=== PATIENT | female | born 1965 | race Caucasian/White ===

== ENCOUNTER 2016-12-17 16:06 | Emergency (ER) | payer MEDICARE, MEDICAID ==
[2016-12-17 16:40] LABS: BILIRUBIN,URINE NEGATIVE (NEG); GLUCOSE,URINE 250 mg/dL (NEG); NITRITE,URINE NEGATIVE (NEG); PROTEIN,URINE >=300 mg/dL (NEG-TRACE); UROBILINOGEN,URINE 0.2 mg/dL (0.2 mg/dL)
[2016-12-17 16:50] LABS: BACTERIA,URINE MODERATE /HPF (0-FEW); SQUAMOUS EPITHELIAL CELL,UR FEW /LPF
[2016-12-17 16:51] LABS: BASO % 1 % (0-3); EOS % 1 % (0-3); HEMATOCRIT 27.8 % (36.0-47.0); HEMOGLOBIN 9.5 g/dL (12.0-15.5); LYMPH # 0.9 x10^3/uL (1.0-4.8); LYMPH % 22 % (24-48); MEAN CORPUSCULAR HEMOGLOBIN 31 pg (25-35); MEAN CORPUSCULAR HGB CONC 34 g/dL (31-37); MEAN CORPUSCULAR VOLUME 92 fL (79-100); MONO % 8 % (0-9); NEUT % 67 % (31-73); PLATELET COUNT 121 x10^3/uL (140-400); RED BLOOD COUNT 3.01 x10^6/uL (3.50-5.40); RED CELL DISTRIBUTION WIDTH 15.8 % (11.5-14.5); WHITE BLOOD COUNT 3.9 x10^3/uL (4.0-11.0)
[2016-12-17] MEDS ORDERED: cloNIDine HCL 0.1 MG TABLET PO ONE (17:00)
[2016-12-17] MEDS ORDERED: amLODIPine BESYLATE 5 MG TABLET PO ONE (17:00)
--- NOTE | 2016-12-17 17:01 | RAD ---
AP portable chest radiograph 12/17/2016 Clinical History: Shortness of breath since earlier today. An AP portable erect digital radiograph of the chest was obtained. No previous studies are available for comparison. The cardiac silhouette is mildly enlarged. The thoracic aorta is mildly tortuous. No acute pulmonary infiltrate is seen. No pleural effusion or pneumothorax is noted. Degenerative changes are seen involving the thoracic spine and both shoulders. Impression: No acute pulmonary infiltrate is seen.
[2016-12-17 17:04] LABS: CALCIUM 8.9 mg/dL (8.5-10.1); CREATININE 2.8 mg/dL (0.6-1.0); GFR 17.8; POTASSIUM 3.7 mmol/L (3.5-5.1)
--- NOTE | 2016-12-17 17:08 | ED.ADGEN ---
H Past Medical History: Hypertension, Renal Disease CHIEF COMPLAINT Chief Complaint: multiple medical complaints Problems: HPI HPI Patient is a 51-year-old female with history of hypertension and end-stage renal disease requiring dialysis who presents from dialysis clinic with complaints of shortness of breath, elevated blood pressure, urinary frequency and dysuria. Patient states she was hypertensive and short of breath prior to dialysis. She was able to complete the dialysis session continued to have shortness of breath. Patient reports feeling clammy, she denies chest pain, chest pain, tightness. Denies increased leg pain or swelling. No fever chills or sweats. No other acute symptoms or complaints. ROS Review of Systems Review symptoms as per history of present illness. All other review symptoms are negative. ALLERGIES Allergies Allergies Coded Allergies Type Severity Reaction Last Updated Verified No Known Drug Allergies 12/17/16 No MEDICATIONS Home Meds Current Medications Medications (Trade) Dose Ordered Sig/Shakila Start Time Stop Time Status Last Admin Dose Admin Amlodipine Besylate (Norvasc) 10 mg 1X ONCE 12/17/16 17:00 12/17/16 17:01 Clonidine HCl (Catapres) 0.2 mg 1X ONCE 12/17/16 17:00 12/17/16 17:01 PHYSICAL EXAM General General: Well developed, well nourished, no acute distress, well appearing HEENT: Pupils equally round and reactive to light, EOMI, no discharge, normal conjunctiva Neck: Supple, no nuchal rigidity, no JVD, trachea midline, no tenderness Cardiac: RRR, no murmurs, no gallops, no rubs Chest/Lungs: Respirations nonlabored, mildly diminished bilaterally, no wheeze, no rhonchi, no crackles Abdomen: soft, non-distended, no guarding, no peritoneal signs, non-tender Back: No tenderness Extremities: no edema, pulses intact, non-tender,capillary refill <3 sec bilateral upper and lower extremities, Neuro: Alert and oriented x 4, no focal deficits, normal speech EKG EKG [81] beats per minute, normal axis, normal intervals, no ST elevation or depression, normal appearing T waves, interpreted by me. RADIOLOGY Radiology Chest XR: No acute cardiopulmonary disease per radiology report. ED COURSE ED Course Initial blood pressure 237/100 on ED arrival. Breath sounds mildly diminished, breathing treatment given. Lab work, EKG and imaging studies obtained Patient given home blood pressure medications which she normally takes postdialysis. UA positive. First dose of antibiotics given. Patient instructed to follow-up with PCP and dialysis as scheduled. Return precautions reviewed. ROSALVA BROOKS DO Dec 17, 2016 17:08
[2016-12-17 17:10] LABS: ALBUMIN 3.8 g/dL (3.4-5.0); ALBUMIN/GLOBULIN RATIO 0.8 (1.0-1.7); TOTAL BILIRUBIN 0.6 mg/dL (0.2-1.0); TOTAL PROTEIN 8.5 g/dL (6.4-8.2)
[2016-12-17 18:19] VITALS: BP 186/73
--- NOTE | 2016-12-17 23:46 | EKG ---
[facility] [address] [place] [address] Test Date: 2016-12-17 Test Time: 16:21:00 Pat Name: THANH VASQUEZ Department: Room: Gender: F Investigator Cash Shortage: : 1965 Requested By: ROSALVA BROOKS Order Number: [id number] Reading MD: Measurements Intervals [place] Rate: 81 P: 36 DE: 190 QRS: 5 QRSD: 86 T: 27 QT: 394 QTc: 464 Interpretive Statements SINUS RHYTHM LEFT ATRIAL ABNORMALITY RI6.01 Unconfirmed report No previous ECG available for comparison
== END 2016-12-17 18:31 | disposition home or self-care (01) ==
LOC: ER 16:06
DX: R06.02 Shortness of breath (principal); R30.0 Dysuria; R35.0 Frequency of micturition; I12.0 Hypertensive chronic kidney disease with stage 5 chronic kidney disease or end stage renal disease; N18.6 End stage renal disease; Z99.2 Dependence on renal dialysis
CPT/HCPCS: 36415; 71010; 80053; 81001; 85027; 87086; 93005; 99285-25

== ENCOUNTER 2017-01-07 10:13 | Inpatient (IN) | payer MEDICARE, OTHER, MEDICAID ==
[~2017-01-07] VITALS: Ht 165.1 cm; Wt 56.2 kg
[2017-01-07 10:59] LABS: BASO % 1 % (0-3); EOS % 2 % (0-3); HEMATOCRIT 25.9 % (36.0-47.0); HEMOGLOBIN 8.7 g/dL (12.0-15.5); LYMPH # 1.1 x10^3/uL (1.0-4.8); LYMPH % 29 % (24-48); MEAN CORPUSCULAR HEMOGLOBIN 32 pg (25-35); MEAN CORPUSCULAR HGB CONC 34 g/dL (31-37); MEAN CORPUSCULAR VOLUME 95 fL (79-100); MONO % 8 % (0-9); NEUT % 60 % (31-73); PLATELET COUNT 100 x10^3/uL (140-400); RED BLOOD COUNT 2.74 x10^6/uL (3.50-5.40); RED CELL DISTRIBUTION WIDTH 14.5 % (11.5-14.5); WHITE BLOOD COUNT 3.8 x10^3/uL (4.0-11.0)
[2017-01-07 11:14] LABS: CALCIUM 8.9 mg/dL (8.5-10.1); CREATININE 7.1 mg/dL (0.6-1.0); GFR 6.1; POTASSIUM 3.9 mmol/L (3.5-5.1)
[2017-01-07 11:17] LABS: PROTHROMBIN TIME PATIENT 12.7 SEC (11.7-14.0)
[2017-01-07 11:28] LABS: ALBUMIN 3.4 g/dL (3.4-5.0); ALBUMIN/GLOBULIN RATIO 0.9 (1.0-1.7); TOTAL BILIRUBIN 0.4 mg/dL (0.2-1.0); TOTAL PROTEIN 7.1 g/dL (6.4-8.2)
--- NOTE | 2017-01-07 12:07 | RAD ---
CT scan of the head without contrast 01/07/2017 Clinical History: Dizziness.. Technique: Unenhanced, contiguous, 5 mm axial sections were obtained through the head. One or more of the following individualized dose reduction techniques were utilized for this study: 1. Automated exposure control. 2. Adjustment of the mA and/or kV according to patient size. 3. Use of iterative reconstruction technique. Findings: Comparison study is dated 08/15/2012. There is generalized parenchymal atrophy. Small scattered areas of decreased attenuation are seen within the periventricular and subcortical white matter of both cerebral hemispheres consistent with areas of small vessel ischemic disease. No acute parenchymal abnormality is seen. No extra-axial fluid collection is noted. No skull fracture is seen. Impression: . No acute intracranial abnormality is seen.
--- NOTE | 2017-01-07 12:31 | PHYS DOC ---
Past Medical History Past Medical History: Hypertension, Renal Disease, Renal Failure Additional Past Medical Histor: CKD, Hep C Past Surgical History: , Tonsillectomy, Other Additional Past Surgical Histo: right arm dialysis fistula Alcohol Use: None Drug Use: None Adult General Chief Complaint Chief Complaint: WEAKNESS/GENERALIZED HPI HPI Patient is a 51 year old female who presents with dizziness. Patient states prior to arrival when she stood up she got extremely dizzy with the room spinning and difficulty walking. Patient states this is positional and when she sits down symptoms get better. While laying in the emergency room she is having no symptoms. Patient denies any chest pain or short of breath associated with this. Patient was nauseous but had no vomiting. Patient denies any fevers. Patient had no other symptoms. Review of Systems Review of Systems GEN: Denies fevers, chills, sweats HEENT: Denies blurred vision, sore throat CV: Denies chest pain RESP: Denies shortness of air, cough GI: Denies n/v/d NEURO: dizziness MSK: Denies weakness, joint pain/swelling Allergies Allergies Allergies Coded Allergies Type Severity Reaction Last Updated Verified No Known Drug Allergies 12/17/16 No Physical Exam Physical Exam GEN.: No apparent distress. Alert and oriented. HEENT: Head is normocephalic, atraumatic NECK: Supple. LUNGS: CTAB. HEART: RRR, S1, S2 present. Peripheral pulses intact ABDOMEN: Soft, nontender. Positive bowel sounds. EXTREMITIES: Without any cyanosis. NEUROLOGIC: Normal speech, normal tone, cranial nerves II through XII are grossly intact without any focal neurological deficits PSYCHIATRIC: Normal affect, normal mood. SKIN: No ulcerations Current Patient Data Vital Signs Vital Signs Date Time Temp Pulse Resp B/P (MAP) Pulse Ox O2 Delivery O2 Flow Rate FiO2 01/07/17 11:15 70 20 140/64 (89) 97 Nasal Cannula 2.0 01/07/17 10:22 98.2 98.2 Lab Values Laboratory Tests Test 01/07/17 10:25 White Blood Count 3.8 x10^3/uL (4.0-11.0) L Red Blood Count 2.74 x10^6/uL (3.50-5.40) L Hemoglobin 8.7 g/dL (12.0-15.5) L Hematocrit 25.9 % (36.0-47.0) L Mean Corpuscular Volume 95 fL (79-100) Mean Corpuscular Hemoglobin 32 pg (25-35) Mean Corpuscular Hemoglobin Concent 34 g/dL (31-37) Red Cell Distribution Width 14.5 % (11.5-14.5) Platelet Count 100 x10^3/uL (140-400) L Neutrophils (%) (Auto) 60 % (31-73) Lymphocytes (%) (Auto) 29 % (24-48) Monocytes (%) (Auto) 8 % (0-9) Eosinophils (%) (Auto) 2 % (0-3) Basophils (%) (Auto) 1 % (0-3) Neutrophils # (Auto) 2.3 x10^3uL (1.8-7.7) Lymphocytes # (Auto) 1.1 x10^3/uL (1.0-4.8) Monocytes # (Auto) 0.3 x10^3/uL (0.0-1.1) Eosinophils # (Auto) 0.1 x10^3/uL (0.0-0.7) Basophils # (Auto) 0.0 x10^3/uL (0.0-0.2) Prothrombin Time 12.7 SEC (11.7-14.0) Prothrombin Time INR 1.0 (0.8-1.1) PTT 31 SEC (24-38) Sodium Level 133 mmol/L (136-145) L Potassium Level 3.9 mmol/L (3.5-5.1) Chloride Level 95 mmol/L (98-107) L Carbon Dioxide Level 23 mmol/L (21-32) Anion Gap 15 (6-14) H Blood Urea Nitrogen 44 mg/dL (7-20) H Creatinine 7.1 mg/dL (0.6-1.0) H Estimated GFR (Cockcroft-Gault) 6.1 BUN/Creatinine Ratio 6 (6-20) Glucose Level 213 mg/dL (70-99) H Calcium Level 8.9 mg/dL (8.5-10.1) Total Bilirubin 0.4 mg/dL (0.2-1.0) Aspartate Amino Transferase (AST) 28 U/L (15-37) Alanine Aminotransferase (ALT) 36 U/L (14-59) Alkaline Phosphatase 118 U/L (46-116) H Troponin I Quantitative < 0.017 ng/mL (0.000-0.055) MP-Bnm-O-Type Natriuretic Peptide 10472 pg/mL (0-124) H Total Protein 7.1 g/dL (6.4-8.2) Albumin 3.4 g/dL (3.4-5.0) Albumin/Globulin Ratio 0.9 (1.0-1.7) L Ethyl Alcohol Level < 10 mg/dL (0-10) Laboratory Tests 01/07/17 10:25 Laboratory Tests 01/07/17 10:25 EKG EKG 1033: EKG shows normal sinus rhythm rate of 72 no STEMI [] Radiology/Procedures Radiology/Procedures CT the head negative Chest x-ray shows CHF [] Course & Med Decision Making Course & Med Decision Making Pertinent Labs and Imaging studies reviewed. (See chart for details) ED course: Patient was seen and examined emergency room CBC, CMP, chest x-ray, BNP, troponin, CT scan of the head, EtOH level, urine drug screen were ordered 1515: Updated patient on lab results and reevaluated in which she still feels extremely short of breath will admit for dialysis 1520: Discussed CC/HP/PMH with Dr. Charles and recommends admit and call nephrology for dialysis 1535: Discussed CC/HP/PMH with Dr. Alex and recommends dialysis [] Dragon Disclaimer Dragon Disclaimer This electronic medical record was generated, in whole or in part, using a voice recognition dictation system. Departure Departure Impression: Primary Impression: Congestive heart failure Additional Impression: End stage renal disease on dialysis Disposition: 09 ADMITTED INPATIENT Admitting Physician: Other (Dr. Charles) Condition: STABLE Referrals: NO PCP (PCP) Problem Qualifiers ARASELI COELHO DO Jan 07, 2017 12:31
--- NOTE | 2017-01-07 12:41 | RAD ---
AP portable chest radiograph 01/07/2017 Clinical History: Weakness. An AP portable erect digital radiograph of the chest was obtained. Comparison study is dated 12/17/2016. The cardiac silhouette is mildly enlarged. The thoracic aorta is mildly tortuous. Increasing congestive changes are seen involving both lungs. No pneumothorax or significant pleural effusion is seen. The osseous structures are unchanged. Impression: Increasing CHF.
--- NOTE | 2017-01-07 12:51 | EKG ---
[facility] [address] [place] [address] Test Date: 2017-01-07 Test Time: 10:27:49 Pat Name: THANH VASQUEZ Department: Room: Gender: F Certified Hyperbaric Technician: : 1965 Requested By: ARASELI COELHO Order Number: [id number] Reading MD: Ru Blakely Measurements Intervals [place] Rate: 72 P: 35 SD: 198 QRS: 14 QRSD: 92 T: 31 QT: 428 QTc: 470 Interpretive Statements SINUS RHYTHM Electronically Signed On 01-09-2017 11:12:16 CDT by Ru Blakely
[2017-01-07] MEDS ORDERED: MORPHINE SULFATE 2 MG/ML DISP.SYRIN. IV PRN (15:45)
[2017-01-07] MEDS ORDERED: ONDANSETRON PF 4 MG/2 ML VIAL. IV PRN (15:45)
[2017-01-07 17:48] LABS: BILIRUBIN,URINE NEGATIVE (NEG); GLUCOSE,URINE 250 mg/dL (NEG); NITRITE,URINE NEGATIVE (NEG); PROTEIN,URINE 100 mg/dL (NEG-TRACE); UROBILINOGEN,URINE 0.2 mg/dL (0.2 mg/dL)
[2017-01-07 17:50] VITALS: BP 146/75
[2017-01-07 17:52] LABS: BARBITURATES NEG (NEG); BENZODIAZEPINES NEG (NEG); CANNABINOIDS NEG (NEG); COCAINE NEG (NEG); METHADONE NEG (NEG); OPIATES NEG (NEG); PHENCYCLIDINE NEG (NEG)
[2017-01-07 17:56] LABS: BACTERIA,URINE MODERATE /HPF (0-FEW); RBC,URINE 0 /HPF (0-2); SQUAMOUS EPITHELIAL CELL,UR MOD /LPF; WBC,URINE OCC /HPF (0-4)
[2017-01-07 19:00] VITALS: BP 171/83
[2017-01-07 23:00] VITALS: BP 167/83
[2017-01-07] MEDS ORDERED: MECLIZINE HCL 12.5 MG TABLET. PO PRN (23:00)
[2017-01-07] MEDS ORDERED: ACETAMINOPHEN 650 MG/20.3 ML SOLUTION. PEG PRN (23:00)
[2017-01-08] VITALS (7 sets, daily range): BP systolic 163–202; BP diastolic 76–95
--- NOTE | 2017-01-08 00:55 | HP ---
ADMIT DATE: 01/07/2017 CHIEF COMPLAINT: Confusion, end-stage renal disease. HISTORY OF PRESENT ILLNESS: The patient is a 51-year-old woman with end-stage renal disease who presented to the Emergency Room via EMS after family called because of increased confusion. The patient relates that she was feeling poorly even yesterday. Describes it as a general malaise without any focal symptoms. Denied any fevers, chills, nausea or vomiting. Just felt out of sorts. Very lethargic. She does not remember if she ate last night, but states she must have as she was living with her family. This morning, however, she felt completely confused, did not know where she was. Her [id number] spoke with her and actually notified the dialysis center that the patient was confused and took the advice to call EMS. The patient states that she has been compliant with her dialysis, on a Friday, , Friday schedule. She also endorses significant dizziness, especially when walking. Relates the room is spinning around her and she gets nauseous. Per Emergency Room physician, she appeared volume overloaded and in CHF. The patient herself relates that she never had this diagnosis in the past, but endorses hypertension and end-stage renal failure, on dialysis regularly. PAST MEDICAL HISTORY: End-stage renal disease, fistula in right arm, hypertension, hepatitis C. FAMILY HISTORY: No other family members with end-stage renal disease. Positive for hypertension. SOCIAL HISTORY: Lives with her children. No toxic habits. ALLERGIES: No known drug allergies. MEDICATIONS: MAR reconciled with home medications. REVIEW OF SYSTEMS: The patient complains of dizziness, confusion. Generalized malaise and headaches, no other focal problems. Rest of organ system review is negative. PHYSICAL EXAMINATION: VITAL SIGNS: From today show a blood pressure of 146/75, heart rate of 70, respiratory rate at 18, she is afebrile. GENERAL: This is a 51-year-old confused woman, lethargic, but responds appropriately, although not oriented to time and place. HEENT: Shows no scleral icterus. NECK: Supple. LUNGS: Clear to auscultation bilaterally. HEART: Regular rate and rhythm. ABDOMEN: Has positive bowel sounds, soft, nontender. EXTREMITIES: Show no edema. SKIN: Warm, soft and dry without any rash. LABORATORY DATA: CBC with a WBC of 3.9, hemoglobin 8.7, platelets of 100. Of note, all numbers are essentially her baseline. Chemistries with a BUN and creatinine of 44 and 7.1, of note previously 13 and 2.8 three weeks ago. Electrolytes with a sodium of 133, potassium 3.9. LFTs normal except for minimally elevated alkaline phosphatase at 118, also her baseline proBNP at 10,776. Troponin negative. Glucose at 213. Tox screen was completely negative. UA negative for infectious symptoms. IMAGING: CT of the head was without acute findings. Chest x-ray shows increasing vascular congestion compared to radiograph from 12/17. ASSESSMENT AND PLAN: The patient is a 51-year-old woman with known end-stage renal disease, on dialysis. She now presents with generalized malaise, not feeling well and dizziness/vertigo. Findings by lab and x-ray as she appears to be in congestive heart failure, which is new for her. We will admit for emergent dialysis as she is completely anuric. We will obtain echocardiogram as well to evaluate and get Cardiology consult. Renal has been consulted already. For her headaches, symptoms sound very much like vertigo, potentially benign positional. However, other etiologies cannot be excluded. We will obtain a Neurology consult as well. For now, we will prescribe Tylenol as well as meclizine for dizziness. MRI will have to be without contrast given her renal disease, but has been ordered as well. HARISH MCKEON MD DR: TARA/nts JOB#: [id number] / [id number] LONNY
--- NOTE | 2017-01-08 01:03 | ACF ---
Admission Forms Criteria HEART FAILURE (Place 'X' for any and all applicable criteria): Admission to inpatient status for two midnights or more is indicated by ANY ONE of the following(1)(2)(3)(4) [ ]I. Hemodynamic instability [ ]II. Severe electrolyte abnormalities requiring inpatient care(9) [ ]III. Cardiac arrhythmias of immediate concern Anasarca [ ]IV. Precipitating cause for acute decompensation (eg, pneumonia, pulmonary embolism)[ ]V. [ ]V. Acute cardiac ischemia causing or associated with failure (Also use Angina or Myocardial Infarction as appropriate) [ ]. Pulmonary edema that is very severe (eg, mechanical ventilation needed, imminent or likely, need for 100% oxygen to keep oxygen saturation above 90%) [ ]VII. Massive skin edema (anasarca) with complications (eg tissue breakdown with infection, inability to void due to edema) [A] [X]VIII. Inpatient admission required rather than observation care (See Heart Failure: Observation Care as appropriate) because of 1 or more of the following: [ ]a) Pulmonary edema that is severe or worsening as indicated by ALL of the following : [ ]1) New need for oxygen therapy to keep oxygen saturation above 90% (or increased FiO2 need from baseline) [ ]2) Has not improved sufficiently with emergency department or observation care IV diuretics or other heart failure treatments[C] [ ]b) Altered mental status that is severe or persistent [ ]c) Increased creatinine (new on laboratory test) with reduction of more than 50% in estimated glomerular filtration rate from baseline. [ ]d) Progressively (ongoing) rising creatinine (known from past laboratory test) with reduction of more than 25% in estimated glomerular filtration rate from baseline [ ]e) Acute renal insufficiency (progressively (ongoing) rising creatinine (known from past laboratory test) with reduction of more than 25% in estimated glomerular filtration rate from baseline [ ]f) Acute renal failure [ ]g) Acute peripheral ischemia (e.g., examination shows pulseless, cool, mottled, or cyanotic extremity) [X]h) Oyxgen administration or respiratory treatments have been needed for over 24 hours that are performable only in acute inpatient setting [ ]i) Pulmonary artery catheter monitoring [ ]j) Other condition, treatment or monitoring requiring inpatient admission Extended stay beyond goal length of stay may be needed for(1)(3)(21)(25): [ ]a) Cardiac ischemia, confirmed or suspected as precipitant [ ]b) Cardiogenic shock [ ]c) Acute renal failure [ ]d) Stage IV chronic kidney disease (estimated glomerular filteration rate of less than 30 ML/min/1.73m2 (0.50 mL/sec/1.73m2), and not previously on chronic dialysis [ ]e) Respiratory failure (eg, need for noninvasive or invasive mechanical ventilation) (23) [ ]f) Concomitant pneumonia or significant electrolyte abnormality (eg, severe hyponatremia) [ ]g) Newly diagnosed (new onset) atrial fibrillation The original [employer] content created by [employer] has been revised. The portions of the content which have been revised are identified through the use of italic text, and [facility] has neither reviewed nor approved the modified material. All other unmodified content is copyright [facility]. Please see references footnoted in the original [facility] [employer] edition 2014 Admission Criteria Met?: Yes QI GRECO Jan 08, 2017 01:03
[2017-01-08 07:30] LABS: BASO % 1 % (0-3); EOS % 2 % (0-3); HEMATOCRIT 27.8 % (36.0-47.0); HEMOGLOBIN 9.4 g/dL (12.0-15.5); LYMPH % 24 % (24-48); MEAN CORPUSCULAR HEMOGLOBIN 32 pg (25-35); MEAN CORPUSCULAR HGB CONC 34 g/dL (31-37); MEAN CORPUSCULAR VOLUME 94 fL (79-100); MONO % 7 % (0-9); NEUT % 67 % (31-73); PLATELET COUNT 115 x10^3/uL (140-400); RED BLOOD COUNT 2.96 x10^6/uL (3.50-5.40); RED CELL DISTRIBUTION WIDTH 14.8 % (11.5-14.5); WHITE BLOOD COUNT 3.9 x10^3/uL (4.0-11.0)
[2017-01-08 07:47] LABS: CALCIUM 8.7 mg/dL (8.5-10.1); CREATININE 4.8 mg/dL (0.6-1.0); GFR 9.6; POTASSIUM 3.9 mmol/L (3.5-5.1)
[2017-01-08] MEDS ORDERED: IV NORMAL SALINE 1000ML BAG 1,000 ML IV PRN (08:20)
[2017-01-08] MEDS ORDERED: ALBUMIN HUMAN 25% 200 ML IV PRN (08:30)
[2017-01-08] MEDS ORDERED: ACETAMINOPHEN 500 MG TABLET PO PRN (08:30)
[2017-01-08] MEDS ORDERED: diphenhydrAMINE 50 MG/ML VIAL IV PRN (08:30)
[2017-01-08] MEDS ORDERED: DIALYSIS PATIENT. MC PRN (08:30)
--- NOTE | 2017-01-08 09:22 | PDOC2 ---
DEVAN MÉNDEZ EXTRACTIONS TECHNICIAN 01/08/17 0922: CARDIAC CONSULT DATE OF CONSULT Date of Consult DATE: 01/08/17 TIME: 09:16 REASON FOR CONSULT Reason for Consult: new CHF REFERRING PHYSICIAN Referring Physician: Araceli SOURCE Source: Chart review, Patient HISTORY OF PRESENT ILLNESS HISTORY OF PRESENT ILLNESS This is a pleasant 51 yo female admitted for complains of confusion. Reports that she was unsteady yesterday and she was upright and she almost fell and was able to catch herself on to the wall. She could not tell me if she was dizzy or having vertigo as she was getting confused as she was told. Per ED she mentioned of vertigo and nausea but denies for me. Her BG was checked at that time and it was at 120s and typically she runs in the 160-200. She going to be brought to her HD yesterday but she was getting confused and telling maybe she was delusional and was told that she was saying incomprehensible phrases. No notation of visual or auditory disturbances and no mention of unilateral weakness but she has had CVA x2 in the past and the residual for this is just she could not think right sometimes. Verbalized that she has had multiple falls in the last yr counting about 12. Also has been having some SOA prior to coming to ED but denies any palpitations, CP. Upon admission she has been noted with uncontrolled HTN but verbalized compliance with her meds. Upon admission yesterday she had HD and presently having another one currently. She does not take any ASA at home. She was hospitalized las yr around 10/2015 and was told of something in her head and infection in her blood. Denies any past CAD, VTE, nor CHF. PAST MEDICAL HISTORY Cardiovascular: HTN, Hyperlipidemia Pulmonary: No pertinent hx CENTRAL NERVOUS SYSTEM: CVA (x2), Periperal neuropathy GI: Peptic Ulcer disease Heme/Onc: Anemia NOS Hepatobiliary: Hep A/B/C (C) Psych: Anxiety Musculoskeletal: Osteoarthritis Rheumatologic: No pertinent hx Infectious disease: No pertinent hx ENT: No pertinent hx Renal/: Chronic renal failure Endocrine: Diabetes (2) PAST SURGICAL HISTORY Past Surgical History: (x2), Tonsillectomy, Other (right arm AV fistula) FAMILY HISTORY Family History: Diabetes (aunt), Other (grew up in a foster home) SOCIAL HISTORY Smoke: No ALCOHOL: none Drugs: None Lives: with Family CURRENT MEDICATIONS CURRENT MEDICATIONS Current Medications Medications (Trade) Dose Ordered Sig/Shakila Route PRN Reason Start Time Stop Time Status Last Admin Dose Admin Morphine Sulfate 2 mg PRN Q2HR PRN IV PAIN 01/07/17 15:45 01/07/17 22:53 DC 01/07/17 21:32 Acetaminophen (Tylenol) 650 mg PRN Q6HRS PRN PEG RHOADES, pain, fever>100.4 01/07/17 23:00 01/08/17 05:21 ALLERGIES ALLERGIES: Coded Allergies: No Known Drug Allergies (Unverified , 12/17/16) ROS Review of System 14 point ROS evaluated with pertinent positives noted per HPI PHYSICAL EXAM General: Alert, Oriented X3, Cooperative, No acute distress HEENT: Atraumatic, Mucous membr. moist/pink Lungs: Other (diminished bases) Heart: Regular rate (SR), Normal S1, Normal S2, No murmurs Abdomen: Soft, No tenderness Extremities: No cyanosis, No edema Skin: No breakdown, No significant lesion Neuro: Normal speech, Sensation intact Psych/Mental Status: Mental status NL, Mood NL MUSCULOSKELETAL: Osteoarthritic changes both hands VITALS VITALS Vital Signs Date Time Temp Pulse Resp B/P (MAP) Pulse Ox O2 Delivery O2 Flow Rate FiO2 01/08/17 07:00 98.2 77 18 184/76 (112) 91 Room Air 98.2 01/07/17 21:32 2.0 LABS Lab: Laboratory Tests Test 01/07/17 10:25 01/07/17 17:30 01/07/17 18:03 01/08/17 07:05 White Blood Count 3.8 x10^3/uL (4.0-11.0) 3.9 x10^3/uL (4.0-11.0) Red Blood Count 2.74 x10^6/uL (3.50-5.40) 2.96 x10^6/uL (3.50-5.40) Hemoglobin 8.7 g/dL (12.0-15.5) 9.4 g/dL (12.0-15.5) Hematocrit 25.9 % (36.0-47.0) 27.8 % (36.0-47.0) Mean Corpuscular Volume 95 fL (79-100) 94 fL (79-100) Mean Corpuscular Hemoglobin 32 pg (25-35) 32 pg (25-35) Mean Corpuscular Hemoglobin Concent 34 g/dL (31-37) 34 g/dL (31-37) Red Cell Distribution Width 14.5 % (11.5-14.5) 14.8 % (11.5-14.5) Platelet Count 100 x10^3/uL (140-400) 115 x10^3/uL (140-400) Neutrophils (%) (Auto) 60 % (31-73) 67 % (31-73) Lymphocytes (%) (Auto) 29 % (24-48) 24 % (24-48) Monocytes (%) (Auto) 8 % (0-9) 7 % (0-9) Eosinophils (%) (Auto) 2 % (0-3) 2 % (0-3) Basophils (%) (Auto) 1 % (0-3) 1 % (0-3) Neutrophils # (Auto) 2.3 x10^3uL (1.8-7.7) 2.6 x10^3uL (1.8-7.7) Lymphocytes # (Auto) 1.1 x10^3/uL (1.0-4.8) 1.0 x10^3/uL (1.0-4.8) Monocytes # (Auto) 0.3 x10^3/uL (0.0-1.1) 0.3 x10^3/uL (0.0-1.1) Eosinophils # (Auto) 0.1 x10^3/uL (0.0-0.7) 0.1 x10^3/uL (0.0-0.7) Basophils # (Auto) 0.0 x10^3/uL (0.0-0.2) 0.0 x10^3/uL (0.0-0.2) Prothrombin Time 12.7 SEC (11.7-14.0) Prothromb Time International Ratio 1.0 (0.8-1.1) Activated Partial Thromboplast Time 31 SEC (24-38) Sodium Level 133 mmol/L (136-145) 138 mmol/L (136-145) Potassium Level 3.9 mmol/L (3.5-5.1) 3.9 mmol/L (3.5-5.1) Chloride Level 95 mmol/L (98-107) 101 mmol/L (98-107) Carbon Dioxide Level 23 mmol/L (21-32) 25 mmol/L (21-32) Anion Gap 15 (6-14) 12 (6-14) Blood Urea Nitrogen 44 mg/dL (7-20) 25 mg/dL (7-20) Creatinine 7.1 mg/dL (0.6-1.0) 4.8 mg/dL (0.6-1.0) Estimated GFR (Cockcroft-Gault) 6.1 9.6 BUN/Creatinine Ratio 6 (6-20) Glucose Level 213 mg/dL (70-99) 128 mg/dL (70-99) Calcium Level 8.9 mg/dL (8.5-10.1) 8.7 mg/dL (8.5-10.1) Total Bilirubin 0.4 mg/dL (0.2-1.0) Aspartate Amino Transf (AST/SGOT) 28 U/L (15-37) Alanine Aminotransferase (ALT/SGPT) 36 U/L (14-59) Alkaline Phosphatase 118 U/L (46-116) Troponin I Quantitative < 0.017 ng/mL (0.000-0.055) [id number]-Type Natriuretic Peptide 18492 pg/mL (0-124) Total Protein 7.1 g/dL (6.4-8.2) Albumin 3.4 g/dL (3.4-5.0) Albumin/Globulin Ratio 0.9 (1.0-1.7) Ethyl Alcohol Level < 10 mg/dL (0-10) Urine Collection Type Unknown Urine Color Yellow Urine Clarity Cloudy Urine pH 7.0 Urine Specific [place] 1.010 Urine Protein 100 mg/dL (NEG-TRACE) Urine Glucose (UA) 250 mg/dL (NEG) Urine Ketones (Stick) Negative mg/dL (NEG) Urine Blood Negative (NEG) Urine Nitrite Negative (NEG) Urine Bilirubin Negative (NEG) Urine Urobilinogen Dipstick 0.2 mg/dL (0.2 mg/dL) Urine Leukocyte Esterase Negative (NEG) Urine RBC 0 /HPF (0-2) Urine WBC Occ /HPF (0-4) Urine Squamous Epithelial Cells Mod /LPF Urine Bacteria Moderate /HPF (0-FEW) Urine Opiates Screen Neg (NEG) Urine Methadone Screen Neg (NEG) Urine Barbiturates Neg (NEG) Urine Phencyclidine Screen Neg (NEG) Urine Amphetamine/Methamphetamine Neg (NEG) Urine Benzodiazepines Screen Neg (NEG) Urine Cocaine Screen Neg (NEG) Urine Cannabinoids Screen Neg (NEG) Urine Ethyl Alcohol Neg (NEG) Glucose (Fingerstick) 199 mg/dL (70-99) Test 01/08/17 07:14 Glucose (Fingerstick) 117 mg/dL (70-99) ASSESSMENT/PLAN ASSESSMENT/PLAN 1. Encephalopathy/Gait disturbance/ataxia: vertigo? x2 CVA in the past. 12 falls in the last yr. 2. Acute CHF likely on chronic possible diastolic dysfunction: improved. Could not rule out hypoglycemic reactions. 3. ESRD: currently having HD 4. HTN: labile 5. Anemia of chronic disease 6. DM2 Recommendations 1. Fluid off loading per HD 2. TTE 3. Neurology consult pending. Brain MRI pending 4. Not on home ASA, will start ASA. 5. lipids, TSH, A1C. 6. Norvasc and labetalol IV PRN, will obtain home med list. Problems: AMY BENJAMIN MD 01/08/17 1559: CARDIAC CONSULT ALLERGIES ALLERGIES: Coded Allergies: No Known Drug Allergies (Unverified , 12/17/16) ASSESSMENT/PLAN ASSESSMENT/PLAN Patient seen and examined. Agree with MANAGER SUPPLY's assessment and plan. Continue fluid removal with HD for acute on chronic diastolic HF 2D echo showed willie LV systolic function with evidence of diastolic dysfunction Continue workup for ataxia/gait disturbance per neurology team Thank you for your consultation Problems: DEVAN MÉNDEZ APRN Jan 08, 2017 09:22 AMY BENJAMIN MD Jan 08, 2017 15:59
[2017-01-08] MEDS ORDERED: LABETALOL 20 MG/4 ML DISP.SYRIN. IVP ONE (10:15)
[2017-01-08] MEDS ORDERED: amLODIPine BESYLATE 10 MG TABLET PO SCH (12:00)
[2017-01-08 12:01] LABS: CHOLESTEROL/HDL RATIO 3.2
--- NOTE | 2017-01-08 13:15 | RAD ---
Exam performed: One view chest. Indication: chf Date of Service: 01/08/2017 12:55 PM Comparison:01/07/17. Single AP upright portable view chest findings: Cardiomediastinal silhouette is within upper limits of normal. No acute infiltrates, effusion or pneumothorax is detected. The bony structures are normal. Impression: No acute cardiopulmonary process is detected.
[2017-01-08 13:22] LABS: HEP B SURFACE ABDY Reactive (.)
[2017-01-08] MEDS ORDERED: MAGNESIUM SULFATE 2GM 50 ML IV PRN (13:45)
--- NOTE | 2017-01-08 13:53 | PDOC ---
PROGRESS NOTES Chief Complaint Chief Complaint 1. confusion, 2/2 metabolic Encephalopathy?/Gait disturbance/ataxia 2. Acute CHF likely on chronic possible diastolic dysfunction 3. ESRD:HD TTSAT 4. HTN uncontrolled 5. Anemia of chronic disease 6. DM2 h/o CVA pancytopenia, with h/o HEP C plan: fu with renal, card, neuro brain MRI pending as per neuro check orthostatic BP need home meds SSI History of Present Illness History of Present Illness no fever, chills, sob or chest pain feels better today after HD yesterday, today extra HD still feels some lightheaded when moving head around, denies vertigo tho Vitals Vitals Vital Signs Date Time Temp Pulse Resp B/P (MAP) Pulse Ox O2 Delivery O2 Flow Rate FiO2 01/08/17 12:41 79 184/90 01/08/17 11:00 97.8 18 92 Room Air 97.8 01/07/17 21:32 2.0 Physical Exam General: Alert, Oriented X3, Cooperative, No acute distress Heart: Regular rate (SR), Normal S1, Normal S2, No murmurs Lungs: Clear Abdomen: Soft, No tenderness Extremities: No cyanosis, No edema Skin: No breakdown, No significant lesion Labs LABS Laboratory Tests Test 01/07/17 17:30 01/07/17 18:03 01/08/17 04:35 01/08/17 07:05 Urine Collection Type Unknown Urine Color Yellow Urine Clarity Cloudy Urine pH 7.0 Urine Specific [place] 1.010 Urine Protein 100 mg/dL (NEG-TRACE) Urine Glucose (UA) 250 mg/dL (NEG) Urine Ketones (Stick) Negative mg/dL (NEG) Urine Blood Negative (NEG) Urine Nitrite Negative (NEG) Urine Bilirubin Negative (NEG) Urine Urobilinogen Dipstick 0.2 mg/dL (0.2 mg/dL) Urine Leukocyte Esterase Negative (NEG) Urine RBC 0 /HPF (0-2) Urine WBC Occ /HPF (0-4) Urine Squamous Epithelial Cells Mod /LPF Urine Bacteria Moderate /HPF (0-FEW) Urine Opiates Screen Neg (NEG) Urine Methadone Screen Neg (NEG) Urine Barbiturates Neg (NEG) Urine Phencyclidine Screen Neg (NEG) Urine Amphetamine/Methamphetamine Neg (NEG) Urine Benzodiazepines Screen Neg (NEG) Urine Cocaine Screen Neg (NEG) Urine Cannabinoids Screen Neg (NEG) Urine Ethyl Alcohol Neg (NEG) Glucose (Fingerstick) 199 mg/dL (70-99) Erythrocyte Sedimentation Rate 30 (0-25) White Blood Count 3.9 x10^3/uL (4.0-11.0) Red Blood Count 2.96 x10^6/uL (3.50-5.40) Hemoglobin 9.4 g/dL (12.0-15.5) Hematocrit 27.8 % (36.0-47.0) Mean Corpuscular Volume 94 fL (79-100) Mean Corpuscular Hemoglobin 32 pg (25-35) Mean Corpuscular Hemoglobin Concent 34 g/dL (31-37) Red Cell Distribution Width 14.8 % (11.5-14.5) Platelet Count 115 x10^3/uL (140-400) Neutrophils (%) (Auto) 67 % (31-73) Lymphocytes (%) (Auto) 24 % (24-48) Monocytes (%) (Auto) 7 % (0-9) Eosinophils (%) (Auto) 2 % (0-3) Basophils (%) (Auto) 1 % (0-3) Neutrophils # (Auto) 2.6 x10^3uL (1.8-7.7) Lymphocytes # (Auto) 1.0 x10^3/uL (1.0-4.8) Monocytes # (Auto) 0.3 x10^3/uL (0.0-1.1) Eosinophils # (Auto) 0.1 x10^3/uL (0.0-0.7) Basophils # (Auto) 0.0 x10^3/uL (0.0-0.2) Sodium Level 138 mmol/L (136-145) Potassium Level 3.9 mmol/L (3.5-5.1) Chloride Level 101 mmol/L (98-107) Carbon Dioxide Level 25 mmol/L (21-32) Anion Gap 12 (6-14) Blood Urea Nitrogen 25 mg/dL (7-20) Creatinine 4.8 mg/dL (0.6-1.0) Estimated GFR (Cockcroft-Gault) 9.6 Glucose Level 128 mg/dL (70-99) Calcium Level 8.7 mg/dL (8.5-10.1) Triglycerides Level 109 mg/dL (0-150) Cholesterol Level 146 mg/dL (0-200) LDL Cholesterol, Calculated 79 mg/dL (0-100) VLDL Cholesterol, Calculated 22 mg/dL (0-40) Non-HDL Cholesterol Calculated 101 mg/dL (0-129) HDL Cholesterol 45 mg/dL (40-60) Cholesterol/HDL Ratio 3.2 Thyroid Stimulating Hormone (TSH) 0.806 uIU/mL (0.358-3.74) Test 01/08/17 07:14 01/08/17 11:40 Glucose (Fingerstick) 117 mg/dL (70-99) 129 mg/dL (70-99) Assessment and Plan Assessmemt and Plan Problems Medical Problems: (1) Congestive heart failure Status: Acute (2) End stage renal disease on dialysis Status: Acute Problems: Comment Review of Relevant I have reviewed the following items hsi (where applicable) has been applied. Labs Laboratory Tests Test 01/07/17 10:25 01/07/17 17:30 01/07/17 18:03 01/08/17 04:35 White Blood Count 3.8 x10^3/uL (4.0-11.0) Red Blood Count 2.74 x10^6/uL (3.50-5.40) Hemoglobin 8.7 g/dL (12.0-15.5) Hematocrit 25.9 % (36.0-47.0) Mean Corpuscular Volume 95 fL (79-100) Mean Corpuscular Hemoglobin 32 pg (25-35) Mean Corpuscular Hemoglobin Concent 34 g/dL (31-37) Red Cell Distribution Width 14.5 % (11.5-14.5) Platelet Count 100 x10^3/uL (140-400) Neutrophils (%) (Auto) 60 % (31-73) Lymphocytes (%) (Auto) 29 % (24-48) Monocytes (%) (Auto) 8 % (0-9) Eosinophils (%) (Auto) 2 % (0-3) Basophils (%) (Auto) 1 % (0-3) Neutrophils # (Auto) 2.3 x10^3uL (1.8-7.7) Lymphocytes # (Auto) 1.1 x10^3/uL (1.0-4.8) Monocytes # (Auto) 0.3 x10^3/uL (0.0-1.1) Eosinophils # (Auto) 0.1 x10^3/uL (0.0-0.7) Basophils # (Auto) 0.0 x10^3/uL (0.0-0.2) Prothrombin Time 12.7 SEC (11.7-14.0) Prothromb Time International Ratio 1.0 (0.8-1.1) Activated Partial Thromboplast Time 31 SEC (24-38) Sodium Level 133 mmol/L (136-145) Potassium Level 3.9 mmol/L (3.5-5.1) Chloride Level 95 mmol/L (98-107) Carbon Dioxide Level 23 mmol/L (21-32) Anion Gap 15 (6-14) Blood Urea Nitrogen 44 mg/dL (7-20) Creatinine 7.1 mg/dL (0.6-1.0) Estimated GFR (Cockcroft-Gault) 6.1 BUN/Creatinine Ratio 6 (6-20) Glucose Level 213 mg/dL (70-99) Calcium Level 8.9 mg/dL (8.5-10.1) Total Bilirubin 0.4 mg/dL (0.2-1.0) Aspartate Amino Transf (AST/SGOT) 28 U/L (15-37) Alanine Aminotransferase (ALT/SGPT) 36 U/L (14-59) Alkaline Phosphatase 118 U/L (46-116) Troponin I Quantitative < 0.017 ng/mL (0.000-0.055) BS-Shh-O-Type Natriuretic Peptide 80536 pg/mL (0-124) Total Protein 7.1 g/dL (6.4-8.2) Albumin 3.4 g/dL (3.4-5.0) Albumin/Globulin Ratio 0.9 (1.0-1.7) Ethyl Alcohol Level < 10 mg/dL (0-10) Hepatitis B Surface Antigen Negative (Negative) Hepatitis B Surface Antibody Reactive (.) Urine Collection Type Unknown Urine Color Yellow Urine Clarity Cloudy Urine pH 7.0 Urine Specific [place] 1.010 Urine Protein 100 mg/dL (NEG-TRACE) Urine Glucose (UA) 250 mg/dL (NEG) Urine Ketones (Stick) Negative mg/dL (NEG) Urine Blood Negative (NEG) Urine Nitrite Negative (NEG) Urine Bilirubin Negative (NEG) Urine Urobilinogen Dipstick 0.2 mg/dL (0.2 mg/dL) Urine Leukocyte Esterase Negative (NEG) Urine RBC 0 /HPF (0-2) Urine WBC Occ /HPF (0-4) Urine Squamous Epithelial Cells Mod /LPF Urine Bacteria Moderate /HPF (0-FEW) Urine Opiates Screen Neg (NEG) Urine Methadone Screen Neg (NEG) Urine Barbiturates Neg (NEG) Urine Phencyclidine Screen Neg (NEG) Urine Amphetamine/Methamphetamine Neg (NEG) Urine Benzodiazepines Screen Neg (NEG) Urine Cocaine Screen Neg (NEG) Urine Cannabinoids Screen Neg (NEG) Urine Ethyl Alcohol Neg (NEG) Glucose (Fingerstick) 199 mg/dL (70-99) Erythrocyte Sedimentation Rate 30 (0-25) Test 01/08/17 07:05 01/08/17 07:14 01/08/17 11:40 White Blood Count 3.9 x10^3/uL (4.0-11.0) Red Blood Count 2.96 x10^6/uL (3.50-5.40) Hemoglobin 9.4 g/dL (12.0-15.5) Hematocrit 27.8 % (36.0-47.0) Mean Corpuscular Volume 94 fL (79-100) Mean Corpuscular Hemoglobin 32 pg (25-35) Mean Corpuscular Hemoglobin Concent 34 g/dL (31-37) Red Cell Distribution Width 14.8 % (11.5-14.5) Platelet Count 115 x10^3/uL (140-400) Neutrophils (%) (Auto) 67 % (31-73) Lymphocytes (%) (Auto) 24 % (24-48) Monocytes (%) (Auto) 7 % (0-9) Eosinophils (%) (Auto) 2 % (0-3) Basophils (%) (Auto) 1 % (0-3) Neutrophils # (Auto) 2.6 x10^3uL (1.8-7.7) Lymphocytes # (Auto) 1.0 x10^3/uL (1.0-4.8) Monocytes # (Auto) 0.3 x10^3/uL (0.0-1.1) Eosinophils # (Auto) 0.1 x10^3/uL (0.0-0.7) Basophils # (Auto) 0.0 x10^3/uL (0.0-0.2) Sodium Level 138 mmol/L (136-145) Potassium Level 3.9 mmol/L (3.5-5.1) Chloride Level 101 mmol/L (98-107) Carbon Dioxide Level 25 mmol/L (21-32) Anion Gap 12 (6-14) Blood Urea Nitrogen 25 mg/dL (7-20) Creatinine 4.8 mg/dL (0.6-1.0) Estimated GFR (Cockcroft-Gault) 9.6 Glucose Level 128 mg/dL (70-99) Calcium Level 8.7 mg/dL (8.5-10.1) Triglycerides Level 109 mg/dL (0-150) Cholesterol Level 146 mg/dL (0-200) LDL Cholesterol, Calculated 79 mg/dL (0-100) VLDL Cholesterol, Calculated 22 mg/dL (0-40) Non-HDL Cholesterol Calculated 101 mg/dL (0-129) HDL Cholesterol 45 mg/dL (40-60) Cholesterol/HDL Ratio 3.2 Thyroid Stimulating Hormone (TSH) 0.806 uIU/mL (0.358-3.74) Glucose (Fingerstick) 117 mg/dL (70-99) 129 mg/dL (70-99) Laboratory Tests Test 01/07/17 17:30 01/07/17 18:03 01/08/17 04:35 01/08/17 07:05 Urine Collection Type Unknown Urine Color Yellow Urine Clarity Cloudy Urine pH 7.0 Urine Specific [place] 1.010 Urine Protein 100 mg/dL (NEG-TRACE) Urine Glucose (UA) 250 mg/dL (NEG) Urine Ketones (Stick) Negative mg/dL (NEG) Urine Blood Negative (NEG) Urine Nitrite Negative (NEG) Urine Bilirubin Negative (NEG) Urine Urobilinogen Dipstick 0.2 mg/dL (0.2 mg/dL) Urine Leukocyte Esterase Negative (NEG) Urine RBC 0 /HPF (0-2) Urine WBC Occ /HPF (0-4) Urine Squamous Epithelial Cells Mod /LPF Urine Bacteria Moderate /HPF (0-FEW) Urine Opiates Screen Neg (NEG) Urine Methadone Screen Neg (NEG) Urine Barbiturates Neg (NEG) Urine Phencyclidine Screen Neg (NEG) Urine Amphetamine/Methamphetamine Neg (NEG) Urine Benzodiazepines Screen Neg (NEG) Urine Cocaine Screen Neg (NEG) Urine Cannabinoids Screen Neg (NEG) Urine Ethyl Alcohol Neg (NEG) Glucose (Fingerstick) 199 mg/dL (70-99) Erythrocyte Sedimentation Rate 30 (0-25) White Blood Count 3.9 x10^3/uL (4.0-11.0) Red Blood Count 2.96 x10^6/uL (3.50-5.40) Hemoglobin 9.4 g/dL (12.0-15.5) Hematocrit 27.8 % (36.0-47.0) Mean Corpuscular Volume 94 fL (79-100) Mean Corpuscular Hemoglobin 32 pg (25-35) Mean Corpuscular Hemoglobin Concent 34 g/dL (31-37) Red Cell Distribution Width 14.8 % (11.5-14.5) Platelet Count 115 x10^3/uL (140-400) Neutrophils (%) (Auto) 67 % (31-73) Lymphocytes (%) (Auto) 24 % (24-48) Monocytes (%) (Auto) 7 % (0-9) Eosinophils (%) (Auto) 2 % (0-3) Basophils (%) (Auto) 1 % (0-3) Neutrophils # (Auto) 2.6 x10^3uL (1.8-7.7) Lymphocytes # (Auto) 1.0 x10^3/uL (1.0-4.8) Monocytes # (Auto) 0.3 x10^3/uL (0.0-1.1) Eosinophils # (Auto) 0.1 x10^3/uL (0.0-0.7) Basophils # (Auto) 0.0 x10^3/uL (0.0-0.2) Sodium Level 138 mmol/L (136-145) Potassium Level 3.9 mmol/L (3.5-5.1) Chloride Level 101 mmol/L (98-107) Carbon Dioxide Level 25 mmol/L (21-32) Anion Gap 12 (6-14) Blood Urea Nitrogen 25 mg/dL (7-20) Creatinine 4.8 mg/dL (0.6-1.0) Estimated GFR (Cockcroft-Gault) 9.6 Glucose Level 128 mg/dL (70-99) Calcium Level 8.7 mg/dL (8.5-10.1) Triglycerides Level 109 mg/dL (0-150) Cholesterol Level 146 mg/dL (0-200) LDL Cholesterol, Calculated 79 mg/dL (0-100) VLDL Cholesterol, Calculated 22 mg/dL (0-40) Non-HDL Cholesterol Calculated 101 mg/dL (0-129) HDL Cholesterol 45 mg/dL (40-60) Cholesterol/HDL Ratio 3.2 Thyroid Stimulating Hormone (TSH) 0.806 uIU/mL (0.358-3.74) Test 01/08/17 07:14 01/08/17 11:40 Glucose (Fingerstick) 117 mg/dL (70-99) 129 mg/dL (70-99) Medications Current Medications Ondansetron HCl (Zofran) 4 mg PRN Q8HRS PRN IV NAUSEA/VOMITING; Start 01/07/17 at 15:45; Stop 01/08/17 at 15:44 Morphine Sulfate 2 mg PRN Q2HR PRN IV PAIN Last administered on 01/07/17 21:32 ; Start 01/07/17 at 15:45; Stop 01/07/17 at 22:53; Status DC Acetaminophen (Tylenol) 650 mg PRN Q6HRS PRN PEG RHOADES, pain, fever>100.4 Last administered on 01/08/17 05:21; Start 01/07/17 at 23:00 Meclizine HCl (Antivert) 25 mg PRN TID PRN PO dizziness; Start 01/07/17 at 23: 00 Sodium Chloride 1,000 ml @ 1,000 mls/hr Q1H PRN IV hypotension; Start 01/08/17 at 08:20; Stop 01/08/17 at 14:19 Albumin Human 200 ml @ 200 mls/hr 1X PRN PRN IV Hypotension; Start 01/08/17 at 08:30; Stop 01/08/17 at 14:29 Acetaminophen (Tylenol) 500 mg 1X PRN PRN PO MILD PAIN / TEMP; Start 01/08/17 at 08:30; Stop 01/09/17 at 08:29 Diphenhydramine HCl (Benadryl) 25 mg 1X PRN PRN IV ITCHING; Start 01/08/17 at 08:30; Stop 01/09/17 at 08:29 Info (PHARMACY MONITORING -- do not chart) 1 each PRN DAILY PRN MC SEE COMMENTS ; Start 01/08/17 at 08:30 Labetalol HCl (Normodyne) 20 mg 1X ONCE IVP Last administered on 01/08/17 10: 40; Start 01/08/17 at 10:15; Stop 01/08/17 at 10:16; Status DC Amlodipine Besylate (Norvasc) 10 mg DAILY PO Last administered on 01/08/17 12: 41; Start 01/08/17 at 12:00 Labetalol HCl (Normodyne) 20 mg PRN Q2HR PRN IVP HYPERTENSION, SEE COMMENTS; Start 01/08/17 at 11:30 Magnesium Sulfate/ Dextrose 50 ml @ 25 mls/hr PRN DAILY PRN IV for Mag < 1.7 on am labs; Start 01/08/17 at 13:45; Status UNV Vitals/I & O Vital Sign - Last 24 Hours 01/07/17 01/07/17 01/07/17 01/07/17 14:00 14:30 15:00 15:30 Pulse 70 68 70 70 Resp 18 16 16 16 B/P (MAP) 148/69 (95) 159/75 (103) 153/74 (100) 151/69 (96) Pulse Ox 100 99 99 98 O2 Delivery Nasal Cannula Room Air O2 Flow Rate 2.0 01/07/17 01/07/17 01/07/17 01/07/17 16:00 16:30 17:00 17:50 Temp 98.1 98.1 Pulse 70 72 72 70 Resp 20 18 18 18 B/P (MAP) 150/67 (94) 161/76 (104) 158/71 (100) 146/75 (98) Pulse Ox 99 98 98 91 O2 Delivery Room Air Room Air Nasal Cannula O2 Flow Rate 2.0 01/07/17 01/07/17 01/07/17 01/07/17 19:00 19:30 20:00 21:32 Temp 97.8 97.8 Pulse 66 Resp 18 18 B/P (MAP) 171/83 (112) Pulse Ox 97 97 O2 Delivery Room Air Room Air Room Air Room Air O2 Flow Rate 2.0 2.0 2.0 01/07/17 01/08/17 01/08/17 01/08/17 23:00 03:00 07:00 10:40 Temp 98.3 97.5 98.2 98.3 97.5 98.2 Pulse 75 70 77 75 Resp 20 18 18 B/P (MAP) 167/83 (111) 163/80 (107) 184/76 (112) 180/78 Pulse Ox 95 95 91 O2 Delivery Room Air Room Air Room Air 01/08/17 01/08/17 11:00 12:41 Temp 97.8 97.8 Pulse 79 79 Resp 18 B/P (MAP) 184/90 (121) 184/90 Pulse Ox 92 O2 Delivery Room Air DINAH YOUNG MD Jan 08, 2017 13:53
--- NOTE | 2017-01-08 13:57 | PDOC2 ---
CONSULT Date of Consult Date of Consult DATE: 01/08/17 TIME: 13:43 Reason for Consult Reason for Consult: ESRD, Fl Overload and Hypoxemia Referring Physician Referring Physician: Dr Singh Identification/Chief Complaint Chief Complaint SOB, confusion Problems: Source Source: Chart review, Patient History of Present Illness Reason for Visit: as dictated Past Medical History Cardiovascular: HTN, Hyperlipidemia Pulmonary: No pertinent hx CENTRAL NERVOUS SYSTEM: CVA (x2), Periperal neuropathy GI: Peptic Ulcer disease Heme/Onc: Anemia NOS Hepatobiliary: Hep A/B/C (C) Psych: Anxiety Musculoskeletal: Osteoarthritis Rheumatologic: No pertinent hx Infectious disease: No pertinent hx ENT: No pertinent hx Renal/: Chronic renal failure Endocrine: Diabetes (2) Past Surgical History Past Surgical History: (x2), Tonsillectomy, Other (right arm AV fistula) Family History Family History: Diabetes (aunt), Other (grew up in a foster home) Social History No ALCOHOL: none Drugs: None Lives: with Family Current Problem List Problem List Problems Medical Problems: (1) Congestive heart failure Status: Acute (2) End stage renal disease on dialysis Status: Acute Current Medications Current Medications Current Medications Ondansetron HCl (Zofran) 4 mg PRN Q8HRS PRN IV NAUSEA/VOMITING; Start 01/07/17 at 15:45; Stop 01/08/17 at 15:44 Morphine Sulfate 2 mg PRN Q2HR PRN IV PAIN Last administered on 01/07/17 21:32 ; Start 01/07/17 at 15:45; Stop 01/07/17 at 22:53; Status DC Acetaminophen (Tylenol) 650 mg PRN Q6HRS PRN PEG RHOADES, pain, fever>100.4 Last administered on 01/08/17 05:21; Start 01/07/17 at 23:00 Meclizine HCl (Antivert) 25 mg PRN TID PRN PO dizziness; Start 01/07/17 at 23: 00 Sodium Chloride 1,000 ml @ 1,000 mls/hr Q1H PRN IV hypotension; Start 01/08/17 at 08:20; Stop 01/08/17 at 14:19 Albumin Human 200 ml @ 200 mls/hr 1X PRN PRN IV Hypotension; Start 01/08/17 at 08:30; Stop 01/08/17 at 14:29 Acetaminophen (Tylenol) 500 mg 1X PRN PRN PO MILD PAIN / TEMP; Start 01/08/17 at 08:30; Stop 01/09/17 at 08:29 Diphenhydramine HCl (Benadryl) 25 mg 1X PRN PRN IV ITCHING; Start 01/08/17 at 08:30; Stop 01/09/17 at 08:29 Info (PHARMACY MONITORING -- do not chart) 1 each PRN DAILY PRN MC SEE COMMENTS ; Start 01/08/17 at 08:30 Labetalol HCl (Normodyne) 20 mg 1X ONCE IVP Last administered on 01/08/17t 10: 40; Start 01/08/17 at 10:15; Stop 01/08/17 at 10:16; Status DC Amlodipine Besylate (Norvasc) 10 mg DAILY PO Last administered on 01/08/17t 12: 41; Start 01/08/17 at 12:00 Labetalol HCl (Normodyne) 20 mg PRN Q2HR PRN IVP HYPERTENSION, SEE COMMENTS; Start 01/08/17 at 11:30 Allergies Allergies: Coded Allergies: No Known Drug Allergies (Unverified , 12/17/16) ROS Review of System GEN: no Fevers no Chills EYES: no new Visual Complaints ENT: no EN Drainage no Hearing deficiets CVS: no Orthopnea no CP RESP: + SOB + MTZ (POA - now resolved) GI: min Nausea no Vomiting : no Dysuria no Urgency HEME: no easy bruising no Palp Ly Nodes NEURO no Focal Weakness no Sz PSYCH: no Suicidal Ideation + Depression SKIN: no visible Rashes ENDO: no Polyuria or Polydipsia no Hot/Cold Intolerance MU SK: no new Arthralgia no Myalgia Physical Exam Physical Exam General Appearance: Awake Alert Oriented x 3 In no Distress Eyes: VIsion Unchanged Conjunctiva Normal EN: No EN Drainage Mucous Memb. oist Neck: no JVD min JVP Supple no Thyromegaly CVS: S1 S2 + Murmur No Gallop No Rub no Edema Resp: no Rales no Rhonchi no Acc. Muscle use GI: BAS +ve NO Bruit Non Tender Non Distended : no CVA tenderness; no Suprapubic Tenderness SKIN: no Rashes Breast Exam deferred Mu.Sk: Adequate ROM no Muscle Atrophy Heme: Unable to palpate Obvious LAD no Splenomegaly NEURO: Good Strength and Tone Cranial Nerves II - XII grossly intact Psych: somewhat Depressed no Active hallucination Vital Signs Vital Signs Date Time Temp Pulse Resp B/P (MAP) Pulse Ox O2 Delivery O2 Flow Rate FiO2 01/08/17 12:41 79 184/90 01/08/17 11:00 97.8 18 92 Room Air 97.8 01/07/17 21:32 2.0 Assessment & Plan ESRD: HD done yest (emergently for hypoxia, fl Overload) and again today. Will re-evaluate for Dialysis in am and continue on TTSat schedule. Hypoxia - due to Pulm edema - NOw much better/ resolved pulm edema - appears to have resolved - defer to cardiology Anemia: Epogen as ordered; Transfuse with next HD as needed. HTN: Current BP meds reviewed. See orders for changes. Reval after starting HOme BP meds (no list avail currently) - defer to Cardiology to optimize. FLuid status appears to be optimized Pancytopenia - ? Heme eval Bone & Mineral: follow phos and alter binders as needed Discussed Plan of Care and prognosis etc. at length with family. Labs Labs Laboratory Tests Test 01/07/17 10:25 01/07/17 17:30 01/07/17 18:03 01/08/17 04:35 White Blood Count 3.8 x10^3/uL (4.0-11.0) Red Blood Count 2.74 x10^6/uL (3.50-5.40) Hemoglobin 8.7 g/dL (12.0-15.5) Hematocrit 25.9 % (36.0-47.0) Mean Corpuscular Volume 95 fL (79-100) Mean Corpuscular Hemoglobin 32 pg (25-35) Mean Corpuscular Hemoglobin Concent 34 g/dL (31-37) Red Cell Distribution Width 14.5 % (11.5-14.5) Platelet Count 100 x10^3/uL (140-400) Neutrophils (%) (Auto) 60 % (31-73) Lymphocytes (%) (Auto) 29 % (24-48) Monocytes (%) (Auto) 8 % (0-9) Eosinophils (%) (Auto) 2 % (0-3) Basophils (%) (Auto) 1 % (0-3) Neutrophils # (Auto) 2.3 x10^3uL (1.8-7.7) Lymphocytes # (Auto) 1.1 x10^3/uL (1.0-4.8) Monocytes # (Auto) 0.3 x10^3/uL (0.0-1.1) Eosinophils # (Auto) 0.1 x10^3/uL (0.0-0.7) Basophils # (Auto) 0.0 x10^3/uL (0.0-0.2) Prothrombin Time 12.7 SEC (11.7-14.0) Prothromb Time International Ratio 1.0 (0.8-1.1) Activated Partial Thromboplast Time 31 SEC (24-38) Sodium Level 133 mmol/L (136-145) Potassium Level 3.9 mmol/L (3.5-5.1) Chloride Level 95 mmol/L (98-107) Carbon Dioxide Level 23 mmol/L (21-32) Anion Gap 15 (6-14) Blood Urea Nitrogen 44 mg/dL (7-20) Creatinine 7.1 mg/dL (0.6-1.0) Estimated GFR (Cockcroft-Gault) 6.1 BUN/Creatinine Ratio 6 (6-20) Glucose Level 213 mg/dL (70-99) Calcium Level 8.9 mg/dL (8.5-10.1) Total Bilirubin 0.4 mg/dL (0.2-1.0) Aspartate Amino Transf (AST/SGOT) 28 U/L (15-37) Alanine Aminotransferase (ALT/SGPT) 36 U/L (14-59) Alkaline Phosphatase 118 U/L (46-116) Troponin I Quantitative < 0.017 ng/mL (0.000-0.055) EY-Dlb-Y-Type Natriuretic Peptide 01712 pg/mL (0-124) Total Protein 7.1 g/dL (6.4-8.2) Albumin 3.4 g/dL (3.4-5.0) Albumin/Globulin Ratio 0.9 (1.0-1.7) Ethyl Alcohol Level < 10 mg/dL (0-10) Hepatitis B Surface Antigen Negative (Negative) Hepatitis B Surface Antibody Reactive (.) Urine Collection Type Unknown Urine Color Yellow Urine Clarity Cloudy Urine pH 7.0 Urine Specific Eldred 1.010 Urine Protein 100 mg/dL (NEG-TRACE) Urine Glucose (UA) 250 mg/dL (NEG) Urine Ketones (Stick) Negative mg/dL (NEG) Urine Blood Negative (NEG) Urine Nitrite Negative (NEG) Urine Bilirubin Negative (NEG) Urine Urobilinogen Dipstick 0.2 mg/dL (0.2 mg/dL) Urine Leukocyte Esterase Negative (NEG) Urine RBC 0 /HPF (0-2) Urine WBC Occ /HPF (0-4) Urine Squamous Epithelial Cells Mod /LPF Urine Bacteria Moderate /HPF (0-FEW) Urine Opiates Screen Neg (NEG) Urine Methadone Screen Neg (NEG) Urine Barbiturates Neg (NEG) Urine Phencyclidine Screen Neg (NEG) Urine Amphetamine/Methamphetamine Neg (NEG) Urine Benzodiazepines Screen Neg (NEG) Urine Cocaine Screen Neg (NEG) Urine Cannabinoids Screen Neg (NEG) Urine Ethyl Alcohol Neg (NEG) Glucose (Fingerstick) 199 mg/dL (70-99) Erythrocyte Sedimentation Rate 30 (0-25) Test 01/08/17 07:05 01/08/17 07:14 01/08/17 11:40 White Blood Count 3.9 x10^3/uL (4.0-11.0) Red Blood Count 2.96 x10^6/uL (3.50-5.40) Hemoglobin 9.4 g/dL (12.0-15.5) Hematocrit 27.8 % (36.0-47.0) Mean Corpuscular Volume 94 fL (79-100) Mean Corpuscular Hemoglobin 32 pg (25-35) Mean Corpuscular Hemoglobin Concent 34 g/dL (31-37) Red Cell Distribution Width 14.8 % (11.5-14.5) Platelet Count 115 x10^3/uL (140-400) Neutrophils (%) (Auto) 67 % (31-73) Lymphocytes (%) (Auto) 24 % (24-48) Monocytes (%) (Auto) 7 % (0-9) Eosinophils (%) (Auto) 2 % (0-3) Basophils (%) (Auto) 1 % (0-3) Neutrophils # (Auto) 2.6 x10^3uL (1.8-7.7) Lymphocytes # (Auto) 1.0 x10^3/uL (1.0-4.8) Monocytes # (Auto) 0.3 x10^3/uL (0.0-1.1) Eosinophils # (Auto) 0.1 x10^3/uL (0.0-0.7) Basophils # (Auto) 0.0 x10^3/uL (0.0-0.2) Sodium Level 138 mmol/L (136-145) Potassium Level 3.9 mmol/L (3.5-5.1) Chloride Level 101 mmol/L (98-107) Carbon Dioxide Level 25 mmol/L (21-32) Anion Gap 12 (6-14) Blood Urea Nitrogen 25 mg/dL (7-20) Creatinine 4.8 mg/dL (0.6-1.0) Estimated GFR (Cockcroft-Gault) 9.6 Glucose Level 128 mg/dL (70-99) Calcium Level 8.7 mg/dL (8.5-10.1) Triglycerides Level 109 mg/dL (0-150) Cholesterol Level 146 mg/dL (0-200) LDL Cholesterol, Calculated 79 mg/dL (0-100) VLDL Cholesterol, Calculated 22 mg/dL (0-40) Non-HDL Cholesterol Calculated 101 mg/dL (0-129) HDL Cholesterol 45 mg/dL (40-60) Cholesterol/HDL Ratio 3.2 Thyroid Stimulating Hormone (TSH) 0.806 uIU/mL (0.358-3.74) Glucose (Fingerstick) 117 mg/dL (70-99) 129 mg/dL (70-99) Laboratory Tests Test 01/07/17 17:30 01/07/17 18:03 01/08/17 04:35 01/08/17 07:05 Urine Collection Type Unknown Urine Color Yellow Urine Clarity Cloudy Urine pH 7.0 Urine Specific Eldred 1.010 Urine Protein 100 mg/dL (NEG-TRACE) Urine Glucose (UA) 250 mg/dL (NEG) Urine Ketones (Stick) Negative mg/dL (NEG) Urine Blood Negative (NEG) Urine Nitrite Negative (NEG) Urine Bilirubin Negative (NEG) Urine Urobilinogen Dipstick 0.2 mg/dL (0.2 mg/dL) Urine Leukocyte Esterase Negative (NEG) Urine RBC 0 /HPF (0-2) Urine WBC Occ /HPF (0-4) Urine Squamous Epithelial Cells Mod /LPF Urine Bacteria Moderate /HPF (0-FEW) Urine Opiates Screen Neg (NEG) Urine Methadone Screen Neg (NEG) Urine Barbiturates Neg (NEG) Urine Phencyclidine Screen Neg (NEG) Urine Amphetamine/Methamphetamine Neg (NEG) Urine Benzodiazepines Screen Neg (NEG) Urine Cocaine Screen Neg (NEG) Urine Cannabinoids Screen Neg (NEG) Urine Ethyl Alcohol Neg (NEG) Glucose (Fingerstick) 199 mg/dL (70-99) Erythrocyte Sedimentation Rate 30 (0-25) White Blood Count 3.9 x10^3/uL (4.0-11.0) Red Blood Count 2.96 x10^6/uL (3.50-5.40) Hemoglobin 9.4 g/dL (12.0-15.5) Hematocrit 27.8 % (36.0-47.0) Mean Corpuscular Volume 94 fL (79-100) Mean Corpuscular Hemoglobin 32 pg (25-35) Mean Corpuscular Hemoglobin Concent 34 g/dL (31-37) Red Cell Distribution Width 14.8 % (11.5-14.5) Platelet Count 115 x10^3/uL (140-400) Neutrophils (%) (Auto) 67 % (31-73) Lymphocytes (%) (Auto) 24 % (24-48) Monocytes (%) (Auto) 7 % (0-9) Eosinophils (%) (Auto) 2 % (0-3) Basophils (%) (Auto) 1 % (0-3) Neutrophils # (Auto) 2.6 x10^3uL (1.8-7.7) Lymphocytes # (Auto) 1.0 x10^3/uL (1.0-4.8) Monocytes # (Auto) 0.3 x10^3/uL (0.0-1.1) Eosinophils # (Auto) 0.1 x10^3/uL (0.0-0.7) Basophils # (Auto) 0.0 x10^3/uL (0.0-0.2) Sodium Level 138 mmol/L (136-145) Potassium Level 3.9 mmol/L (3.5-5.1) Chloride Level 101 mmol/L (98-107) Carbon Dioxide Level 25 mmol/L (21-32) Anion Gap 12 (6-14) Blood Urea Nitrogen 25 mg/dL (7-20) Creatinine 4.8 mg/dL (0.6-1.0) Estimated GFR (Cockcroft-Gault) 9.6 Glucose Level 128 mg/dL (70-99) Calcium Level 8.7 mg/dL (8.5-10.1) Triglycerides Level 109 mg/dL (0-150) Cholesterol Level 146 mg/dL (0-200) LDL Cholesterol, Calculated 79 mg/dL (0-100) VLDL Cholesterol, Calculated 22 mg/dL (0-40) Non-HDL Cholesterol Calculated 101 mg/dL (0-129) HDL Cholesterol 45 mg/dL (40-60) Cholesterol/HDL Ratio 3.2 Thyroid Stimulating Hormone (TSH) 0.806 uIU/mL (0.358-3.74) Test 01/08/17 07:14 01/08/17 11:40 Glucose (Fingerstick) 117 mg/dL (70-99) 129 mg/dL (70-99) REECE BAEZ MD Jan 08, 2017 13:57
--- NOTE | 2017-01-08 13:58 | CARD ---
APPROVED REPORT EXAM: Two-dimensional and M-mode echocardiogram with Doppler and color Doppler. Other Information Quality : Average Rhythm : NSR INDICATION Congestive Heart Failure 2D DIMENSIONS RVDd2.9 (2.9-3.5cm)Left Atrium(2D)4.6 (1.6-4.0cm) IVSd1.1 (0.7-1.1cm)Aortic Root(2D)3.0 (2.0-3.7cm) LVDd4.8 (3.9-5.9cm)LVOT Diameter2.1 (1.8-2.4cm) PWd1.1 (0.7-1.1cm)LVDs3.5 (2.5-4.0cm) FS (%) 26.7 %SV55.5 ml LVEF(%)52.1 (>50%) Aortic Valve AoV Peak Dudley.131.6cm/sAoV VTI27.3cm AO Peak GR.6.9mmHgLVOT VTI 21.72cm AO Mean GR.4mmHg Mitral Valve MV E Kjtskksk77.9cm/sMV E Peak Gr.3mmHg MV DECEL [id number] A Rvodwzka460.2cm/s MV XWS49usP/A Ratio0.7 MV A [id number] (PHT)3.33cm2 TDI Lateral E' P. V7.02cm/sMedial E' P. V6.05cm/s E/Lateral E'12.1E/Medial E'14.0 Tricuspid Valve TR P. Ftodchlb310sf/sRAP [id number] TR Peak Gr.02hjAeTSIE57plBz LEFT VENTRICLE The left ventricle is normal size. There is normal left ventricular wall thickness. Left ventricle sy stolic function is normal. The Ejection Fraction is 50-55%. There is normal LV segmental wall motion. Tissue Doppler imaging reveals mild left ventricular diastolic dysfunction. Transmitral Doppler flow pattern is Grade I-abnormal relaxation pattern. RIGHT VENTRICLE The right ventricle is normal size. The right ventricular systolic function is normal. ATRIA The left atrium is borderline dilated. The right atrium size is normal. The interatrial septum is int act with no evidence for an atrial septal defect or patent foramen ovale as noted on 2-D or Doppler i maging. AORTIC VALVE The aortic valve is mildly calcified. The aortic valve is trileaflet. Doppler and Color Flow revealed no significant aortic regurgitation. There is no significant aortic valvular stenosis. MITRAL VALVE The mitral valve leaflets are calcified. There is no mitral valve stenosis. Doppler and Color Flow re vealed mild mitral regurgitation. TRICUSPID VALVE The tricuspid valve is normal in structure and function. Doppler and Color Flow revealed trace tricus pid regurgitation. The PA pressure was estimated at 32 mmHg. There is no tricuspid valve stenosis. PULMONIC VALVE The pulmonic valve is not well visualized. Doppler and Color Flow revealed no pulmonic valvular regur gitation. There is no pulmonic valvular stenosis. GREAT VESSELS The aortic root is normal in size. The ascending aorta is normal in size. Pulmonary veins not recorde d. The IVC is normal in size and collapses >50% with inspiration. PERICARDIAL EFFUSION There is no evidence of significant pericardial effusion. Critical Notification Critical Value: No <Conclusion> The left ventricle is normal size. Left ventricle systolic function is normal. The Ejection Fraction is 50-55%. Tissue Doppler imaging reveals mild left ventricular diastolic dysfunction. Transmitral Doppler flow pattern is Grade I-abnormal relaxation pattern. There is no significant aortic valvular stenosis. Doppler and Color Flow revealed no significant aortic regurgitation. Doppler and Color Flow revealed mild mitral regurgitation. Doppler and Color Flow revealed trace tricuspid regurgitation. The PA pressure was estimated at 32 mmHg.
[2017-01-08] MEDS ORDERED: ONDANSETRON PF 4 MG/2 ML VIAL. IV PRN (14:00)
--- NOTE | 2017-01-08 15:11 | RAD ---
MRI Brain without contrast History: Confusion, headaches, history of stroke Technique: Multiplanar, multisequential noncontrast MR imaging was performed of the brain. Contrast: None Comparison: None Findings: There is motion degradation for all image sequences.There is no evidence of an acute infarct or cytotoxic edema. There is mild to moderate lateral ventriculomegaly and minimal third ventriculomegaly, fourth ventricle not dilated. There is mild T2 and FLAIR hyperintense signal abnormality of the supratentorial periventricular white matter bilaterally greatest near the occipital and frontal horns. There is no significant midline shift, intra-axial mass effect, or focal abnormal extra-axial fluid collection. There is no significant hemosiderin deposition of the brain parenchyma. There is preservation of the major intracranial flow-voids at the skull base. There is moderate fluid of the mastoid air cells bilaterally.The cerebellar tonsils are normal in location. There is no significant abnormality of the pineal gland or pituitary gland. Paranasal sinuses are overall aerated. There is preserved marrow signal of the clivus. Impression: 1. Exam is degraded by motion. There is no evidence of recent infarct or intracranial mass effect. There is lateral and to lesser degree third ventriculomegaly, no older exams to evaluate for change in size of ventricles. The findings could be due to more central atrophy although component of hydrocephalus difficult to entirely exclude. Mild T2 and FLAIR hyperintense abnormality of the supratentorial white matter bilaterally is nonspecific, may be due to chronic microvascular ischemic disease, transependymal CSF flow not excluded. 2. There is fluid in mastoid air cells bilaterally, uncertain sterility. Electronically signed by: Hayden Castaneda MD (01/08/2017 3:08 PM) [id number]
--- NOTE | 2017-01-08 15:37 | PDOC2 ---
NEUROLOGY CONSULT Date of Admission Date of Admission DATE: 01/08/17 TIME: 15:25 Reason for Consult Reason for Consult: IMPRESSION: Chronic headaches. Confusional episodes. Generalized weakness. Dizziness. Vertigo. Renal failure on dialysis. CHF Anemia. HTN HCV No evidence of acute CVA this time. RECOMMENDATIONS/PLAN: MRI performed w/o acute findings. Topamax 25 mg bid. Treat medical diseases. Lab: see orders. OT/PT. ESR: 30 HISTORY OF THE PRESENT ILLNESS: 51-y-old female patient with above medical diseases complained headaches. She stated she has been having chronic headaches for many years than she can remember. She usually has headaches in more than 15 days a months. Her headaches are in temporal head but spreading to entire head. No other neurological deficits associated with her headaches. PAST MEDICAL HISTORY Cardiovascular: HTN, Hyperlipidemia Pulmonary: No pertinent hx CENTRAL NERVOUS SYSTEM: CVA (x2), Periperal neuropathy GI: Peptic Ulcer disease Heme/Onc: Anemia NOS Hepatobiliary: Hep A/B/C (C) Psych: Anxiety Musculoskeletal: Osteoarthritis Rheumatologic: No pertinent hx Infectious disease: No pertinent hx ENT: No pertinent hx Renal/: Chronic renal failure Endocrine: Diabetes (2) PAST SURGICAL HISTORY (x2), Tonsillectomy, Other (right arm AV fistula) FAMILY HISTORY Diabetes (aunt), Other (grew up in a foster home) SOCIAL HISTORY Smoke: No ALCOHOL: none Drugs: None Lives: with Family ALLERGY: Reviewed. MEDICATIONS: Refer to MAR REVIEW OF SYSTEMS: Constitutional: No cachexia. Head: No traumatic brain or head injury. Skin: No edema, or rash. Ear: No infection. Eyes: No vision loss or color blindness. Nose: No bleeding or purulent discharges. Hearing: No hearing decrease. Neck: No injury. Breast: No history of cancer, masses,or discharges. Cardiac: HTN. Pulmonary: No COPD. GI: No GI ulcer, GI bleeding. Urinary/genital: ESRD on dialysis. Endocrinologic: No cousin face, craniofacial dysmorphism, polydactyly Skeletomuscular: Generalized weakness. Neurological: see HP. Psychiatric: Denies drug use/abuse. Otherwise, not [id number] review of systems. PHYSICAL EXAMINATION: General appearance is in subacute distress. HEENT: Normocephalic and nontraumatic. Eyes, nose, ears, and throat are unremarkable. Neck is supple. No lymphadenopathy. No bruits are heard over the carotid artery. No crepitus. Cardiovascular: S1, S2, regular rate and rhythm. Pulmonary: Clear to auscultation bilaterally. Abdomen: Bowel sounds are positive. Abdomen is soft, nontender, and nondistended. Extremities: No rash, lesions, or edema. No restriction of range of motion NEUROLOGICAL EXAMINATION: Awake. Oriented to time, place and person. PERRL. EOMI. CN: no focal findings. Muscle tone: within normal. Muscle strength: 4 DTR: 2 Plantar reflex: Flexor response bilaterally Gait: not examined in bed. Sensory exam: no abnormal findings. No acute cerebellar signs elicited. F-T-N test not performed due to not cooperative. Current Medications Current Medications Current Medications Ondansetron HCl (Zofran) 4 mg PRN Q8HRS PRN IV NAUSEA/VOMITING; Start 01/07/17 at 15:45; Stop 01/08/17 at 15:44 Morphine Sulfate 2 mg PRN Q2HR PRN IV PAIN Last administered on 01/07/17 21:32 ; Start 01/07/17 at 15:45; Stop 01/07/17 at 22:53; Status DC Acetaminophen (Tylenol) 650 mg PRN Q6HRS PRN PEG RHOADES, pain, fever>100.4 Last administered on 01/08/17 05:21; Start 01/07/17 at 23:00 Meclizine HCl (Antivert) 25 mg PRN TID PRN PO dizziness; Start 01/07/17 at 23: 00 Sodium Chloride 1,000 ml @ 1,000 mls/hr Q1H PRN IV hypotension; Start 01/08/17 at 08:20; Stop 01/08/17 at 14:19; Status DC Albumin Human 200 ml @ 200 mls/hr 1X PRN PRN IV Hypotension; Start 01/08/17 at 08:30; Stop 01/08/17 at 14:29; Status DC Acetaminophen (Tylenol) 500 mg 1X PRN PRN PO MILD PAIN / TEMP; Start 01/08/17 at 08:30; Stop 01/09/17 at 08:29 Diphenhydramine HCl (Benadryl) 25 mg 1X PRN PRN IV ITCHING; Start 01/08/17 at 08:30; Stop 01/09/17 at 08:29 Info (PHARMACY MONITORING -- do not chart) 1 each PRN DAILY PRN MC SEE COMMENTS ; Start 01/08/17 at 08:30 Labetalol HCl (Normodyne) 20 mg 1X ONCE IVP Last administered on 01/08/17 10: 40; Start 01/08/17 at 10:15; Stop 01/08/17 at 10:16; Status DC Amlodipine Besylate (Norvasc) 10 mg DAILY PO Last administered on 01/08/17 12: 41; Start 01/08/17 at 12:00 Labetalol HCl (Normodyne) 20 mg PRN Q2HR PRN IVP HYPERTENSION, SEE COMMENTS; Start 01/08/17 at 11:30 Magnesium Sulfate/ Dextrose 50 ml @ 25 mls/hr PRN DAILY PRN IV for Mag < 1.7 on am labs; Start 01/08/17 at 13:45 Ondansetron HCl (Zofran) 4 mg PRN Q6HRS PRN IV NAUSEA/VOMITING; Start 01/08/17 at 14:00 Aspirin (Ecotrin) 81 mg DAILYWBKFT PO ; Start 01/09/17 at 08:00 Allergies Allergies: Coded Allergies: No Known Drug Allergies (Unverified , 12/17/16) Vitals VITALS Vital Signs Date Time Temp Pulse Resp B/P (MAP) Pulse Ox O2 Delivery O2 Flow Rate FiO2 01/08/17 12:41 79 184/90 01/08/17 11:00 97.8 18 92 Room Air 97.8 01/07/17 21:32 2.0 Labs Labs Laboratory Tests Test 01/07/17 10:25 01/07/17 17:30 01/07/17 18:03 01/08/17 07:05 White Blood Count 3.8 x10^3/uL (4.0-11.0) 3.9 x10^3/uL (4.0-11.0) Red Blood Count 2.74 x10^6/uL (3.50-5.40) 2.96 x10^6/uL (3.50-5.40) Hemoglobin 8.7 g/dL (12.0-15.5) 9.4 g/dL (12.0-15.5) Hematocrit 25.9 % (36.0-47.0) 27.8 % (36.0-47.0) Mean Corpuscular Volume 95 fL (79-100) 94 fL (79-100) Mean Corpuscular Hemoglobin 32 pg (25-35) 32 pg (25-35) Mean Corpuscular Hemoglobin Concent 34 g/dL (31-37) 34 g/dL (31-37) Red Cell Distribution Width 14.5 % (11.5-14.5) 14.8 % (11.5-14.5) Platelet Count 100 x10^3/uL (140-400) 115 x10^3/uL (140-400) Neutrophils (%) (Auto) 60 % (31-73) 67 % (31-73) Lymphocytes (%) (Auto) 29 % (24-48) 24 % (24-48) Monocytes (%) (Auto) 8 % (0-9) 7 % (0-9) Eosinophils (%) (Auto) 2 % (0-3) 2 % (0-3) Basophils (%) (Auto) 1 % (0-3) 1 % (0-3) Neutrophils # (Auto) 2.3 x10^3uL (1.8-7.7) 2.6 x10^3uL (1.8-7.7) Lymphocytes # (Auto) 1.1 x10^3/uL (1.0-4.8) 1.0 x10^3/uL (1.0-4.8) Monocytes # (Auto) 0.3 x10^3/uL (0.0-1.1) 0.3 x10^3/uL (0.0-1.1) Eosinophils # (Auto) 0.1 x10^3/uL (0.0-0.7) 0.1 x10^3/uL (0.0-0.7) Basophils # (Auto) 0.0 x10^3/uL (0.0-0.2) 0.0 x10^3/uL (0.0-0.2) Prothrombin Time 12.7 SEC (11.7-14.0) Prothromb Time International Ratio 1.0 (0.8-1.1) Activated Partial Thromboplast Time 31 SEC (24-38) Sodium Level 133 mmol/L (136-145) 138 mmol/L (136-145) Potassium Level 3.9 mmol/L (3.5-5.1) 3.9 mmol/L (3.5-5.1) Chloride Level 95 mmol/L (98-107) 101 mmol/L (98-107) Carbon Dioxide Level 23 mmol/L (21-32) 25 mmol/L (21-32) Anion Gap 15 (6-14) 12 (6-14) Blood Urea Nitrogen 44 mg/dL (7-20) 25 mg/dL (7-20) Creatinine 7.1 mg/dL (0.6-1.0) 4.8 mg/dL (0.6-1.0) Estimated GFR (Cockcroft-Gault) 6.1 9.6 BUN/Creatinine Ratio 6 (6-20) Glucose Level 213 mg/dL (70-99) 128 mg/dL (70-99) Calcium Level 8.9 mg/dL (8.5-10.1) 8.7 mg/dL (8.5-10.1) Total Bilirubin 0.4 mg/dL (0.2-1.0) Aspartate Amino Transf (AST/SGOT) 28 U/L (15-37) Alanine Aminotransferase (ALT/SGPT) 36 U/L (14-59) Alkaline Phosphatase 118 U/L (46-116) Troponin I Quantitative < 0.017 ng/mL (0.000-0.055) BV-Jvl-U-Type Natriuretic Peptide 35564 pg/mL (0-124) Total Protein 7.1 g/dL (6.4-8.2) Albumin 3.4 g/dL (3.4-5.0) Albumin/Globulin Ratio 0.9 (1.0-1.7) Ethyl Alcohol Level < 10 mg/dL (0-10) Hepatitis B Surface Antigen Negative (Negative) Hepatitis B Surface Antibody Reactive (.) Urine Collection Type Unknown Urine Color Yellow Urine Clarity Cloudy Urine pH 7.0 Urine Specific [place] 1.010 Urine Protein 100 mg/dL (NEG-TRACE) Urine Glucose (UA) 250 mg/dL (NEG) Urine Ketones (Stick) Negative mg/dL (NEG) Urine Blood Negative (NEG) Urine Nitrite Negative (NEG) Urine Bilirubin Negative (NEG) Urine Urobilinogen Dipstick 0.2 mg/dL (0.2 mg/dL) Urine Leukocyte Esterase Negative (NEG) Urine RBC 0 /HPF (0-2) Urine WBC Occ /HPF (0-4) Urine Squamous Epithelial Cells Mod /LPF Urine Bacteria Moderate /HPF (0-FEW) Urine Opiates Screen Neg (NEG) Urine Methadone Screen Neg (NEG) Urine Barbiturates Neg (NEG) Urine Phencyclidine Screen Neg (NEG) Urine Amphetamine/Methamphetamine Neg (NEG) Urine Benzodiazepines Screen Neg (NEG) Urine Cocaine Screen Neg (NEG) Urine Cannabinoids Screen Neg (NEG) Urine Ethyl Alcohol Neg (NEG) Glucose (Fingerstick) 199 mg/dL (70-99) Erythrocyte Sedimentation Rate 30 (0-25) Triglycerides Level 109 mg/dL (0-150) Cholesterol Level 146 mg/dL (0-200) LDL Cholesterol, Calculated 79 mg/dL (0-100) VLDL Cholesterol, Calculated 22 mg/dL (0-40) Non-HDL Cholesterol Calculated 101 mg/dL (0-129) HDL Cholesterol 45 mg/dL (40-60) Cholesterol/HDL Ratio 3.2 Thyroid Stimulating Hormone (TSH) 0.806 uIU/mL (0.358-3.74) Test 01/08/17 07:14 01/08/17 11:40 Glucose (Fingerstick) 117 mg/dL (70-99) 129 mg/dL (70-99) Laboratory Tests Test 01/07/17 17:30 01/07/17 18:03 01/08/17 07:05 01/08/17 07:14 Urine Collection Type Unknown Urine Color Yellow Urine Clarity Cloudy Urine pH 7.0 Urine Specific [place] 1.010 Urine Protein 100 mg/dL (NEG-TRACE) Urine Glucose (UA) 250 mg/dL (NEG) Urine Ketones (Stick) Negative mg/dL (NEG) Urine Blood Negative (NEG) Urine Nitrite Negative (NEG) Urine Bilirubin Negative (NEG) Urine Urobilinogen Dipstick 0.2 mg/dL (0.2 mg/dL) Urine Leukocyte Esterase Negative (NEG) Urine RBC 0 /HPF (0-2) Urine WBC Occ /HPF (0-4) Urine Squamous Epithelial Cells Mod /LPF Urine Bacteria Moderate /HPF (0-FEW) Urine Opiates Screen Neg (NEG) Urine Methadone Screen Neg (NEG) Urine Barbiturates Neg (NEG) Urine Phencyclidine Screen Neg (NEG) Urine Amphetamine/Methamphetamine Neg (NEG) Urine Benzodiazepines Screen Neg (NEG) Urine Cocaine Screen Neg (NEG) Urine Cannabinoids Screen Neg (NEG) Urine Ethyl Alcohol Neg (NEG) Glucose (Fingerstick) 199 mg/dL (70-99) 117 mg/dL (70-99) White Blood Count 3.9 x10^3/uL (4.0-11.0) Red Blood Count 2.96 x10^6/uL (3.50-5.40) Hemoglobin 9.4 g/dL (12.0-15.5) Hematocrit 27.8 % (36.0-47.0) Mean Corpuscular Volume 94 fL (79-100) Mean Corpuscular Hemoglobin 32 pg (25-35) Mean Corpuscular Hemoglobin Concent 34 g/dL (31-37) Red Cell Distribution Width 14.8 % (11.5-14.5) Platelet Count 115 x10^3/uL (140-400) Neutrophils (%) (Auto) 67 % (31-73) Lymphocytes (%) (Auto) 24 % (24-48) Monocytes (%) (Auto) 7 % (0-9) Eosinophils (%) (Auto) 2 % (0-3) Basophils (%) (Auto) 1 % (0-3) Neutrophils # (Auto) 2.6 x10^3uL (1.8-7.7) Lymphocytes # (Auto) 1.0 x10^3/uL (1.0-4.8) Monocytes # (Auto) 0.3 x10^3/uL (0.0-1.1) Eosinophils # (Auto) 0.1 x10^3/uL (0.0-0.7) Basophils # (Auto) 0.0 x10^3/uL (0.0-0.2) Erythrocyte Sedimentation Rate 30 (0-25) Sodium Level 138 mmol/L (136-145) Potassium Level 3.9 mmol/L (3.5-5.1) Chloride Level 101 mmol/L (98-107) Carbon Dioxide Level 25 mmol/L (21-32) Anion Gap 12 (6-14) Blood Urea Nitrogen 25 mg/dL (7-20) Creatinine 4.8 mg/dL (0.6-1.0) Estimated GFR (Cockcroft-Gault) 9.6 Glucose Level 128 mg/dL (70-99) Calcium Level 8.7 mg/dL (8.5-10.1) Triglycerides Level 109 mg/dL (0-150) Cholesterol Level 146 mg/dL (0-200) LDL Cholesterol, Calculated 79 mg/dL (0-100) VLDL Cholesterol, Calculated 22 mg/dL (0-40) Non-HDL Cholesterol Calculated 101 mg/dL (0-129) HDL Cholesterol 45 mg/dL (40-60) Cholesterol/HDL Ratio 3.2 Thyroid Stimulating Hormone (TSH) 0.806 uIU/mL (0.358-3.74) Test 01/08/17 11:40 Glucose (Fingerstick) 129 mg/dL (70-99) DEBORAH FRIAS MD Jan 08, 2017 15:36
[2017-01-08 16:03] LABS: % SAT IRON 14 % (15-34); IRON,SERUM 38 ug/dL (50-170)
[2017-01-08] MEDS ORDERED: ARIP5TAB13 PO (19:57)
[2017-01-08] MEDS ORDERED: TRAZ150T49 PO (19:58)
[2017-01-08] MEDS ORDERED: LAMO100T5 PO (19:58)
[2017-01-08] MEDS ORDERED: INSU100I13 SQ (19:58)
[2017-01-08] MEDS ORDERED: HYDR100T24 PO (19:58)
[2017-01-08] MEDS ORDERED: BUPR300T4 PO (19:58)
[2017-01-08] MEDS ORDERED: ONDA4TAB10 PO (19:58)
[2017-01-08] MEDS ORDERED: AMLO10TA2 PO (19:58)
[2017-01-08] MEDS ORDERED: CARV25TA PO (19:58)
[2017-01-08] MEDS ORDERED: GABA-586 PO (19:58)
[2017-01-08] MEDS ORDERED: SEVE800T9 PO (19:58)
[2017-01-08] MEDS ORDERED: CLON0.2T PO (19:58)
--- NOTE | 2017-01-08 21:29 | CONS ---
DATE OF CONSULTATION: HISTORY OF PRESENT ILLNESS: The patient is a 51-year-old female who has recently moved from the [facility] to the [facility]. She was feeling unsteady at home as well as had some dizziness/question vertigo like symptoms. She was supposed to go to dialysis yesterday, but instead ended up coming to the ER. In the ER, she was noted to be severely hypoxemic as well as was noted to have pulmonary edema on her chest x-ray. I was called by Dr. Waldrop for further evaluation of this lady. She required nasal cannula oxygen to maintain her saturations and she was emergently dialyzed yesterday. She claims she has no primary care doctor and does not know her cyber forensics analyst yet, since she just moved to this area. She dialyzes at [facility] on a Friday, , Friday schedule. She did have an extra treatment today to help with her shortness of breath and reevaluate her fluid status. She denies any other symptoms. She is a poor historian. Echocardiogram revealed EF of 50-55%. For rest of the details, please see electronic renal consult note. REECE BAEZ MD DR: VERONA/jannette JOB#: [id number] / [id number]
[2017-01-08] MEDS: TOPIRAMATE 25 MG TABLET. PO SCH (22:14)
[2017-01-08] MEDS: LABETALOL 20 MG/4 ML DISP.SYRIN. IVP PRN (22:16)
[2017-01-09 03:03] VITALS: BP 196/101
[2017-01-09] MEDS ORDERED: hydrALAZINE 20 MG/ML VIAL. IVP PRN (03:30)
[2017-01-09] MEDS ORDERED: ONDANSETRON ODT 4 MG TAB.RAPDIS. PO PRN (03:30)
[2017-01-09] MEDS: cloNIDine HCL 0.2 MG TABLET PO SCH ×4 (03:45→14:07)
[2017-01-09] MEDS: LABETALOL 20 MG/4 ML DISP.SYRIN. IVP PRN (03:46)
[2017-01-09] MEDS ORDERED: traZODone 50 MG TABLET. PO SCH (04:00)
[2017-01-09 05:48] LABS: BASO % 1 % (0-3); EOS % 0 % (0-3); HEMOGLOBIN 11.3 g/dL (12.0-15.5); LYMPH # 1.7 x10^3/uL (1.0-4.8); LYMPH % 32 % (24-48); MEAN CORPUSCULAR HEMOGLOBIN 32 pg (25-35); MEAN CORPUSCULAR HGB CONC 35 g/dL (31-37); MEAN CORPUSCULAR VOLUME 92 fL (79-100); MONO % 10 % (0-9); NEUT % 57 % (31-73); PLATELET COUNT 133 x10^3/uL (140-400); RED CELL DISTRIBUTION WIDTH 14.4 % (11.5-14.5); WHITE BLOOD COUNT 5.3 x10^3/uL (4.0-11.0)
[2017-01-09 05:58] VITALS: BP 142/69
[2017-01-09 06:10] LABS: ALBUMIN 3.7 g/dL (3.4-5.0); CALCIUM 9.5 mg/dL (8.5-10.1); CREATININE 4.2 mg/dL (0.6-1.0); GFR 11.2; PHOSPHORUS 2.7 mg/dL (2.6-4.7); POTASSIUM 3.6 mmol/L (3.5-5.1)
[2017-01-09 07:30] VITALS: BP_SYST 123; BP_SYST 130; BP_SYST 137; BP_DIAS 68; BP_DIAS 77; BP_DIAS 78
[2017-01-09] MEDS ORDERED: ASPIRIN ENTERIC COATED 81 MG TABLET.DR. PO SCH (08:00)
[2017-01-09] MEDS: SEVELAMER CARBONATE 800 MG TABLET. PO SCH ×3 (08:00→14:06)
[2017-01-09] MEDS ORDERED: CARVEDILOL 12.5 MG TABLET. PO SCH (08:00)
[2017-01-09] MEDS ORDERED: buPROPion XL 150 MG TAB.ER.24H. PO SCH (09:00)
[2017-01-09] MEDS ORDERED: amLODIPine BESYLATE 10 MG TABLET PO SCH (09:00)
[2017-01-09] MEDS ORDERED: lamoTRIgine 100 MG TABLET. PO SCH (09:00)
[2017-01-09] MEDS ORDERED: FERROUS SULFATE 325 MG TABLET. PO SCH (09:00)
[2017-01-09] MEDS ORDERED: ARIPiprazole 5 MG TABLET PO SCH (09:00)
[2017-01-09] MEDS ORDERED: IV NORMAL SALINE 1000ML BAG 1,000 ML IV PRN ×2 (09:10)
[2017-01-09] MEDS ORDERED: DIALYSIS PATIENT. MC PRN ×2 (09:15)
--- NOTE | 2017-01-09 10:31 | PDOC ---
Dialysis Progress Note Dialysis Note Dialysis Note Seen on Hemodialysis, tolerating treatment Well Vitals on Hemodialysis: 153/78 77 afeb General Appearance: Awake: Alert Oriented x 1-2 Neck: No JVD or JVP Chest: CTA Anshul Heart: S1 S2 Abdomen - Soft NTND Extremities - No Edema ESRD: Dialysis as below F 180 NR 3.0 Hrs 4 K 2.5 Ca 140 Na 35 HC03 Qb 350 + Qd 500+ Heparin 0 Units Uf 2-3 Kgs or to dry weight as tolerated May give 25-50 gms of 25% Albumin if needed to maintain Hemodynamic stability Treatment plan reviewed and discussed with mellowing machine operator Vitals Vital Signs Vital Signs Date Time Temp Pulse Resp B/P (MAP) Pulse Ox O2 Delivery O2 Flow Rate FiO2 01/09/17 07:30 87 123/77 (92) 01/09/17 07:30 98.1 18 96 Room Air 98.1 01/08/17 20:00 2.0 Labs Last Labs Laboratory Tests Test 01/07/17 17:30 01/07/17 18:03 01/08/17 07:05 01/08/17 07:14 Urine Collection Type Unknown Urine Color Yellow Urine Clarity Cloudy Urine pH 7.0 Urine Specific Issue 1.010 Urine Protein 100 mg/dL (NEG-TRACE) Urine Glucose (UA) 250 mg/dL (NEG) Urine Ketones (Stick) Negative mg/dL (NEG) Urine Blood Negative (NEG) Urine Nitrite Negative (NEG) Urine Bilirubin Negative (NEG) Urine Urobilinogen Dipstick 0.2 mg/dL (0.2 mg/dL) Urine Leukocyte Esterase Negative (NEG) Urine RBC 0 /HPF (0-2) Urine WBC Occ /HPF (0-4) Urine Squamous Epithelial Cells Mod /LPF Urine Bacteria Moderate /HPF (0-FEW) Urine Opiates Screen Neg (NEG) Urine Methadone Screen Neg (NEG) Urine Barbiturates Neg (NEG) Urine Phencyclidine Screen Neg (NEG) Urine Amphetamine/Methamphetamine Neg (NEG) Urine Benzodiazepines Screen Neg (NEG) Urine Cocaine Screen Neg (NEG) Urine Cannabinoids Screen Neg (NEG) Urine Ethyl Alcohol Neg (NEG) Glucose (Fingerstick) 199 mg/dL (70-99) 117 mg/dL (70-99) White Blood Count 3.9 x10^3/uL (4.0-11.0) Red Blood Count 2.96 x10^6/uL (3.50-5.40) Hemoglobin 9.4 g/dL (12.0-15.5) Hematocrit 27.8 % (36.0-47.0) Mean Corpuscular Volume 94 fL (79-100) Mean Corpuscular Hemoglobin 32 pg (25-35) Mean Corpuscular Hemoglobin Concent 34 g/dL (31-37) Red Cell Distribution Width 14.8 % (11.5-14.5) Platelet Count 115 x10^3/uL (140-400) Neutrophils (%) (Auto) 67 % (31-73) Lymphocytes (%) (Auto) 24 % (24-48) Monocytes (%) (Auto) 7 % (0-9) Eosinophils (%) (Auto) 2 % (0-3) Basophils (%) (Auto) 1 % (0-3) Neutrophils # (Auto) 2.6 x10^3uL (1.8-7.7) Lymphocytes # (Auto) 1.0 x10^3/uL (1.0-4.8) Monocytes # (Auto) 0.3 x10^3/uL (0.0-1.1) Eosinophils # (Auto) 0.1 x10^3/uL (0.0-0.7) Basophils # (Auto) 0.0 x10^3/uL (0.0-0.2) Erythrocyte Sedimentation Rate 30 (0-25) Sodium Level 138 mmol/L (136-145) Potassium Level 3.9 mmol/L (3.5-5.1) Chloride Level 101 mmol/L (98-107) Carbon Dioxide Level 25 mmol/L (21-32) Anion Gap 12 (6-14) Blood Urea Nitrogen 25 mg/dL (7-20) Creatinine 4.8 mg/dL (0.6-1.0) Estimated GFR (Cockcroft-Gault) 9.6 Glucose Level 128 mg/dL (70-99) Hemoglobin A1c 5.5 % (4.8-5.6) Calcium Level 8.7 mg/dL (8.5-10.1) Triglycerides Level 109 mg/dL (0-150) Cholesterol Level 146 mg/dL (0-200) LDL Cholesterol, Calculated 79 mg/dL (0-100) VLDL Cholesterol, Calculated 22 mg/dL (0-40) Non-HDL Cholesterol Calculated 101 mg/dL (0-129) HDL Cholesterol 45 mg/dL (40-60) Cholesterol/HDL Ratio 3.2 Thyroid Stimulating Hormone (TSH) 0.806 uIU/mL (0.358-3.74) Test 01/08/17 11:40 01/08/17 15:29 01/08/17 16:18 01/08/17 20:36 Glucose (Fingerstick) 129 mg/dL (70-99) 198 mg/dL (70-99) 159 mg/dL (70-99) Reticulocyte Count (auto) 2.0 % (0.5-2.5) Iron Level 38 ug/dL (50-170) Total Iron Binding Capacity 264 ug/dL (250-450) Iron Saturation 14 % (15-34) Ferritin 1309 ng/mL (8-252) Test 01/09/17 05:20 01/09/17 07:49 White Blood Count 5.3 x10^3/uL (4.0-11.0) Red Blood Count 3.50 x10^6/uL (3.50-5.40) Hemoglobin 11.3 g/dL (12.0-15.5) Hematocrit 32.0 % (36.0-47.0) Mean Corpuscular Volume 92 fL (79-100) Mean Corpuscular Hemoglobin 32 pg (25-35) Mean Corpuscular Hemoglobin Concent 35 g/dL (31-37) Red Cell Distribution Width 14.4 % (11.5-14.5) Platelet Count 133 x10^3/uL (140-400) Neutrophils (%) (Auto) 57 % (31-73) Lymphocytes (%) (Auto) 32 % (24-48) Monocytes (%) (Auto) 10 % (0-9) Eosinophils (%) (Auto) 0 % (0-3) Basophils (%) (Auto) 1 % (0-3) Neutrophils # (Auto) 3.0 x10^3uL (1.8-7.7) Lymphocytes # (Auto) 1.7 x10^3/uL (1.0-4.8) Monocytes # (Auto) 0.5 x10^3/uL (0.0-1.1) Eosinophils # (Auto) 0.0 x10^3/uL (0.0-0.7) Basophils # (Auto) 0.0 x10^3/uL (0.0-0.2) Sodium Level 135 mmol/L (136-145) Potassium Level 3.6 mmol/L (3.5-5.1) Chloride Level 97 mmol/L (98-107) Carbon Dioxide Level 26 mmol/L (21-32) Anion Gap 12 (6-14) Blood Urea Nitrogen 31 mg/dL (7-20) Creatinine 4.2 mg/dL (0.6-1.0) Estimated GFR (Cockcroft-Gault) 11.2 Glucose Level 170 mg/dL (70-99) Calcium Level 9.5 mg/dL (8.5-10.1) Phosphorus Level 2.7 mg/dL (2.6-4.7) Magnesium Level 2.0 mg/dL (1.8-2.4) Albumin 3.7 g/dL (3.4-5.0) Glucose (Fingerstick) 178 mg/dL (70-99) Laboratory Tests Test 01/08/17 11:40 01/08/17 15:29 01/08/17 16:18 01/08/17 20:36 Glucose (Fingerstick) 129 mg/dL (70-99) 198 mg/dL (70-99) 159 mg/dL (70-99) Reticulocyte Count (auto) 2.0 % (0.5-2.5) Iron Level 38 ug/dL (50-170) Total Iron Binding Capacity 264 ug/dL (250-450) Iron Saturation 14 % (15-34) Ferritin 1309 ng/mL (8-252) Test 01/09/17 05:20 01/09/17 07:49 White Blood Count 5.3 x10^3/uL (4.0-11.0) Red Blood Count 3.50 x10^6/uL (3.50-5.40) Hemoglobin 11.3 g/dL (12.0-15.5) Hematocrit 32.0 % (36.0-47.0) Mean Corpuscular Volume 92 fL (79-100) Mean Corpuscular Hemoglobin 32 pg (25-35) Mean Corpuscular Hemoglobin Concent 35 g/dL (31-37) Red Cell Distribution Width 14.4 % (11.5-14.5) Platelet Count 133 x10^3/uL (140-400) Neutrophils (%) (Auto) 57 % (31-73) Lymphocytes (%) (Auto) 32 % (24-48) Monocytes (%) (Auto) 10 % (0-9) Eosinophils (%) (Auto) 0 % (0-3) Basophils (%) (Auto) 1 % (0-3) Neutrophils # (Auto) 3.0 x10^3uL (1.8-7.7) Lymphocytes # (Auto) 1.7 x10^3/uL (1.0-4.8) Monocytes # (Auto) 0.5 x10^3/uL (0.0-1.1) Eosinophils # (Auto) 0.0 x10^3/uL (0.0-0.7) Basophils # (Auto) 0.0 x10^3/uL (0.0-0.2) Sodium Level 135 mmol/L (136-145) Potassium Level 3.6 mmol/L (3.5-5.1) Chloride Level 97 mmol/L (98-107) Carbon Dioxide Level 26 mmol/L (21-32) Anion Gap 12 (6-14) Blood Urea Nitrogen 31 mg/dL (7-20) Creatinine 4.2 mg/dL (0.6-1.0) Estimated GFR (Cockcroft-Gault) 11.2 Glucose Level 170 mg/dL (70-99) Calcium Level 9.5 mg/dL (8.5-10.1) Phosphorus Level 2.7 mg/dL (2.6-4.7) Magnesium Level 2.0 mg/dL (1.8-2.4) Albumin 3.7 g/dL (3.4-5.0) Glucose (Fingerstick) 178 mg/dL (70-99) Assessment Assessment Problems Medical Problems: (1) Congestive heart failure Status: Acute (2) End stage renal disease on dialysis Status: Acute Problems: Plan Plan of Care Problems Medical Problems: (1) Congestive heart failure Status: Acute (2) End stage renal disease on dialysis Status: Acute REECE BAEZ MD Jan 09, 2017 10:31
[2017-01-09] MEDS ORDERED: TOPI25TA52 PO (12:53)
[2017-01-09] MEDS ORDERED: FERR325T72 PO (12:53)
[2017-01-09] MEDS ORDERED: ASPI-612 PO (12:53)
--- NOTE | 2017-01-09 12:57 | PDOC3 ---
Discharge Summary [facility] Date of Admission: Jan 07, 2017 Discharge Date: Jan 09, 2017 Admitting Diagnosis 1. confusion, 2/2 metabolic Encephalopathy?/Gait disturbance/ataxia 2. Acute CHF with mild chronic diastolic dysfunction 3. ESRD:HD TTSAT 4. HTN uncontrolled 5. Anemia of chronic disease 6. DM2 h/o CVA pancytopenia, with h/o HEP C chronic headache Problems: Final Diagnosis CONSULTS card renal neuro Brief Hospital Course Ms. Hickman is a 51 old F, ESRD on HD, was sent for some confusion, dizzyness. Pt feels better on day, no confusion, got extra HD on . MRI brain neg. Echo showed EF 50%, grade 1 diastolic dysfunction. pt is stable to dc home, topomax bid as per neuro. dc time 35min . General: Alert, Oriented X3, Cooperative, No acute distress Heart: Regular rate (SR), Normal S1, Normal S2, No murmurs Lungs: Clear Abdomen: Soft, No tenderness Extremities: No cyanosis, No edema Skin: No breakdown, No significant lesion Patient History: Patient reports no known family medical history. Problems: Disposition home CONDITION AT DISCHARGE: Improved Diet renal Scheduled Amlodipine Besylate (Amlodipine Besylate), 10 MG PO DAILY, (Reported) Aripiprazole (Abilify), 5 MG PO DAILY, (Reported) Aspirin (Aspirin Ec), 81 MG PO DAILYWBKFT Bupropion Hcl (Bupropion Xl), 300 MG PO DAILY, (Reported) Carvedilol (Coreg), 25 MG PO BIDWMEALS, (Reported) Clonidine Hcl (Clonidine Hcl), 0.2 MG PO TID, (Reported) Ferrous Sulfate (Feosol), 325 MG PO DAILYWBKFT Gabapentin (Gabapentin), 300 MG PO QHS, (Reported) Hydralazine Hcl (Hydralazine Hcl), 1 TAB PO TID, (Reported) Insulin Glargine,Hum.rec.anlog (Lantus Solostar), 12 UNIT SQ QHS, (Reported) Lamotrigine (Lamictal), 100 MG PO BID, (Reported) Sevelamer Carbonate (Renvela), 2 TAB PO TID, (Reported) Topiramate (Topamax), 25 MG PO BID Trazodone Hcl (Trazodone Hcl), 150 MG PO HS, (Reported) Scheduled PRN Ondansetron (Zofran Odt), 4 MG PO PRN Q4HRS PRN for NAUSEA/VOMITING, (Reported) Follow Up pcp in 2 weeks DINAH YOUNG MD Jan 09, 2017 12:57
--- NOTE | 2017-01-09 13:38 | PDOC ---
CARDIO Progress Notes Date and Time Date of Service 01/09/2017 Time of Evaluation 1330 Subjective Subjective: No Chest Pain, No shortness of breath, Other (could not tell if it is daytime or nighttime, saying she ate lunch but her tray has not been touch, could not tell me where she is at. ) Vitals Vitals Vital Signs Date Time Temp Pulse Resp B/P (MAP) Pulse Ox O2 Delivery O2 Flow Rate FiO2 01/09/17 08:00 Room Air 2.0 01/09/17 07:30 87 123/77 (92) 01/09/17 07:30 98.1 18 96 98.1 Weight Weight [ ] Input and Output Intake and Output Intake and Output 01/10/17 07:00 Intake Total 120 ml Balance 120 ml Intake Oral 120 ml Laboratory Labs Laboratory Tests Test 01/08/17 15:29 01/08/17 16:18 01/08/17 20:36 01/09/17 05:20 Reticulocyte Count (auto) 2.0 % (0.5-2.5) Iron Level 38 ug/dL (50-170) Total Iron Binding Capacity 264 ug/dL (250-450) Iron Saturation 14 % (15-34) Ferritin 1309 ng/mL (8-252) Glucose (Fingerstick) 198 mg/dL (70-99) 159 mg/dL (70-99) White Blood Count 5.3 x10^3/uL (4.0-11.0) Red Blood Count 3.50 x10^6/uL (3.50-5.40) Hemoglobin 11.3 g/dL (12.0-15.5) Hematocrit 32.0 % (36.0-47.0) Mean Corpuscular Volume 92 fL (79-100) Mean Corpuscular Hemoglobin 32 pg (25-35) Mean Corpuscular Hemoglobin Concent 35 g/dL (31-37) Red Cell Distribution Width 14.4 % (11.5-14.5) Platelet Count 133 x10^3/uL (140-400) Neutrophils (%) (Auto) 57 % (31-73) Lymphocytes (%) (Auto) 32 % (24-48) Monocytes (%) (Auto) 10 % (0-9) Eosinophils (%) (Auto) 0 % (0-3) Basophils (%) (Auto) 1 % (0-3) Neutrophils # (Auto) 3.0 x10^3uL (1.8-7.7) Lymphocytes # (Auto) 1.7 x10^3/uL (1.0-4.8) Monocytes # (Auto) 0.5 x10^3/uL (0.0-1.1) Eosinophils # (Auto) 0.0 x10^3/uL (0.0-0.7) Basophils # (Auto) 0.0 x10^3/uL (0.0-0.2) Sodium Level 135 mmol/L (136-145) Potassium Level 3.6 mmol/L (3.5-5.1) Chloride Level 97 mmol/L (98-107) Carbon Dioxide Level 26 mmol/L (21-32) Anion Gap 12 (6-14) Blood Urea Nitrogen 31 mg/dL (7-20) Creatinine 4.2 mg/dL (0.6-1.0) Estimated GFR (Cockcroft-Gault) 11.2 Glucose Level 170 mg/dL (70-99) Calcium Level 9.5 mg/dL (8.5-10.1) Phosphorus Level 2.7 mg/dL (2.6-4.7) Magnesium Level 2.0 mg/dL (1.8-2.4) Albumin 3.7 g/dL (3.4-5.0) Test 01/09/17 07:49 Glucose (Fingerstick) 178 mg/dL (70-99) Microbiology Micro Microbiology 01/07/17 Urine Culture - Preliminary, Resulted 01/07/17 Urine Culture Result 1 (MOE) - Preliminary, Resulted Physical Exam HEENT: Neck Supple W Full Motion Chest: Symmetric LUNGS: Clear to Auscultation Heart: S1S2, RRR (SR) Abdomen: Soft N/T Extremities: No Calf Tenderness Neurology: alert, follow commands, confused Assessment Assessment 1. Encephalopathy/Gait disturbance/ataxia: Still having intermittent confusion as I witnessed. Neurology followin 2. Acute CHF likely on chronic possible diastolic dysfunction: compensated. EF preserved with normal wall motion 3. ESRD: currently having HD 4. HTN: labile at noc otherwise controlled. 5. Anemia of chronic disease 6. DM2: could not rule out hypoglycemic reaction. No statin currently but lipids are very well controlled Recommendations 1. Fluid off loading per HD 2. Continue with secondary prevention 3. Switch norvasc at bedtime for better control, continue with current BP meds. 4. Follow neurology recommendations 5. Will follow peripherally DEVAN MÉNDEZ APRN Jan 09, 2017 13:38
[2017-01-09] MEDS: TOPIRAMATE 25 MG TABLET. PO SCH (13:59)
[2017-01-09 15:00] VITALS: BP 185/97
[2017-01-09 15:30] LABS: HEP A IGM ABDY Negative (Negative)
--- NOTE | 2017-01-09 16:03 | PDOC ---
PROGRESS NOTES Assessment Assessment Chronic headaches. Confusional episodes. Generalized weakness. Dizziness. Vertigo. Renal failure on dialysis. CHF Anemia. HTN HCV No evidence of acute CVA this time. RECOMMENDATIONS/PLAN: Continue Topamax 25 mg bid. Treat medical diseases. OT/PT. FU with PCP. FU with Neurology as needed. ESR: 30 Brain MRI: No acute findings. HISTORY OF THE PRESENT ILLNESS: 51-y-old female patient with above medical diseases complained headaches. She stated she has been having chronic headaches for many years than she can remember. She usually has headaches in more than 15 days a months. Her headaches are in temporal head but spreading to entire head. No other neurological deficits associated with her headaches. She stated she was doing fine on 01/09/17. PAST MEDICAL HISTORY Cardiovascular: HTN, Hyperlipidemia Pulmonary: No pertinent hx CENTRAL NERVOUS SYSTEM: CVA (x2), Peripheral neuropathy GI: Peptic Ulcer disease Heme/Onc: Anemia NOS Hepatobiliary: Hep A/B/C (C) Psych: Anxiety Musculoskeletal: Osteoarthritis Rheumatologic: No pertinent hx Infectious disease: No pertinent hx ENT: No pertinent hx Renal/: Chronic renal failure Endocrine: Diabetes (2) PAST SURGICAL HISTORY (x2), Tonsillectomy, Other (right arm AV fistula) FAMILY HISTORY Diabetes (aunt), Other (grew up in a foster home) SOCIAL HISTORY Smoke: No ALCOHOL: none Drugs: None Lives: with Family ALLERGY: Reviewed. MEDICATIONS: Refer to MAR REVIEW OF SYSTEMS: Constitutional: No cachexia. Head: No traumatic brain or head injury. Skin: No edema, or rash. Ear: No infection. Eyes: No vision loss or color blindness. Nose: No bleeding or purulent discharges. Hearing: No hearing decrease. Neck: No injury. Breast: No history of cancer, masses,or discharges. Cardiac: HTN. Pulmonary: No COPD. GI: No GI ulcer, GI bleeding. Urinary/genital: ESRD on dialysis. Endocrinologic: No cousin face, craniofacial dysmorphism, polydactyly Skeletomuscular: Generalized weakness. Neurological: see HP. Psychiatric: Denies drug use/abuse. Otherwise, not [id number] review of systems. PHYSICAL EXAMINATION: General appearance is in subacute distress. HEENT: Normocephalic and nontraumatic. Eyes, nose, ears, and throat are unremarkable. Neck is supple. No lymphadenopathy. No bruits are heard over the carotid artery. No crepitus. Cardiovascular: S1, S2, regular rate and rhythm. Pulmonary: Clear to auscultation bilaterally. Abdomen: Bowel sounds are positive. Abdomen is soft, nontender, and nondistended. Extremities: No rash, lesions, or edema. No restriction of range of motion NEUROLOGICAL EXAMINATION: Awake. Oriented to time, place and person. PERRL. EOMI. CN: no focal findings. Muscle tone: within normal. Muscle strength: 4+ DTR: 2 Plantar reflex: Flexor response bilaterally Gait: not examined in bed. Sensory exam: no abnormal findings. No acute cerebellar signs elicited. F-T-N test fine. Objective Objective Vital Signs Date Time Temp Pulse Resp B/P (MAP) Pulse Ox O2 Delivery O2 Flow Rate FiO2 01/09/17 15:00 98.4 83 16 185/97 (126) 100 98.4 01/09/17 08:00 Room Air 2.0 Intake and Output 01/10/17 07:00 Intake Total 120 ml Balance 120 ml Intake Oral 120 ml Vitals Signs Vitals VS - Last 72 Hours, by Label Date Time Temp Pulse Resp B/P (MAP) Pulse Ox O2 Delivery O2 Flow Rate FiO2 01/09/17 15:00 98.4 83 16 185/97 (126) 100 98.4 01/09/17 14:07 83 185/97 01/09/17 14:06 83 185/97 01/09/17 14:04 83 185/97 01/09/17 08:00 Room Air 2.0 01/09/17 07:30 87 123/77 (92) 01/09/17 07:30 98.1 79 18 137/68 (91) 96 Room Air 98.1 01/09/17 07:30 87 130/78 (95) 01/09/17 05:58 142/69 (93) 01/09/17 03:46 86 196/101 01/09/17 03:45 86 196/101 01/09/17 03:45 86 196/101 01/09/17 03:03 98.9 86 20 196/101 (132) 98 Room Air 98.9 01/08/17 23:00 99.0 84 20 202/92 (128) 97 Room Air 99.0 01/08/17 22:16 98 180/93 01/08/17 20:00 Room Air 2.0 01/08/17 19:00 98 180/93 (122) 01/08/17 19:00 91 175/84 (114) 01/08/17 19:00 100.2 83 20 192/87 (122) 97 Room Air 100.2 01/08/17 17:46 87 169/87 (114) 01/08/17 17:46 82 182/88 (119) 01/08/17 17:46 93 178/95 (122) 01/08/17 16:21 178/89 (118) 01/08/17 12:41 79 184/90 01/08/17 11:00 97.8 79 18 184/90 (121) 92 Room Air 97.8 01/08/17 10:40 75 180/78 01/08/17 08:00 Room Air 01/08/17 07:00 98.2 77 18 184/76 (112) 91 Room Air 98.2 Laboratory Laboratory Laboratory Tests Test 01/08/17 16:18 01/08/17 20:36 01/09/17 05:20 01/09/17 07:49 Glucose (Fingerstick) 198 mg/dL (70-99) 159 mg/dL (70-99) 178 mg/dL (70-99) White Blood Count 5.3 x10^3/uL (4.0-11.0) Red Blood Count 3.50 x10^6/uL (3.50-5.40) Hemoglobin 11.3 g/dL (12.0-15.5) Hematocrit 32.0 % (36.0-47.0) Mean Corpuscular Volume 92 fL (79-100) Mean Corpuscular Hemoglobin 32 pg (25-35) Mean Corpuscular Hemoglobin Concent 35 g/dL (31-37) Red Cell Distribution Width 14.4 % (11.5-14.5) Platelet Count 133 x10^3/uL (140-400) Neutrophils (%) (Auto) 57 % (31-73) Lymphocytes (%) (Auto) 32 % (24-48) Monocytes (%) (Auto) 10 % (0-9) Eosinophils (%) (Auto) 0 % (0-3) Basophils (%) (Auto) 1 % (0-3) Neutrophils # (Auto) 3.0 x10^3uL (1.8-7.7) Lymphocytes # (Auto) 1.7 x10^3/uL (1.0-4.8) Monocytes # (Auto) 0.5 x10^3/uL (0.0-1.1) Eosinophils # (Auto) 0.0 x10^3/uL (0.0-0.7) Basophils # (Auto) 0.0 x10^3/uL (0.0-0.2) Sodium Level 135 mmol/L (136-145) Potassium Level 3.6 mmol/L (3.5-5.1) Chloride Level 97 mmol/L (98-107) Carbon Dioxide Level 26 mmol/L (21-32) Anion Gap 12 (6-14) Blood Urea Nitrogen 31 mg/dL (7-20) Creatinine 4.2 mg/dL (0.6-1.0) Estimated GFR (Cockcroft-Gault) 11.2 Glucose Level 170 mg/dL (70-99) Calcium Level 9.5 mg/dL (8.5-10.1) Phosphorus Level 2.7 mg/dL (2.6-4.7) Magnesium Level 2.0 mg/dL (1.8-2.4) Albumin 3.7 g/dL (3.4-5.0) Microbiology 01/07/17 Urine Culture - Final, Complete 01/07/17 Urine Culture Result 1 (MOE) - Final, Complete Medication Medications Current Medications Amlodipine Besylate (Norvasc) 10 mg DAILY PO ; Start 01/09/17 at 09:00; Status Cancel Amlodipine Besylate (Norvasc) 10 mg DAILY PO ; Start 01/10/17 at 21:00 Aripiprazole (Abilify) 5 mg DAILY PO Last administered on 01/09/17 13:59; Start 01/09/17 at 09:00 Aspirin (Ecotrin) 81 mg DAILYWBKFT PO Last administered on 01/09/17 13:59; Start 01/09/17 at 08:00 Bupropion HCl (Wellbutrin Xl) 300 mg DAILY PO Last administered on 01/09/17 14 :00; Start 01/09/17 at 09:00 Carvedilol (Coreg) 25 mg BIDWMEALS PO Last administered on 01/09/17 14:04; Start 01/09/17 at 08:00 Clonidine HCl (Catapres) 0.2 mg TID PO Last administered on 01/09/17 14:07; Start 01/09/17 at 04:00 Ferrous Sulfate (Feosol) 325 mg DAILYWBKFT PO Last administered on 01/09/17 14 :02; Start 01/09/17 at 09:00 Gabapentin (Neurontin) 300 mg QHS PO ; Start 01/09/17 at 21:00 Hydralazine HCl (Apresoline) 10 mg PRN Q4HRS PRN IVP ELEVATED BP, SEE COMMENTS ; Start 01/09/17 at 03:30 Hydralazine HCl (Apresoline) 100 mg TID PO Last administered on 01/09/17 14:06 ; Start 01/09/17 at 04:00 Info (PHARMACY MONITORING -- do not chart) 1 each PRN DAILY PRN MC SEE COMMENTS ; Start 01/09/17 at 09:15 Info (PHARMACY MONITORING -- do not chart) 1 each PRN DAILY PRN MC SEE COMMENTS ; Start 01/09/17 at 09:15; Status UNV Insulin Detemir (Levemir) 12 units QHS SQ ; Start 01/09/17 at 21:00 Lamotrigine (LaMICtal) 100 mg BID PO Last administered on 01/09/17 13:59; Start 01/09/17 at 09:00 Ondansetron HCl (Zofran Odt) 4 mg PRN Q4HRS PRN PO NAUSEA/VOMITING; Start 01/09 at 03:30 Sevelamer Carbonate (Renvela) 1,600 mg TIDWMEALS PO Last administered on 14:06; Start 01/09/17 at 08:00 Sodium Chloride 1,000 ml @ 400 mls/hr Q2H30M PRN IV PATENCY; Start 01/09/17 at 09:10; Stop 01/09/17 at 21:09 Sodium Chloride 1,000 ml @ 1,000 mls/hr Q1H PRN IV hypotension; Start 01/09/17 at 09:10; Stop 01/09/17 at 15:09; Status DC Topiramate (Topamax) 25 mg BID PO Last administered on 01/09/17 13:59; Start 01/08/17 at 21:00 Trazodone HCl (Desyrel) 150 mg QHS PO Last administered on 01/09/17 03:44; Start 01/09/17 at 04:00 Comment Review of Relevant I have reviewed the following items shi (where applicable) has been applied. DEBORAH FRIAS MD Jan 09, 2017 16:03
[2017-01-09] MEDS ORDERED: GABAPENTIN 300 MG CAPSULE. PO SCH (21:00)
[2017-01-09] MEDS ORDERED: INSULIN DETEMIR 300 UNITS/3 ML INSULN.PEN. SQ SCH (21:00)
[2017-01-10] MEDS ORDERED: amLODIPine BESYLATE 10 MG TABLET PO SCH (21:00)
== END 2017-01-09 17:30 | disposition home or self-care (01) | DRG 291 ==
LOC: ER 10:13 → 5 SOUTH 15:36
PROVIDERS: ADMIT Internal Medicine Hematology & Oncology; ATTEND Internal Medicine Hematology & Oncology
PROC: 5A1D00Z (ICD-10-PCS; principal; 2017-01-09)
DX: I13.2 Hypertensive heart and chronic kidney disease with heart failure and with stage 5 chronic kidney disease, or end stage renal disease (principal); I50.33 Acute on chronic diastolic (congestive) heart failure; G93.41 Metabolic encephalopathy; D61.818 Other pancytopenia; N18.6 End stage renal disease; E11.22 Type 2 diabetes mellitus with diabetic chronic kidney disease; E11.42 Type 2 diabetes mellitus with diabetic polyneuropathy; R27.0 Ataxia, unspecified; R09.02 Hypoxemia; F41.9 Anxiety disorder, unspecified; M19.90 Unspecified osteoarthritis, unspecified site; D63.8 Anemia in other chronic diseases classified elsewhere; E78.5 Hyperlipidemia, unspecified; Z99.2 Dependence on renal dialysis; Z91.81 History of falling; Z90.89 Acquired absence of other organs; Z86.73 Personal history of transient ischemic attack (TIA), and cerebral infarction without residual deficits; Z87.11 Personal history of peptic ulcer disease; Z86.19 Personal history of other infectious and parasitic diseases; Z83.3 Family history of diabetes mellitus; Z82.49 Family history of ischemic heart disease and other diseases of the circulatory system
CPT/HCPCS: 36415; 70450; 70551; 71010; 80048; 80053; 80061; 80069; 80074; 80307; 81001; 82728; 82962; 83036; 83540; 83550; 83735; 83880; 84443; 84484; 85025; 85045; 85610; 85651; 85730; 86706; 87086; 87340; 87341; 93005; 93306; G0480; J1815; J2270; J3490; 99285-25; G0479

== ENCOUNTER 2017-03-20 13:01 | Inpatient (IN) | payer MEDICARE, OTHER ==
[2017-03-20] VITALS (14 sets, daily range): BP systolic 137–236; BP diastolic 67–97
[~2017-03-20] VITALS: Ht 165.1 cm; Wt 58.8 kg
[~2017-03-20 13:01] MED LIST: AMLO10TA2 PO; AMLO5TAB4 PO; ARIP5TAB13 PO; ASPI-612 PO; BUPR300T4 PO; CARV25TA PO; CARV6.25 PO; CLON0.2T PO; FERR325T72 PO; GABA-585 PO; GABA-586 PO; HYDR100T24 PO; INSU100I13 SQ; LAMO100T5 PO; LISI40TA PO; MIDO10TA PO; ONDA4TAB10 PO; OXYC5CAP PO; SEVE800T9 PO; TOPI25TA52 PO; TRAZ150T49 PO
[2017-03-20] MEDS ORDERED: hydrALAZINE 20 MG/ML VIAL. IVP ONE (13:15)
--- NOTE | 2017-03-20 13:16 | PHYS DOC ---
Past Medical History Past Medical History: Diabetes-Type II, Hypertension, Hepatitis, Renal Disease , Renal Failure Additional Past Medical Histor: CKD, Hep C Past Surgical History: , Tonsillectomy, Other Additional Past Surgical Histo: right arm dialysis fistula Alcohol Use: None Drug Use: None Adult General Chief Complaint Chief Complaint: HYPERTENSION HPI HPI Patient is a 52 year old female presents to the emergency department from dialysis. Patient reports that she was told her blood pressure was high at dialysis. She states she does have a headache with a buzzing sound in her left ear. She states that 3 days ago she fell in her house and has complaints of left foot pain and left lateral chest pain, but denies hitting her head, denies loss of consciousness, denies difficulty with ambulation, denies cough or shortness of breath.. She states that she noted that the foot was bruised. Review of Systems Review of Systems Constitutional: Denies fever or chills [] Eyes: Denies change in visual acuity, redness, or eye pain [] HENT: Denies nasal congestion or sore throat [] Respiratory: Denies cough or shortness of breath [] Cardiovascular: No additional information not addressed in HPI [] GI: Denies abdominal pain, nausea, vomiting, bloody stools or diarrhea [] : Denies dysuria or hematuria [] Musculoskeletal: Left foot pain[] Integument: Denies rash or skin lesions [] Neurologic: Headache with auditory changes Endocrine: Denies polyuria or polydipsia [] All other systems were reviewed and found to be within normal limits, except as documented in this note. Current Medications Current Medications Current Medications Medications (Trade) Dose Ordered Sig/Shakila Start Time Stop Time Status Last Admin Dose Admin Hydralazine HCl (Apresoline Inj) 10 mg 1X ONCE 03/20/17 13:15 03/20/17 13:16 DC 03/20/17 13:25 10 MG Ondansetron HCl (Zofran) 4 mg PRN Q8HRS PRN 03/20/17 15:45 03/21/17 15:44 Allergies Allergies Allergies Coded Allergies Type Severity Reaction Last Updated Verified No Known Drug Allergies 03/04/17 No Physical Exam Physical Exam Constitutional: Well developed, well nourished, no acute distress, non-toxic appearance. [] HENT: Normocephalic, atraumatic, bilateral external ears normal, oropharynx moist, no oral exudates, nose normal. [] Eyes: PERRLA, EOMI, conjunctiva normal, no discharge. [] Neck: Normal range of motion, no midline or paracervical tenderness, supple, no stridor. [] Cardiovascular:Heart rate regular rhythm, no murmur [] Lungs & Thorax: Atraumatic, Bilateral breath sounds diminished but clear to auscultation, mild tenderness to palpate on the left lateral chest wall without evidence of trauma. [] Abdomen: Bowel sounds normal, soft, no tenderness, no masses, no pulsatile masses. [] Back: No tenderness, no CVA tenderness. [] Extremities: Left foot, ecchymosis over the dorsal aspect distally, she has ecchymosis on the plantar aspect over the midfoot. No bony tenderness on exam. Neurovascular intact distally. Full range of motion all digits without difficulty. Neurologic: Alert and oriented X 3, normal motor function, normal sensory function, no focal deficits noted. [] Psychologic: Affect normal, judgement normal, mood normal. [] Current Patient Data Vital Signs Vital Signs Date Time Temp Pulse Resp B/P (MAP) Pulse Ox O2 Delivery O2 Flow Rate FiO2 03/20/17 14:48 74 20 99 03/20/17 13:25 236/115 03/20/17 13:03 97.9 Room Air 97.9 Lab Values Laboratory Tests Test 03/20/17 13:15 White Blood Count 5.0 x10^3/uL (4.0-11.0) Red Blood Count 3.70 x10^6/uL (3.50-5.40) Hemoglobin 11.6 g/dL (12.0-15.5) L Hematocrit 34.4 % (36.0-47.0) L Mean Corpuscular Volume 93 fL (79-100) Mean Corpuscular Hemoglobin 31 pg (25-35) Mean Corpuscular Hemoglobin Concent 34 g/dL (31-37) Red Cell Distribution Width 14.4 % (11.5-14.5) Platelet Count 125 x10^3/uL (140-400) L Neutrophils (%) (Auto) 70 % (31-73) Lymphocytes (%) (Auto) 19 % (24-48) L Monocytes (%) (Auto) 8 % (0-9) Eosinophils (%) (Auto) 2 % (0-3) Basophils (%) (Auto) 1 % (0-3) Neutrophils # (Auto) 3.5 x10^3uL (1.8-7.7) Lymphocytes # (Auto) 0.9 x10^3/uL (1.0-4.8) L Monocytes # (Auto) 0.4 x10^3/uL (0.0-1.1) Eosinophils # (Auto) 0.1 x10^3/uL (0.0-0.7) Basophils # (Auto) 0.0 x10^3/uL (0.0-0.2) Sodium Level 134 mmol/L (136-145) L Potassium Level 4.2 mmol/L (3.5-5.1) Chloride Level 98 mmol/L (98-107) Carbon Dioxide Level 28 mmol/L (21-32) Anion Gap 8 (6-14) Blood Urea Nitrogen 35 mg/dL (7-20) H Creatinine 4.8 mg/dL (0.6-1.0) H Estimated GFR (Cockcroft-Gault) 9.5 BUN/Creatinine Ratio 7 (6-20) Glucose Level 273 mg/dL (70-99) H Calcium Level 8.9 mg/dL (8.5-10.1) Total Bilirubin 0.4 mg/dL (0.2-1.0) Aspartate Amino Transferase (AST) 19 U/L (15-37) Alanine Aminotransferase (ALT) 28 U/L (14-59) Alkaline Phosphatase 208 U/L (46-116) H Total Protein 8.1 g/dL (6.4-8.2) Albumin 3.4 g/dL (3.4-5.0) Albumin/Globulin Ratio 0.7 (1.0-1.7) L Laboratory Tests 03/20/17 13:15 Laboratory Tests 03/20/17 13:15 EKG EKG []1427: EKG reviewed by Dr. Morales, emergency room physician, sinus rhythm nonSTEMI Radiology/Procedures Radiology/Procedures [] Course & Med Decision Making Course & Med Decision Making Pertinent Labs and Imaging studies reviewed. (See chart for details) []1410: Patient's CT reviewed by Dr. Falk radiologist. There is a new acute left parietal subdural hematoma without midline shift or ventricular effacement. Case discussed with Dr. Morales emergency room physician. Neurosurgery notified. 1451: Dr. Demarco's nurse practitoner returned call, agrees to admission hosiptalists, consult Dr. Demarco and Dr. Monterroso (fire captain) 1531: Dr. Vela accepted patient's care for admission. Dragon Disclaimer Dragon Disclaimer This electronic medical record was generated, in whole or in part, using a voice recognition dictation system. Departure Departure Impression: Primary Impression: Subdural hematoma Additional Impression: Hypertension Disposition: 09 ADMITTED INPATIENT Admitting Physician: Vinicius Vela Condition: STABLE Referrals: NO PCP (PCP) Problem Qualifiers Additional Impression: Hypertension Hypertension type: renovascular hypertension Qualified Codes: I15.0 - Renovascular hypertension ANABEL MARTÍNEZ PASTE WORKER Mar 20, 2017 13:16
[2017-03-20 13:31] LABS: BASO % 1 % (0-3); EOS % 2 % (0-3); HEMATOCRIT 34.4 % (36.0-47.0); HEMOGLOBIN 11.6 g/dL (12.0-15.5); LYMPH # 0.9 x10^3/uL (1.0-4.8); LYMPH % 19 % (24-48); MEAN CORPUSCULAR HEMOGLOBIN 31 pg (25-35); MEAN CORPUSCULAR HGB CONC 34 g/dL (31-37); MEAN CORPUSCULAR VOLUME 93 fL (79-100); MONO % 8 % (0-9); NEUT % 70 % (31-73); PLATELET COUNT 125 x10^3/uL (140-400); RED CELL DISTRIBUTION WIDTH 14.4 % (11.5-14.5)
[2017-03-20 13:33] LABS: CALCIUM 8.9 mg/dL (8.5-10.1); CREATININE 4.8 mg/dL (0.6-1.0); GFR 9.5; POTASSIUM 4.2 mmol/L (3.5-5.1)
[2017-03-20 13:39] LABS: ALBUMIN 3.4 g/dL (3.4-5.0); ALBUMIN/GLOBULIN RATIO 0.7 (1.0-1.7); TOTAL BILIRUBIN 0.4 mg/dL (0.2-1.0); TOTAL PROTEIN 8.1 g/dL (6.4-8.2)
--- NOTE | 2017-03-20 14:08 | RAD ---
Clinical indications: Headache. Recent fall. Hypertension. Comparison: March 04, 2017. Technique: Noncontrast axial cross sectional scanning of the head was performed. Findings: There is a new acute small left parietal subdural hematoma measuring 6 mm in thickness. The ventricles are chronically dilated and are unchanged. This could be due to normal pressure hydrocephalus since it is out of portion to moderate cerebral atrophy. Mild bilateral periventricular white matter hypodensity seen consistent with chronic small vessel ischemic disease in this age group and this is unchanged. No new midline shift is evident. No skull fracture or pneumocephalus is seen. No opacification of the mastoid sinuses or the paranasal sinuses is seen. The maxillary sinuses are not completely seen in this study. Impression: New acute left parietal subdural hematoma without midline shift or lateral ventricular effacement. Stable ventriculomegaly. Stable chronic small vessel ischemic disease of the periventricular white matter. PQRS Compliance Statement: One or more of the following individualized dose reduction techniques were utilized for this examination: 1. Automated exposure control 2. Adjustment of the mA and/or kV according to patient size 3. Use of iterative reconstruction technique
--- NOTE | 2017-03-20 14:54 | EKG ---
[facility] [address] [place] [id number] Test Date: 2017-03-20 Test Time: 14:27:13 Pat Name: THANH VASQUEZ Department: Room: Gender: F Cashier And Waiter/Waitress: : 1965 Requested By: ANABEL MARTÍNEZ Order Number: [id number] Reading MD: Ru Blakely MD Measurements Intervals [place] Rate: 73 P: 35 NM: 202 QRS: 16 QRSD: 86 T: 34 QT: 410 QTc: 456 Interpretive Statements SINUS RHYTHM Electronically Signed On 03-24-2017 10:43:32 TELEGRAPH LINEMAN by Ru Blakely MD
--- NOTE | 2017-03-20 14:55 | RAD ---
EXAM: Chest one view. HISTORY: Fall, hypertension. COMPARISON: 03/04/2017. FINDINGS: A frontal view of the chest is obtained. There are no confluent infiltrates. There is mild atelectasis in the costophrenic angles. There is no pneumothorax or pleural effusion. The heart is not enlarged. IMPRESSION: 1. No confluent infiltrates.
[2017-03-20] MEDS ORDERED: ONDANSETRON PF 4 MG/2 ML VIAL. IV PRN (15:45)
[2017-03-20] MEDS ORDERED: fentaNYL PF VIAL 100 MCG/2 ML VIAL IV ONE (16:30)
[2017-03-20] MEDS: hydrALAZINE 20 MG/ML VIAL. IVP PRN (18:07)
[2017-03-20] MEDS: fentaNYL PF VIAL 100 MCG/2 ML VIAL IV PRN (18:08)
--- NOTE | 2017-03-20 19:17 | HP ---
ADMIT DATE: 03/20/2017 CHIEF COMPLAINT: Falls, elevated blood pressure. HISTORY OF PRESENT ILLNESS: The patient is a pleasant 52-year-old female who is on dialysis. Apparently, she was at dialysis today. She was sent to the ER because her pressures were too high. She had a headache as well and a buzzing sound in her ears. She has been falling a couple times a week for the past couple of years. She did hit her head and has left foot contusion as well. Interestingly, we scanned her brain. She does have a subdural hematoma. I discussed the case with ER physician. He discussed the case with Dr. Johnson. They were going to watch her in the ICU and make sure she is not having any acute events. This bleed could be old, but we are just not sure. PAST MEDICAL HISTORY: Previous alcoholism, although she quit drinking 4 years ago, diabetes, hypertension, end-stage renal disease, hepatitis C, , tonsillectomy, right arm dialysis fistula. ALLERGIES: None. FAMILY HISTORY: Diabetes. SOCIAL HISTORY: She quit drinking, but used to drink heavily until 4 years ago. She lives with her daughter in the basement. Her daughters were making her some snacks, so she could not go up the stairs at night, but she still went upstairs anyway and then fell down some stairs and got the contusion to her foot and probably the subdural hematoma. MEDICATIONS: Reviewed. REVIEW OF SYSTEMS: Unreliable. The patient's memory is not the greatest, but she does complain of foot pain and a little headache and thirst. PHYSICAL EXAMINATION: VITAL SIGNS: Temperature 98.5, pulse 80, respirations 18, blood pressure 198/86. GENERAL: She is awake. Her daughter is present. She has good support from her. HEART: Normal S1, S2 with a soft systolic ejection murmur at the left sternal border. ABDOMEN: Soft. EXTREMITIES: Trace edema of the left foot, does have some bruising. Please see the pictures. ENDOCRINE: No thyromegaly. LYMPHATICS: No cervical nodes. HEMATOPOIETIC: No bruising other than the foot. LABORATORY DATA: White count 5, hemoglobin 11, platelets 125. Electrolytes: Sodium 134, potassium 4.2, chloride 98, bicarbonate 25, BUN 35, creatinine 4.8, glucose 273, alkaline phosphatase little high at 208, albumin 3.4. CT of the head, new acute left parietal subdural hematoma without midline shift, chronic small vessel disease. ASSESSMENT AND PLAN: Subdural hematoma after a fall and accelerated hypertension and hyponatremia, and acute on chronic renal failure with end-stage renal disease. The patient has been admitted. We will give her p.r.n. labetalol. Consult Nephrology, consult Neurosurgery. We will probably need to rescan her brain in a couple of days to make sure the subdural is not growing. I did okay some clear liquids as the patient is very thirsty and hungry. Physical therapy, occupational therapy. PROGNOSIS: Guarded. VIVIAN MORALES DO DR: JASON/jannette JOB#: [id number] / [id number]
[2017-03-20] MEDS: MORPHINE SULFATE 4 MG/ML DISP.SYRIN. IV PRN ×3 (19:30→22:22)
[2017-03-21] VITALS (28 sets, daily range): BP systolic 137–199; BP diastolic 64–97
[2017-03-21] MEDS: MORPHINE SULFATE 4 MG/ML DISP.SYRIN. IV PRN ×3 (06:14→13:01)
[2017-03-21] MEDS ORDERED: MAGNESIUM SULFATE 2GM 50 ML IV PRN (08:30)
--- NOTE | 2017-03-21 08:30 | PDOC2 ---
CONSULT Date of Consult Date of Consult DATE: 03/21/17 TIME: 08:10 Reason for Consult Reason for Consult: ESRD Referring Physician Referring Physician: Dr Vela Identification/Chief Complaint Chief Complaint RHOADES, HTN Problems: Source Source: Chart review, Patient History of Present Illness Reason for Visit: as dictated Past Medical History Cardiovascular: HTN, Hyperlipidemia Pulmonary: No pertinent hx CENTRAL NERVOUS SYSTEM: CVA, Periperal neuropathy GI: Peptic Ulcer disease Heme/Onc: Anemia NOS Hepatobiliary: Hep A/B/C Psych: Anxiety Musculoskeletal: Osteoarthritis Rheumatologic: No pertinent hx Infectious disease: No pertinent hx Renal/: Chronic renal failure Endocrine: Diabetes, Hyperparathyroidism Past Surgical History Past Surgical History: , Tonsillectomy, Other Family History Family History: Diabetes Social History ALCOHOL: none Drugs: None Lives: with Family Current Problem List Problem List Problems Medical Problems: (1) Hypertension Status: Acute (2) Subdural hematoma Status: Acute Current Medications Current Medications Current Medications Hydralazine HCl (Apresoline Inj) 10 mg 1X ONCE IVP Last administered on 13:25; Start 03/20/17 at 13:15; Stop 03/20/17 at 13:16; Status DC Ondansetron HCl (Zofran) 4 mg PRN Q8HRS PRN IV NAUSEA/VOMITING; Start 03/20/17 at 15:45; Stop 03/21/17 at 15:44 Fentanyl Citrate (Fentanyl 2ml Vial) 50 mcg 1X ONCE IV Last administered on 16:31; Start 03/20/17 at 16:30; Stop 03/20/17 at 16:31; Status DC Hydralazine HCl (Apresoline Inj) 10 mg PRN Q4HRS PRN IVP ELEVATED BP, SEE COMMENTS Last administered on 03/20/17 18:07; Start 03/20/17 at 18:00 Fentanyl Citrate (Fentanyl 2ml Vial) 50 mcg PRN Q4HRS PRN IV PAIN Last administered on 03/20/17 18:08; Start 03/20/17 at 18:00 Nicardipine HCl 50 mg/Sodium Chloride 270 ml @ 0 mls/hr CONT PRN IV SEE I/O RECORD Last administered on 03/20/17 20:10; Start 03/20/17 at 18:45 Morphine Sulfate 2 mg PRN Q2HR PRN IV PAIN Last administered on 03/20/17 19:30 ; Start 03/20/17 at 19:30 Morphine Sulfate 4 mg PRN Q2HR PRN IV PAIN Last administered on 03/21/17 06: 14; Start 03/20/17 at 19:30 Active Scripts Active Midodrine Hcl 10 Mg Tablet 10 Mg PO TID 30 Days Lisinopril 40 Mg Tablet 1 Tab PO DAILY Coreg (Carvedilol) 6.25 Mg Tablet 1 Tab PO BID Norvasc (Amlodipine Besylate) 5 Mg Tablet 1 Tab PO BID Topamax (Topiramate) 25 Mg Tablet 25 Mg PO BID 30 Days Aspirin Ec (Aspirin) 81 Mg Tablet.dr 81 Mg PO DAILYWBKFT 30 Days Reported Oxycodone Hcl 5 Mg Capsule 5 Mg PO Q6HRS PRN Gabapentin 100 Mg Capsule 200 Mg PO TID Zofran Odt (Ondansetron) 4 Mg Tab.rapdis 4 Mg PO PRN Q4HRS PRN Trazodone Hcl 150 Mg Tablet 150 Mg PO HS Renvela (Sevelamer Carbonate) 800 Mg Tablet 2 Tab PO TID Lantus Solostar (Insulin Glargine,Hum.rec.anlog) 100 Unit/1 Ml Insuln.pen 12 Unit SQ QHS Lamictal (Lamotrigine) 100 Mg Tablet 100 Mg PO BID Gabapentin 300 Mg Capsule 300 Mg PO QHS Clonidine Hcl 0.2 Mg Tablet 0.2 Mg PO TID Bupropion Xl (Bupropion Hcl) 300 Mg Tab.er.24h 300 Mg PO DAILY Abilify (Aripiprazole) 5 Mg Tablet 5 Mg PO DAILY Allergies Allergies: Coded Allergies: No Known Drug Allergies (Unverified , 03/04/17) ROS Review of System GEN: no Fevers no Chills EYES: ch Visual issues ENT: no EN Drainage no Hearing deficiets CVS: no Orthopnea no CP RESP: no SOB no MTZ GI: min Nausea no Vomiting : no Dysuria no Urgency HEME: no easy bruising no Palp Ly Nodes NEURO no Focal Weakness no Sz PSYCH: no Suicidal Ideation ? Depression SKIN: no Rashes ENDO: no Polyuria or Polydipsia no Hot/Cold Intolerance MU SK: occ Arthraigia min Myalgia - post falls Physical Exam Physical Exam General Appearance: Awake Alert Oriented x 3 In min Distress from pain (falls) Eyes: VIsion Unchanged Conjunctiva Normal EN: No EN Drainage Mucous Memb. moist Neck: no JVD no JVP Supple no Thyromegaly CVS: S1 S2 + Murmur No Gallop No Rub no Edema Resp: no Rales no Rhonchi no Acc. Muscle use GI: BAS +ve NO Bruit Non Tender Non Distended : no CVA tenderness; no Suprapubic Tenderness SKIN: no Rashes Breast Exam deferred Mu.Sk: Adequate ROM min Muscle Atrophy Heme: Unable to palpate Obvious LAD no Splenomegaly NEURO: Good Strength and Tone Cranial Nerves II - XII grossly intact Psych: + Depressed no Active hallucination Vital Signs Vital Signs Date Time Temp Pulse Resp B/P (MAP) Pulse Ox O2 Delivery O2 Flow Rate FiO2 03/21/17 07:00 20 175/79 (111) 95 Room Air 03/21/17 06:00 94 03/21/17 04:00 98.5 98.5 Assessment & Plan ESRD: Current FLuid and E-lyte status does not necessitate emergent need for Dialysis. Will re-evaluate for Dialysis in am and continue on TTSat schedule. Falls - Pt has been diagnosed with Orthostatic Hypotension by her Neurologist at [facility] – [place], [place]. ? non- compliance with Walker use. consider Neuro eval here for same Anemia: hold Epogen until hgb < 11; Transfuse with next HD as needed. HTNsive urgency: Cardene gtt. reval after home BP meds resumed. Rv HTN has been mentioned on ER note - will get CTA Abd to eval same. Bone & Mineral: Follow phos and reval binder regimen Discussed Plan of Care and prognosis etc. at length with pt and RN Labs Labs Laboratory Tests Test 03/20/17 13:15 White Blood Count 5.0 x10^3/uL (4.0-11.0) Red Blood Count 3.70 x10^6/uL (3.50-5.40) Hemoglobin 11.6 g/dL (12.0-15.5) Hematocrit 34.4 % (36.0-47.0) Mean Corpuscular Volume 93 fL (79-100) Mean Corpuscular Hemoglobin 31 pg (25-35) Mean Corpuscular Hemoglobin Concent 34 g/dL (31-37) Red Cell Distribution Width 14.4 % (11.5-14.5) Platelet Count 125 x10^3/uL (140-400) Neutrophils (%) (Auto) 70 % (31-73) Lymphocytes (%) (Auto) 19 % (24-48) Monocytes (%) (Auto) 8 % (0-9) Eosinophils (%) (Auto) 2 % (0-3) Basophils (%) (Auto) 1 % (0-3) Neutrophils # (Auto) 3.5 x10^3uL (1.8-7.7) Lymphocytes # (Auto) 0.9 x10^3/uL (1.0-4.8) Monocytes # (Auto) 0.4 x10^3/uL (0.0-1.1) Eosinophils # (Auto) 0.1 x10^3/uL (0.0-0.7) Basophils # (Auto) 0.0 x10^3/uL (0.0-0.2) Sodium Level 134 mmol/L (136-145) Potassium Level 4.2 mmol/L (3.5-5.1) Chloride Level 98 mmol/L (98-107) Carbon Dioxide Level 28 mmol/L (21-32) Anion Gap 8 (6-14) Blood Urea Nitrogen 35 mg/dL (7-20) Creatinine 4.8 mg/dL (0.6-1.0) Estimated GFR (Cockcroft-Gault) 9.5 BUN/Creatinine Ratio 7 (6-20) Glucose Level 273 mg/dL (70-99) Calcium Level 8.9 mg/dL (8.5-10.1) Total Bilirubin 0.4 mg/dL (0.2-1.0) Aspartate Amino Transf (AST/SGOT) 19 U/L (15-37) Alanine Aminotransferase (ALT/SGPT) 28 U/L (14-59) Alkaline Phosphatase 208 U/L (46-116) Total Protein 8.1 g/dL (6.4-8.2) Albumin 3.4 g/dL (3.4-5.0) Albumin/Globulin Ratio 0.7 (1.0-1.7) Laboratory Tests Test 03/20/17 13:15 White Blood Count 5.0 x10^3/uL (4.0-11.0) Red Blood Count 3.70 x10^6/uL (3.50-5.40) Hemoglobin 11.6 g/dL (12.0-15.5) Hematocrit 34.4 % (36.0-47.0) Mean Corpuscular Volume 93 fL (79-100) Mean Corpuscular Hemoglobin 31 pg (25-35) Mean Corpuscular Hemoglobin Concent 34 g/dL (31-37) Red Cell Distribution Width 14.4 % (11.5-14.5) Platelet Count 125 x10^3/uL (140-400) Neutrophils (%) (Auto) 70 % (31-73) Lymphocytes (%) (Auto) 19 % (24-48) Monocytes (%) (Auto) 8 % (0-9) Eosinophils (%) (Auto) 2 % (0-3) Basophils (%) (Auto) 1 % (0-3) Neutrophils # (Auto) 3.5 x10^3uL (1.8-7.7) Lymphocytes # (Auto) 0.9 x10^3/uL (1.0-4.8) Monocytes # (Auto) 0.4 x10^3/uL (0.0-1.1) Eosinophils # (Auto) 0.1 x10^3/uL (0.0-0.7) Basophils # (Auto) 0.0 x10^3/uL (0.0-0.2) Sodium Level 134 mmol/L (136-145) Potassium Level 4.2 mmol/L (3.5-5.1) Chloride Level 98 mmol/L (98-107) Carbon Dioxide Level 28 mmol/L (21-32) Anion Gap 8 (6-14) Blood Urea Nitrogen 35 mg/dL (7-20) Creatinine 4.8 mg/dL (0.6-1.0) Estimated GFR (Cockcroft-Gault) 9.5 BUN/Creatinine Ratio 7 (6-20) Glucose Level 273 mg/dL (70-99) Calcium Level 8.9 mg/dL (8.5-10.1) Total Bilirubin 0.4 mg/dL (0.2-1.0) Aspartate Amino Transf (AST/SGOT) 19 U/L (15-37) Alanine Aminotransferase (ALT/SGPT) 28 U/L (14-59) Alkaline Phosphatase 208 U/L (46-116) Total Protein 8.1 g/dL (6.4-8.2) Albumin 3.4 g/dL (3.4-5.0) Albumin/Globulin Ratio 0.7 (1.0-1.7) Images Images Impression: New acute left parietal subdural hematoma without midline shift or lateral ventricular effacement. Stable ventriculomegaly. Stable chronic small vessel ischemic disease of the periventricular white matter. REECE BAEZ MD Mar 21, 2017 08:30
[2017-03-21 08:34] LABS: ALBUMIN 3.3 g/dL (3.4-5.0); ALBUMIN/GLOBULIN RATIO 0.7 (1.0-1.7); CREATININE 6.8 mg/dL (0.6-1.0); GFR 6.4; MAGNESIUM 2.1 mg/dL (1.8-2.4); TOTAL BILIRUBIN 0.5 mg/dL (0.2-1.0); TOTAL PROTEIN 7.8 g/dL (6.4-8.2)
[2017-03-21 08:39] LABS: POTASSIUM 5.2 mmol/L (3.5-5.1)
[2017-03-21] MEDS: hydrALAZINE 20 MG/ML VIAL. IVP PRN ×3 (09:35→19:26)
[2017-03-21] MEDS ORDERED: IOHEXOL 300 MG/ML 100ML VIAL. IV ONE (10:30)
[2017-03-21] MEDS ORDERED: CONTRAST GIVEN MC PRN (10:45)
--- NOTE | 2017-03-21 11:23 | PDOC ---
Provider Note Provider Note patient seen and examined SDH left frontoparietal, no change of f/u CT no focal deficits except she is not oriented to time will need f/u Ct head in a week full consult to follow CHRISTOPHER HANLEY MD Mar 21, 2017 11:23
--- NOTE | 2017-03-21 12:16 | PDOC ---
PROGRESS NOTES Chief Complaint Chief Complaint Subdural hematoma Previous alcoholism- quit drinking 4 years ago Diabetes Hypertension End-stage renal disease Hepatitis C , Tonsillectomy Right arm dialysis fistula. History of Present Illness History of Present Illness This is a nice 53 year old lady who presented to the ER with increased BP. Today she was seen in ICU. Pt was resting in bed and was alert and oriented. Pt. is being followed by Neurosurg re: subdural hematoma and nephro re: CRF. Suspect that pt has ataxia that is possible due to her chronic alcoholism. Awaiting input from neurosurgery. Will continue to monitor. Vitals Vitals Vital Signs Date Time Temp Pulse Resp B/P (MAP) Pulse Ox O2 Delivery O2 Flow Rate FiO2 03/21/17 12:00 99.2 85 13 177/82 (113) 98 Room Air 99.2 Physical Exam General: Alert, Oriented X3, Cooperative Heart: Regular rate, Normal S1, Normal S2 Lungs: Clear Abdomen: No tenderness, No masses Extremities: No clubbing, No cyanosis Skin: No rashes Labs LABS Laboratory Tests Test 03/20/17 13:15 03/21/17 07:51 White Blood Count 5.0 x10^3/uL (4.0-11.0) Red Blood Count 3.70 x10^6/uL (3.50-5.40) Hemoglobin 11.6 g/dL (12.0-15.5) Hematocrit 34.4 % (36.0-47.0) Mean Corpuscular Volume 93 fL (79-100) Mean Corpuscular Hemoglobin 31 pg (25-35) Mean Corpuscular Hemoglobin Concent 34 g/dL (31-37) Red Cell Distribution Width 14.4 % (11.5-14.5) Platelet Count 125 x10^3/uL (140-400) Neutrophils (%) (Auto) 70 % (31-73) Lymphocytes (%) (Auto) 19 % (24-48) Monocytes (%) (Auto) 8 % (0-9) Eosinophils (%) (Auto) 2 % (0-3) Basophils (%) (Auto) 1 % (0-3) Neutrophils # (Auto) 3.5 x10^3uL (1.8-7.7) Lymphocytes # (Auto) 0.9 x10^3/uL (1.0-4.8) Monocytes # (Auto) 0.4 x10^3/uL (0.0-1.1) Eosinophils # (Auto) 0.1 x10^3/uL (0.0-0.7) Basophils # (Auto) 0.0 x10^3/uL (0.0-0.2) Sodium Level 134 mmol/L (136-145) 136 mmol/L (136-145) Potassium Level 4.2 mmol/L (3.5-5.1) 5.2 mmol/L (3.5-5.1) Chloride Level 98 mmol/L (98-107) 99 mmol/L (98-107) Carbon Dioxide Level 28 mmol/L (21-32) 27 mmol/L (21-32) Anion Gap 8 (6-14) 10 (6-14) Blood Urea Nitrogen 35 mg/dL (7-20) 45 mg/dL (7-20) Creatinine 4.8 mg/dL (0.6-1.0) 6.8 mg/dL (0.6-1.0) Estimated GFR (Cockcroft-Gault) 9.5 6.4 BUN/Creatinine Ratio 7 (6-20) 7 (6-20) Glucose Level 273 mg/dL (70-99) 182 mg/dL (70-99) Calcium Level 8.9 mg/dL (8.5-10.1) 9.0 mg/dL (8.5-10.1) Total Bilirubin 0.4 mg/dL (0.2-1.0) 0.5 mg/dL (0.2-1.0) Aspartate Amino Transf (AST/SGOT) 19 U/L (15-37) 15 U/L (15-37) Alanine Aminotransferase (ALT/SGPT) 28 U/L (14-59) 25 U/L (14-59) Alkaline Phosphatase 208 U/L (46-116) 142 U/L (46-116) Total Protein 8.1 g/dL (6.4-8.2) 7.8 g/dL (6.4-8.2) Albumin 3.4 g/dL (3.4-5.0) 3.3 g/dL (3.4-5.0) Albumin/Globulin Ratio 0.7 (1.0-1.7) 0.7 (1.0-1.7) Magnesium Level 2.1 mg/dL (1.8-2.4) Review of Systems Review of Systems fatigue and weakness Assessment and Plan Assessmemt and Plan Problems Medical Problems: (1) Hypertension Status: Acute (2) Subdural hematoma Status: Acute Assessment: Subdural hematoma HTN Previous alcoholism- quit drinking 4 years ago Diabetes Hypertension End-stage renal disease Hepatitis C , Tonsillectomy Right arm dialysis fistula Plan: Awaiting neurosurgery input Recheck labs PT/OT Continue current medication Continue cardiac monitoring Problems: Comment Review of Relevant I have reviewed the following items shi (where applicable) has been applied. Labs Laboratory Tests Test 03/20/17 13:15 03/21/17 07:51 White Blood Count 5.0 x10^3/uL (4.0-11.0) Red Blood Count 3.70 x10^6/uL (3.50-5.40) Hemoglobin 11.6 g/dL (12.0-15.5) Hematocrit 34.4 % (36.0-47.0) Mean Corpuscular Volume 93 fL (79-100) Mean Corpuscular Hemoglobin 31 pg (25-35) Mean Corpuscular Hemoglobin Concent 34 g/dL (31-37) Red Cell Distribution Width 14.4 % (11.5-14.5) Platelet Count 125 x10^3/uL (140-400) Neutrophils (%) (Auto) 70 % (31-73) Lymphocytes (%) (Auto) 19 % (24-48) Monocytes (%) (Auto) 8 % (0-9) Eosinophils (%) (Auto) 2 % (0-3) Basophils (%) (Auto) 1 % (0-3) Neutrophils # (Auto) 3.5 x10^3uL (1.8-7.7) Lymphocytes # (Auto) 0.9 x10^3/uL (1.0-4.8) Monocytes # (Auto) 0.4 x10^3/uL (0.0-1.1) Eosinophils # (Auto) 0.1 x10^3/uL (0.0-0.7) Basophils # (Auto) 0.0 x10^3/uL (0.0-0.2) Sodium Level 134 mmol/L (136-145) 136 mmol/L (136-145) Potassium Level 4.2 mmol/L (3.5-5.1) 5.2 mmol/L (3.5-5.1) Chloride Level 98 mmol/L (98-107) 99 mmol/L (98-107) Carbon Dioxide Level 28 mmol/L (21-32) 27 mmol/L (21-32) Anion Gap 8 (6-14) 10 (6-14) Blood Urea Nitrogen 35 mg/dL (7-20) 45 mg/dL (7-20) Creatinine 4.8 mg/dL (0.6-1.0) 6.8 mg/dL (0.6-1.0) Estimated GFR (Cockcroft-Gault) 9.5 6.4 BUN/Creatinine Ratio 7 (6-20) 7 (6-20) Glucose Level 273 mg/dL (70-99) 182 mg/dL (70-99) Calcium Level 8.9 mg/dL (8.5-10.1) 9.0 mg/dL (8.5-10.1) Total Bilirubin 0.4 mg/dL (0.2-1.0) 0.5 mg/dL (0.2-1.0) Aspartate Amino Transf (AST/SGOT) 19 U/L (15-37) 15 U/L (15-37) Alanine Aminotransferase (ALT/SGPT) 28 U/L (14-59) 25 U/L (14-59) Alkaline Phosphatase 208 U/L (46-116) 142 U/L (46-116) Total Protein 8.1 g/dL (6.4-8.2) 7.8 g/dL (6.4-8.2) Albumin 3.4 g/dL (3.4-5.0) 3.3 g/dL (3.4-5.0) Albumin/Globulin Ratio 0.7 (1.0-1.7) 0.7 (1.0-1.7) Magnesium Level 2.1 mg/dL (1.8-2.4) Laboratory Tests Test 03/20/17 13:15 03/21/17 07:51 White Blood Count 5.0 x10^3/uL (4.0-11.0) Red Blood Count 3.70 x10^6/uL (3.50-5.40) Hemoglobin 11.6 g/dL (12.0-15.5) Hematocrit 34.4 % (36.0-47.0) Mean Corpuscular Volume 93 fL (79-100) Mean Corpuscular Hemoglobin 31 pg (25-35) Mean Corpuscular Hemoglobin Concent 34 g/dL (31-37) Red Cell Distribution Width 14.4 % (11.5-14.5) Platelet Count 125 x10^3/uL (140-400) Neutrophils (%) (Auto) 70 % (31-73) Lymphocytes (%) (Auto) 19 % (24-48) Monocytes (%) (Auto) 8 % (0-9) Eosinophils (%) (Auto) 2 % (0-3) Basophils (%) (Auto) 1 % (0-3) Neutrophils # (Auto) 3.5 x10^3uL (1.8-7.7) Lymphocytes # (Auto) 0.9 x10^3/uL (1.0-4.8) Monocytes # (Auto) 0.4 x10^3/uL (0.0-1.1) Eosinophils # (Auto) 0.1 x10^3/uL (0.0-0.7) Basophils # (Auto) 0.0 x10^3/uL (0.0-0.2) Sodium Level 134 mmol/L (136-145) 136 mmol/L (136-145) Potassium Level 4.2 mmol/L (3.5-5.1) 5.2 mmol/L (3.5-5.1) Chloride Level 98 mmol/L (98-107) 99 mmol/L (98-107) Carbon Dioxide Level 28 mmol/L (21-32) 27 mmol/L (21-32) Anion Gap 8 (6-14) 10 (6-14) Blood Urea Nitrogen 35 mg/dL (7-20) 45 mg/dL (7-20) Creatinine 4.8 mg/dL (0.6-1.0) 6.8 mg/dL (0.6-1.0) Estimated GFR (Cockcroft-Gault) 9.5 6.4 BUN/Creatinine Ratio 7 (6-20) 7 (6-20) Glucose Level 273 mg/dL (70-99) 182 mg/dL (70-99) Calcium Level 8.9 mg/dL (8.5-10.1) 9.0 mg/dL (8.5-10.1) Total Bilirubin 0.4 mg/dL (0.2-1.0) 0.5 mg/dL (0.2-1.0) Aspartate Amino Transf (AST/SGOT) 19 U/L (15-37) 15 U/L (15-37) Alanine Aminotransferase (ALT/SGPT) 28 U/L (14-59) 25 U/L (14-59) Alkaline Phosphatase 208 U/L (46-116) 142 U/L (46-116) Total Protein 8.1 g/dL (6.4-8.2) 7.8 g/dL (6.4-8.2) Albumin 3.4 g/dL (3.4-5.0) 3.3 g/dL (3.4-5.0) Albumin/Globulin Ratio 0.7 (1.0-1.7) 0.7 (1.0-1.7) Magnesium Level 2.1 mg/dL (1.8-2.4) Medications Current Medications Hydralazine HCl (Apresoline Inj) 10 mg 1X ONCE IVP Last administered on 13:25; Start 03/20/17 at 13:15; Stop 03/20/17 at 13:16; Status DC Ondansetron HCl (Zofran) 4 mg PRN Q8HRS PRN IV NAUSEA/VOMITING; Start 03/20/17 at 15:45; Stop 03/21/17 at 15:44 Fentanyl Citrate (Fentanyl 2ml Vial) 50 mcg 1X ONCE IV Last administered on 16:31; Start 03/20/17 at 16:30; Stop 03/20/17 at 16:31; Status DC Hydralazine HCl (Apresoline Inj) 10 mg PRN Q4HRS PRN IVP ELEVATED BP, SEE COMMENTS Last administered on 03/21/17 11:58; Start 03/20/17 at 18:00 Fentanyl Citrate (Fentanyl 2ml Vial) 50 mcg PRN Q4HRS PRN IV PAIN Last administered on 03/20/17 18:08; Start 03/20/17 at 18:00 Nicardipine HCl 50 mg/Sodium Chloride 270 ml @ 0 mls/hr CONT PRN IV SEE I/O RECORD Last administered on 03/20/17 20:10; Start 03/20/17 at 18:45 Morphine Sulfate 2 mg PRN Q2HR PRN IV PAIN Last administered on 03/21/17 11: 59; Start 03/20/17 at 19:30 Morphine Sulfate 4 mg PRN Q2HR PRN IV PAIN Last administered on 03/21/17 06: 14; Start 03/20/17 at 19:30 Magnesium Sulfate/ Dextrose 50 ml @ 25 mls/hr PRN DAILY PRN IV for Mag < 1.7 on am labs; Start 03/21/17 at 08:30 Iohexol (Omnipaque 300 Mg/ml) 90 ml 1X ONCE IV Last administered on 10:47; Start 03/21/17 at 10:30; Stop 03/21/17 at 10:32; Status DC Info (Do NOT chart on this entry -- for MONITORING) 1 each PRN DAILY PRN MC SEE COMMENTS; Start 03/21/17 at 10:45; Stop 03/23/17 at 10:44 Active Scripts Active Midodrine Hcl 10 Mg Tablet 10 Mg PO TID 30 Days Lisinopril 40 Mg Tablet 1 Tab PO DAILY Coreg (Carvedilol) 6.25 Mg Tablet 1 Tab PO BID Norvasc (Amlodipine Besylate) 5 Mg Tablet 1 Tab PO BID Topamax (Topiramate) 25 Mg Tablet 25 Mg PO BID 30 Days Aspirin Ec (Aspirin) 81 Mg Tablet. 81 Mg PO DAILYWBKFT 30 Days Reported Oxycodone Hcl 5 Mg Capsule 5 Mg PO Q6HRS PRN Gabapentin 100 Mg Capsule 200 Mg PO TID Zofran Odt (Ondansetron) 4 Mg Tab.rapdis 4 Mg PO PRN Q4HRS PRN Trazodone Hcl 150 Mg Tablet 150 Mg PO HS Renvela (Sevelamer Carbonate) 800 Mg Tablet 2 Tab PO TID Lantus Solostar (Insulin Glargine,Hum.rec.anlog) 100 Unit/1 Ml Insuln.pen 12 Unit SQ QHS Lamictal (Lamotrigine) 100 Mg Tablet 100 Mg PO BID Gabapentin 300 Mg Capsule 300 Mg PO QHS Clonidine Hcl 0.2 Mg Tablet 0.2 Mg PO TID Bupropion Xl (Bupropion Hcl) 300 Mg Tab.er.24h 300 Mg PO DAILY Abilify (Aripiprazole) 5 Mg Tablet 5 Mg PO DAILY Vitals/I & O Vital Sign - Last 24 Hours 03/20/17 03/20/17 03/20/17 03/20/17 13:03 13:25 13:45 14:03 Temp 97.9 97.9 Pulse 73 71 71 73 Resp 16 20 20 B/P (MAP) 232/122 (158) 236/115 Pulse Ox 100 99 99 O2 Delivery Room Air 03/20/17 03/20/17 03/20/17 03/20/17 14:25 14:48 16:34 17:30 Pulse 74 74 80 Resp 20 20 20 Pulse Ox 99 99 99 O2 Delivery Room Air 03/20/17 03/20/17 03/20/17 03/20/17 17:41 17:46 18:00 18:07 Temp 98.5 98.5 Pulse 77 79 77 Resp 26 25 21 B/P (MAP) 236/97 (143) 198/86 (123) 236/97 Pulse Ox 99 99 96 O2 Delivery Room Air Room Air Room Air 03/20/17 03/20/17 03/20/17 03/20/17 18:08 18:42 19:00 19:30 Pulse 81 Resp 29 22 19 24 B/P (MAP) 175/79 (111) Pulse Ox 97 98 99 98 O2 Delivery Room Air Room Air Room Air Room Air 03/20/17 03/20/17 03/20/17 03/20/17 19:30 20:00 20:00 20:09 Pulse 80 Resp 17 B/P (MAP) 187/85 (119) 191/84 (119) Pulse Ox 98 98 O2 Delivery Room Air Room Air Room Air 03/20/17 03/20/17 03/20/17 03/20/17 20:30 20:45 20:45 21:00 Pulse 78 Resp 19 B/P (MAP) 139/67 (91) 137/67 (90) 152/75 (100) Pulse Ox 98 98 O2 Delivery Room Air Room Air 03/20/17 03/20/17 03/20/17 03/20/17 21:15 21:45 22:00 22:22 Pulse 80 Resp 21 B/P (MAP) 158/93 (114) 179/82 (114) 192/88 (122) Pulse Ox 99 98 O2 Delivery Room Air Room Air 03/20/17 03/20/17 03/20/17 03/21/17 22:45 23:00 23:30 00:00 Temp 98.7 98.7 Pulse 78 86 Resp 23 18 B/P (MAP) 166/79 (108) 164/76 (105) 155/77 (103) 159/74 (102) Pulse Ox 97 97 O2 Delivery Room Air Room Air 03/21/17 03/21/17 03/21/17 03/21/17 00:00 00:30 01:00 01:30 Pulse 92 Resp 15 B/P (MAP) 166/80 (108) 168/79 (108) 174/78 (110) Pulse Ox 96 O2 Delivery Room Air Room Air 03/21/17 03/21/17 03/21/17 03/21/17 02:00 02:30 03:00 03:30 Pulse 94 94 Resp 23 23 B/P (MAP) 167/77 (107) 168/80 (109) 154/76 (102) 146/75 (98) Pulse Ox 97 97 O2 Delivery Room Air Room Air 03/21/17 03/21/17 03/21/17 03/21/17 04:00 04:00 05:00 06:00 Temp 98.5 98.5 Pulse 94 100 94 Resp 23 21 18 B/P (MAP) 145/72 (96) 139/76 (97) 151/74 (99) Pulse Ox 97 94 98 O2 Delivery Room Air Room Air Room Air Room Air 03/21/17 03/21/17 03/21/17 03/21/17 06:14 06:45 07:00 08:00 Temp 99.0 99.0 Pulse 86 87 Resp 20 15 B/P (MAP) 175/79 (111) 165/76 (105) Pulse Ox 97 97 95 94 O2 Delivery Room Air Room Air Room Air Room Air 03/21/17 03/21/17 03/21/17 03/21/17 08:00 09:00 09:35 09:45 Pulse 87 87 88 Resp 12 15 B/P (MAP) 167/77 (107) 167/74 162/71 (101) Pulse Ox 95 95 O2 Delivery Room Air Room Air Room Air 03/21/17 03/21/17 03/21/17 03/21/17 09:55 10:00 11:00 11:58 Pulse 96 99 85 88 Resp 13 16 22 B/P (MAP) 145/70 (95) 137/72 (93) 173/64 (100) 190/80 Pulse Ox 95 94 99 O2 Delivery Room Air Room Air Room Air 03/21/17 03/21/17 11:59 12:00 Temp 99.2 99.2 Pulse 85 Resp 22 13 B/P (MAP) 177/82 (113) Pulse Ox 99 98 O2 Delivery Room Air Room Air Intake and Output 03/21/17 03/21/17 03/22/17 15:00 23:00 07:00 Intake Total 250 ml Output Total 0 ml Balance 250 ml VIVIAN MORALES III DO Mar 21, 2017 12:16
--- NOTE | 2017-03-21 13:20 | RAD ---
Clinical indications: Follow-up of subdural hematoma.. Comparison: March 20, 2017 Technique: Noncontrast axial cross sectional scanning of the head was performed. Findings: Again seen is the left parietal subdural hematoma which has not changed in size. No new hyperdense intracranial hemorrhage is seen. The ventricular system is dilated and unchanged. No new focal hypodense area is evident. IMPRESSION: Stable small left parietal subdural hematoma. PQRS Compliance Statement: One or more of the following individualized dose reduction techniques were utilized for this examination: 1. Automated exposure control 2. Adjustment of the mA and/or kV according to patient size 3. Use of iterative reconstruction technique
[2017-03-21] MEDS ORDERED: ONDANSETRON ODT 4 MG TAB.RAPDIS. PO PRN (13:30)
[2017-03-21] MEDS: GABAPENTIN 100 MG CAPSULE. PO SCH ×2 (14:07→20:46)
[2017-03-21] MEDS: lamoTRIgine 100 MG TABLET. PO SCH ×2 (14:07→20:46)
[2017-03-21] MEDS: LISINOPRIL 40 MG TABLET. PO SCH (14:07)
[2017-03-21] MEDS: ARIPiprazole 5 MG TABLET PO SCH (14:07)
[2017-03-21] MEDS: ACETAMINOPHEN 325 MG TABLET. PO PRN ×2 (14:07→20:46)
[2017-03-21] MEDS: TOPIRAMATE 25 MG TABLET. PO SCH ×2 (14:07→20:46)
[2017-03-21] MEDS: cloNIDine HCL 0.2 MG TABLET PO SCH ×2 (14:08→20:46)
[2017-03-21] MEDS: buPROPion XL 150 MG TAB.ER.24H. PO SCH (14:08)
--- NOTE | 2017-03-21 14:11 | RAD ---
CTA of the abdomen and pelvis 03/21/2017 Indication: Evaluate renal arteries for stenosis. Chronic hypertension. Patient is in end-stage renal disease, and is dialysis dependent. Patient planning for dialysis tomorrow. Patient is oliguric Technique: Multidetector CT imaging of the abdomen and pelvis was performed following the administration of IV contrast. Findings: Visualized lung bases demonstrate no acute abnormality. Visualized thoracic aorta is grossly unremarkable. Celiac axis is patent. Superior mesenteric arteries patent. The renal arteries are atrophic bilaterally secondary to it appears to be chronic bilateral renal atrophy cortical thinning and overall decreased renal mass. There is high-grade stenosis at the origin of the right renal artery. Notably this artery arises relatively anteriorly from the aorta and at an acute inferior angulation. The left renal artery appears to be severely diffusely hypoplastic. A definitive focal narrowing is not identified. There is circumferential atherosclerotic calcification of the infrarenal abdominal aorta. The inferior mesenteric artery is patent. No hemodynamically significant aortoiliac stenosis is identified. The spleen Liver is grossly unremarkable. The spleen is enlarged measuring 13 cm AP by approximately 6 cm transverse by approximately 12 cm longitudinal. The adrenal glands are unremarkable. Other than aforementioned atrophic changes the bilateral kidneys appear to be grossly unremarkable. Pancreas is grossly unremarkable. There is no evidence of bowel obstruction. No evidence of acute inflammatory change involving the visualized bowel is seen. Increased stool is present throughout the colon. Correlate with clinical evidence of constipation. The appendix is grossly unremarkable. The bladder appears grossly unremarkable. No acute osseous changes are seen. Impression: 1. Hypoplastic appearance of the bilateral renal arteries likely secondary to chronic renal disease. On the right there is appears to be superimposed high-grade renal artery stenosis involving the proximal right renal artery. 2. Mild splenomegaly 3. Increased stool throughout the colon. Correlate with evidence of constipation
[2017-03-21] MEDS: fentaNYL PF VIAL 100 MCG/2 ML VIAL IV PRN (14:16)
[2017-03-21] MEDS: LABETALOL 20 MG/4 ML DISP.SYRIN. IVP PRN ×2 (15:15→20:45)
[2017-03-21] MEDS: INSULIN ASPART 300 UNITS/3 ML INSULN.PEN SQ SCH (17:00)
[2017-03-21] MEDS: traZODone 50 MG TABLET. PO SCH (20:46)
[2017-03-21] MEDS: amLODIPine BESYLATE 5 MG TABLET PO SCH (20:47)
[2017-03-21] MEDS ORDERED: NON FORMULARY ITEM (Gabapentin 300 MG) PO SCH (21:00)
[2017-03-21] MEDS: INSULIN DETEMIR 300 UNITS/3 ML INSULN.PEN. SQ SCH (21:06)
--- NOTE | 2017-03-21 21:32 | CONS ---
DATE OF CONSULTATION: PRIMARY PHYSICIAN: Dr. Vela. REASON FOR CONSULTATION: ESRD dialysis. HISTORY OF PRESENT ILLNESS: The patient is a 52-year-old diabetic who has recently moved from the [facility] to live with her daughter on the [facility]. She has had a history of falls for at least about 2 years. She has been evaluated by [facility] and has been told that it is due to orthostatic hypotension. She; however, lives in her daughter's basement and claims that she has very little maneuvering space and when she has to go down to the basement she does not use her walker and most of the time she falls when she goes down into the basement. She has not followed up with her neurologist at [facility] after she moved to the [facility]. She dialyzes on Friday, and Friday and yesterday when she was at dialysis, her blood pressures were extremely elevated. On arrival to the ER, she had complained of a headache and a buzzing sound in her ears. She is noted to have a left foot contusion as well as left-sided chest contusion. She apparently had a CT of her head and was noted to have a possible bleed without left shift as noted in the electronic renal consult note. She was placed on a Cardene drip and is being observed in the ICU. SOCIAL HISTORY: Positive for previous alcoholism, but quit about 4 years ago. Does not currently smoke. For rest of details, see electronic records. REECE BAEZ MD DR: VERONA/jannette JOB#: [id number] / [id number]
--- NOTE | 2017-03-21 23:47 | RAD ---
CT scan of the head without contrast 03/21/2017 Clinical History: Fall with altered mental status. Technique: Unenhanced, contiguous, 5 mm axial sections were obtained through the head. One or more of the following individualized dose reduction techniques were utilized for this study: 1. Automated exposure control. 2. Adjustment of the mA and/or kV according to patient size. 3. Use of iterative reconstruction technique. Findings: Comparison study is dated earlier today at 1055 hours. The patient received intravenous contrast for a CT scan of the abdomen and pelvis earlier today. Residual contrast enhancement is seen within the dural venous sinuses and major arterial structures. There is generalized parenchymal atrophy with prominence of the ventricles, unchanged. An acute subdural hematoma is seen lateral to the left temporal lobe extending superiorly. This measures 5 mm transverse diameter. This has increased in size slightly since the previous examination where it measured 3 mm in thickness. There is mass effect upon the left cerebral hemisphere without evidence of midline shift which does not appear significantly changed. No skull fracture is seen. IMPRESSION: Acute subdural hematoma is seen surrounding the lateral aspect of the left temporal lobe extending superiorly. This measures 5 mm in thickness.. This appears to have increased in size slightly since the study from earlier today. The mass effect has not significantly changed. No midline shift is noted. The patient's nurse was notified of this finding. Electronically signed by: Dylon Aragon MD (03/21/2017 11:44 PM) [facility]
[2017-03-22] VITALS (35 sets, daily range): BP systolic 63–200; BP diastolic 62–90
[2017-03-22 04:10] LABS: BASO # 0.1 x10^3/uL (0.0-0.2); BASO % 1 % (0-3); EOS % 2 % (0-3); HEMATOCRIT 32.9 % (36.0-47.0); LYMPH # 1.7 x10^3/uL (1.0-4.8); LYMPH % 26 % (24-48); MEAN CORPUSCULAR HEMOGLOBIN 32 pg (25-35); MEAN CORPUSCULAR HGB CONC 34 g/dL (31-37); MEAN CORPUSCULAR VOLUME 94 fL (79-100); MONO % 10 % (0-9); NEUT % 62 % (31-73); PLATELET COUNT 123 x10^3/uL (140-400); RED CELL DISTRIBUTION WIDTH 15.2 % (11.5-14.5); WHITE BLOOD COUNT 6.5 x10^3/uL (4.0-11.0)
[2017-03-22 04:46] LABS: ALBUMIN 3.1 g/dL (3.4-5.0); CALCIUM 8.7 mg/dL (8.5-10.1); CALCIUM 9.1 mg/dL (8.5-10.1); CREATININE 8.1 mg/dL (0.6-1.0); CREATININE 8.2 mg/dL (0.6-1.0); GFR 5.1; GFR 5.2; PHOSPHORUS 4.1 mg/dL (2.6-4.7); POTASSIUM 5.7 mmol/L (3.5-5.1)
[2017-03-22] MEDS: INSULIN ASPART 300 UNITS/3 ML INSULN.PEN SQ SCH ×3 (08:00→17:00)
--- NOTE | 2017-03-22 08:35 | RAD ---
EXAM: Head CT without contrast. HISTORY: Subdural hematoma. TECHNIQUE: Computed tomographic images of the head were obtained without contrast. COMPARISON: 03/21/2017. FINDINGS: There has been no significant change in an acute subdural hematoma along the left cerebral convexity measuring approximately 5 mm in maximum thickness. There is stable slight increased attenuation compared to the most recent study. However, this is new compared to the study performed prior to a contrast-enhanced abdomen and pelvis CT on 03/21/2017. Therefore, this is likely due to residual contrast within the dural venous sinuses right greater than acute subdural hemorrhage along the tentorium and falx. There is also slight increased attenuation along the left cerebral sulci which may be due to relatively recent contrast administration. There is stable enlargement of the ventricles. The orbits and visualized paranasal sinuses are unremarkable. There is fluid within the mastoid air cells. No calvarial lesion is seen. IMPRESSION: 1. Stable small acute subdural hematoma along the left cerebral convexity, measuring approximately 5 mm. 2. Hyperdensity along the falx and tentorium as well as increased density along the left cerebral sulci, likely due to relatively recent interval intravenous contrast administration rather than subdural and subarachnoid hemorrhage. Continued short-term follow-up is recommended. 3. Stable moderate ventricular enlargement due to cerebral volume loss. This is greater than expected for patient age. PQRS Compliance Statement: One or more of the following individualized dose reduction techniques were utilized for this examination: 1. Automated exposure control 2. Adjustment of the mA and/or kV according to patient size 3. Use of iterative reconstruction technique
[2017-03-22] MEDS: hydrALAZINE 20 MG/ML VIAL. IVP PRN (09:40)
[2017-03-22 09:52] LABS: BARBITURATES NEG (NEG); BENZODIAZEPINES NEG (NEG); CANNABINOIDS NEG (NEG); COCAINE NEG (NEG); METHADONE NEG (NEG); OPIATES POS (NEG); PHENCYCLIDINE NEG (NEG)
[2017-03-22] MEDS: LABETALOL 20 MG/4 ML DISP.SYRIN. IVP PRN (10:40)
[2017-03-22] MEDS ORDERED: HALOPERIDOL LACTATE 5 MG/ML VIAL. IVP PRN (11:30)
[2017-03-22] MEDS ORDERED: diphenhydrAMINE 50 MG/ML VIAL IVP PRN (11:30)
[2017-03-22 11:31] LABS: BILIRUBIN,URINE NEGATIVE (NEG); GLUCOSE,URINE 100 mg/dL (NEG); NITRITE,URINE NEGATIVE (NEG); PH,URINE 7.5; PROTEIN,URINE >=300 mg/dL (NEG-TRACE); UROBILINOGEN,URINE 0.2 mg/dL (0.2 mg/dL)
--- NOTE | 2017-03-22 11:38 | PDOC ---
PROGRESS NOTES Subjective Subjective awake, not speaking opens eyes to voice follows commands Objective Objective Vital Signs Date Time Temp Pulse Resp B/P (MAP) Pulse Ox O2 Delivery O2 Flow Rate FiO2 03/22/17 10:45 90 30 148/64 (92) 94 Nasal Cannula 2.0 03/22/17 08:00 99.9 99.9 Intake and Output 03/23/17 07:00 Output Total 0 ml Balance 0 ml Output Urine Total 0 ml Physical Exam General: Cooperative, No acute distress Neuro: Other (DUR[place]AM, follows commands bilaterally) Assessment Assessment Problems Medical Problems: (1) Hypertension Status: Acute (2) Subdural hematoma Status: Acute Plan Plan of Care reviewed f/u CT head- scan done after contrast so SDH appears slightly thicker but I feel that this is artifactual, no shift stable keep in ICU agree with anticonvulsants Comment Review of Relevant I have reviewed the following items shi (where applicable) has been applied. Labs Laboratory Tests Test 03/20/17 13:15 03/20/17 17:45 03/21/17 07:51 03/21/17 18:16 White Blood Count 5.0 x10^3/uL (4.0-11.0) Red Blood Count 3.70 x10^6/uL (3.50-5.40) Hemoglobin 11.6 g/dL (12.0-15.5) Hematocrit 34.4 % (36.0-47.0) Mean Corpuscular Volume 93 fL (79-100) Mean Corpuscular Hemoglobin 31 pg (25-35) Mean Corpuscular Hemoglobin Concent 34 g/dL (31-37) Red Cell Distribution Width 14.4 % (11.5-14.5) Platelet Count 125 x10^3/uL (140-400) Neutrophils (%) (Auto) 70 % (31-73) Lymphocytes (%) (Auto) 19 % (24-48) Monocytes (%) (Auto) 8 % (0-9) Eosinophils (%) (Auto) 2 % (0-3) Basophils (%) (Auto) 1 % (0-3) Neutrophils # (Auto) 3.5 x10^3uL (1.8-7.7) Lymphocytes # (Auto) 0.9 x10^3/uL (1.0-4.8) Monocytes # (Auto) 0.4 x10^3/uL (0.0-1.1) Eosinophils # (Auto) 0.1 x10^3/uL (0.0-0.7) Basophils # (Auto) 0.0 x10^3/uL (0.0-0.2) Sodium Level 134 mmol/L (136-145) 136 mmol/L (136-145) Potassium Level 4.2 mmol/L (3.5-5.1) 5.2 mmol/L (3.5-5.1) Chloride Level 98 mmol/L (98-107) 99 mmol/L (98-107) Carbon Dioxide Level 28 mmol/L (21-32) 27 mmol/L (21-32) Anion Gap 8 (6-14) 10 (6-14) Blood Urea Nitrogen 35 mg/dL (7-20) 45 mg/dL (7-20) Creatinine 4.8 mg/dL (0.6-1.0) 6.8 mg/dL (0.6-1.0) Estimated GFR (Cockcroft-Gault) 9.5 6.4 BUN/Creatinine Ratio 7 (6-20) 7 (6-20) Glucose Level 273 mg/dL (70-99) 182 mg/dL (70-99) Calcium Level 8.9 mg/dL (8.5-10.1) 9.0 mg/dL (8.5-10.1) Total Bilirubin 0.4 mg/dL (0.2-1.0) 0.5 mg/dL (0.2-1.0) Aspartate Amino Transf (AST/SGOT) 19 U/L (15-37) 15 U/L (15-37) Alanine Aminotransferase (ALT/SGPT) 28 U/L (14-59) 25 U/L (14-59) Alkaline Phosphatase 208 U/L (46-116) 142 U/L (46-116) Total Protein 8.1 g/dL (6.4-8.2) 7.8 g/dL (6.4-8.2) Albumin 3.4 g/dL (3.4-5.0) 3.3 g/dL (3.4-5.0) Albumin/Globulin Ratio 0.7 (1.0-1.7) 0.7 (1.0-1.7) Nasal Screen MRSA (PCR) Negative (Negative) Magnesium Level 2.1 mg/dL (1.8-2.4) Glucose (Fingerstick) 155 mg/dL (70-99) Test 03/21/17 20:55 03/22/17 03:30 03/22/17 09:11 Glucose (Fingerstick) 136 mg/dL (70-99) White Blood Count 6.5 x10^3/uL (4.0-11.0) Red Blood Count 3.50 x10^6/uL (3.50-5.40) Hemoglobin 11.0 g/dL (12.0-15.5) Hematocrit 32.9 % (36.0-47.0) Mean Corpuscular Volume 94 fL (79-100) Mean Corpuscular Hemoglobin 32 pg (25-35) Mean Corpuscular Hemoglobin Concent 34 g/dL (31-37) Red Cell Distribution Width 15.2 % (11.5-14.5) Platelet Count 123 x10^3/uL (140-400) Neutrophils (%) (Auto) 62 % (31-73) Lymphocytes (%) (Auto) 26 % (24-48) Monocytes (%) (Auto) 10 % (0-9) Eosinophils (%) (Auto) 2 % (0-3) Basophils (%) (Auto) 1 % (0-3) Neutrophils # (Auto) 4.0 x10^3uL (1.8-7.7) Lymphocytes # (Auto) 1.7 x10^3/uL (1.0-4.8) Monocytes # (Auto) 0.7 x10^3/uL (0.0-1.1) Eosinophils # (Auto) 0.1 x10^3/uL (0.0-0.7) Basophils # (Auto) 0.1 x10^3/uL (0.0-0.2) Sodium Level 130 mmol/L (136-145) Potassium Level 5.7 mmol/L (3.5-5.1) Chloride Level 96 mmol/L (98-107) Carbon Dioxide Level 24 mmol/L (21-32) Anion Gap 10 (6-14) Blood Urea Nitrogen 55 mg/dL (7-20) Creatinine 8.2 mg/dL (0.6-1.0) Estimated GFR (Cockcroft-Gault) 5.1 Glucose Level 129 mg/dL (70-99) Calcium Level 8.7 mg/dL (8.5-10.1) Phosphorus Level 4.1 mg/dL (2.6-4.7) Magnesium Level 2.0 mg/dL (1.8-2.4) Albumin 3.1 g/dL (3.4-5.0) Urine Opiates Screen Pos (NEG) Urine Methadone Screen Neg (NEG) Urine Barbiturates Neg (NEG) Urine Phencyclidine Screen Neg (NEG) Urine Amphetamine/Methamphetamine Neg (NEG) Urine Benzodiazepines Screen Neg (NEG) Urine Cocaine Screen Neg (NEG) Urine Cannabinoids Screen Neg (NEG) Urine Ethyl Alcohol Neg (NEG) Laboratory Tests Test 03/21/17 18:16 03/21/17 20:55 03/22/17 03:30 03/22/17 09:11 Glucose (Fingerstick) 155 mg/dL (70-99) 136 mg/dL (70-99) White Blood Count 6.5 x10^3/uL (4.0-11.0) Red Blood Count 3.50 x10^6/uL (3.50-5.40) Hemoglobin 11.0 g/dL (12.0-15.5) Hematocrit 32.9 % (36.0-47.0) Mean Corpuscular Volume 94 fL (79-100) Mean Corpuscular Hemoglobin 32 pg (25-35) Mean Corpuscular Hemoglobin Concent 34 g/dL (31-37) Red Cell Distribution Width 15.2 % (11.5-14.5) Platelet Count 123 x10^3/uL (140-400) Neutrophils (%) (Auto) 62 % (31-73) Lymphocytes (%) (Auto) 26 % (24-48) Monocytes (%) (Auto) 10 % (0-9) Eosinophils (%) (Auto) 2 % (0-3) Basophils (%) (Auto) 1 % (0-3) Neutrophils # (Auto) 4.0 x10^3uL (1.8-7.7) Lymphocytes # (Auto) 1.7 x10^3/uL (1.0-4.8) Monocytes # (Auto) 0.7 x10^3/uL (0.0-1.1) Eosinophils # (Auto) 0.1 x10^3/uL (0.0-0.7) Basophils # (Auto) 0.1 x10^3/uL (0.0-0.2) Sodium Level 130 mmol/L (136-145) Potassium Level 5.7 mmol/L (3.5-5.1) Chloride Level 96 mmol/L (98-107) Carbon Dioxide Level 24 mmol/L (21-32) Anion Gap 10 (6-14) Blood Urea Nitrogen 55 mg/dL (7-20) Creatinine 8.2 mg/dL (0.6-1.0) Estimated GFR (Cockcroft-Gault) 5.1 Glucose Level 129 mg/dL (70-99) Calcium Level 8.7 mg/dL (8.5-10.1) Phosphorus Level 4.1 mg/dL (2.6-4.7) Magnesium Level 2.0 mg/dL (1.8-2.4) Albumin 3.1 g/dL (3.4-5.0) Urine Opiates Screen Pos (NEG) Urine Methadone Screen Neg (NEG) Urine Barbiturates Neg (NEG) Urine Phencyclidine Screen Neg (NEG) Urine Amphetamine/Methamphetamine Neg (NEG) Urine Benzodiazepines Screen Neg (NEG) Urine Cocaine Screen Neg (NEG) Urine Cannabinoids Screen Neg (NEG) Urine Ethyl Alcohol Neg (NEG) Medications Current Medications Hydralazine HCl (Apresoline Inj) 10 mg 1X ONCE IVP Last administered on 13:25; Start 03/20/17 at 13:15; Stop 03/20/17 at 13:16; Status DC Ondansetron HCl (Zofran) 4 mg PRN Q8HRS PRN IV NAUSEA/VOMITING; Start 03/20/17 at 15:45; Stop 03/21/17 at 15:44; Status DC Fentanyl Citrate (Fentanyl 2ml Vial) 50 mcg 1X ONCE IV Last administered on 16:31; Start 03/20/17 at 16:30; Stop 03/20/17 at 16:31; Status DC Hydralazine HCl (Apresoline Inj) 10 mg PRN Q4HRS PRN IVP ELEVATED BP, SEE COMMENTS Last administered on 03/22/17 09:40; Start 03/20/17 at 18:00 Fentanyl Citrate (Fentanyl 2ml Vial) 50 mcg PRN Q4HRS PRN IV PAIN Last administered on 03/21/17 14:16; Start 03/20/17 at 18:00 Nicardipine HCl 50 mg/Sodium Chloride 270 ml @ 0 mls/hr CONT PRN IV SEE I/O RECORD Last administered on 03/22/17 04:15; Start 03/20/17 at 18:45 Morphine Sulfate 2 mg PRN Q2HR PRN IV PAIN Last administered on 03/21/17 11: 59; Start 03/20/17 at 19:30 Morphine Sulfate 4 mg PRN Q2HR PRN IV PAIN Last administered on 03/21/17 13: 01; Start 03/20/17 at 19:30 Magnesium Sulfate/ Dextrose 50 ml @ 25 mls/hr PRN DAILY PRN IV for Mag < 1.7 on am labs; Start 03/21/17 at 08:30 Iohexol (Omnipaque 300 Mg/ml) 90 ml 1X ONCE IV Last administered on 10:47; Start 03/21/17 at 10:30; Stop 03/21/17 at 10:32; Status DC Info (Do NOT chart on this entry -- for MONITORING) 1 each PRN DAILY PRN MC SEE COMMENTS; Start 03/21/17 at 10:45; Stop 03/23/17 at 10:44 Amlodipine Besylate (Norvasc) 5 mg BID PO Last administered on 03/21/17 20:47 ; Start 03/21/17 at 21:00 Clonidine HCl (Catapres) 0.2 mg TID PO Last administered on 03/21/17 20:46; Start 03/21/17 at 14:00 Gabapentin (Neurontin) 200 mg TID PO Last administered on 03/21/17 20:46; Start 03/21/17 at 14:00; Stop 03/22/17 at 09:24; Status DC Lisinopril (Prinivil) 40 mg DAILY PO Last administered on 03/21/17 14:07; Start 03/21/17 at 14:00 Ondansetron HCl (Zofran Odt) 4 mg PRN Q4HRS PRN PO NAUSEA/VOMITING; Start 02/25 at 13:30 Non-Formulary Medication 300 mg QHS PO ; Start 03/21/17 at 21:00; Status UNV Trazodone HCl (Desyrel) 150 mg QHS PO Last administered on 03/21/17 20:46; Start 03/21/17 at 21:00 Labetalol HCl (Normodyne) 20 mg PRN Q2HR PRN IVP HYPERTENSION, SEE COMMENTS Last administered on 03/22/17 10:40; Start 03/21/17 at 13:45 Insulin Aspart (NovoLOG) 0-5 UNITS TIDWMEALS SQ ; Start 03/21/17 at 17:00 Dextrose (Dextrose 50%-Water Syringe) 12.5 gm PRN Q15MIN PRN IV SEE COMMENTS; Start 03/21/17 at 13:45 Insulin Detemir (Levemir) 21 units QHS SQ Last administered on 03/21/17 21:06 ; Start 03/21/17 at 21:00 Aripiprazole (Abilify) 5 mg DAILY PO Last administered on 03/21/17 14:07; Start 03/21/17 at 14:00 Lamotrigine (LaMICtal) 100 mg BID PO Last administered on 03/21/17 20:46; Start 03/21/17 at 14:00 Topiramate (Topamax) 25 mg BID PO Last administered on 03/21/17 20:46; Start 03/21/17 at 14:00 Bupropion HCl (Wellbutrin Xl) 300 mg DAILY PO Last administered on 03/21/17 14:08; Start 03/21/17 at 14:00 Acetaminophen (Tylenol) 650 mg PRN Q6HRS PRN PO headache Last administered on 03/21/17 20:46; Start 03/21/17 at 14:00 Gabapentin (Neurontin) 600 mg HS PO ; Start 03/22/17 at 21:00; Stop 03/22/17 at 21:00; Status DC Gabapentin (Neurontin) 300 mg HS PO ; Start 03/22/17 at 21:00 Multivitamins 10 ml/Thiamine HCl 100 mg/Sodium Chloride 1,011 ml @ 100 mls/hr 1X ONCE IV ; Start 03/22/17 at 12:00; Stop 03/22/17 at 22:06 Multivitamins (Thera M Plus) 1 tab DAILY PO ; Start 03/23/17 at 09:00 Folic Acid (Folic Acid) 1 mg DAILY PO ; Start 03/23/17 at 09:00 Lorazepam (Ativan) 2 mg PRN Q1HR PRN IV For CIWA 8-14; Start 03/22/17 at 11:30 Haloperidol Lactate (Haldol) 5 mg PRN Q4HRS PRN IVP Hallucinatns,Confusn, Delirium; Start 03/22/17 at 11:30 Diphenhydramine HCl (Benadryl) 25 mg PRN Q15MIN PRN IVP EPS symptoms 2'Haldol admin; Start 03/22/17 at 11:30 Thiamine Mononitrate (Vitamin B-1) 100 mg DAILY PO ; Start 03/23/17 at 09:00 Topiramate (Topamax) 50 mg 3X/WEEK PO ; Start 03/24/17 at 09:00; Status UNV Active Scripts Active Midodrine Hcl 10 Mg Tablet 10 Mg PO TID 30 Days Lisinopril 40 Mg Tablet 1 Tab PO DAILY Coreg (Carvedilol) 6.25 Mg Tablet 1 Tab PO BID Norvasc (Amlodipine Besylate) 5 Mg Tablet 1 Tab PO BID Topamax (Topiramate) 25 Mg Tablet 25 Mg PO BID 30 Days Aspirin Ec (Aspirin) 81 Mg Tablet.dr 81 Mg PO DAILYWBKFT 30 Days Reported Oxycodone Hcl 5 Mg Capsule 5 Mg PO Q6HRS PRN Gabapentin 100 Mg Capsule 200 Mg PO TID Zofran Odt (Ondansetron) 4 Mg Tab.rapdis 4 Mg PO PRN Q4HRS PRN Trazodone Hcl 150 Mg Tablet 150 Mg PO HS Renvela (Sevelamer Carbonate) 800 Mg Tablet 2 Tab PO TID Lantus Solostar (Insulin Glargine,Hum.rec.anlog) 100 Unit/1 Ml Insuln.pen 12 Unit SQ QHS Lamictal (Lamotrigine) 100 Mg Tablet 100 Mg PO BID Gabapentin 300 Mg Capsule 300 Mg PO QHS Clonidine Hcl 0.2 Mg Tablet 0.2 Mg PO TID Bupropion Xl (Bupropion Hcl) 300 Mg Tab.er.24h 300 Mg PO DAILY Abilify (Aripiprazole) 5 Mg Tablet 5 Mg PO DAILY Vitals/I & O Vital Sign - Last 24 Hours 03/21/17 03/21/17 03/21/17 03/21/17 11:58 11:59 12:00 12:00 Temp 99.2 99.2 Pulse 88 85 Resp 22 13 B/P (MAP) 190/80 177/82 (113) Pulse Ox 99 98 O2 Delivery Room Air Room Air Room Air 03/21/17 03/21/17 03/21/17 03/21/17 12:29 13:01 13:16 14:07 Pulse 100 Resp 16 18 16 B/P (MAP) 168/70 Pulse Ox 98 98 98 O2 Delivery Room Air Room Air Room Air 03/21/17 03/21/17 03/21/17 03/21/17 14:08 14:16 14:32 15:15 Pulse 100 94 Resp 20 22 B/P (MAP) 168/70 192/77 Pulse Ox 98 98 O2 Delivery Room Air Room Air 03/21/17 03/21/17 03/21/17 03/21/17 15:45 16:00 17:00 19:15 Temp 99.1 99.1 Pulse 82 78 78 Resp 18 21 20 B/P (MAP) 145/65 (91) 160/70 (100) 199/92 (127) Pulse Ox 95 97 96 O2 Delivery Room Air Room Air Room Air Room Air 03/21/17 03/21/17 03/21/17 03/21/17 19:26 20:12 20:18 20:45 Temp 98.8 98.8 Pulse 85 93 95 Resp 20 B/P (MAP) 199/92 184/97 (126) 205/98 Pulse Ox 97 O2 Delivery Room Air Room Air 03/21/17 03/21/17 03/21/17 03/21/17 20:46 20:47 21:00 22:00 Pulse 95 95 90 90 Resp 20 20 B/P (MAP) 197/85 (122) 198/88 (124) Pulse Ox 97 95 O2 Delivery Room Air Room Air 03/21/17 03/21/17 03/21/17 03/22/17 22:30 22:45 23:00 00:00 Temp 101.1 101.1 Pulse 90 92 94 96 Resp 20 20 20 18 B/P (MAP) 195/81 (119) 163/74 (103) 156/72 (100) 146/74 (98) Pulse Ox 94 93 93 92 O2 Delivery Room Air Room Air Room Air Room Air 03/22/17 03/22/17 03/22/17 03/22/17 00:00 01:00 02:00 03:00 Temp 100.1 99.8 100.1 99.8 Pulse 98 96 93 Resp 20 20 20 B/P (MAP) 147/70 (95) 147/73 (97) 144/65 (91) Pulse Ox 92 92 91 O2 Delivery Room Air Room Air Nasal Cannula Nasal Cannula O2 Flow Rate 2.0 2.0 03/22/17 03/22/17 03/22/17 03/22/17 04:00 04:17 04:30 04:45 Temp 99.2 99.2 Pulse 89 86 87 Resp 20 B/P (MAP) 132/66 (88) 118/63 (81) 63/ Pulse Ox 97 O2 Delivery Room Air Nasal Cannula O2 Flow Rate 2.0 03/22/17 03/22/17 03/22/17 03/22/17 05:30 07:00 08:00 09:00 Temp 99.6 99.9 99.6 99.9 Pulse 85 81 73 72 Resp 20 18 24 B/P (MAP) 134/66 (88) 161/74 (103) 163/79 (107) 191/90 (123) Pulse Ox 94 94 97 O2 Delivery Nasal Cannula Nasal Cannula Nasal Cannula O2 Flow Rate 2.0 2.0 2.0 03/22/17 03/22/17 03/22/17 03/22/17 09:15 09:30 09:40 09:45 Pulse 93 103 103 106 Resp 24 20 19 B/P (MAP) 200/90 (126) 183/78 (113) 191/80 172/78 (109) Pulse Ox 97 97 96 O2 Delivery Nasal Cannula Nasal Cannula Nasal Cannula O2 Flow Rate 2.0 2.0 2.0 03/22/17 03/22/17 03/22/17 03/22/17 10:00 10:15 10:30 10:40 Pulse 104 112 114 114 Resp 22 26 32 B/P (MAP) 153/70 (97) 177/80 (112) 180/74 (109) 180/74 Pulse Ox 96 96 95 O2 Delivery Nasal Cannula Nasal Cannula Nasal Cannula O2 Flow Rate 2.0 2.0 2.0 03/22/17 10:45 Pulse 90 Resp 30 B/P (MAP) 148/64 (92) Pulse Ox 94 O2 Delivery Nasal Cannula O2 Flow Rate 2.0 Intake and Output 03/22/17 03/22/17 03/23/17 15:00 23:00 07:00 Output Total 0 ml Balance 0 ml CHRISTOPHER HANLEY MD Mar 22, 2017 11:38
--- NOTE | 2017-03-22 11:52 | PDOC2 ---
NEUROLOGY CONSULT Date of Admission Date of Admission Full Report Dictated DATE: 03/22/17 TIME: 11:50 Current Medications Current Medications Current Medications Hydralazine HCl (Apresoline Inj) 10 mg 1X ONCE IVP Last administered on 13:25; Start 03/20/17 at 13:15; Stop 03/20/17 at 13:16; Status DC Ondansetron HCl (Zofran) 4 mg PRN Q8HRS PRN IV NAUSEA/VOMITING; Start 03/20/17 at 15:45; Stop 03/21/17 at 15:44; Status DC Fentanyl Citrate (Fentanyl 2ml Vial) 50 mcg 1X ONCE IV Last administered on 16:31; Start 03/20/17 at 16:30; Stop 03/20/17 at 16:31; Status DC Hydralazine HCl (Apresoline Inj) 10 mg PRN Q4HRS PRN IVP ELEVATED BP, SEE COMMENTS Last administered on 03/22/17 09:40; Start 03/20/17 at 18:00 Fentanyl Citrate (Fentanyl 2ml Vial) 50 mcg PRN Q4HRS PRN IV PAIN Last administered on 03/21/17 14:16; Start 03/20/17 at 18:00 Nicardipine HCl 50 mg/Sodium Chloride 270 ml @ 0 mls/hr CONT PRN IV SEE I/O RECORD Last administered on 03/22/17 04:15; Start 03/20/17 at 18:45 Morphine Sulfate 2 mg PRN Q2HR PRN IV PAIN Last administered on 03/21/17 11: 59; Start 03/20/17 at 19:30 Morphine Sulfate 4 mg PRN Q2HR PRN IV PAIN Last administered on 03/21/17 13: 01; Start 03/20/17 at 19:30 Magnesium Sulfate/ Dextrose 50 ml @ 25 mls/hr PRN DAILY PRN IV for Mag < 1.7 on am labs; Start 03/21/17 at 08:30 Iohexol (Omnipaque 300 Mg/ml) 90 ml 1X ONCE IV Last administered on 10:47; Start 03/21/17 at 10:30; Stop 03/21/17 at 10:32; Status DC Info (Do NOT chart on this entry -- for MONITORING) 1 each PRN DAILY PRN MC SEE COMMENTS; Start 03/21/17 at 10:45; Stop 03/23/17 at 10:44 Amlodipine Besylate (Norvasc) 5 mg BID PO Last administered on 03/21/17 20:47 ; Start 03/21/17 at 21:00 Clonidine HCl (Catapres) 0.2 mg TID PO Last administered on 03/21/17 20:46; Start 03/21/17 at 14:00 Gabapentin (Neurontin) 200 mg TID PO Last administered on 03/21/17 20:46; Start 03/21/17 at 14:00; Stop 03/22/17 at 09:24; Status DC Lisinopril (Prinivil) 40 mg DAILY PO Last administered on 03/21/17 14:07; Start 03/21/17 at 14:00 Ondansetron HCl (Zofran Odt) 4 mg PRN Q4HRS PRN PO NAUSEA/VOMITING; Start 02/25 at 13:30 Non-Formulary Medication 300 mg QHS PO ; Start 03/21/17 at 21:00; Status UNV Trazodone HCl (Desyrel) 150 mg QHS PO Last administered on 03/21/17 20:46; Start 03/21/17 at 21:00 Labetalol HCl (Normodyne) 20 mg PRN Q2HR PRN IVP HYPERTENSION, SEE COMMENTS Last administered on 03/22/17 10:40; Start 03/21/17 at 13:45 Insulin Aspart (NovoLOG) 0-5 UNITS TIDWMEALS SQ ; Start 03/21/17 at 17:00 Dextrose (Dextrose 50%-Water Syringe) 12.5 gm PRN Q15MIN PRN IV SEE COMMENTS; Start 03/21/17 at 13:45 Insulin Detemir (Levemir) 21 units QHS SQ Last administered on 03/21/17 21:06 ; Start 03/21/17 at 21:00 Aripiprazole (Abilify) 5 mg DAILY PO Last administered on 03/21/17 14:07; Start 03/21/17 at 14:00 Lamotrigine (LaMICtal) 100 mg BID PO Last administered on 03/21/17 20:46; Start 03/21/17 at 14:00 Topiramate (Topamax) 25 mg BID PO Last administered on 03/21/17 20:46; Start 03/21/17 at 14:00 Bupropion HCl (Wellbutrin Xl) 300 mg DAILY PO Last administered on 03/21/17 14:08; Start 03/21/17 at 14:00 Acetaminophen (Tylenol) 650 mg PRN Q6HRS PRN PO headache Last administered on 03/21/17 20:46; Start 03/21/17 at 14:00 Gabapentin (Neurontin) 600 mg HS PO ; Start 03/22/17 at 21:00; Stop 03/22/17 at 21:00; Status DC Gabapentin (Neurontin) 300 mg HS PO ; Start 03/22/17 at 21:00 Multivitamins 10 ml/Thiamine HCl 100 mg/Sodium Chloride 1,011 ml @ 100 mls/hr 1X ONCE IV ; Start 03/22/17 at 12:00; Stop 03/22/17 at 22:06 Multivitamins (Thera M Plus) 1 tab DAILY PO ; Start 03/23/17 at 09:00 Folic Acid (Folic Acid) 1 mg DAILY PO ; Start 03/23/17 at 09:00 Lorazepam (Ativan) 2 mg PRN Q1HR PRN IV For CIWA 8-14; Start 03/22/17 at 11:30 Haloperidol Lactate (Haldol) 5 mg PRN Q4HRS PRN IVP Hallucinatns,Confusn, Delirium; Start 03/22/17 at 11:30 Diphenhydramine HCl (Benadryl) 25 mg PRN Q15MIN PRN IVP EPS symptoms 2'Haldol admin; Start 03/22/17 at 11:30 Thiamine Mononitrate (Vitamin B-1) 100 mg DAILY PO ; Start 03/23/17 at 09:00 Active Scripts Active Midodrine Hcl 10 Mg Tablet 10 Mg PO TID 30 Days Lisinopril 40 Mg Tablet 1 Tab PO DAILY Coreg (Carvedilol) 6.25 Mg Tablet 1 Tab PO BID Norvasc (Amlodipine Besylate) 5 Mg Tablet 1 Tab PO BID Topamax (Topiramate) 25 Mg Tablet 25 Mg PO BID 30 Days Aspirin Ec (Aspirin) 81 Mg Tablet.dr 81 Mg PO DAILYWBKFT 30 Days Reported Oxycodone Hcl 5 Mg Capsule 5 Mg PO Q6HRS PRN Gabapentin 100 Mg Capsule 200 Mg PO TID Zofran Odt (Ondansetron) 4 Mg Tab.rapdis 4 Mg PO PRN Q4HRS PRN Trazodone Hcl 150 Mg Tablet 150 Mg PO HS Renvela (Sevelamer Carbonate) 800 Mg Tablet 2 Tab PO TID Lantus Solostar (Insulin Glargine,Hum.rec.anlog) 100 Unit/1 Ml Insuln.pen 12 Unit SQ QHS Lamictal (Lamotrigine) 100 Mg Tablet 100 Mg PO BID Gabapentin 300 Mg Capsule 300 Mg PO QHS Clonidine Hcl 0.2 Mg Tablet 0.2 Mg PO TID Bupropion Xl (Bupropion Hcl) 300 Mg Tab.er.24h 300 Mg PO DAILY Abilify (Aripiprazole) 5 Mg Tablet 5 Mg PO DAILY Allergies Allergies: Coded Allergies: No Known Drug Allergies (Unverified , 03/04/17) Vitals VITALS Vital Signs Date Time Temp Pulse Resp B/P (MAP) Pulse Ox O2 Delivery O2 Flow Rate FiO2 03/22/17 10:45 90 30 148/64 (92) 94 Nasal Cannula 2.0 03/22/17 08:00 99.9 99.9 Labs Labs Laboratory Tests Test 03/20/17 13:15 03/20/17 17:45 03/21/17 07:51 03/21/17 18:16 White Blood Count 5.0 x10^3/uL (4.0-11.0) Red Blood Count 3.70 x10^6/uL (3.50-5.40) Hemoglobin 11.6 g/dL (12.0-15.5) Hematocrit 34.4 % (36.0-47.0) Mean Corpuscular Volume 93 fL (79-100) Mean Corpuscular Hemoglobin 31 pg (25-35) Mean Corpuscular Hemoglobin Concent 34 g/dL (31-37) Red Cell Distribution Width 14.4 % (11.5-14.5) Platelet Count 125 x10^3/uL (140-400) Neutrophils (%) (Auto) 70 % (31-73) Lymphocytes (%) (Auto) 19 % (24-48) Monocytes (%) (Auto) 8 % (0-9) Eosinophils (%) (Auto) 2 % (0-3) Basophils (%) (Auto) 1 % (0-3) Neutrophils # (Auto) 3.5 x10^3uL (1.8-7.7) Lymphocytes # (Auto) 0.9 x10^3/uL (1.0-4.8) Monocytes # (Auto) 0.4 x10^3/uL (0.0-1.1) Eosinophils # (Auto) 0.1 x10^3/uL (0.0-0.7) Basophils # (Auto) 0.0 x10^3/uL (0.0-0.2) Sodium Level 134 mmol/L (136-145) 136 mmol/L (136-145) Potassium Level 4.2 mmol/L (3.5-5.1) 5.2 mmol/L (3.5-5.1) Chloride Level 98 mmol/L (98-107) 99 mmol/L (98-107) Carbon Dioxide Level 28 mmol/L (21-32) 27 mmol/L (21-32) Anion Gap 8 (6-14) 10 (6-14) Blood Urea Nitrogen 35 mg/dL (7-20) 45 mg/dL (7-20) Creatinine 4.8 mg/dL (0.6-1.0) 6.8 mg/dL (0.6-1.0) Estimated GFR (Cockcroft-Gault) 9.5 6.4 BUN/Creatinine Ratio 7 (6-20) 7 (6-20) Glucose Level 273 mg/dL (70-99) 182 mg/dL (70-99) Calcium Level 8.9 mg/dL (8.5-10.1) 9.0 mg/dL (8.5-10.1) Total Bilirubin 0.4 mg/dL (0.2-1.0) 0.5 mg/dL (0.2-1.0) Aspartate Amino Transf (AST/SGOT) 19 U/L (15-37) 15 U/L (15-37) Alanine Aminotransferase (ALT/SGPT) 28 U/L (14-59) 25 U/L (14-59) Alkaline Phosphatase 208 U/L (46-116) 142 U/L (46-116) Total Protein 8.1 g/dL (6.4-8.2) 7.8 g/dL (6.4-8.2) Albumin 3.4 g/dL (3.4-5.0) 3.3 g/dL (3.4-5.0) Albumin/Globulin Ratio 0.7 (1.0-1.7) 0.7 (1.0-1.7) Nasal Screen MRSA (PCR) Negative (Negative) Magnesium Level 2.1 mg/dL (1.8-2.4) Glucose (Fingerstick) 155 mg/dL (70-99) Test 03/21/17 20:55 03/22/17 03:30 03/22/17 09:11 Glucose (Fingerstick) 136 mg/dL (70-99) White Blood Count 6.5 x10^3/uL (4.0-11.0) Red Blood Count 3.50 x10^6/uL (3.50-5.40) Hemoglobin 11.0 g/dL (12.0-15.5) Hematocrit 32.9 % (36.0-47.0) Mean Corpuscular Volume 94 fL (79-100) Mean Corpuscular Hemoglobin 32 pg (25-35) Mean Corpuscular Hemoglobin Concent 34 g/dL (31-37) Red Cell Distribution Width 15.2 % (11.5-14.5) Platelet Count 123 x10^3/uL (140-400) Neutrophils (%) (Auto) 62 % (31-73) Lymphocytes (%) (Auto) 26 % (24-48) Monocytes (%) (Auto) 10 % (0-9) Eosinophils (%) (Auto) 2 % (0-3) Basophils (%) (Auto) 1 % (0-3) Neutrophils # (Auto) 4.0 x10^3uL (1.8-7.7) Lymphocytes # (Auto) 1.7 x10^3/uL (1.0-4.8) Monocytes # (Auto) 0.7 x10^3/uL (0.0-1.1) Eosinophils # (Auto) 0.1 x10^3/uL (0.0-0.7) Basophils # (Auto) 0.1 x10^3/uL (0.0-0.2) Sodium Level 130 mmol/L (136-145) Potassium Level 5.7 mmol/L (3.5-5.1) Chloride Level 96 mmol/L (98-107) Carbon Dioxide Level 24 mmol/L (21-32) Anion Gap 10 (6-14) Blood Urea Nitrogen 55 mg/dL (7-20) Creatinine 8.2 mg/dL (0.6-1.0) Estimated GFR (Cockcroft-Gault) 5.1 Glucose Level 129 mg/dL (70-99) Calcium Level 8.7 mg/dL (8.5-10.1) Phosphorus Level 4.1 mg/dL (2.6-4.7) Magnesium Level 2.0 mg/dL (1.8-2.4) Albumin 3.1 g/dL (3.4-5.0) Urine Opiates Screen Pos (NEG) Urine Methadone Screen Neg (NEG) Urine Barbiturates Neg (NEG) Urine Phencyclidine Screen Neg (NEG) Urine Amphetamine/Methamphetamine Neg (NEG) Urine Benzodiazepines Screen Neg (NEG) Urine Cocaine Screen Neg (NEG) Urine Cannabinoids Screen Neg (NEG) Urine Ethyl Alcohol Neg (NEG) Laboratory Tests Test 03/21/17 18:16 03/21/17 20:55 03/22/17 03:30 03/22/17 09:11 Glucose (Fingerstick) 155 mg/dL (70-99) 136 mg/dL (70-99) White Blood Count 6.5 x10^3/uL (4.0-11.0) Red Blood Count 3.50 x10^6/uL (3.50-5.40) Hemoglobin 11.0 g/dL (12.0-15.5) Hematocrit 32.9 % (36.0-47.0) Mean Corpuscular Volume 94 fL (79-100) Mean Corpuscular Hemoglobin 32 pg (25-35) Mean Corpuscular Hemoglobin Concent 34 g/dL (31-37) Red Cell Distribution Width 15.2 % (11.5-14.5) Platelet Count 123 x10^3/uL (140-400) Neutrophils (%) (Auto) 62 % (31-73) Lymphocytes (%) (Auto) 26 % (24-48) Monocytes (%) (Auto) 10 % (0-9) Eosinophils (%) (Auto) 2 % (0-3) Basophils (%) (Auto) 1 % (0-3) Neutrophils # (Auto) 4.0 x10^3uL (1.8-7.7) Lymphocytes # (Auto) 1.7 x10^3/uL (1.0-4.8) Monocytes # (Auto) 0.7 x10^3/uL (0.0-1.1) Eosinophils # (Auto) 0.1 x10^3/uL (0.0-0.7) Basophils # (Auto) 0.1 x10^3/uL (0.0-0.2) Sodium Level 130 mmol/L (136-145) Potassium Level 5.7 mmol/L (3.5-5.1) Chloride Level 96 mmol/L (98-107) Carbon Dioxide Level 24 mmol/L (21-32) Anion Gap 10 (6-14) Blood Urea Nitrogen 55 mg/dL (7-20) Creatinine 8.2 mg/dL (0.6-1.0) Estimated GFR (Cockcroft-Gault) 5.1 Glucose Level 129 mg/dL (70-99) Calcium Level 8.7 mg/dL (8.5-10.1) Phosphorus Level 4.1 mg/dL (2.6-4.7) Magnesium Level 2.0 mg/dL (1.8-2.4) Albumin 3.1 g/dL (3.4-5.0) Urine Opiates Screen Pos (NEG) Urine Methadone Screen Neg (NEG) Urine Barbiturates Neg (NEG) Urine Phencyclidine Screen Neg (NEG) Urine Amphetamine/Methamphetamine Neg (NEG) Urine Benzodiazepines Screen Neg (NEG) Urine Cocaine Screen Neg (NEG) Urine Cannabinoids Screen Neg (NEG) Urine Ethyl Alcohol Neg (NEG) Assessment/Plan Assessment/Plan Patient is a 52-year-old woman with complex medical history including alcoholism , schizophrenia, diabetes and end-stage renal disease who presented with a hypertensive crisis. She also has a history of orthostatic hypotension. She has become encephalopathic with fluctuation in her mental status over the last 1-2 days. Neurologic examination does not appear focal. She does have a 5 mm subdural hematoma which has appeared stable. She is on anticonvulsants likely for mood stabilization. I will add extra topiramate 50 mg as a supplement after hemodialysis. This should help cover seizure prevention. Her psychotropics have been initiated for schizophrenia. I will reevaluate. BRIGIDO SINGH MD Mar 22, 2017 11:52
[2017-03-22] MEDS ORDERED: [UNRECOGNIZED DRUG - OTHER] IV ONE (12:00)
[2017-03-22] MEDS ORDERED: MULTIVIT INFUSN ADULT K IV ONE (12:00)
[2017-03-22] MEDS ORDERED: THIAMINE IV ONE (12:00)
[2017-03-22] MEDS: ACETAMINOPHEN 325 MG TABLET. PO PRN (12:04)
[2017-03-22] MEDS: buPROPion XL 150 MG TAB.ER.24H. PO SCH (12:04)
[2017-03-22] MEDS: TOPIRAMATE 25 MG TABLET. PO SCH ×3 (12:05→22:11)
[2017-03-22] MEDS: lamoTRIgine 100 MG TABLET. PO SCH ×2 (12:05→22:10)
[2017-03-22] MEDS: cloNIDine HCL 0.2 MG TABLET PO SCH ×3 (12:05→22:11)
[2017-03-22] MEDS: amLODIPine BESYLATE 5 MG TABLET PO SCH ×2 (12:05→22:11)
[2017-03-22] MEDS: ARIPiprazole 5 MG TABLET PO SCH (12:05)
[2017-03-22] MEDS: LISINOPRIL 40 MG TABLET. PO SCH (12:06)
[2017-03-22 12:16] LABS: BACTERIA,URINE 0 /HPF (0-FEW); RBC,URINE RARE /HPF (0-2); SQUAMOUS EPITHELIAL CELL,UR MOD /LPF; WBC,URINE RARE /HPF (0-4)
--- NOTE | 2017-03-22 12:41 | PDOC ---
PROGRESS NOTES Chief Complaint Chief Complaint Subdural hematoma Previous alcoholism- quit drinking 4 years ago Diabetes Hypertension End-stage renal disease Hepatitis C , Tonsillectomy Right arm dialysis fistula. History of Present Illness History of Present Illness 53 y/o F seen at bedside in ICU. Pt was undergoing bedside dialysis, appears restless and in moderate distress. Per RN, she has been relatively restless over the past 24 hours, especially in the LE's. Pt's psych meds were restarted yesterday, along with Trazadone, and per RN, pt has seemed more tired today. Pt has a hx of alcoholism and claims she has not been drinking for several years, but is exhibiting signs of EtOH withdrawal today. Pt. is being followed by Neurology and Neurosurg re: subdural hematoma, and nephro re: CRF. Repeat head CT today did not indicate any acute changes re: SDH. Will start EtOH withdrawal protocol and continue to monitor in ICU. Vitals Vitals Vital Signs Date Time Temp Pulse Resp B/P (MAP) Pulse Ox O2 Delivery O2 Flow Rate FiO2 03/22/17 12:06 98 151/66 03/22/17 10:45 30 94 Nasal Cannula 2.0 03/22/17 08:00 99.9 99.9 Physical Exam General: Cooperative, mild distress Heart: Regular rate, Normal S1, Normal S2 Lungs: Clear Abdomen: No tenderness, No masses Extremities: No clubbing, No cyanosis Skin: No rashes Labs LABS Laboratory Tests Test 03/21/17 18:16 03/21/17 20:55 03/22/17 03:30 03/22/17 09:11 Glucose (Fingerstick) 155 mg/dL (70-99) 136 mg/dL (70-99) White Blood Count 6.5 x10^3/uL (4.0-11.0) Red Blood Count 3.50 x10^6/uL (3.50-5.40) Hemoglobin 11.0 g/dL (12.0-15.5) Hematocrit 32.9 % (36.0-47.0) Mean Corpuscular Volume 94 fL (79-100) Mean Corpuscular Hemoglobin 32 pg (25-35) Mean Corpuscular Hemoglobin Concent 34 g/dL (31-37) Red Cell Distribution Width 15.2 % (11.5-14.5) Platelet Count 123 x10^3/uL (140-400) Neutrophils (%) (Auto) 62 % (31-73) Lymphocytes (%) (Auto) 26 % (24-48) Monocytes (%) (Auto) 10 % (0-9) Eosinophils (%) (Auto) 2 % (0-3) Basophils (%) (Auto) 1 % (0-3) Neutrophils # (Auto) 4.0 x10^3uL (1.8-7.7) Lymphocytes # (Auto) 1.7 x10^3/uL (1.0-4.8) Monocytes # (Auto) 0.7 x10^3/uL (0.0-1.1) Eosinophils # (Auto) 0.1 x10^3/uL (0.0-0.7) Basophils # (Auto) 0.1 x10^3/uL (0.0-0.2) Sodium Level 130 mmol/L (136-145) Potassium Level 5.7 mmol/L (3.5-5.1) Chloride Level 96 mmol/L (98-107) Carbon Dioxide Level 24 mmol/L (21-32) Anion Gap 10 (6-14) Blood Urea Nitrogen 55 mg/dL (7-20) Creatinine 8.2 mg/dL (0.6-1.0) Estimated GFR (Cockcroft-Gault) 5.1 Glucose Level 129 mg/dL (70-99) Calcium Level 8.7 mg/dL (8.5-10.1) Phosphorus Level 4.1 mg/dL (2.6-4.7) Magnesium Level 2.0 mg/dL (1.8-2.4) Albumin 3.1 g/dL (3.4-5.0) Urine Collection Type Unknown Urine Color Yellow Urine Clarity Clear Urine pH 7.5 Urine Specific [place] 1.020 Urine Protein >=300 mg/dL (NEG-TRACE) Urine Glucose (UA) 100 mg/dL (NEG) Urine Ketones (Stick) Negative mg/dL (NEG) Urine Blood Trace (NEG) Urine Nitrite Negative (NEG) Urine Bilirubin Negative (NEG) Urine Urobilinogen Dipstick 0.2 mg/dL (0.2 mg/dL) Urine Leukocyte Esterase Trace (NEG) Urine RBC Rare /HPF (0-2) Urine WBC Rare /HPF (0-4) Urine Squamous Epithelial Cells Mod /LPF Urine Bacteria 0 /HPF (0-FEW) Urine Opiates Screen Pos (NEG) Urine Methadone Screen Neg (NEG) Urine Barbiturates Neg (NEG) Urine Phencyclidine Screen Neg (NEG) Urine Amphetamine/Methamphetamine Neg (NEG) Urine Benzodiazepines Screen Neg (NEG) Urine Cocaine Screen Neg (NEG) Urine Cannabinoids Screen Neg (NEG) Urine Ethyl Alcohol Neg (NEG) Test 03/22/17 12:04 Glucose (Fingerstick) 136 mg/dL (70-99) Review of Systems Review of Systems Pt in mild distress, generally restless. Occasionally cooperative to verbal commands. Lungs clear. Heart in regular rate and rhythm. EOMI b/l, no facial n. palsy. Responsive to painful stimuli. Assessment and Plan Assessmemt and Plan Problems Medical Problems: (1) Hypertension Status: Acute (2) Subdural hematoma Status: Acute Subdural hematoma Previous alcoholism- quit drinking 4 years ago Diabetes Hypertension End-stage renal disease Hepatitis C , Tonsillectomy Right arm dialysis fistula. PLAN: Banana bag daily EtOH withdrawal protocol Order coagulation panel Continue home meds Continue dialysis Continue ICU monitoring PT/OT Continue subspecialty consult(s) F/U headt CT per neuro/neurosurgery preference Problems: Comment Review of Relevant I have reviewed the following items shi (where applicable) has been applied. Labs Laboratory Tests Test 03/20/17 13:15 03/20/17 17:45 03/21/17 07:51 03/21/17 18:16 White Blood Count 5.0 x10^3/uL (4.0-11.0) Red Blood Count 3.70 x10^6/uL (3.50-5.40) Hemoglobin 11.6 g/dL (12.0-15.5) Hematocrit 34.4 % (36.0-47.0) Mean Corpuscular Volume 93 fL (79-100) Mean Corpuscular Hemoglobin 31 pg (25-35) Mean Corpuscular Hemoglobin Concent 34 g/dL (31-37) Red Cell Distribution Width 14.4 % (11.5-14.5) Platelet Count 125 x10^3/uL (140-400) Neutrophils (%) (Auto) 70 % (31-73) Lymphocytes (%) (Auto) 19 % (24-48) Monocytes (%) (Auto) 8 % (0-9) Eosinophils (%) (Auto) 2 % (0-3) Basophils (%) (Auto) 1 % (0-3) Neutrophils # (Auto) 3.5 x10^3uL (1.8-7.7) Lymphocytes # (Auto) 0.9 x10^3/uL (1.0-4.8) Monocytes # (Auto) 0.4 x10^3/uL (0.0-1.1) Eosinophils # (Auto) 0.1 x10^3/uL (0.0-0.7) Basophils # (Auto) 0.0 x10^3/uL (0.0-0.2) Sodium Level 134 mmol/L (136-145) 136 mmol/L (136-145) Potassium Level 4.2 mmol/L (3.5-5.1) 5.2 mmol/L (3.5-5.1) Chloride Level 98 mmol/L (98-107) 99 mmol/L (98-107) Carbon Dioxide Level 28 mmol/L (21-32) 27 mmol/L (21-32) Anion Gap 8 (6-14) 10 (6-14) Blood Urea Nitrogen 35 mg/dL (7-20) 45 mg/dL (7-20) Creatinine 4.8 mg/dL (0.6-1.0) 6.8 mg/dL (0.6-1.0) Estimated GFR (Cockcroft-Gault) 9.5 6.4 BUN/Creatinine Ratio 7 (6-20) 7 (6-20) Glucose Level 273 mg/dL (70-99) 182 mg/dL (70-99) Calcium Level 8.9 mg/dL (8.5-10.1) 9.0 mg/dL (8.5-10.1) Total Bilirubin 0.4 mg/dL (0.2-1.0) 0.5 mg/dL (0.2-1.0) Aspartate Amino Transf (AST/SGOT) 19 U/L (15-37) 15 U/L (15-37) Alanine Aminotransferase (ALT/SGPT) 28 U/L (14-59) 25 U/L (14-59) Alkaline Phosphatase 208 U/L (46-116) 142 U/L (46-116) Total Protein 8.1 g/dL (6.4-8.2) 7.8 g/dL (6.4-8.2) Albumin 3.4 g/dL (3.4-5.0) 3.3 g/dL (3.4-5.0) Albumin/Globulin Ratio 0.7 (1.0-1.7) 0.7 (1.0-1.7) Nasal Screen MRSA (PCR) Negative (Negative) Magnesium Level 2.1 mg/dL (1.8-2.4) Glucose (Fingerstick) 155 mg/dL (70-99) Test 03/21/17 20:55 03/22/17 03:30 03/22/17 09:11 03/22/17 12:04 Glucose (Fingerstick) 136 mg/dL (70-99) 136 mg/dL (70-99) White Blood Count 6.5 x10^3/uL (4.0-11.0) Red Blood Count 3.50 x10^6/uL (3.50-5.40) Hemoglobin 11.0 g/dL (12.0-15.5) Hematocrit 32.9 % (36.0-47.0) Mean Corpuscular Volume 94 fL (79-100) Mean Corpuscular Hemoglobin 32 pg (25-35) Mean Corpuscular Hemoglobin Concent 34 g/dL (31-37) Red Cell Distribution Width 15.2 % (11.5-14.5) Platelet Count 123 x10^3/uL (140-400) Neutrophils (%) (Auto) 62 % (31-73) Lymphocytes (%) (Auto) 26 % (24-48) Monocytes (%) (Auto) 10 % (0-9) Eosinophils (%) (Auto) 2 % (0-3) Basophils (%) (Auto) 1 % (0-3) Neutrophils # (Auto) 4.0 x10^3uL (1.8-7.7) Lymphocytes # (Auto) 1.7 x10^3/uL (1.0-4.8) Monocytes # (Auto) 0.7 x10^3/uL (0.0-1.1) Eosinophils # (Auto) 0.1 x10^3/uL (0.0-0.7) Basophils # (Auto) 0.1 x10^3/uL (0.0-0.2) Sodium Level 130 mmol/L (136-145) Potassium Level 5.7 mmol/L (3.5-5.1) Chloride Level 96 mmol/L (98-107) Carbon Dioxide Level 24 mmol/L (21-32) Anion Gap 10 (6-14) Blood Urea Nitrogen 55 mg/dL (7-20) Creatinine 8.2 mg/dL (0.6-1.0) Estimated GFR (Cockcroft-Gault) 5.1 Glucose Level 129 mg/dL (70-99) Calcium Level 8.7 mg/dL (8.5-10.1) Phosphorus Level 4.1 mg/dL (2.6-4.7) Magnesium Level 2.0 mg/dL (1.8-2.4) Albumin 3.1 g/dL (3.4-5.0) Urine Collection Type Unknown Urine Color Yellow Urine Clarity Clear Urine pH 7.5 Urine Specific [place] 1.020 Urine Protein >=300 mg/dL (NEG-TRACE) Urine Glucose (UA) 100 mg/dL (NEG) Urine Ketones (Stick) Negative mg/dL (NEG) Urine Blood Trace (NEG) Urine Nitrite Negative (NEG) Urine Bilirubin Negative (NEG) Urine Urobilinogen Dipstick 0.2 mg/dL (0.2 mg/dL) Urine Leukocyte Esterase Trace (NEG) Urine RBC Rare /HPF (0-2) Urine WBC Rare /HPF (0-4) Urine Squamous Epithelial Cells Mod /LPF Urine Bacteria 0 /HPF (0-FEW) Urine Opiates Screen Pos (NEG) Urine Methadone Screen Neg (NEG) Urine Barbiturates Neg (NEG) Urine Phencyclidine Screen Neg (NEG) Urine Amphetamine/Methamphetamine Neg (NEG) Urine Benzodiazepines Screen Neg (NEG) Urine Cocaine Screen Neg (NEG) Urine Cannabinoids Screen Neg (NEG) Urine Ethyl Alcohol Neg (NEG) Laboratory Tests Test 03/21/17 18:16 03/21/17 20:55 03/22/17 03:30 03/22/17 09:11 Glucose (Fingerstick) 155 mg/dL (70-99) 136 mg/dL (70-99) White Blood Count 6.5 x10^3/uL (4.0-11.0) Red Blood Count 3.50 x10^6/uL (3.50-5.40) Hemoglobin 11.0 g/dL (12.0-15.5) Hematocrit 32.9 % (36.0-47.0) Mean Corpuscular Volume 94 fL (79-100) Mean Corpuscular Hemoglobin 32 pg (25-35) Mean Corpuscular Hemoglobin Concent 34 g/dL (31-37) Red Cell Distribution Width 15.2 % (11.5-14.5) Platelet Count 123 x10^3/uL (140-400) Neutrophils (%) (Auto) 62 % (31-73) Lymphocytes (%) (Auto) 26 % (24-48) Monocytes (%) (Auto) 10 % (0-9) Eosinophils (%) (Auto) 2 % (0-3) Basophils (%) (Auto) 1 % (0-3) Neutrophils # (Auto) 4.0 x10^3uL (1.8-7.7) Lymphocytes # (Auto) 1.7 x10^3/uL (1.0-4.8) Monocytes # (Auto) 0.7 x10^3/uL (0.0-1.1) Eosinophils # (Auto) 0.1 x10^3/uL (0.0-0.7) Basophils # (Auto) 0.1 x10^3/uL (0.0-0.2) Sodium Level 130 mmol/L (136-145) Potassium Level 5.7 mmol/L (3.5-5.1) Chloride Level 96 mmol/L (98-107) Carbon Dioxide Level 24 mmol/L (21-32) Anion Gap 10 (6-14) Blood Urea Nitrogen 55 mg/dL (7-20) Creatinine 8.2 mg/dL (0.6-1.0) Estimated GFR (Cockcroft-Gault) 5.1 Glucose Level 129 mg/dL (70-99) Calcium Level 8.7 mg/dL (8.5-10.1) Phosphorus Level 4.1 mg/dL (2.6-4.7) Magnesium Level 2.0 mg/dL (1.8-2.4) Albumin 3.1 g/dL (3.4-5.0) Urine Collection Type Unknown Urine Color Yellow Urine Clarity Clear Urine pH 7.5 Urine Specific [place] 1.020 Urine Protein >=300 mg/dL (NEG-TRACE) Urine Glucose (UA) 100 mg/dL (NEG) Urine Ketones (Stick) Negative mg/dL (NEG) Urine Blood Trace (NEG) Urine Nitrite Negative (NEG) Urine Bilirubin Negative (NEG) Urine Urobilinogen Dipstick 0.2 mg/dL (0.2 mg/dL) Urine Leukocyte Esterase Trace (NEG) Urine RBC Rare /HPF (0-2) Urine WBC Rare /HPF (0-4) Urine Squamous Epithelial Cells Mod /LPF Urine Bacteria 0 /HPF (0-FEW) Urine Opiates Screen Pos (NEG) Urine Methadone Screen Neg (NEG) Urine Barbiturates Neg (NEG) Urine Phencyclidine Screen Neg (NEG) Urine Amphetamine/Methamphetamine Neg (NEG) Urine Benzodiazepines Screen Neg (NEG) Urine Cocaine Screen Neg (NEG) Urine Cannabinoids Screen Neg (NEG) Urine Ethyl Alcohol Neg (NEG) Test 03/22/17 12:04 Glucose (Fingerstick) 136 mg/dL (70-99) Medications Current Medications Hydralazine HCl (Apresoline Inj) 10 mg 1X ONCE IVP Last administered on 13:25; Start 03/20/17 at 13:15; Stop 03/20/17 at 13:16; Status DC Ondansetron HCl (Zofran) 4 mg PRN Q8HRS PRN IV NAUSEA/VOMITING; Start 03/20/17 at 15:45; Stop 03/21/17 at 15:44; Status DC Fentanyl Citrate (Fentanyl 2ml Vial) 50 mcg 1X ONCE IV Last administered on 16:31; Start 03/20/17 at 16:30; Stop 03/20/17 at 16:31; Status DC Hydralazine HCl (Apresoline Inj) 10 mg PRN Q4HRS PRN IVP ELEVATED BP, SEE COMMENTS Last administered on 03/22/17 09:40; Start 03/20/17 at 18:00 Fentanyl Citrate (Fentanyl 2ml Vial) 50 mcg PRN Q4HRS PRN IV PAIN Last administered on 03/21/17 14:16; Start 03/20/17 at 18:00 Nicardipine HCl 50 mg/Sodium Chloride 270 ml @ 0 mls/hr CONT PRN IV SEE I/O RECORD Last administered on 03/22/17 04:15; Start 03/20/17 at 18:45 Morphine Sulfate 2 mg PRN Q2HR PRN IV PAIN Last administered on 03/21/17 11: 59; Start 03/20/17 at 19:30 Morphine Sulfate 4 mg PRN Q2HR PRN IV PAIN Last administered on 03/21/17 13: 01; Start 03/20/17 at 19:30 Magnesium Sulfate/ Dextrose 50 ml @ 25 mls/hr PRN DAILY PRN IV for Mag < 1.7 on am labs; Start 03/21/17 at 08:30 Iohexol (Omnipaque 300 Mg/ml) 90 ml 1X ONCE IV Last administered on 10:47; Start 03/21/17 at 10:30; Stop 03/21/17 at 10:32; Status DC Info (Do NOT chart on this entry -- for MONITORING) 1 each PRN DAILY PRN MC SEE COMMENTS; Start 03/21/17 at 10:45; Stop 03/23/17 at 10:44 Amlodipine Besylate (Norvasc) 5 mg BID PO Last administered on 03/22/17 12:05 ; Start 03/21/17 at 21:00 Clonidine HCl (Catapres) 0.2 mg TID PO Last administered on 03/22/17 12:05; Start 03/21/17 at 14:00 Gabapentin (Neurontin) 200 mg TID PO Last administered on 03/21/17 20:46; Start 03/21/17 at 14:00; Stop 03/22/17 at 09:24; Status DC Lisinopril (Prinivil) 40 mg DAILY PO Last administered on 03/22/17 12:06; Start 03/21/17 at 14:00 Ondansetron HCl (Zofran Odt) 4 mg PRN Q4HRS PRN PO NAUSEA/VOMITING; Start 02/25 at 13:30 Non-Formulary Medication 300 mg QHS PO ; Start 03/21/17 at 21:00; Status UNV Trazodone HCl (Desyrel) 150 mg QHS PO Last administered on 03/21/17 20:46; Start 03/21/17 at 21:00 Labetalol HCl (Normodyne) 20 mg PRN Q2HR PRN IVP HYPERTENSION, SEE COMMENTS Last administered on 03/22/17 10:40; Start 03/21/17 at 13:45 Insulin Aspart (NovoLOG) 0-5 UNITS TIDWMEALS SQ ; Start 03/21/17 at 17:00 Dextrose (Dextrose 50%-Water Syringe) 12.5 gm PRN Q15MIN PRN IV SEE COMMENTS; Start 03/21/17 at 13:45 Insulin Detemir (Levemir) 21 units QHS SQ Last administered on 03/21/17 21:06 ; Start 03/21/17 at 21:00 Aripiprazole (Abilify) 5 mg DAILY PO Last administered on 03/22/17 12:05; Start 03/21/17 at 14:00 Lamotrigine (LaMICtal) 100 mg BID PO Last administered on 03/22/17 12:05; Start 03/21/17 at 14:00 Topiramate (Topamax) 25 mg BID PO Last administered on 03/22/17 12:05; Start 03/21/17 at 14:00 Bupropion HCl (Wellbutrin Xl) 300 mg DAILY PO Last administered on 03/22/17 12:04; Start 03/21/17 at 14:00 Acetaminophen (Tylenol) 650 mg PRN Q6HRS PRN PO headache Last administered on 03/22/17 12:04; Start 03/21/17 at 14:00 Gabapentin (Neurontin) 600 mg HS PO ; Start 03/22/17 at 21:00; Stop 03/22/17 at 21:00; Status DC Gabapentin (Neurontin) 300 mg HS PO ; Start 03/22/17 at 21:00 Multivitamins 10 ml/Thiamine HCl 100 mg/Sodium Chloride 1,011 ml @ 100 mls/hr 1X ONCE IV Last administered on 03/22/17 12:13; Start 03/22/17 at 12:00; Stop 03/22/17 at 22:06 Multivitamins (Thera M Plus) 1 tab DAILY PO ; Start 03/23/17 at 09:00 Folic Acid (Folic Acid) 1 mg DAILY PO ; Start 03/23/17 at 09:00 Lorazepam (Ativan) 2 mg PRN Q1HR PRN IV For CIWA 8-14 Last administered on 11/ 11/17at 11:46; Start 03/22/17 at 11:30 Haloperidol Lactate (Haldol) 5 mg PRN Q4HRS PRN IVP Hallucinatns,Confusn, Delirium; Start 03/22/17 at 11:30 Diphenhydramine HCl (Benadryl) 25 mg PRN Q15MIN PRN IVP EPS symptoms 2'Haldol admin; Start 03/22/17 at 11:30 Thiamine Mononitrate (Vitamin B-1) 100 mg DAILY PO ; Start 03/23/17 at 09:00 Topiramate (Topamax) 50 mg TuThSa PO ; Start 03/22/17 at 17:00 Active Scripts Active Midodrine Hcl 10 Mg Tablet 10 Mg PO TID 30 Days Lisinopril 40 Mg Tablet 1 Tab PO DAILY Coreg (Carvedilol) 6.25 Mg Tablet 1 Tab PO BID Norvasc (Amlodipine Besylate) 5 Mg Tablet 1 Tab PO BID Topamax (Topiramate) 25 Mg Tablet 25 Mg PO BID 30 Days Aspirin Ec (Aspirin) 81 Mg Tablet.dr 81 Mg PO DAILYWBKFT 30 Days Reported Oxycodone Hcl 5 Mg Capsule 5 Mg PO Q6HRS PRN Gabapentin 100 Mg Capsule 200 Mg PO TID Zofran Odt (Ondansetron) 4 Mg Tab.rapdis 4 Mg PO PRN Q4HRS PRN Trazodone Hcl 150 Mg Tablet 150 Mg PO HS Renvela (Sevelamer Carbonate) 800 Mg Tablet 2 Tab PO TID Lantus Solostar (Insulin Glargine,Hum.rec.anlog) 100 Unit/1 Ml Insuln.pen 12 Unit SQ QHS Lamictal (Lamotrigine) 100 Mg Tablet 100 Mg PO BID Gabapentin 300 Mg Capsule 300 Mg PO QHS Clonidine Hcl 0.2 Mg Tablet 0.2 Mg PO TID Bupropion Xl (Bupropion Hcl) 300 Mg Tab.er.24h 300 Mg PO DAILY Abilify (Aripiprazole) 5 Mg Tablet 5 Mg PO DAILY Vitals/I & O Vital Sign - Last 24 Hours 03/21/17 03/21/17 03/21/17 03/21/17 13:01 13:16 14:07 14:08 Pulse 100 100 Resp 18 16 B/P (MAP) 168/70 168/70 Pulse Ox 98 98 O2 Delivery Room Air Room Air 03/21/17 03/21/17 03/21/17 03/21/17 14:16 14:32 15:15 15:45 Pulse 94 82 Resp 20 22 18 B/P (MAP) 192/77 145/65 (91) Pulse Ox 98 98 95 O2 Delivery Room Air Room Air Room Air 03/21/17 03/21/17 03/21/17 03/21/17 16:00 17:00 19:15 19:26 Temp 99.1 99.1 Pulse 78 78 85 Resp 21 20 B/P (MAP) 160/70 (100) 199/92 (127) 199/92 Pulse Ox 97 96 O2 Delivery Room Air Room Air Room Air 03/21/17 03/21/17 03/21/17 03/21/17 20:12 20:18 20:45 20:46 Temp 98.8 98.8 Pulse 93 95 95 Resp 20 B/P (MAP) 184/97 (126) 205/98 Pulse Ox 97 O2 Delivery Room Air Room Air 03/21/17 03/21/17 03/21/17 03/21/17 20:47 21:00 22:00 22:30 Pulse 95 90 90 90 Resp 20 20 20 B/P (MAP) 197/85 (122) 198/88 (124) 195/81 (119) Pulse Ox 97 95 94 O2 Delivery Room Air Room Air Room Air 03/21/17 03/21/17 03/22/17 03/22/17 22:45 23:00 00:00 00:00 Temp 101.1 101.1 Pulse 92 94 96 Resp 20 20 18 B/P (MAP) 163/74 (103) 156/72 (100) 146/74 (98) Pulse Ox 93 93 92 O2 Delivery Room Air Room Air Room Air Room Air 03/22/17 03/22/17 03/22/17 03/22/17 01:00 02:00 03:00 04:00 Temp 100.1 99.8 100.1 99.8 Pulse 98 96 93 Resp 20 20 20 B/P (MAP) 147/70 (95) 147/73 (97) 144/65 (91) Pulse Ox 92 92 91 O2 Delivery Room Air Nasal Cannula Nasal Cannula Room Air O2 Flow Rate 2.0 2.0 11/03/2803/22/17 03/22/17 03/22/17 04:17 04:30 04:45 05:30 Temp 99.2 99.2 Pulse 89 86 87 85 Resp 20 B/P (MAP) 132/66 (88) 118/63 (81) 63/ 134/66 (88) Pulse Ox 97 O2 Delivery Nasal Cannula O2 Flow Rate 2.0 03/22/17 03/22/17 03/22/17 03/22/17 07:00 08:00 09:00 09:15 Temp 99.6 99.9 99.6 99.9 Pulse 81 73 72 93 Resp 20 18 24 24 B/P (MAP) 161/74 (103) 163/79 (107) 191/90 (123) 200/90 (126) Pulse Ox 94 94 97 97 O2 Delivery Nasal Cannula Nasal Cannula Nasal Cannula Nasal Cannula O2 Flow Rate 2.0 2.0 2.0 2.0 03/22/17 03/22/17 03/22/17 03/22/17 09:30 09:40 09:45 10:00 Pulse 103 103 106 104 Resp 20 19 22 B/P (MAP) 183/78 (113) 191/80 172/78 (109) 153/70 (97) Pulse Ox 97 96 96 O2 Delivery Nasal Cannula Nasal Cannula Nasal Cannula O2 Flow Rate 2.0 2.0 2.0 03/22/17 03/22/17 03/22/17 03/22/17 10:15 10:30 10:40 10:45 Pulse 112 114 114 90 Resp 26 32 30 B/P (MAP) 177/80 (112) 180/74 (109) 180/74 148/64 (92) Pulse Ox 96 95 94 O2 Delivery Nasal Cannula Nasal Cannula Nasal Cannula O2 Flow Rate 2.0 2.0 2.0 03/22/17 03/22/17 03/22/17 12:05 12:05 12:06 Pulse 98 98 98 B/P (MAP) 151/66 151/66 151/66 Intake and Output 03/22/17 03/22/17 03/23/17 15:00 23:00 07:00 Output Total 0 ml Balance 0 ml CASTLE,NIAL K III DO Mar 22, 2017 12:41
--- NOTE | 2017-03-22 14:10 | PDOC ---
PROGRESS NOTES Subjective Subjective SEEN IN FOLLOW UP OF ESRD Objective Objective Vital Signs Date Time Temp Pulse Resp B/P (MAP) Pulse Ox O2 Delivery O2 Flow Rate FiO2 03/22/17 13:00 100 20 157/68 (97) 96 Nasal Cannula 2.0 03/22/17 11:45 99.6 99.6 Intake and Output 03/23/17 07:00 Intake Total 150 ml Output Total 110 ml Balance 40 ml Intake Oral 150 ml Output Urine Total 110 ml Physical Exam Abdomen: Normal bowel sounds, Soft, No tenderness, No hepatosplenomegaly, No masses Heart: Regular rate, Normal S1, Normal S2, No murmurs, Gallops Extremities: No clubbing, No cyanosis, No edema, Normal pulses, No tenderness/ swelling General: Other (CONFUSED) Lungs: Clear to auscultation, Normal air movement Psych/Mental Status: Other (CONFUSED) Skin: Other (CONFUSED) Diagnosis RENAL FAILURE: ESRD Assessment Assessment Problems Medical Problems: (1) Hypertension Status: Acute (2) Subdural hematoma Status: Acute Plan Plan of Care DIALYSIS TODAY AND TOLERATED WELL Comment Review of Relevant I have reviewed the following items shi (where applicable) has been applied. Labs Laboratory Tests Test 03/20/17 17:45 03/21/17 07:51 03/21/17 18:16 03/21/17 20:55 Nasal Screen MRSA (PCR) Negative (Negative) Sodium Level 136 mmol/L (136-145) Potassium Level 5.2 mmol/L (3.5-5.1) Chloride Level 99 mmol/L (98-107) Carbon Dioxide Level 27 mmol/L (21-32) Anion Gap 10 (6-14) Blood Urea Nitrogen 45 mg/dL (7-20) Creatinine 6.8 mg/dL (0.6-1.0) Estimated GFR (Cockcroft-Gault) 6.4 BUN/Creatinine Ratio 7 (6-20) Glucose Level 182 mg/dL (70-99) Calcium Level 9.0 mg/dL (8.5-10.1) Magnesium Level 2.1 mg/dL (1.8-2.4) Total Bilirubin 0.5 mg/dL (0.2-1.0) Aspartate Amino Transf (AST/SGOT) 15 U/L (15-37) Alanine Aminotransferase (ALT/SGPT) 25 U/L (14-59) Alkaline Phosphatase 142 U/L (46-116) Total Protein 7.8 g/dL (6.4-8.2) Albumin 3.3 g/dL (3.4-5.0) Albumin/Globulin Ratio 0.7 (1.0-1.7) Glucose (Fingerstick) 155 mg/dL (70-99) 136 mg/dL (70-99) Test 03/22/17 03:30 03/22/17 09:11 03/22/17 12:04 White Blood Count 6.5 x10^3/uL (4.0-11.0) Red Blood Count 3.50 x10^6/uL (3.50-5.40) Hemoglobin 11.0 g/dL (12.0-15.5) Hematocrit 32.9 % (36.0-47.0) Mean Corpuscular Volume 94 fL (79-100) Mean Corpuscular Hemoglobin 32 pg (25-35) Mean Corpuscular Hemoglobin Concent 34 g/dL (31-37) Red Cell Distribution Width 15.2 % (11.5-14.5) Platelet Count 123 x10^3/uL (140-400) Neutrophils (%) (Auto) 62 % (31-73) Lymphocytes (%) (Auto) 26 % (24-48) Monocytes (%) (Auto) 10 % (0-9) Eosinophils (%) (Auto) 2 % (0-3) Basophils (%) (Auto) 1 % (0-3) Neutrophils # (Auto) 4.0 x10^3uL (1.8-7.7) Lymphocytes # (Auto) 1.7 x10^3/uL (1.0-4.8) Monocytes # (Auto) 0.7 x10^3/uL (0.0-1.1) Eosinophils # (Auto) 0.1 x10^3/uL (0.0-0.7) Basophils # (Auto) 0.1 x10^3/uL (0.0-0.2) Sodium Level 130 mmol/L (136-145) Potassium Level 5.7 mmol/L (3.5-5.1) Chloride Level 96 mmol/L (98-107) Carbon Dioxide Level 24 mmol/L (21-32) Anion Gap 10 (6-14) Blood Urea Nitrogen 55 mg/dL (7-20) Creatinine 8.2 mg/dL (0.6-1.0) Estimated GFR (Cockcroft-Gault) 5.1 Glucose Level 129 mg/dL (70-99) Calcium Level 8.7 mg/dL (8.5-10.1) Phosphorus Level 4.1 mg/dL (2.6-4.7) Magnesium Level 2.0 mg/dL (1.8-2.4) Albumin 3.1 g/dL (3.4-5.0) Urine Collection Type Unknown Urine Color Yellow Urine Clarity Clear Urine pH 7.5 Urine Specific [place] 1.020 Urine Protein >=300 mg/dL (NEG-TRACE) Urine Glucose (UA) 100 mg/dL (NEG) Urine Ketones (Stick) Negative mg/dL (NEG) Urine Blood Trace (NEG) Urine Nitrite Negative (NEG) Urine Bilirubin Negative (NEG) Urine Urobilinogen Dipstick 0.2 mg/dL (0.2 mg/dL) Urine Leukocyte Esterase Trace (NEG) Urine RBC Rare /HPF (0-2) Urine WBC Rare /HPF (0-4) Urine Squamous Epithelial Cells Mod /LPF Urine Bacteria 0 /HPF (0-FEW) Urine Opiates Screen Pos (NEG) Urine Methadone Screen Neg (NEG) Urine Barbiturates Neg (NEG) Urine Phencyclidine Screen Neg (NEG) Urine Amphetamine/Methamphetamine Neg (NEG) Urine Benzodiazepines Screen Neg (NEG) Urine Cocaine Screen Neg (NEG) Urine Cannabinoids Screen Neg (NEG) Urine Ethyl Alcohol Neg (NEG) Glucose (Fingerstick) 136 mg/dL (70-99) Laboratory Tests Test 03/21/17 18:16 03/21/17 20:55 03/22/17 03:30 03/22/17 09:11 Glucose (Fingerstick) 155 mg/dL (70-99) 136 mg/dL (70-99) White Blood Count 6.5 x10^3/uL (4.0-11.0) Red Blood Count 3.50 x10^6/uL (3.50-5.40) Hemoglobin 11.0 g/dL (12.0-15.5) Hematocrit 32.9 % (36.0-47.0) Mean Corpuscular Volume 94 fL (79-100) Mean Corpuscular Hemoglobin 32 pg (25-35) Mean Corpuscular Hemoglobin Concent 34 g/dL (31-37) Red Cell Distribution Width 15.2 % (11.5-14.5) Platelet Count 123 x10^3/uL (140-400) Neutrophils (%) (Auto) 62 % (31-73) Lymphocytes (%) (Auto) 26 % (24-48) Monocytes (%) (Auto) 10 % (0-9) Eosinophils (%) (Auto) 2 % (0-3) Basophils (%) (Auto) 1 % (0-3) Neutrophils # (Auto) 4.0 x10^3uL (1.8-7.7) Lymphocytes # (Auto) 1.7 x10^3/uL (1.0-4.8) Monocytes # (Auto) 0.7 x10^3/uL (0.0-1.1) Eosinophils # (Auto) 0.1 x10^3/uL (0.0-0.7) Basophils # (Auto) 0.1 x10^3/uL (0.0-0.2) Sodium Level 130 mmol/L (136-145) Potassium Level 5.7 mmol/L (3.5-5.1) Chloride Level 96 mmol/L (98-107) Carbon Dioxide Level 24 mmol/L (21-32) Anion Gap 10 (6-14) Blood Urea Nitrogen 55 mg/dL (7-20) Creatinine 8.2 mg/dL (0.6-1.0) Estimated GFR (Cockcroft-Gault) 5.1 Glucose Level 129 mg/dL (70-99) Calcium Level 8.7 mg/dL (8.5-10.1) Phosphorus Level 4.1 mg/dL (2.6-4.7) Magnesium Level 2.0 mg/dL (1.8-2.4) Albumin 3.1 g/dL (3.4-5.0) Urine Collection Type Unknown Urine Color Yellow Urine Clarity Clear Urine pH 7.5 Urine Specific [place] 1.020 Urine Protein >=300 mg/dL (NEG-TRACE) Urine Glucose (UA) 100 mg/dL (NEG) Urine Ketones (Stick) Negative mg/dL (NEG) Urine Blood Trace (NEG) Urine Nitrite Negative (NEG) Urine Bilirubin Negative (NEG) Urine Urobilinogen Dipstick 0.2 mg/dL (0.2 mg/dL) Urine Leukocyte Esterase Trace (NEG) Urine RBC Rare /HPF (0-2) Urine WBC Rare /HPF (0-4) Urine Squamous Epithelial Cells Mod /LPF Urine Bacteria 0 /HPF (0-FEW) Urine Opiates Screen Pos (NEG) Urine Methadone Screen Neg (NEG) Urine Barbiturates Neg (NEG) Urine Phencyclidine Screen Neg (NEG) Urine Amphetamine/Methamphetamine Neg (NEG) Urine Benzodiazepines Screen Neg (NEG) Urine Cocaine Screen Neg (NEG) Urine Cannabinoids Screen Neg (NEG) Urine Ethyl Alcohol Neg (NEG) Test 03/22/17 12:04 Glucose (Fingerstick) 136 mg/dL (70-99) Medications Current Medications Hydralazine HCl (Apresoline Inj) 10 mg 1X ONCE IVP Last administered on 13:25; Start 03/20/17 at 13:15; Stop 03/20/17 at 13:16; Status DC Ondansetron HCl (Zofran) 4 mg PRN Q8HRS PRN IV NAUSEA/VOMITING; Start 03/20/17 at 15:45; Stop 03/21/17 at 15:44; Status DC Fentanyl Citrate (Fentanyl 2ml Vial) 50 mcg 1X ONCE IV Last administered on 16:31; Start 03/20/17 at 16:30; Stop 03/20/17 at 16:31; Status DC Hydralazine HCl (Apresoline Inj) 10 mg PRN Q4HRS PRN IVP ELEVATED BP, SEE COMMENTS Last administered on 03/22/17 09:40; Start 03/20/17 at 18:00 Fentanyl Citrate (Fentanyl 2ml Vial) 50 mcg PRN Q4HRS PRN IV PAIN Last administered on 03/21/17 14:16; Start 03/20/17 at 18:00 Nicardipine HCl 50 mg/Sodium Chloride 270 ml @ 0 mls/hr CONT PRN IV SEE I/O RECORD Last administered on 03/22/17 04:15; Start 03/20/17 at 18:45 Morphine Sulfate 2 mg PRN Q2HR PRN IV PAIN Last administered on 03/21/17 11: 59; Start 03/20/17 at 19:30 Morphine Sulfate 4 mg PRN Q2HR PRN IV PAIN Last administered on 03/21/17 13: 01; Start 03/20/17 at 19:30 Magnesium Sulfate/ Dextrose 50 ml @ 25 mls/hr PRN DAILY PRN IV for Mag < 1.7 on am labs; Start 03/21/17 at 08:30 Iohexol (Omnipaque 300 Mg/ml) 90 ml 1X ONCE IV Last administered on 10:47; Start 03/21/17 at 10:30; Stop 03/21/17 at 10:32; Status DC Info (Do NOT chart on this entry -- for MONITORING) 1 each PRN DAILY PRN MC SEE COMMENTS; Start 03/21/17 at 10:45; Stop 03/23/17 at 10:44 Amlodipine Besylate (Norvasc) 5 mg BID PO Last administered on 03/22/17 12:05 ; Start 03/21/17 at 21:00 Clonidine HCl (Catapres) 0.2 mg TID PO Last administered on 03/22/17 12:05; Start 03/21/17 at 14:00 Gabapentin (Neurontin) 200 mg TID PO Last administered on 03/21/17 20:46; Start 03/21/17 at 14:00; Stop 03/22/17 at 09:24; Status DC Lisinopril (Prinivil) 40 mg DAILY PO Last administered on 03/22/17 12:06; Start 03/21/17 at 14:00 Ondansetron HCl (Zofran Odt) 4 mg PRN Q4HRS PRN PO NAUSEA/VOMITING; Start 02/25 at 13:30 Non-Formulary Medication 300 mg QHS PO ; Start 03/21/17 at 21:00; Status UNV Trazodone HCl (Desyrel) 150 mg QHS PO Last administered on 03/21/17 20:46; Start 03/21/17 at 21:00 Labetalol HCl (Normodyne) 20 mg PRN Q2HR PRN IVP HYPERTENSION, SEE COMMENTS Last administered on 03/22/17 10:40; Start 03/21/17 at 13:45 Insulin Aspart (NovoLOG) 0-5 UNITS TIDWMEALS SQ ; Start 03/21/17 at 17:00 Dextrose (Dextrose 50%-Water Syringe) 12.5 gm PRN Q15MIN PRN IV SEE COMMENTS; Start 03/21/17 at 13:45 Insulin Detemir (Levemir) 21 units QHS SQ Last administered on 03/21/17 21:06 ; Start 03/21/17 at 21:00 Aripiprazole (Abilify) 5 mg DAILY PO Last administered on 03/22/17 12:05; Start 03/21/17 at 14:00 Lamotrigine (LaMICtal) 100 mg BID PO Last administered on 03/22/17 12:05; Start 03/21/17 at 14:00 Topiramate (Topamax) 25 mg BID PO Last administered on 03/22/17 12:05; Start 03/21/17 at 14:00 Bupropion HCl (Wellbutrin Xl) 300 mg DAILY PO Last administered on 03/22/17 12:04; Start 03/21/17 at 14:00 Acetaminophen (Tylenol) 650 mg PRN Q6HRS PRN PO headache Last administered on 03/22/17 12:04; Start 03/21/17 at 14:00 Gabapentin (Neurontin) 600 mg HS PO ; Start 03/22/17 at 21:00; Stop 03/22/17 at 21:00; Status DC Gabapentin (Neurontin) 300 mg HS PO ; Start 03/22/17 at 21:00 Multivitamins 10 ml/Thiamine HCl 100 mg/Sodium Chloride 1,011 ml @ 100 mls/hr 1X ONCE IV Last administered on 03/22/17 12:13; Start 03/22/17 at 12:00; Stop 03/22/17 at 22:06 Multivitamins (Thera M Plus) 1 tab DAILY PO ; Start 03/23/17 at 09:00 Folic Acid (Folic Acid) 1 mg DAILY PO ; Start 03/23/17 at 09:00 Lorazepam (Ativan) 2 mg PRN Q1HR PRN IV For CIWA 8-14 Last administered on 11:46; Start 03/22/17 at 11:30 Haloperidol Lactate (Haldol) 5 mg PRN Q4HRS PRN IVP Hallucinatns,Confusn, Delirium; Start 03/22/17 at 11:30 Diphenhydramine HCl (Benadryl) 25 mg PRN Q15MIN PRN IVP EPS symptoms 2'Haldol admin; Start 03/22/17 at 11:30 Thiamine Mononitrate (Vitamin B-1) 100 mg DAILY PO ; Start 03/23/17 at 09:00 Topiramate (Topamax) 50 mg TuThSa PO ; Start 03/22/17 at 17:00 Active Scripts Active Midodrine Hcl 10 Mg Tablet 10 Mg PO TID 30 Days Lisinopril 40 Mg Tablet 1 Tab PO DAILY Coreg (Carvedilol) 6.25 Mg Tablet 1 Tab PO BID Norvasc (Amlodipine Besylate) 5 Mg Tablet 1 Tab PO BID Topamax (Topiramate) 25 Mg Tablet 25 Mg PO BID 30 Days Aspirin Ec (Aspirin) 81 Mg Tablet.dr 81 Mg PO DAILYWBKFT 30 Days Reported Oxycodone Hcl 5 Mg Capsule 5 Mg PO Q6HRS PRN Gabapentin 100 Mg Capsule 200 Mg PO TID Zofran Odt (Ondansetron) 4 Mg Tab.rapdis 4 Mg PO PRN Q4HRS PRN Trazodone Hcl 150 Mg Tablet 150 Mg PO HS Renvela (Sevelamer Carbonate) 800 Mg Tablet 2 Tab PO TID Lantus Solostar (Insulin Glargine,Hum.rec.anlog) 100 Unit/1 Ml Insuln.pen 12 Unit SQ QHS Lamictal (Lamotrigine) 100 Mg Tablet 100 Mg PO BID Gabapentin 300 Mg Capsule 300 Mg PO QHS Clonidine Hcl 0.2 Mg Tablet 0.2 Mg PO TID Bupropion Xl (Bupropion Hcl) 300 Mg Tab.er.24h 300 Mg PO DAILY Abilify (Aripiprazole) 5 Mg Tablet 5 Mg PO DAILY Vitals/I & O Vital Sign - Last 24 Hours 03/21/17 03/21/17 03/21/17 03/21/17 14:16 14:32 15:15 15:45 Pulse 94 82 Resp 20 22 18 B/P (MAP) 192/77 145/65 (91) Pulse Ox 98 98 95 O2 Delivery Room Air Room Air Room Air 03/21/17 03/21/17 03/21/17 03/21/17 16:00 17:00 19:15 19:26 Temp 99.1 99.1 Pulse 78 78 85 Resp 21 20 B/P (MAP) 160/70 (100) 199/92 (127) 199/92 Pulse Ox 97 96 O2 Delivery Room Air Room Air Room Air 03/21/17 03/21/17 03/21/17 03/21/17 20:12 20:18 20:45 20:46 Temp 98.8 98.8 Pulse 93 95 95 Resp 20 B/P (MAP) 184/97 (126) 205/98 Pulse Ox 97 O2 Delivery Room Air Room Air 03/21/17 03/21/17 03/21/17 03/21/17 20:47 21:00 22:00 22:30 Pulse 95 90 90 90 Resp 20 20 20 B/P (MAP) 197/85 (122) 198/88 (124) 195/81 (119) Pulse Ox 97 95 94 O2 Delivery Room Air Room Air Room Air 03/21/17 03/21/17 03/22/17 03/22/17 22:45 23:00 00:00 00:00 Temp 101.1 101.1 Pulse 92 94 96 Resp 20 20 18 B/P (MAP) 163/74 (103) 156/72 (100) 146/74 (98) Pulse Ox 93 93 92 O2 Delivery Room Air Room Air Room Air Room Air 03/22/17 03/22/17 03/22/17 03/22/17 01:00 02:00 03:00 04:00 Temp 100.1 99.8 100.1 99.8 Pulse 98 96 93 Resp 20 20 20 B/P (MAP) 147/70 (95) 147/73 (97) 144/65 (91) Pulse Ox 92 92 91 O2 Delivery Room Air Nasal Cannula Nasal Cannula Room Air O2 Flow Rate 2.0 2.0 03/22/17 03/22/17 03/22/17 03/22/17 04:17 04:30 04:45 05:30 Temp 99.2 99.2 Pulse 89 86 87 85 Resp 20 B/P (MAP) 132/66 (88) 118/63 (81) 63/ 134/66 (88) Pulse Ox 97 O2 Delivery Nasal Cannula O2 Flow Rate 2.0 03/22/17 03/22/17 03/22/17 03/22/17 07:00 08:00 09:00 09:15 Temp 99.6 99.9 99.6 99.9 Pulse 81 73 72 93 Resp 20 18 24 24 B/P (MAP) 161/74 (103) 163/79 (107) 191/90 (123) 200/90 (126) Pulse Ox 94 94 97 97 O2 Delivery Nasal Cannula Nasal Cannula Nasal Cannula Nasal Cannula O2 Flow Rate 2.0 2.0 2.0 2.0 03/22/17 03/22/17 03/22/17 03/22/17 09:30 09:40 09:45 10:00 Pulse 103 103 106 104 Resp 20 19 22 B/P (MAP) 183/78 (113) 191/80 172/78 (109) 153/70 (97) Pulse Ox 97 96 96 O2 Delivery Nasal Cannula Nasal Cannula Nasal Cannula O2 Flow Rate 2.0 2.0 2.0 03/22/17 03/22/17 03/22/17 03/22/17 10:15 10:30 10:40 10:45 Pulse 112 114 114 90 Resp 26 32 30 B/P (MAP) 177/80 (112) 180/74 (109) 180/74 148/64 (92) Pulse Ox 96 95 94 O2 Delivery Nasal Cannula Nasal Cannula Nasal Cannula O2 Flow Rate 2.0 2.0 2.0 03/22/17 03/22/17 03/22/17 03/22/17 11:00 11:15 11:30 11:45 Temp 99.6 99.6 Pulse 98 98 98 98 Resp 24 19 21 24 B/P (MAP) 151/72 (98) 154/66 (95) 155/69 (97) 146/67 (93) Pulse Ox 97 97 97 97 O2 Delivery Nasal Cannula Nasal Cannula Nasal Cannula Nasal Cannula O2 Flow Rate 2.0 2.0 2.0 2.0 03/22/17 03/22/17 03/22/17 03/22/17 12:00 12:05 12:05 12:06 Pulse 99 98 98 98 Resp 22 B/P (MAP) 140/69 (92) 151/66 151/66 151/66 Pulse Ox 98 O2 Delivery Nasal Cannula O2 Flow Rate 2.0 03/22/17 03/22/17 12:30 13:00 Pulse 98 100 Resp 17 20 B/P (MAP) 140/69 (92) 157/68 (97) Pulse Ox 96 96 O2 Delivery Nasal Cannula Nasal Cannula O2 Flow Rate 2.0 2.0 Intake and Output 03/22/17 03/22/17 03/23/17 15:00 23:00 07:00 Intake Total 150 ml Output Total 110 ml Balance 40 ml BRITNI DOUGLAS MD Mar 22, 2017 14:10
[2017-03-22 15:13] LABS: INR 1.1 (0.8-1.1); PROTHROMBIN TIME PATIENT 13.7 SEC (11.7-14.0)
[2017-03-22] MEDS: MORPHINE SULFATE 4 MG/ML DISP.SYRIN. IV PRN (19:11)
[2017-03-22] MEDS: INSULIN DETEMIR 300 UNITS/3 ML INSULN.PEN. SQ SCH (21:00)
[2017-03-22] MEDS ORDERED: GABAPENTIN 300 MG CAPSULE. PO SCH (21:00)
--- NOTE | 2017-03-22 22:05 | CONS ---
DATE OF CONSULTATION: 03/22/2017 REFERRING PHYSICIAN: Dr. Vela. REASON FOR CONSULTATION: Subdural hematoma and encephalopathy. HISTORY OF PRESENT ILLNESS: The patient is a 52-year-old woman admitted to [facility] with critically elevated blood pressures and falls. She has chronic renal failure and is on hemodialysis. Her blood pressures were too high when she was at her dialysis site and she was referred to the Emergency Room. She has had falls a few times in the last week and previously has been evaluated by Neurology presumably with orthostatic hypotension. A CT scan of the brain revealed a small subdural hematoma. She is being followed by Neurosurgery who does not recommend surgical intervention at this time. She is a previous alcoholic, presumably quit 4 years ago, but it is not entirely clear if she has resumed drinking. She has psychiatric illness as well and has been on multiple psychotropic medications. She has had a fluctuating mental status in the last few days. Nurse notes that at times she is alert and interactive and another time, she is entirely unresponsive. Yesterday, she also was noted to have hallucinations in addition to the confusion. Her psychotropic medications have been restarted, but she has been sleepy and has not been taking for swallowing. PAST MEDICAL HISTORY: 1. History of alcoholism. 2. Diabetes. 3. Hypertension. 4. End-stage renal disease, on chronic hemodialysis. 5. Hepatitis C. 6. History of . 7. Tonsillectomy. 8. Right arm dialysis fistula. 9. Schizophrenia. 10. History of seizure-like activity. ALLERGIES: No known allergies to drugs. MEDICATIONS PRIOR TO ADMISSION: Amlodipine 5 mg twice per day, Abilify 5 mg, aspirin 81 mg, bupropion XL 300 mg extended release, carvedilol 6.25 mg, clonidine 0.2 mg 3 times per day, gabapentin 200 mg 3 times per day and 300 mg at night, insulin, lamotrigine 100 mg twice per day, lisinopril 40 mg, midodrine 10 mg 3 times per day, Zofran 4 mg as needed, oxycodone 5 mg every 6 hours as needed, Renvela 1600 mg 3 times per day, topiramate 25 mg twice per day and trazodone 150 mg at night. FAMILY HISTORY: Diabetes. SOCIAL HISTORY: She lives with her daughter in the basement. She used to drink heavily, but reports quitting 4 years ago. She has had a number of falls and does have a contusion to her left foot. It is not known if she had hit her head provoking the subdural hematoma. She does not smoke tobacco or use recreational drugs. REVIEW OF SYSTEMS: Not obtainable as the patient is poorly responsive. When stimulated and asked repeatedly the questions if she is in pain, she did shake her head no. PHYSICAL EXAMINATION: VITAL SIGNS: The blood pressure was 148/64 on a nicardipine drip, pulse 90, respirations 30, temperature 99.9 Fahrenheit orally. Oximetry was 97% on 2 liters nasal cannula. NEUROLOGIC: She was lying in no distress with her eyes closed. With stimulation, she would open her eyes and attempt to interact. Without stimulation, she would drift off quickly. She did look at the examiner and the eyes were conjugate. Pupils were 3 mm and reacted. She could not cooperate for funduscopic exam. Oculocephalic reflex was intact. Corneal reflex was intact. She responded to visual threat. She responded to loud clap with blinking. The face was symmetric. She did smile and activation was symmetric. The tongue was midline. She was able to follow the commands to protrude her tongue. Neck was supple without any rigidity. Muscle bulk and tone was normal. When I held her arms up in the air, they did come down equally. I did not see asterixis. I could not get her to maintain her arms up quite long enough to absolutely determine there was no asterixis. She would withdrawal the hands to nail bed pressure with a grimace and vocalization. She also withdrawal the legs equally well with plantar stimulation. Tendon reflexes 1-2/4 in the upper extremities, 1/4 at the knees, absent at the ankles. Toes were not up or downgoing. She did not respond to other sensation other than noxious stimulation. Gait was not testable. CARDIOVASCULAR: Auscultation of the carotid arteries did not reveal a bruit. Heart rhythm was regular with a systolic ejection murmur. Peripheral pulses present at the wrists more difficult to palpate in the feet. There was some bruising of the left foot. There was no edema or cyanosis. REVIEW OF LABORATORY DATA: The CBC revealed a normal white blood cell count, but the hemoglobin was low at 11, hematocrit 32.9 and platelet count low at 123. Chemistries revealed sodium low at 130, potassium elevated at 5.7, chloride low at 96 and CO2 normal at 24, BUN was 55 and creatinine 8.2, glucose 129 which was elevated. Calcium was 8.7, which was normal. Albumin low at 3.1. Alkaline phosphatase elevated to 142 with a normal magnesium and liver enzymes yesterday. Nasal screen MRSA by PCR was negative. Urine drug screen revealed opiates, which she has prescribed. Alcohol was not detected. She has undergone 4 CT scan of the brain. The most recent was today revealing a stable small subacute subdural hematoma along the left cerebral convexity measuring 5 mm. Stable moderate ventricular enlargement due to atrophy. Greater than expected for age. IMPRESSION: The patient is a 52-year-old woman with a complex medical disease including diabetes, uncontrolled hypertension, subdural hematoma, possibly due to falls. She is on chronic hemodialysis due to renal failure and end-stage renal disease. She has had followups for the subdural hematoma, which revealed that it does not appear to be enlarging. She does not appear to have a hemiparesis. She is at risk for seizure, although she is on anticonvulsants possibly due to her psychiatric illness and mood stabilization. The dosage of topiramate given her renal failure. It is in the therapeutic range, although a supplement may be required after hemodialysis. I do not see any seizure activity, but I did see some myoclonus during her exam which may be due to a metabolic issue. She does appear to be encephalopathic, which is likely due to underlying metabolic issues. The primary care physician was concerned about an alcohol withdrawal syndrome, which is certainly possible. She was having delusions and hallucinations, but she is schizophrenic and her medications had been held because of her medical condition. They have been restarted, although she needs to wake up enough to be able to take her medications. RECOMMENDATIONS: I will continue with topiramate at 25 mg twice a day, which is an appropriate dosage given her end-stage renal disease. I will, however, add 50 mg as a supplement after dialysis 3 days a week. She will continue with the current dose of lamotrigine. If she does not have the ability to wake up and swallow her pills, then I will do a load of fosphenytoin with an IV maintenance. I do not see anything requires other intervention at this time. The encephalopathy is multifactorial and if it is alcohol withdrawal, she will require some benzodiazepines. I would be happy to reevaluate. I discussed with the neurosurgeon and nursing staff at length. I appreciate being involved in her care. BRIGIDO SINGH MD DR: MONTY/jannette JOB#: [id number] / [id number] HARDEEP Ravi MD, NIAL DO SHI, FERILYN MD
[2017-03-22] MEDS: GABAPENTIN 300 MG CAPSULE. PO SCH (22:11)
[2017-03-22] MEDS: traZODone 50 MG TABLET. PO SCH (22:11)
[2017-03-23] VITALS (17 sets, daily range): BP systolic 128–168; BP diastolic 63–85
[2017-03-23 05:39] LABS: BASO % 1 % (0-3); EOS % 2 % (0-3); HEMATOCRIT 29.2 % (36.0-47.0); HEMOGLOBIN 9.8 g/dL (12.0-15.5); LYMPH # 1.2 x10^3/uL (1.0-4.8); LYMPH % 25 % (24-48); MEAN CORPUSCULAR HEMOGLOBIN 32 pg (25-35); MEAN CORPUSCULAR HGB CONC 33 g/dL (31-37); MEAN CORPUSCULAR VOLUME 95 fL (79-100); MONO % 9 % (0-9); NEUT % 64 % (31-73); PLATELET COUNT 89 x10^3/uL (140-400); RED BLOOD COUNT 3.08 x10^6/uL (3.50-5.40); RED CELL DISTRIBUTION WIDTH 15.1 % (11.5-14.5); WHITE BLOOD COUNT 4.7 x10^3/uL (4.0-11.0)
[2017-03-23] MEDS: hydrALAZINE 20 MG/ML VIAL. IVP PRN ×2 (06:03→12:22)
[2017-03-23 06:27] LABS: ALBUMIN 2.9 g/dL (3.4-5.0); CALCIUM 8.6 mg/dL (8.5-10.1); CREATININE 5.5 mg/dL (0.6-1.0); GFR 8.1; PHOSPHORUS 4.8 mg/dL (2.6-4.7); POTASSIUM 4.7 mmol/L (3.5-5.1)
[2017-03-23] MEDS: INSULIN ASPART 300 UNITS/3 ML INSULN.PEN SQ SCH ×3 (08:00→16:27)
[2017-03-23] MEDS: lamoTRIgine 100 MG TABLET. PO SCH ×2 (09:30→21:36)
[2017-03-23] MEDS: amLODIPine BESYLATE 5 MG TABLET PO SCH ×2 (09:30→21:38)
[2017-03-23] MEDS: buPROPion XL 150 MG TAB.ER.24H. PO SCH (09:30)
[2017-03-23] MEDS: TOPIRAMATE 25 MG TABLET. PO SCH ×2 (09:30→21:36)
[2017-03-23] MEDS: LISINOPRIL 40 MG TABLET. PO SCH (09:30)
[2017-03-23] MEDS: ARIPiprazole 5 MG TABLET PO SCH (09:30)
[2017-03-23] MEDS: FOLIC ACID 1 MG TABLET. PO SCH (09:31)
[2017-03-23] MEDS: MULTIVITAMIN with MINERAL TABLET. PO SCH (09:31)
[2017-03-23] MEDS: THIAMINE 100 MG TABLET. PO SCH (09:31)
[2017-03-23] MEDS: cloNIDine HCL 0.2 MG TABLET PO SCH ×3 (09:31→21:37)
--- NOTE | 2017-03-23 14:34 | PDOC ---
PROGRESS NOTES Subjective Subjective SEEN IN FOLLOW UP OF ESRD Objective Objective Vital Signs Date Time Temp Pulse Resp B/P (MAP) Pulse Ox O2 Delivery O2 Flow Rate FiO2 03/23/17 14:00 80 17 137/66 (89) 95 Room Air 03/23/17 12:00 97.8 97.8 03/22/17 18:00 2.0 Intake and Output 03/24/17 07:00 Intake Total 120 ml Output Total 13 ml Balance 107 ml Intake Oral 120 ml Output Urine Total 13 ml Physical Exam Abdomen: Normal bowel sounds, Soft, No tenderness, No hepatosplenomegaly, No masses Heart: Regular rate, Normal S1, Normal S2, No murmurs, Gallops Lungs: Clear to auscultation, Normal air movement Diagnosis RENAL FAILURE: ESRD Assessment Assessment Problems Medical Problems: (1) Hypertension Status: Acute (2) Subdural hematoma Status: Acute Plan Plan of Care CONT SAME CAPD AND FOLLOW MENTAL STATUS Comment Review of Relevant I have reviewed the following items shi (where applicable) has been applied. Labs Laboratory Tests Test 03/21/17 18:16 03/21/17 20:55 03/22/17 03:30 03/22/17 09:11 Glucose (Fingerstick) 155 mg/dL (70-99) 136 mg/dL (70-99) White Blood Count 6.5 x10^3/uL (4.0-11.0) Red Blood Count 3.50 x10^6/uL (3.50-5.40) Hemoglobin 11.0 g/dL (12.0-15.5) Hematocrit 32.9 % (36.0-47.0) Mean Corpuscular Volume 94 fL (79-100) Mean Corpuscular Hemoglobin 32 pg (25-35) Mean Corpuscular Hemoglobin Concent 34 g/dL (31-37) Red Cell Distribution Width 15.2 % (11.5-14.5) Platelet Count 123 x10^3/uL (140-400) Neutrophils (%) (Auto) 62 % (31-73) Lymphocytes (%) (Auto) 26 % (24-48) Monocytes (%) (Auto) 10 % (0-9) Eosinophils (%) (Auto) 2 % (0-3) Basophils (%) (Auto) 1 % (0-3) Neutrophils # (Auto) 4.0 x10^3uL (1.8-7.7) Lymphocytes # (Auto) 1.7 x10^3/uL (1.0-4.8) Monocytes # (Auto) 0.7 x10^3/uL (0.0-1.1) Eosinophils # (Auto) 0.1 x10^3/uL (0.0-0.7) Basophils # (Auto) 0.1 x10^3/uL (0.0-0.2) Sodium Level 130 mmol/L (136-145) Potassium Level 5.7 mmol/L (3.5-5.1) Chloride Level 96 mmol/L (98-107) Carbon Dioxide Level 24 mmol/L (21-32) Anion Gap 10 (6-14) Blood Urea Nitrogen 55 mg/dL (7-20) Creatinine 8.2 mg/dL (0.6-1.0) Estimated GFR (Cockcroft-Gault) 5.1 Glucose Level 129 mg/dL (70-99) Calcium Level 8.7 mg/dL (8.5-10.1) Phosphorus Level 4.1 mg/dL (2.6-4.7) Magnesium Level 2.0 mg/dL (1.8-2.4) Albumin 3.1 g/dL (3.4-5.0) Urine Collection Type Unknown Urine Color Yellow Urine Clarity Clear Urine pH 7.5 Urine Specific [place] 1.020 Urine Protein >=300 mg/dL (NEG-TRACE) Urine Glucose (UA) 100 mg/dL (NEG) Urine Ketones (Stick) Negative mg/dL (NEG) Urine Blood Trace (NEG) Urine Nitrite Negative (NEG) Urine Bilirubin Negative (NEG) Urine Urobilinogen Dipstick 0.2 mg/dL (0.2 mg/dL) Urine Leukocyte Esterase Trace (NEG) Urine RBC Rare /HPF (0-2) Urine WBC Rare /HPF (0-4) Urine Squamous Epithelial Cells Mod /LPF Urine Bacteria 0 /HPF (0-FEW) Urine Opiates Screen Pos (NEG) Urine Methadone Screen Neg (NEG) Urine Barbiturates Neg (NEG) Urine Phencyclidine Screen Neg (NEG) Urine Amphetamine/Methamphetamine Neg (NEG) Urine Benzodiazepines Screen Neg (NEG) Urine Cocaine Screen Neg (NEG) Urine Cannabinoids Screen Neg (NEG) Urine Ethyl Alcohol Neg (NEG) Test 03/22/17 11:55 03/22/17 12:04 03/22/17 22:13 03/23/17 05:10 Prothrombin Time 13.7 SEC (11.7-14.0) Prothromb Time International Ratio 1.1 (0.8-1.1) Glucose (Fingerstick) 136 mg/dL (70-99) 113 mg/dL (70-99) White Blood Count 4.7 x10^3/uL (4.0-11.0) Red Blood Count 3.08 x10^6/uL (3.50-5.40) Hemoglobin 9.8 g/dL (12.0-15.5) Hematocrit 29.2 % (36.0-47.0) Mean Corpuscular Volume 95 fL (79-100) Mean Corpuscular Hemoglobin 32 pg (25-35) Mean Corpuscular Hemoglobin Concent 33 g/dL (31-37) Red Cell Distribution Width 15.1 % (11.5-14.5) Platelet Count 89 x10^3/uL (140-400) Neutrophils (%) (Auto) 64 % (31-73) Lymphocytes (%) (Auto) 25 % (24-48) Monocytes (%) (Auto) 9 % (0-9) Eosinophils (%) (Auto) 2 % (0-3) Basophils (%) (Auto) 1 % (0-3) Neutrophils # (Auto) 3.0 x10^3uL (1.8-7.7) Lymphocytes # (Auto) 1.2 x10^3/uL (1.0-4.8) Monocytes # (Auto) 0.4 x10^3/uL (0.0-1.1) Eosinophils # (Auto) 0.1 x10^3/uL (0.0-0.7) Basophils # (Auto) 0.0 x10^3/uL (0.0-0.2) Sodium Level 138 mmol/L (136-145) Potassium Level 4.7 mmol/L (3.5-5.1) Chloride Level 102 mmol/L (98-107) Carbon Dioxide Level 29 mmol/L (21-32) Anion Gap 7 (6-14) Blood Urea Nitrogen 31 mg/dL (7-20) Creatinine 5.5 mg/dL (0.6-1.0) Estimated GFR (Cockcroft-Gault) 8.1 Glucose Level 116 mg/dL (70-99) Calcium Level 8.6 mg/dL (8.5-10.1) Phosphorus Level 4.8 mg/dL (2.6-4.7) Magnesium Level 1.9 mg/dL (1.8-2.4) Albumin 2.9 g/dL (3.4-5.0) Test 03/23/17 12:26 Glucose (Fingerstick) 116 mg/dL (70-99) Laboratory Tests Test 03/22/17 22:13 03/23/17 05:10 03/23/17 12:26 Glucose (Fingerstick) 113 mg/dL (70-99) 116 mg/dL (70-99) White Blood Count 4.7 x10^3/uL (4.0-11.0) Red Blood Count 3.08 x10^6/uL (3.50-5.40) Hemoglobin 9.8 g/dL (12.0-15.5) Hematocrit 29.2 % (36.0-47.0) Mean Corpuscular Volume 95 fL (79-100) Mean Corpuscular Hemoglobin 32 pg (25-35) Mean Corpuscular Hemoglobin Concent 33 g/dL (31-37) Red Cell Distribution Width 15.1 % (11.5-14.5) Platelet Count 89 x10^3/uL (140-400) Neutrophils (%) (Auto) 64 % (31-73) Lymphocytes (%) (Auto) 25 % (24-48) Monocytes (%) (Auto) 9 % (0-9) Eosinophils (%) (Auto) 2 % (0-3) Basophils (%) (Auto) 1 % (0-3) Neutrophils # (Auto) 3.0 x10^3uL (1.8-7.7) Lymphocytes # (Auto) 1.2 x10^3/uL (1.0-4.8) Monocytes # (Auto) 0.4 x10^3/uL (0.0-1.1) Eosinophils # (Auto) 0.1 x10^3/uL (0.0-0.7) Basophils # (Auto) 0.0 x10^3/uL (0.0-0.2) Sodium Level 138 mmol/L (136-145) Potassium Level 4.7 mmol/L (3.5-5.1) Chloride Level 102 mmol/L (98-107) Carbon Dioxide Level 29 mmol/L (21-32) Anion Gap 7 (6-14) Blood Urea Nitrogen 31 mg/dL (7-20) Creatinine 5.5 mg/dL (0.6-1.0) Estimated GFR (Cockcroft-Gault) 8.1 Glucose Level 116 mg/dL (70-99) Calcium Level 8.6 mg/dL (8.5-10.1) Phosphorus Level 4.8 mg/dL (2.6-4.7) Magnesium Level 1.9 mg/dL (1.8-2.4) Albumin 2.9 g/dL (3.4-5.0) Microbiology 03/22/17 Urine Culture - Preliminary, Resulted 03/22/17 Urine Culture Result 1 (MOE) - Preliminary, Resulted Medications Current Medications Hydralazine HCl (Apresoline Inj) 10 mg 1X ONCE IVP Last administered on 13:25; Start 03/20/17 at 13:15; Stop 03/20/17 at 13:16; Status DC Ondansetron HCl (Zofran) 4 mg PRN Q8HRS PRN IV NAUSEA/VOMITING; Start 03/20/17 at 15:45; Stop 03/21/17 at 15:44; Status DC Fentanyl Citrate (Fentanyl 2ml Vial) 50 mcg 1X ONCE IV Last administered on 16:31; Start 03/20/17 at 16:30; Stop 03/20/17 at 16:31; Status DC Hydralazine HCl (Apresoline Inj) 10 mg PRN Q4HRS PRN IVP ELEVATED BP, SEE COMMENTS Last administered on 03/23/17 12:22; Start 03/20/17 at 18:00 Fentanyl Citrate (Fentanyl 2ml Vial) 50 mcg PRN Q4HRS PRN IV PAIN Last administered on 03/21/17 14:16; Start 03/20/17 at 18:00 Nicardipine HCl 50 mg/Sodium Chloride 270 ml @ 0 mls/hr CONT PRN IV SEE I/O RECORD Last administered on 03/22/17 04:15; Start 03/20/17 at 18:45 Morphine Sulfate 2 mg PRN Q2HR PRN IV PAIN Last administered on 03/21/17 11: 59; Start 03/20/17 at 19:30 Morphine Sulfate 4 mg PRN Q2HR PRN IV PAIN Last administered on 03/22/17 19: 11; Start 03/20/17 at 19:30 Magnesium Sulfate/ Dextrose 50 ml @ 25 mls/hr PRN DAILY PRN IV for Mag < 1.7 on am labs; Start 03/21/17 at 08:30 Iohexol (Omnipaque 300 Mg/ml) 90 ml 1X ONCE IV Last administered on 10:47; Start 03/21/17 at 10:30; Stop 03/21/17 at 10:32; Status DC Info (Do NOT chart on this entry -- for MONITORING) 1 each PRN DAILY PRN MC SEE COMMENTS; Start 03/21/17 at 10:45; Stop 03/23/17 at 10:44; Status DC Amlodipine Besylate (Norvasc) 5 mg BID PO Last administered on 03/23/17 09:30 ; Start 03/21/17 at 21:00 Clonidine HCl (Catapres) 0.2 mg TID PO Last administered on 03/23/17 09:31; Start 03/21/17 at 14:00 Gabapentin (Neurontin) 200 mg TID PO Last administered on 03/21/17 20:46; Start 03/21/17 at 14:00; Stop 03/22/17 at 09:24; Status DC Lisinopril (Prinivil) 40 mg DAILY PO Last administered on 03/23/17 09:30; Start 03/21/17 at 14:00 Ondansetron HCl (Zofran Odt) 4 mg PRN Q4HRS PRN PO NAUSEA/VOMITING; Start 02/25 at 13:30 Non-Formulary Medication 300 mg QHS PO ; Start 03/21/17 at 21:00; Status UNV Trazodone HCl (Desyrel) 150 mg QHS PO Last administered on 03/22/17 22:11; Start 03/21/17 at 21:00 Labetalol HCl (Normodyne) 20 mg PRN Q2HR PRN IVP HYPERTENSION, SEE COMMENTS Last administered on 03/22/17 10:40; Start 03/21/17 at 13:45 Insulin Aspart (NovoLOG) 0-5 UNITS TIDWMEALS SQ ; Start 03/21/17 at 17:00 Dextrose (Dextrose 50%-Water Syringe) 12.5 gm PRN Q15MIN PRN IV SEE COMMENTS; Start 03/21/17 at 13:45 Insulin Detemir (Levemir) 21 units QHS SQ Last administered on 03/21/17 21:06 ; Start 03/21/17 at 21:00 Aripiprazole (Abilify) 5 mg DAILY PO Last administered on 03/23/17 09:30; Start 03/21/17 at 14:00 Lamotrigine (LaMICtal) 100 mg BID PO Last administered on 03/23/17 09:30; Start 03/21/17 at 14:00 Topiramate (Topamax) 25 mg BID PO Last administered on 03/23/17 09:30; Start 03/21/17 at 14:00 Bupropion HCl (Wellbutrin Xl) 300 mg DAILY PO Last administered on 03/23/17 09:30; Start 03/21/17 at 14:00 Acetaminophen (Tylenol) 650 mg PRN Q6HRS PRN PO headache Last administered on 03/22/17 12:04; Start 03/21/17 at 14:00 Gabapentin (Neurontin) 600 mg HS PO ; Start 03/22/17 at 21:00; Stop 03/22/17 at 21:00; Status DC Gabapentin (Neurontin) 300 mg HS PO Last administered on 03/22/17 22:11; Start 03/22/17 at 21:00 Multivitamins 10 ml/Thiamine HCl 100 mg/Sodium Chloride 1,011 ml @ 100 mls/hr 1X ONCE IV Last administered on 03/22/17 12:13; Start 03/22/17 at 12:00; Stop 03/22/17 at 22:06; Status DC Multivitamins (Thera M Plus) 1 tab DAILY PO Last administered on 03/23/17 09: 31; Start 03/23/17 at 09:00 Folic Acid (Folic Acid) 1 mg DAILY PO Last administered on 03/23/17 09:31; Start 03/23/17 at 09:00 Lorazepam (Ativan) 2 mg PRN Q1HR PRN IV For CIWA 8-14 Last administered on 11:46; Start 03/22/17 at 11:30 Haloperidol Lactate (Haldol) 5 mg PRN Q4HRS PRN IVP Hallucinatns,Confusn, Delirium; Start 03/22/17 at 11:30 Diphenhydramine HCl (Benadryl) 25 mg PRN Q15MIN PRN IVP EPS symptoms 2'Haldol admin; Start 03/22/17 at 11:30 Thiamine Mononitrate (Vitamin B-1) 100 mg DAILY PO Last administered on 09:31; Start 03/23/17 at 09:00 Topiramate (Topamax) 50 mg TuThSa PO Last administered on 03/22/17 17:51; Start 03/22/17 at 17:00 Active Scripts Active Midodrine Hcl 10 Mg Tablet 10 Mg PO TID 30 Days Lisinopril 40 Mg Tablet 1 Tab PO DAILY Coreg (Carvedilol) 6.25 Mg Tablet 1 Tab PO BID Norvasc (Amlodipine Besylate) 5 Mg Tablet 1 Tab PO BID Topamax (Topiramate) 25 Mg Tablet 25 Mg PO BID 30 Days Aspirin Ec (Aspirin) 81 Mg Tablet.dr 81 Mg PO DAILYWBKFT 30 Days Reported Oxycodone Hcl 5 Mg Capsule 5 Mg PO Q6HRS PRN Gabapentin 100 Mg Capsule 200 Mg PO TID Zofran Odt (Ondansetron) 4 Mg Tab.rapdis 4 Mg PO PRN Q4HRS PRN Trazodone Hcl 150 Mg Tablet 150 Mg PO HS Renvela (Sevelamer Carbonate) 800 Mg Tablet 2 Tab PO TID Lantus Solostar (Insulin Glargine,Hum.rec.anlog) 100 Unit/1 Ml Insuln.pen 12 Unit SQ QHS Lamictal (Lamotrigine) 100 Mg Tablet 100 Mg PO BID Gabapentin 300 Mg Capsule 300 Mg PO QHS Clonidine Hcl 0.2 Mg Tablet 0.2 Mg PO TID Bupropion Xl (Bupropion Hcl) 300 Mg Tab.er.24h 300 Mg PO DAILY Abilify (Aripiprazole) 5 Mg Tablet 5 Mg PO DAILY Vitals/I & O Vital Sign - Last 24 Hours 03/22/17 03/22/17 03/22/17 03/22/17 15:00 16:00 17:00 18:00 Temp 99.2 99.2 Pulse 86 89 82 83 Resp 21 20 14 16 B/P (MAP) 125/64 (84) 122/67 (85) 145/68 (93) 140/68 (92) Pulse Ox 99 98 94 97 O2 Delivery Nasal Cannula Nasal Cannula Nasal Cannula Nasal Cannula O2 Flow Rate 2.0 2.0 2.0 2.0 03/22/17 03/22/17 03/22/17 03/22/17 19:03 19:11 19:45 20:00 Temp 98.6 98.6 Pulse 83 76 Resp 16 18 14 12 B/P (MAP) 147/67 (93) 135/69 (91) Pulse Ox 95 95 94 95 O2 Delivery Room Air Room Air Room Air Room Air 03/22/17 03/22/17 03/22/17 03/22/17 20:01 21:21 22:06 22:11 Pulse 75 73 75 Resp 12 12 B/P (MAP) 144/70 (94) 140/72 (94) Pulse Ox 95 94 O2 Delivery Room Air Room Air Room Air 03/22/17 03/22/17 03/22/17 03/23/17 22:11 23:01 23:51 00:11 Temp 98.4 98.4 Pulse 75 75 73 Resp 12 16 B/P (MAP) 140/72 144/70 (94) 128/66 (86) Pulse Ox 95 95 O2 Delivery Room Air Room Air Room Air 03/23/17 03/23/17 03/23/17 03/23/17 01:00 02:00 03:00 04:04 Temp 98.9 98.9 Pulse 75 75 76 75 Resp 16 16 16 16 B/P (MAP) 133/63 (86) 138/72 (94) 157/76 (103) 147/81 (103) Pulse Ox 94 95 95 96 O2 Delivery Room Air Room Air Room Air Room Air 03/23/17 03/23/17 03/23/17 03/23/17 04:10 05:08 06:03 06:13 Pulse 78 80 81 Resp 16 16 B/P (MAP) 161/74 (103) 163/77 163/77 (105) Pulse Ox 95 95 O2 Delivery Room Air Room Air Room Air 03/23/17 03/23/17 03/23/17 03/23/17 07:00 08:00 08:00 09:00 Temp 98.4 98.4 Pulse 88 85 83 Resp 15 14 19 B/P (MAP) 161/79 (106) 160/73 (102) 157/73 (101) Pulse Ox 96 95 96 O2 Delivery Room Air Room Air Room Air Room Air 03/23/17 03/23/17 03/23/17 03/23/17 09:30 09:30 09:31 10:00 Pulse 83 83 83 86 Resp 17 B/P (MAP) 157/73 157/73 157/73 166/76 (106) Pulse Ox 96 O2 Delivery Room Air 03/23/17 03/23/17 03/23/17 03/23/17 11:00 12:00 12:00 12:22 Temp 97.8 97.8 Pulse 89 83 83 Resp 20 23 B/P (MAP) 168/85 (112) 163/79 (107) 163/79 Pulse Ox 95 96 O2 Delivery Room Air Room Air Room Air 03/23/17 03/23/17 13:00 14:00 Pulse 90 80 Resp 22 17 B/P (MAP) 144/81 (102) 137/66 (89) Pulse Ox 98 95 O2 Delivery Room Air Room Air Intake and Output 03/23/17 03/23/17 03/24/17 15:00 23:00 07:00 Intake Total 120 ml Output Total 13 ml Balance 107 ml BRITNI DOUGLAS MD Mar 23, 2017 14:34
--- NOTE | 2017-03-23 15:03 | PDOC ---
PROGRESS NOTES Chief Complaint Chief Complaint Subdural hematoma Previous alcoholism- quit drinking 4 years ago Diabetes Hypertension End-stage renal disease Hepatitis C , Tonsillectomy Right arm dialysis fistula. History of Present Illness History of Present Illness 53 y/o F seen at bedside in ICU with family presetn. Pt much more alert than bedside encounter yesterday, less restless and in mild distress today. Pt. is being followed by Neurology and Neurosurg re: subdural hematoma, and nephro re: CRF. Discussed DC dispositiion with family today, who wish to see her in a SNU facility for a bit once she is cleared for DC. Will arrange SNU eval, and conitue monitoring. Vitals Vitals Vital Signs Date Time Temp Pulse Resp B/P (MAP) Pulse Ox O2 Delivery O2 Flow Rate FiO2 03/23/17 14:00 80 17 137/66 (89) 95 Room Air 03/23/17 12:00 97.8 97.8 03/22/17 18:00 2.0 Physical Exam General: Alert, Cooperative, mild distress, Other (CONFUSED) Heart: Regular rate, Normal S1, Normal S2, No murmurs, Gallops Lungs: Clear Abdomen: Normal bowel sounds, Soft, No tenderness, No hepatosplenomegaly, No masses Extremities: No clubbing, No cyanosis, No edema, Normal pulses, No tenderness/ swelling Skin: Other (CONFUSED) Labs LABS Laboratory Tests Test 03/22/17 22:13 03/23/17 05:10 03/23/17 12:26 Glucose (Fingerstick) 113 mg/dL (70-99) 116 mg/dL (70-99) White Blood Count 4.7 x10^3/uL (4.0-11.0) Red Blood Count 3.08 x10^6/uL (3.50-5.40) Hemoglobin 9.8 g/dL (12.0-15.5) Hematocrit 29.2 % (36.0-47.0) Mean Corpuscular Volume 95 fL (79-100) Mean Corpuscular Hemoglobin 32 pg (25-35) Mean Corpuscular Hemoglobin Concent 33 g/dL (31-37) Red Cell Distribution Width 15.1 % (11.5-14.5) Platelet Count 89 x10^3/uL (140-400) Neutrophils (%) (Auto) 64 % (31-73) Lymphocytes (%) (Auto) 25 % (24-48) Monocytes (%) (Auto) 9 % (0-9) Eosinophils (%) (Auto) 2 % (0-3) Basophils (%) (Auto) 1 % (0-3) Neutrophils # (Auto) 3.0 x10^3uL (1.8-7.7) Lymphocytes # (Auto) 1.2 x10^3/uL (1.0-4.8) Monocytes # (Auto) 0.4 x10^3/uL (0.0-1.1) Eosinophils # (Auto) 0.1 x10^3/uL (0.0-0.7) Basophils # (Auto) 0.0 x10^3/uL (0.0-0.2) Sodium Level 138 mmol/L (136-145) Potassium Level 4.7 mmol/L (3.5-5.1) Chloride Level 102 mmol/L (98-107) Carbon Dioxide Level 29 mmol/L (21-32) Anion Gap 7 (6-14) Blood Urea Nitrogen 31 mg/dL (7-20) Creatinine 5.5 mg/dL (0.6-1.0) Estimated GFR (Cockcroft-Gault) 8.1 Glucose Level 116 mg/dL (70-99) Calcium Level 8.6 mg/dL (8.5-10.1) Phosphorus Level 4.8 mg/dL (2.6-4.7) Magnesium Level 1.9 mg/dL (1.8-2.4) Albumin 2.9 g/dL (3.4-5.0) Review of Systems Review of Systems AOCx1, in mild distress. No c/o CP. No apparent SOB. Lungs clear b/l. No c/c/e. EOMI b/l, no facial palsy. Assessment and Plan Assessmemt and Plan Problems Medical Problems: (1) Hypertension Status: Acute (2) Subdural hematoma Status: Acute Subdural hematoma Previous alcoholism- quit drinking 4 years ago Diabetes Hypertension End-stage renal disease Hepatitis C , Tonsillectomy Right arm dialysis fistula. PLAN: SNU eval Continue ICU monitoring Continue EtOH withdrawal protocol Continue PT/OT Conitnue home meds Repeat CT per neuro/neurosurgery recommendation Problems: Comment Review of Relevant I have reviewed the following items shi (where applicable) has been applied. Labs Laboratory Tests Test 03/21/17 18:16 03/21/17 20:55 03/22/17 03:30 03/22/17 09:11 Glucose (Fingerstick) 155 mg/dL (70-99) 136 mg/dL (70-99) White Blood Count 6.5 x10^3/uL (4.0-11.0) Red Blood Count 3.50 x10^6/uL (3.50-5.40) Hemoglobin 11.0 g/dL (12.0-15.5) Hematocrit 32.9 % (36.0-47.0) Mean Corpuscular Volume 94 fL (79-100) Mean Corpuscular Hemoglobin 32 pg (25-35) Mean Corpuscular Hemoglobin Concent 34 g/dL (31-37) Red Cell Distribution Width 15.2 % (11.5-14.5) Platelet Count 123 x10^3/uL (140-400) Neutrophils (%) (Auto) 62 % (31-73) Lymphocytes (%) (Auto) 26 % (24-48) Monocytes (%) (Auto) 10 % (0-9) Eosinophils (%) (Auto) 2 % (0-3) Basophils (%) (Auto) 1 % (0-3) Neutrophils # (Auto) 4.0 x10^3uL (1.8-7.7) Lymphocytes # (Auto) 1.7 x10^3/uL (1.0-4.8) Monocytes # (Auto) 0.7 x10^3/uL (0.0-1.1) Eosinophils # (Auto) 0.1 x10^3/uL (0.0-0.7) Basophils # (Auto) 0.1 x10^3/uL (0.0-0.2) Sodium Level 130 mmol/L (136-145) Potassium Level 5.7 mmol/L (3.5-5.1) Chloride Level 96 mmol/L (98-107) Carbon Dioxide Level 24 mmol/L (21-32) Anion Gap 10 (6-14) Blood Urea Nitrogen 55 mg/dL (7-20) Creatinine 8.2 mg/dL (0.6-1.0) Estimated GFR (Cockcroft-Gault) 5.1 Glucose Level 129 mg/dL (70-99) Calcium Level 8.7 mg/dL (8.5-10.1) Phosphorus Level 4.1 mg/dL (2.6-4.7) Magnesium Level 2.0 mg/dL (1.8-2.4) Albumin 3.1 g/dL (3.4-5.0) Urine Collection Type Unknown Urine Color Yellow Urine Clarity Clear Urine pH 7.5 Urine Specific [place] 1.020 Urine Protein >=300 mg/dL (NEG-TRACE) Urine Glucose (UA) 100 mg/dL (NEG) Urine Ketones (Stick) Negative mg/dL (NEG) Urine Blood Trace (NEG) Urine Nitrite Negative (NEG) Urine Bilirubin Negative (NEG) Urine Urobilinogen Dipstick 0.2 mg/dL (0.2 mg/dL) Urine Leukocyte Esterase Trace (NEG) Urine RBC Rare /HPF (0-2) Urine WBC Rare /HPF (0-4) Urine Squamous Epithelial Cells Mod /LPF Urine Bacteria 0 /HPF (0-FEW) Urine Opiates Screen Pos (NEG) Urine Methadone Screen Neg (NEG) Urine Barbiturates Neg (NEG) Urine Phencyclidine Screen Neg (NEG) Urine Amphetamine/Methamphetamine Neg (NEG) Urine Benzodiazepines Screen Neg (NEG) Urine Cocaine Screen Neg (NEG) Urine Cannabinoids Screen Neg (NEG) Urine Ethyl Alcohol Neg (NEG) Test 03/22/17 11:55 03/22/17 12:04 03/22/17 22:13 03/23/17 05:10 Prothrombin Time 13.7 SEC (11.7-14.0) Prothromb Time International Ratio 1.1 (0.8-1.1) Glucose (Fingerstick) 136 mg/dL (70-99) 113 mg/dL (70-99) White Blood Count 4.7 x10^3/uL (4.0-11.0) Red Blood Count 3.08 x10^6/uL (3.50-5.40) Hemoglobin 9.8 g/dL (12.0-15.5) Hematocrit 29.2 % (36.0-47.0) Mean Corpuscular Volume 95 fL (79-100) Mean Corpuscular Hemoglobin 32 pg (25-35) Mean Corpuscular Hemoglobin Concent 33 g/dL (31-37) Red Cell Distribution Width 15.1 % (11.5-14.5) Platelet Count 89 x10^3/uL (140-400) Neutrophils (%) (Auto) 64 % (31-73) Lymphocytes (%) (Auto) 25 % (24-48) Monocytes (%) (Auto) 9 % (0-9) Eosinophils (%) (Auto) 2 % (0-3) Basophils (%) (Auto) 1 % (0-3) Neutrophils # (Auto) 3.0 x10^3uL (1.8-7.7) Lymphocytes # (Auto) 1.2 x10^3/uL (1.0-4.8) Monocytes # (Auto) 0.4 x10^3/uL (0.0-1.1) Eosinophils # (Auto) 0.1 x10^3/uL (0.0-0.7) Basophils # (Auto) 0.0 x10^3/uL (0.0-0.2) Sodium Level 138 mmol/L (136-145) Potassium Level 4.7 mmol/L (3.5-5.1) Chloride Level 102 mmol/L (98-107) Carbon Dioxide Level 29 mmol/L (21-32) Anion Gap 7 (6-14) Blood Urea Nitrogen 31 mg/dL (7-20) Creatinine 5.5 mg/dL (0.6-1.0) Estimated GFR (Cockcroft-Gault) 8.1 Glucose Level 116 mg/dL (70-99) Calcium Level 8.6 mg/dL (8.5-10.1) Phosphorus Level 4.8 mg/dL (2.6-4.7) Magnesium Level 1.9 mg/dL (1.8-2.4) Albumin 2.9 g/dL (3.4-5.0) Test 03/23/17 12:26 Glucose (Fingerstick) 116 mg/dL (70-99) Laboratory Tests Test 03/22/17 22:13 03/23/17 05:10 03/23/17 12:26 Glucose (Fingerstick) 113 mg/dL (70-99) 116 mg/dL (70-99) White Blood Count 4.7 x10^3/uL (4.0-11.0) Red Blood Count 3.08 x10^6/uL (3.50-5.40) Hemoglobin 9.8 g/dL (12.0-15.5) Hematocrit 29.2 % (36.0-47.0) Mean Corpuscular Volume 95 fL (79-100) Mean Corpuscular Hemoglobin 32 pg (25-35) Mean Corpuscular Hemoglobin Concent 33 g/dL (31-37) Red Cell Distribution Width 15.1 % (11.5-14.5) Platelet Count 89 x10^3/uL (140-400) Neutrophils (%) (Auto) 64 % (31-73) Lymphocytes (%) (Auto) 25 % (24-48) Monocytes (%) (Auto) 9 % (0-9) Eosinophils (%) (Auto) 2 % (0-3) Basophils (%) (Auto) 1 % (0-3) Neutrophils # (Auto) 3.0 x10^3uL (1.8-7.7) Lymphocytes # (Auto) 1.2 x10^3/uL (1.0-4.8) Monocytes # (Auto) 0.4 x10^3/uL (0.0-1.1) Eosinophils # (Auto) 0.1 x10^3/uL (0.0-0.7) Basophils # (Auto) 0.0 x10^3/uL (0.0-0.2) Sodium Level 138 mmol/L (136-145) Potassium Level 4.7 mmol/L (3.5-5.1) Chloride Level 102 mmol/L (98-107) Carbon Dioxide Level 29 mmol/L (21-32) Anion Gap 7 (6-14) Blood Urea Nitrogen 31 mg/dL (7-20) Creatinine 5.5 mg/dL (0.6-1.0) Estimated GFR (Cockcroft-Gault) 8.1 Glucose Level 116 mg/dL (70-99) Calcium Level 8.6 mg/dL (8.5-10.1) Phosphorus Level 4.8 mg/dL (2.6-4.7) Magnesium Level 1.9 mg/dL (1.8-2.4) Albumin 2.9 g/dL (3.4-5.0) Microbiology 03/22/17 Urine Culture - Preliminary, Resulted 03/22/17 Urine Culture Result 1 (MOE) - Preliminary, Resulted Medications Current Medications Hydralazine HCl (Apresoline Inj) 10 mg 1X ONCE IVP Last administered on 13:25; Start 03/20/17 at 13:15; Stop 03/20/17 at 13:16; Status DC Ondansetron HCl (Zofran) 4 mg PRN Q8HRS PRN IV NAUSEA/VOMITING; Start 03/20/17 at 15:45; Stop 03/21/17 at 15:44; Status DC Fentanyl Citrate (Fentanyl 2ml Vial) 50 mcg 1X ONCE IV Last administered on 16:31; Start 03/20/17 at 16:30; Stop 03/20/17 at 16:31; Status DC Hydralazine HCl (Apresoline Inj) 10 mg PRN Q4HRS PRN IVP ELEVATED BP, SEE COMMENTS Last administered on 03/23/17 12:22; Start 03/20/17 at 18:00 Fentanyl Citrate (Fentanyl 2ml Vial) 50 mcg PRN Q4HRS PRN IV PAIN Last administered on 03/21/17 14:16; Start 03/20/17 at 18:00 Nicardipine HCl 50 mg/Sodium Chloride 270 ml @ 0 mls/hr CONT PRN IV SEE I/O RECORD Last administered on 03/22/17 04:15; Start 03/20/17 at 18:45 Morphine Sulfate 2 mg PRN Q2HR PRN IV PAIN Last administered on 03/21/17 11: 59; Start 03/20/17 at 19:30 Morphine Sulfate 4 mg PRN Q2HR PRN IV PAIN Last administered on 03/22/17 19: 11; Start 03/20/17 at 19:30 Magnesium Sulfate/ Dextrose 50 ml @ 25 mls/hr PRN DAILY PRN IV for Mag < 1.7 on am labs; Start 03/21/17 at 08:30 Iohexol (Omnipaque 300 Mg/ml) 90 ml 1X ONCE IV Last administered on 10:47; Start 03/21/17 at 10:30; Stop 03/21/17 at 10:32; Status DC Info (Do NOT chart on this entry -- for MONITORING) 1 each PRN DAILY PRN MC SEE COMMENTS; Start 03/21/17 at 10:45; Stop 03/23/17 at 10:44; Status DC Amlodipine Besylate (Norvasc) 5 mg BID PO Last administered on 03/23/17 09:30 ; Start 03/21/17 at 21:00 Clonidine HCl (Catapres) 0.2 mg TID PO Last administered on 03/23/17 09:31; Start 03/21/17 at 14:00 Gabapentin (Neurontin) 200 mg TID PO Last administered on 03/21/17 20:46; Start 03/21/17 at 14:00; Stop 03/22/17 at 09:24; Status DC Lisinopril (Prinivil) 40 mg DAILY PO Last administered on 03/23/17 09:30; Start 03/21/17 at 14:00 Ondansetron HCl (Zofran Odt) 4 mg PRN Q4HRS PRN PO NAUSEA/VOMITING; Start 02/25 at 13:30 Non-Formulary Medication 300 mg QHS PO ; Start 03/21/17 at 21:00; Status UNV Trazodone HCl (Desyrel) 150 mg QHS PO Last administered on 03/22/17 22:11; Start 03/21/17 at 21:00 Labetalol HCl (Normodyne) 20 mg PRN Q2HR PRN IVP HYPERTENSION, SEE COMMENTS Last administered on 03/22/17 10:40; Start 03/21/17 at 13:45 Insulin Aspart (NovoLOG) 0-5 UNITS TIDWMEALS SQ ; Start 03/21/17 at 17:00 Dextrose (Dextrose 50%-Water Syringe) 12.5 gm PRN Q15MIN PRN IV SEE COMMENTS; Start 03/21/17 at 13:45 Insulin Detemir (Levemir) 21 units QHS SQ Last administered on 03/21/17 21:06 ; Start 03/21/17 at 21:00 Aripiprazole (Abilify) 5 mg DAILY PO Last administered on 03/23/17 09:30; Start 03/21/17 at 14:00 Lamotrigine (LaMICtal) 100 mg BID PO Last administered on 03/23/17 09:30; Start 03/21/17 at 14:00 Topiramate (Topamax) 25 mg BID PO Last administered on 03/23/17 09:30; Start 03/21/17 at 14:00 Bupropion HCl (Wellbutrin Xl) 300 mg DAILY PO Last administered on 03/23/17 09:30; Start 03/21/17 at 14:00 Acetaminophen (Tylenol) 650 mg PRN Q6HRS PRN PO headache Last administered on 03/22/17 12:04; Start 03/21/17 at 14:00 Gabapentin (Neurontin) 600 mg HS PO ; Start 03/22/17 at 21:00; Stop 03/22/17 at 21:00; Status DC Gabapentin (Neurontin) 300 mg HS PO Last administered on 03/22/17 22:11; Start 03/22/17 at 21:00 Multivitamins 10 ml/Thiamine HCl 100 mg/Sodium Chloride 1,011 ml @ 100 mls/hr 1X ONCE IV Last administered on 03/22/17 12:13; Start 03/22/17 at 12:00; Stop 03/22/17 at 22:06; Status DC Multivitamins (Thera M Plus) 1 tab DAILY PO Last administered on 03/23/17 09: 31; Start 03/23/17 at 09:00 Folic Acid (Folic Acid) 1 mg DAILY PO Last administered on 03/23/17 09:31; Start 03/23/17 at 09:00 Lorazepam (Ativan) 2 mg PRN Q1HR PRN IV For CIWA 8-14 Last administered on 11:46; Start 03/22/17 at 11:30 Haloperidol Lactate (Haldol) 5 mg PRN Q4HRS PRN IVP Hallucinatns,Confusn, Delirium; Start 03/22/17 at 11:30 Diphenhydramine HCl (Benadryl) 25 mg PRN Q15MIN PRN IVP EPS symptoms 2'Haldol admin; Start 03/22/17 at 11:30 Thiamine Mononitrate (Vitamin B-1) 100 mg DAILY PO Last administered on 09:31; Start 03/23/17 at 09:00 Topiramate (Topamax) 50 mg TuThSa PO Last administered on 03/22/17 17:51; Start 03/22/17 at 17:00 Active Scripts Active Midodrine Hcl 10 Mg Tablet 10 Mg PO TID 30 Days Lisinopril 40 Mg Tablet 1 Tab PO DAILY Coreg (Carvedilol) 6.25 Mg Tablet 1 Tab PO BID Norvasc (Amlodipine Besylate) 5 Mg Tablet 1 Tab PO BID Topamax (Topiramate) 25 Mg Tablet 25 Mg PO BID 30 Days Aspirin Ec (Aspirin) 81 Mg Tablet.dr 81 Mg PO DAILYWBKFT 30 Days Reported Oxycodone Hcl 5 Mg Capsule 5 Mg PO Q6HRS PRN Gabapentin 100 Mg Capsule 200 Mg PO TID Zofran Odt (Ondansetron) 4 Mg Tab.rapdis 4 Mg PO PRN Q4HRS PRN Trazodone Hcl 150 Mg Tablet 150 Mg PO HS Renvela (Sevelamer Carbonate) 800 Mg Tablet 2 Tab PO TID Lantus Solostar (Insulin Glargine,Hum.rec.anlog) 100 Unit/1 Ml Insuln.pen 12 Unit SQ QHS Lamictal (Lamotrigine) 100 Mg Tablet 100 Mg PO BID Gabapentin 300 Mg Capsule 300 Mg PO QHS Clonidine Hcl 0.2 Mg Tablet 0.2 Mg PO TID Bupropion Xl (Bupropion Hcl) 300 Mg Tab.er.24h 300 Mg PO DAILY Abilify (Aripiprazole) 5 Mg Tablet 5 Mg PO DAILY Vitals/I & O Vital Sign - Last 24 Hours 03/22/17 03/22/17 03/22/17 03/22/17 15:00 16:00 17:00 18:00 Temp 99.2 99.2 Pulse 86 89 82 83 Resp 21 20 14 16 B/P (MAP) 125/64 (84) 122/67 (85) 145/68 (93) 140/68 (92) Pulse Ox 99 98 94 97 O2 Delivery Nasal Cannula Nasal Cannula Nasal Cannula Nasal Cannula O2 Flow Rate 2.0 2.0 2.0 2.0 03/22/17 03/22/17 03/22/17 03/22/17 19:03 19:11 19:45 20:00 Temp 98.6 98.6 Pulse 83 76 Resp 16 18 14 12 B/P (MAP) 147/67 (93) 135/69 (91) Pulse Ox 95 95 94 95 O2 Delivery Room Air Room Air Room Air Room Air 03/22/17 03/22/17 03/22/17 03/22/17 20:01 21:21 22:06 22:11 Pulse 75 73 75 Resp 12 12 B/P (MAP) 144/70 (94) 140/72 (94) Pulse Ox 95 94 O2 Delivery Room Air Room Air Room Air 03/22/17 03/22/17 03/22/17 03/23/17 22:11 23:01 23:51 00:11 Temp 98.4 98.4 Pulse 75 75 73 Resp 12 16 B/P (MAP) 140/72 144/70 (94) 128/66 (86) Pulse Ox 95 95 O2 Delivery Room Air Room Air Room Air 03/23/17 03/23/17 03/23/17 03/23/17 01:00 02:00 03:00 04:04 Temp 98.9 98.9 Pulse 75 75 76 75 Resp 16 16 16 16 B/P (MAP) 133/63 (86) 138/72 (94) 157/76 (103) 147/81 (103) Pulse Ox 94 95 95 96 O2 Delivery Room Air Room Air Room Air Room Air 03/23/17 03/23/17 03/23/17 03/23/17 04:10 05:08 06:03 06:13 Pulse 78 80 81 Resp 16 16 B/P (MAP) 161/74 (103) 163/77 163/77 (105) Pulse Ox 95 95 O2 Delivery Room Air Room Air Room Air 03/23/17 03/23/17 03/23/17 03/23/17 07:00 08:00 08:00 09:00 Temp 98.4 98.4 Pulse 88 85 83 Resp 15 14 19 B/P (MAP) 161/79 (106) 160/73 (102) 157/73 (101) Pulse Ox 96 95 96 O2 Delivery Room Air Room Air Room Air Room Air 03/23/17 03/23/17 03/23/17 03/23/17 09:30 09:30 09:31 10:00 Pulse 83 83 83 86 Resp 17 B/P (MAP) 157/73 157/73 157/73 166/76 (106) Pulse Ox 96 O2 Delivery Room Air 03/23/17 03/23/17 03/23/17 03/23/17 11:00 12:00 12:00 12:22 Temp 97.8 97.8 Pulse 89 83 83 Resp 20 23 B/P (MAP) 168/85 (112) 163/79 (107) 163/79 Pulse Ox 95 96 O2 Delivery Room Air Room Air Room Air 03/23/17 03/23/17 13:00 14:00 Pulse 90 80 Resp 22 17 B/P (MAP) 144/81 (102) 137/66 (89) Pulse Ox 98 95 O2 Delivery Room Air Room Air Intake and Output 03/23/17 03/23/17 03/24/17 15:00 23:00 07:00 Intake Total 120 ml Output Total 13 ml Balance 107 ml VIVIAN MORALES III DO Mar 23, 2017 15:03
--- NOTE | 2017-03-23 19:51 | PDOC ---
PROGRESS NOTES Subjective Subjective late entry-patient seen at 1200 more alert today Objective Objective Vital Signs Date Time Temp Pulse Resp B/P (MAP) Pulse Ox O2 Delivery O2 Flow Rate FiO2 03/23/17 16:00 98.6 80 25 147/67 (93) 95 Room Air 98.6 03/22/17 18:00 2.0 Intake and Output 03/24/17 07:00 Intake Total 120 ml Output Total 108 ml Balance 12 ml Intake Oral 120 ml Output Urine Total 108 ml Physical Exam General: Alert, Cooperative, Other (answers a few simple questions) Neuro: Other ([place], follows a few simple commands) Assessment Assessment Problems Medical Problems: (1) Hypertension Status: Acute (2) Subdural hematoma Status: Acute Plan Plan of Care keep in ICU f/u CT head in AM Comment Review of Relevant I have reviewed the following items shi (where applicable) has been applied. Labs Laboratory Tests Test 03/21/17 20:55 03/22/17 03:30 03/22/17 09:11 03/22/17 11:55 Glucose (Fingerstick) 136 mg/dL (70-99) White Blood Count 6.5 x10^3/uL (4.0-11.0) Red Blood Count 3.50 x10^6/uL (3.50-5.40) Hemoglobin 11.0 g/dL (12.0-15.5) Hematocrit 32.9 % (36.0-47.0) Mean Corpuscular Volume 94 fL (79-100) Mean Corpuscular Hemoglobin 32 pg (25-35) Mean Corpuscular Hemoglobin Concent 34 g/dL (31-37) Red Cell Distribution Width 15.2 % (11.5-14.5) Platelet Count 123 x10^3/uL (140-400) Neutrophils (%) (Auto) 62 % (31-73) Lymphocytes (%) (Auto) 26 % (24-48) Monocytes (%) (Auto) 10 % (0-9) Eosinophils (%) (Auto) 2 % (0-3) Basophils (%) (Auto) 1 % (0-3) Neutrophils # (Auto) 4.0 x10^3uL (1.8-7.7) Lymphocytes # (Auto) 1.7 x10^3/uL (1.0-4.8) Monocytes # (Auto) 0.7 x10^3/uL (0.0-1.1) Eosinophils # (Auto) 0.1 x10^3/uL (0.0-0.7) Basophils # (Auto) 0.1 x10^3/uL (0.0-0.2) Sodium Level 130 mmol/L (136-145) Potassium Level 5.7 mmol/L (3.5-5.1) Chloride Level 96 mmol/L (98-107) Carbon Dioxide Level 24 mmol/L (21-32) Anion Gap 10 (6-14) Blood Urea Nitrogen 55 mg/dL (7-20) Creatinine 8.2 mg/dL (0.6-1.0) Estimated GFR (Cockcroft-Gault) 5.1 Glucose Level 129 mg/dL (70-99) Calcium Level 8.7 mg/dL (8.5-10.1) Phosphorus Level 4.1 mg/dL (2.6-4.7) Magnesium Level 2.0 mg/dL (1.8-2.4) Albumin 3.1 g/dL (3.4-5.0) Urine Collection Type Unknown Urine Color Yellow Urine Clarity Clear Urine pH 7.5 Urine Specific [place] 1.020 Urine Protein >=300 mg/dL (NEG-TRACE) Urine Glucose (UA) 100 mg/dL (NEG) Urine Ketones (Stick) Negative mg/dL (NEG) Urine Blood Trace (NEG) Urine Nitrite Negative (NEG) Urine Bilirubin Negative (NEG) Urine Urobilinogen Dipstick 0.2 mg/dL (0.2 mg/dL) Urine Leukocyte Esterase Trace (NEG) Urine RBC Rare /HPF (0-2) Urine WBC Rare /HPF (0-4) Urine Squamous Epithelial Cells Mod /LPF Urine Bacteria 0 /HPF (0-FEW) Urine Opiates Screen Pos (NEG) Urine Methadone Screen Neg (NEG) Urine Barbiturates Neg (NEG) Urine Phencyclidine Screen Neg (NEG) Urine Amphetamine/Methamphetamine Neg (NEG) Urine Benzodiazepines Screen Neg (NEG) Urine Cocaine Screen Neg (NEG) Urine Cannabinoids Screen Neg (NEG) Urine Ethyl Alcohol Neg (NEG) Prothrombin Time 13.7 SEC (11.7-14.0) Prothromb Time International Ratio 1.1 (0.8-1.1) Test 03/22/17 12:04 03/22/17 22:13 03/23/17 05:10 03/23/17 12:26 Glucose (Fingerstick) 136 mg/dL (70-99) 113 mg/dL (70-99) 116 mg/dL (70-99) White Blood Count 4.7 x10^3/uL (4.0-11.0) Red Blood Count 3.08 x10^6/uL (3.50-5.40) Hemoglobin 9.8 g/dL (12.0-15.5) Hematocrit 29.2 % (36.0-47.0) Mean Corpuscular Volume 95 fL (79-100) Mean Corpuscular Hemoglobin 32 pg (25-35) Mean Corpuscular Hemoglobin Concent 33 g/dL (31-37) Red Cell Distribution Width 15.1 % (11.5-14.5) Platelet Count 89 x10^3/uL (140-400) Neutrophils (%) (Auto) 64 % (31-73) Lymphocytes (%) (Auto) 25 % (24-48) Monocytes (%) (Auto) 9 % (0-9) Eosinophils (%) (Auto) 2 % (0-3) Basophils (%) (Auto) 1 % (0-3) Neutrophils # (Auto) 3.0 x10^3uL (1.8-7.7) Lymphocytes # (Auto) 1.2 x10^3/uL (1.0-4.8) Monocytes # (Auto) 0.4 x10^3/uL (0.0-1.1) Eosinophils # (Auto) 0.1 x10^3/uL (0.0-0.7) Basophils # (Auto) 0.0 x10^3/uL (0.0-0.2) Sodium Level 138 mmol/L (136-145) Potassium Level 4.7 mmol/L (3.5-5.1) Chloride Level 102 mmol/L (98-107) Carbon Dioxide Level 29 mmol/L (21-32) Anion Gap 7 (6-14) Blood Urea Nitrogen 31 mg/dL (7-20) Creatinine 5.5 mg/dL (0.6-1.0) Estimated GFR (Cockcroft-Gault) 8.1 Glucose Level 116 mg/dL (70-99) Calcium Level 8.6 mg/dL (8.5-10.1) Phosphorus Level 4.8 mg/dL (2.6-4.7) Magnesium Level 1.9 mg/dL (1.8-2.4) Albumin 2.9 g/dL (3.4-5.0) Test 03/23/17 16:23 Glucose (Fingerstick) 163 mg/dL (70-99) Laboratory Tests Test 03/22/17 22:13 03/23/17 05:10 03/23/17 12:26 03/23/17 16:23 Glucose (Fingerstick) 113 mg/dL (70-99) 116 mg/dL (70-99) 163 mg/dL (70-99) White Blood Count 4.7 x10^3/uL (4.0-11.0) Red Blood Count 3.08 x10^6/uL (3.50-5.40) Hemoglobin 9.8 g/dL (12.0-15.5) Hematocrit 29.2 % (36.0-47.0) Mean Corpuscular Volume 95 fL (79-100) Mean Corpuscular Hemoglobin 32 pg (25-35) Mean Corpuscular Hemoglobin Concent 33 g/dL (31-37) Red Cell Distribution Width 15.1 % (11.5-14.5) Platelet Count 89 x10^3/uL (140-400) Neutrophils (%) (Auto) 64 % (31-73) Lymphocytes (%) (Auto) 25 % (24-48) Monocytes (%) (Auto) 9 % (0-9) Eosinophils (%) (Auto) 2 % (0-3) Basophils (%) (Auto) 1 % (0-3) Neutrophils # (Auto) 3.0 x10^3uL (1.8-7.7) Lymphocytes # (Auto) 1.2 x10^3/uL (1.0-4.8) Monocytes # (Auto) 0.4 x10^3/uL (0.0-1.1) Eosinophils # (Auto) 0.1 x10^3/uL (0.0-0.7) Basophils # (Auto) 0.0 x10^3/uL (0.0-0.2) Sodium Level 138 mmol/L (136-145) Potassium Level 4.7 mmol/L (3.5-5.1) Chloride Level 102 mmol/L (98-107) Carbon Dioxide Level 29 mmol/L (21-32) Anion Gap 7 (6-14) Blood Urea Nitrogen 31 mg/dL (7-20) Creatinine 5.5 mg/dL (0.6-1.0) Estimated GFR (Cockcroft-Gault) 8.1 Glucose Level 116 mg/dL (70-99) Calcium Level 8.6 mg/dL (8.5-10.1) Phosphorus Level 4.8 mg/dL (2.6-4.7) Magnesium Level 1.9 mg/dL (1.8-2.4) Albumin 2.9 g/dL (3.4-5.0) Microbiology 03/22/17 Urine Culture - Preliminary, Resulted 03/22/17 Urine Culture Result 1 (MOE) - Preliminary, Resulted Medications Current Medications Hydralazine HCl (Apresoline Inj) 10 mg 1X ONCE IVP Last administered on 13:25; Start 03/20/17 at 13:15; Stop 03/20/17 at 13:16; Status DC Ondansetron HCl (Zofran) 4 mg PRN Q8HRS PRN IV NAUSEA/VOMITING; Start 03/20/17 at 15:45; Stop 03/21/17 at 15:44; Status DC Fentanyl Citrate (Fentanyl 2ml Vial) 50 mcg 1X ONCE IV Last administered on 16:31; Start 03/20/17 at 16:30; Stop 03/20/17 at 16:31; Status DC Hydralazine HCl (Apresoline Inj) 10 mg PRN Q4HRS PRN IVP ELEVATED BP, SEE COMMENTS Last administered on 03/23/17 12:22; Start 03/20/17 at 18:00 Fentanyl Citrate (Fentanyl 2ml Vial) 50 mcg PRN Q4HRS PRN IV PAIN Last administered on 03/21/17 14:16; Start 03/20/17 at 18:00 Nicardipine HCl 50 mg/Sodium Chloride 270 ml @ 0 mls/hr CONT PRN IV SEE I/O RECORD Last administered on 03/22/17 04:15; Start 03/20/17 at 18:45 Morphine Sulfate 2 mg PRN Q2HR PRN IV PAIN Last administered on 03/21/17 11: 59; Start 03/20/17 at 19:30 Morphine Sulfate 4 mg PRN Q2HR PRN IV PAIN Last administered on 03/22/17 19: 11; Start 03/20/17 at 19:30 Magnesium Sulfate/ Dextrose 50 ml @ 25 mls/hr PRN DAILY PRN IV for Mag < 1.7 on am labs; Start 03/21/17 at 08:30 Iohexol (Omnipaque 300 Mg/ml) 90 ml 1X ONCE IV Last administered on 10:47; Start 03/21/17 at 10:30; Stop 03/21/17 at 10:32; Status DC Info (Do NOT chart on this entry -- for MONITORING) 1 each PRN DAILY PRN MC SEE COMMENTS; Start 03/21/17 at 10:45; Stop 03/23/17 at 10:44; Status DC Amlodipine Besylate (Norvasc) 5 mg BID PO Last administered on 03/23/17 09:30 ; Start 03/21/17 at 21:00 Clonidine HCl (Catapres) 0.2 mg TID PO Last administered on 03/23/17 14:59; Start 03/21/17 at 14:00 Gabapentin (Neurontin) 200 mg TID PO Last administered on 03/21/17 20:46; Start 03/21/17 at 14:00; Stop 03/22/17 at 09:24; Status DC Lisinopril (Prinivil) 40 mg DAILY PO Last administered on 03/23/17 09:30; Start 03/21/17 at 14:00 Ondansetron HCl (Zofran Odt) 4 mg PRN Q4HRS PRN PO NAUSEA/VOMITING; Start 02/25 at 13:30 Non-Formulary Medication 300 mg QHS PO ; Start 03/21/17 at 21:00; Status UNV Trazodone HCl (Desyrel) 150 mg QHS PO Last administered on 03/22/17 22:11; Start 03/21/17 at 21:00 Labetalol HCl (Normodyne) 20 mg PRN Q2HR PRN IVP HYPERTENSION, SEE COMMENTS Last administered on 03/22/17 10:40; Start 03/21/17 at 13:45 Insulin Aspart (NovoLOG) 0-5 UNITS TIDWMEALS SQ ; Start 03/21/17 at 17:00 Dextrose (Dextrose 50%-Water Syringe) 12.5 gm PRN Q15MIN PRN IV SEE COMMENTS; Start 03/21/17 at 13:45 Insulin Detemir (Levemir) 21 units QHS SQ Last administered on 03/21/17 21:06 ; Start 03/21/17 at 21:00 Aripiprazole (Abilify) 5 mg DAILY PO Last administered on 03/23/17 09:30; Start 03/21/17 at 14:00 Lamotrigine (LaMICtal) 100 mg BID PO Last administered on 03/23/17 09:30; Start 03/21/17 at 14:00 Topiramate (Topamax) 25 mg BID PO Last administered on 03/23/17 09:30; Start 03/21/17 at 14:00 Bupropion HCl (Wellbutrin Xl) 300 mg DAILY PO Last administered on 03/23/17 09:30; Start 03/21/17 at 14:00 Acetaminophen (Tylenol) 650 mg PRN Q6HRS PRN PO headache Last administered on 03/22/17 12:04; Start 03/21/17 at 14:00 Gabapentin (Neurontin) 600 mg HS PO ; Start 03/22/17 at 21:00; Stop 03/22/17 at 21:00; Status DC Gabapentin (Neurontin) 300 mg HS PO Last administered on 03/22/17 22:11; Start 03/22/17 at 21:00 Multivitamins 10 ml/Thiamine HCl 100 mg/Sodium Chloride 1,011 ml @ 100 mls/hr 1X ONCE IV Last administered on 03/22/17 12:13; Start 03/22/17 at 12:00; Stop 03/22/17 at 22:06; Status DC Multivitamins (Thera M Plus) 1 tab DAILY PO Last administered on 03/23/17 09: 31; Start 03/23/17 at 09:00 Folic Acid (Folic Acid) 1 mg DAILY PO Last administered on 03/23/17 09:31; Start 03/23/17 at 09:00 Lorazepam (Ativan) 2 mg PRN Q1HR PRN IV For CIWA 8-14 Last administered on 11:46; Start 03/22/17 at 11:30 Haloperidol Lactate (Haldol) 5 mg PRN Q4HRS PRN IVP Hallucinatns,Confusn, Delirium; Start 03/22/17 at 11:30 Diphenhydramine HCl (Benadryl) 25 mg PRN Q15MIN PRN IVP EPS symptoms 2'Haldol admin; Start 03/22/17 at 11:30 Thiamine Mononitrate (Vitamin B-1) 100 mg DAILY PO Last administered on 09:31; Start 03/23/17 at 09:00 Topiramate (Topamax) 50 mg TuThSa PO Last administered on 03/22/17 17:51; Start 03/22/17 at 17:00 Active Scripts Active Midodrine Hcl 10 Mg Tablet 10 Mg PO TID 30 Days Lisinopril 40 Mg Tablet 1 Tab PO DAILY Coreg (Carvedilol) 6.25 Mg Tablet 1 Tab PO BID Norvasc (Amlodipine Besylate) 5 Mg Tablet 1 Tab PO BID Topamax (Topiramate) 25 Mg Tablet 25 Mg PO BID 30 Days Aspirin Ec (Aspirin) 81 Mg Tablet.dr 81 Mg PO DAILYWBKFT 30 Days Reported Oxycodone Hcl 5 Mg Capsule 5 Mg PO Q6HRS PRN Gabapentin 100 Mg Capsule 200 Mg PO TID Zofran Odt (Ondansetron) 4 Mg Tab.rapdis 4 Mg PO PRN Q4HRS PRN Trazodone Hcl 150 Mg Tablet 150 Mg PO HS Renvela (Sevelamer Carbonate) 800 Mg Tablet 2 Tab PO TID Lantus Solostar (Insulin Glargine,Hum.rec.anlog) 100 Unit/1 Ml Insuln.pen 12 Unit SQ QHS Lamictal (Lamotrigine) 100 Mg Tablet 100 Mg PO BID Gabapentin 300 Mg Capsule 300 Mg PO QHS Clonidine Hcl 0.2 Mg Tablet 0.2 Mg PO TID Bupropion Xl (Bupropion Hcl) 300 Mg Tab.er.24h 300 Mg PO DAILY Abilify (Aripiprazole) 5 Mg Tablet 5 Mg PO DAILY Vitals/I & O Vital Sign - Last 24 Hours 03/22/17 03/22/17 03/22/17/11/17 20:00 20:01 21:21 22:06 Temp 98.6 98.6 Pulse 76 75 73 Resp 12 12 12 B/P (MAP) 135/69 (91) 144/70 (94) 140/72 (94) Pulse Ox 95 95 94 O2 Delivery Room Air Room Air Room Air Room Air 03/22/17 03/22/17 03/22/17 03/22/17 22:11 22:11 23:01 23:51 Pulse 75 75 75 Resp 12 B/P (MAP) 140/72 144/70 (94) Pulse Ox 95 O2 Delivery Room Air Room Air 03/23/17 03/23/17 03/23/17 03/23/17 00:11 01:00 02:00 03:00 Temp 98.4 98.4 Pulse 73 75 75 76 Resp 16 16 16 16 B/P (MAP) 128/66 (86) 133/63 (86) 138/72 (94) 157/76 (103) Pulse Ox 95 94 95 95 O2 Delivery Room Air Room Air Room Air Room Air 03/23/17 03/23/17 03/23/17 03/23/17 04:04 04:10 05:08 06:03 Temp 98.9 98.9 Pulse 75 78 80 Resp 16 16 B/P (MAP) 147/81 (103) 161/74 (103) 163/77 Pulse Ox 96 95 O2 Delivery Room Air Room Air Room Air 03/23/17 03/23/17 03/23/17 03/23/17 06:13 07:00 08:00 08:00 Temp 98.4 98.4 Pulse 81 88 85 Resp 16 15 14 B/P (MAP) 163/77 (105) 161/79 (106) 160/73 (102) Pulse Ox 95 96 95 O2 Delivery Room Air Room Air Room Air Room Air 03/23/17 03/23/17 03/23/17 03/23/17 09:00 09:30 09:30 09:31 Pulse 83 83 83 83 Resp 19 B/P (MAP) 157/73 (101) 157/73 157/73 157/73 Pulse Ox 96 O2 Delivery Room Air 03/23/17 03/23/17 03/23/17 03/23/17 10:00 11:00 12:00 12:00 Temp 97.8 97.8 Pulse 86 89 83 Resp 17 20 23 B/P (MAP) 166/76 (106) 168/85 (112) 163/79 (107) Pulse Ox 96 95 96 O2 Delivery Room Air Room Air Room Air Room Air 03/23/17 03/23/17 03/23/17 03/23/17 12:22 13:00 14:00 14:59 Pulse 83 90 80 80 Resp 22 17 B/P (MAP) 163/79 144/81 (102) 137/66 (89) 137/66 Pulse Ox 98 95 O2 Delivery Room Air Room Air 03/23/17 16:00 Temp 98.6 98.6 Pulse 80 Resp 25 B/P (MAP) 147/67 (93) Pulse Ox 95 O2 Delivery Room Air Intake and Output 03/23/17 03/23/17 03/24/17 15:00 23:00 07:00 Intake Total 120 ml Output Total 13 ml 95 ml Balance 107 ml -95 ml CHRISTOPHER HANLEY MD Mar 23, 2017 19:51
[2017-03-23] MEDS: LABETALOL 20 MG/4 ML DISP.SYRIN. IVP PRN (20:55)
[2017-03-23] MEDS: GABAPENTIN 300 MG CAPSULE. PO SCH (21:36)
[2017-03-23] MEDS: traZODone 50 MG TABLET. PO SCH (21:46)
[2017-03-23] MEDS: INSULIN DETEMIR 300 UNITS/3 ML INSULN.PEN. SQ SCH (22:05)
--- NOTE | 2017-03-23 23:46 | PDOC ---
PROGRESS NOTES Assessment 1. Encephalopathy-she appears to be improving. She is now able to wake for periods of time and follow commands more consistently. Her thought process is not back to normal. She will perseverate on a thought. She is not well oriented to place but did recall the month and year. She does complain of pain. If unstimulated she goes back to sleep. 2. I have adjusted the topiramate for seizure prevention in light of the subdural hematoma. With her level of renal failure 25 mg topiramate twice a day is appropriate but I'm giving her a supplement 50 mg 3 times a week after each dialysis. 3. She has a subdural hematoma which has been stable. This is being followed by neurosurgery who plans on a follow-up CT scan. Plan 1. Continue with supportive care in the intensive care unit for the encephalopathy which is improving. 2. She does have underlying psychiatric illness. We will need to keep an eye on this so that remained stable. Medications may need to be adjusted. 3. Hypertension the blood pressure control will need to be gained so that the blood pressures consistently below 140/90. 4. I don't feel were going to need to use intravenous fosphenytoin as she is able to take her anticonvulsants orally. Subjective I have some pain. I'm doing better. I'm in the occupational therapy clinic. Objective Vital Signs Date Time Temp Pulse Resp B/P (MAP) Pulse Ox O2 Delivery O2 Flow Rate FiO2 03/23/17 21:38 80 161/79 03/23/17 16:00 98.6 25 95 Room Air 98.6 03/22/17 18:00 2.0 Intake and Output 03/24/17 07:00 Intake Total 120 ml Output Total 108 ml Balance 12 ml Intake Oral 120 ml Output Urine Total 108 ml PHYSICAL EXAM She was lying in the bed. She was able to focus on the examiner. She would start to answer a question that then her thoughts would digress. She was able to follow commands. Her attention and concentration was diminished. When I was able to gain the attention the movements were symmetric, well coordinated and powerful. She did not have any sensory loss to light touch. There was no ataxia with arm movements. She did not appear agitated or in pain. She did not have tremor. Review of Relevant I have reviewed the following items shi (where applicable) has been applied. Labs Laboratory Tests Test 03/22/17 03:30 03/22/17 09:11 03/22/17 11:55 03/22/17 12:04 White Blood Count 6.5 x10^3/uL (4.0-11.0) Red Blood Count 3.50 x10^6/uL (3.50-5.40) Hemoglobin 11.0 g/dL (12.0-15.5) Hematocrit 32.9 % (36.0-47.0) Mean Corpuscular Volume 94 fL (79-100) Mean Corpuscular Hemoglobin 32 pg (25-35) Mean Corpuscular Hemoglobin Concent 34 g/dL (31-37) Red Cell Distribution Width 15.2 % (11.5-14.5) Platelet Count 123 x10^3/uL (140-400) Neutrophils (%) (Auto) 62 % (31-73) Lymphocytes (%) (Auto) 26 % (24-48) Monocytes (%) (Auto) 10 % (0-9) Eosinophils (%) (Auto) 2 % (0-3) Basophils (%) (Auto) 1 % (0-3) Neutrophils # (Auto) 4.0 x10^3uL (1.8-7.7) Lymphocytes # (Auto) 1.7 x10^3/uL (1.0-4.8) Monocytes # (Auto) 0.7 x10^3/uL (0.0-1.1) Eosinophils # (Auto) 0.1 x10^3/uL (0.0-0.7) Basophils # (Auto) 0.1 x10^3/uL (0.0-0.2) Sodium Level 130 mmol/L (136-145) Potassium Level 5.7 mmol/L (3.5-5.1) Chloride Level 96 mmol/L (98-107) Carbon Dioxide Level 24 mmol/L (21-32) Anion Gap 10 (6-14) Blood Urea Nitrogen 55 mg/dL (7-20) Creatinine 8.2 mg/dL (0.6-1.0) Estimated GFR (Cockcroft-Gault) 5.1 Glucose Level 129 mg/dL (70-99) Calcium Level 8.7 mg/dL (8.5-10.1) Phosphorus Level 4.1 mg/dL (2.6-4.7) Magnesium Level 2.0 mg/dL (1.8-2.4) Albumin 3.1 g/dL (3.4-5.0) Urine Collection Type Unknown Urine Color Yellow Urine Clarity Clear Urine pH 7.5 Urine Specific [place] 1.020 Urine Protein >=300 mg/dL (NEG-TRACE) Urine Glucose (UA) 100 mg/dL (NEG) Urine Ketones (Stick) Negative mg/dL (NEG) Urine Blood Trace (NEG) Urine Nitrite Negative (NEG) Urine Bilirubin Negative (NEG) Urine Urobilinogen Dipstick 0.2 mg/dL (0.2 mg/dL) Urine Leukocyte Esterase Trace (NEG) Urine RBC Rare /HPF (0-2) Urine WBC Rare /HPF (0-4) Urine Squamous Epithelial Cells Mod /LPF Urine Bacteria 0 /HPF (0-FEW) Urine Opiates Screen Pos (NEG) Urine Methadone Screen Neg (NEG) Urine Barbiturates Neg (NEG) Urine Phencyclidine Screen Neg (NEG) Urine Amphetamine/Methamphetamine Neg (NEG) Urine Benzodiazepines Screen Neg (NEG) Urine Cocaine Screen Neg (NEG) Urine Cannabinoids Screen Neg (NEG) Urine Ethyl Alcohol Neg (NEG) Prothrombin Time 13.7 SEC (11.7-14.0) Prothromb Time International Ratio 1.1 (0.8-1.1) Glucose (Fingerstick) 136 mg/dL (70-99) Test 03/22/17 22:13 03/23/17 05:10 03/23/17 12:26 03/23/17 16:23 Glucose (Fingerstick) 113 mg/dL (70-99) 116 mg/dL (70-99) 163 mg/dL (70-99) White Blood Count 4.7 x10^3/uL (4.0-11.0) Red Blood Count 3.08 x10^6/uL (3.50-5.40) Hemoglobin 9.8 g/dL (12.0-15.5) Hematocrit 29.2 % (36.0-47.0) Mean Corpuscular Volume 95 fL (79-100) Mean Corpuscular Hemoglobin 32 pg (25-35) Mean Corpuscular Hemoglobin Concent 33 g/dL (31-37) Red Cell Distribution Width 15.1 % (11.5-14.5) Platelet Count 89 x10^3/uL (140-400) Neutrophils (%) (Auto) 64 % (31-73) Lymphocytes (%) (Auto) 25 % (24-48) Monocytes (%) (Auto) 9 % (0-9) Eosinophils (%) (Auto) 2 % (0-3) Basophils (%) (Auto) 1 % (0-3) Neutrophils # (Auto) 3.0 x10^3uL (1.8-7.7) Lymphocytes # (Auto) 1.2 x10^3/uL (1.0-4.8) Monocytes # (Auto) 0.4 x10^3/uL (0.0-1.1) Eosinophils # (Auto) 0.1 x10^3/uL (0.0-0.7) Basophils # (Auto) 0.0 x10^3/uL (0.0-0.2) Sodium Level 138 mmol/L (136-145) Potassium Level 4.7 mmol/L (3.5-5.1) Chloride Level 102 mmol/L (98-107) Carbon Dioxide Level 29 mmol/L (21-32) Anion Gap 7 (6-14) Blood Urea Nitrogen 31 mg/dL (7-20) Creatinine 5.5 mg/dL (0.6-1.0) Estimated GFR (Cockcroft-Gault) 8.1 Glucose Level 116 mg/dL (70-99) Calcium Level 8.6 mg/dL (8.5-10.1) Phosphorus Level 4.8 mg/dL (2.6-4.7) Magnesium Level 1.9 mg/dL (1.8-2.4) Albumin 2.9 g/dL (3.4-5.0) Test 03/23/17 22:02 Glucose (Fingerstick) 125 mg/dL (70-99) Laboratory Tests Test 03/23/17 05:10 03/23/17 12:26 03/23/17 16:23 03/23/17 22:02 White Blood Count 4.7 x10^3/uL (4.0-11.0) Red Blood Count 3.08 x10^6/uL (3.50-5.40) Hemoglobin 9.8 g/dL (12.0-15.5) Hematocrit 29.2 % (36.0-47.0) Mean Corpuscular Volume 95 fL (79-100) Mean Corpuscular Hemoglobin 32 pg (25-35) Mean Corpuscular Hemoglobin Concent 33 g/dL (31-37) Red Cell Distribution Width 15.1 % (11.5-14.5) Platelet Count 89 x10^3/uL (140-400) Neutrophils (%) (Auto) 64 % (31-73) Lymphocytes (%) (Auto) 25 % (24-48) Monocytes (%) (Auto) 9 % (0-9) Eosinophils (%) (Auto) 2 % (0-3) Basophils (%) (Auto) 1 % (0-3) Neutrophils # (Auto) 3.0 x10^3uL (1.8-7.7) Lymphocytes # (Auto) 1.2 x10^3/uL (1.0-4.8) Monocytes # (Auto) 0.4 x10^3/uL (0.0-1.1) Eosinophils # (Auto) 0.1 x10^3/uL (0.0-0.7) Basophils # (Auto) 0.0 x10^3/uL (0.0-0.2) Sodium Level 138 mmol/L (136-145) Potassium Level 4.7 mmol/L (3.5-5.1) Chloride Level 102 mmol/L (98-107) Carbon Dioxide Level 29 mmol/L (21-32) Anion Gap 7 (6-14) Blood Urea Nitrogen 31 mg/dL (7-20) Creatinine 5.5 mg/dL (0.6-1.0) Estimated GFR (Cockcroft-Gault) 8.1 Glucose Level 116 mg/dL (70-99) Calcium Level 8.6 mg/dL (8.5-10.1) Phosphorus Level 4.8 mg/dL (2.6-4.7) Magnesium Level 1.9 mg/dL (1.8-2.4) Albumin 2.9 g/dL (3.4-5.0) Glucose (Fingerstick) 116 mg/dL (70-99) 163 mg/dL (70-99) 125 mg/dL (70-99) Microbiology 03/22/17 Urine Culture - Preliminary, Resulted 03/22/17 Urine Culture Result 1 (MOE) - Preliminary, Resulted Medications Current Medications Hydralazine HCl (Apresoline Inj) 10 mg 1X ONCE IVP Last administered on 13:25; Start 03/20/17 at 13:15; Stop 03/20/17 at 13:16; Status DC Ondansetron HCl (Zofran) 4 mg PRN Q8HRS PRN IV NAUSEA/VOMITING; Start 03/20/17 at 15:45; Stop 03/21/17 at 15:44; Status DC Fentanyl Citrate (Fentanyl 2ml Vial) 50 mcg 1X ONCE IV Last administered on 16:31; Start 03/20/17 at 16:30; Stop 03/20/17 at 16:31; Status DC Hydralazine HCl (Apresoline Inj) 10 mg PRN Q4HRS PRN IVP ELEVATED BP, SEE COMMENTS Last administered on 03/23/17 12:22; Start 03/20/17 at 18:00 Fentanyl Citrate (Fentanyl 2ml Vial) 50 mcg PRN Q4HRS PRN IV PAIN Last administered on 03/21/17 14:16; Start 03/20/17 at 18:00 Nicardipine HCl 50 mg/Sodium Chloride 270 ml @ 0 mls/hr CONT PRN IV SEE I/O RECORD Last administered on 03/22/17 04:15; Start 03/20/17 at 18:45 Morphine Sulfate 2 mg PRN Q2HR PRN IV PAIN Last administered on 03/21/17 11: 59; Start 03/20/17 at 19:30 Morphine Sulfate 4 mg PRN Q2HR PRN IV PAIN Last administered on 03/22/17 19: 11; Start 03/20/17 at 19:30 Magnesium Sulfate/ Dextrose 50 ml @ 25 mls/hr PRN DAILY PRN IV for Mag < 1.7 on am labs; Start 03/21/17 at 08:30 Iohexol (Omnipaque 300 Mg/ml) 90 ml 1X ONCE IV Last administered on 10:47; Start 03/21/17 at 10:30; Stop 03/21/17 at 10:32; Status DC Info (Do NOT chart on this entry -- for MONITORING) 1 each PRN DAILY PRN MC SEE COMMENTS; Start 03/21/17 at 10:45; Stop 03/23/17 at 10:44; Status DC Amlodipine Besylate (Norvasc) 5 mg BID PO Last administered on 03/23/17 21:38 ; Start 03/21/17 at 21:00 Clonidine HCl (Catapres) 0.2 mg TID PO Last administered on 03/23/17 21:37; Start 03/21/17 at 14:00 Gabapentin (Neurontin) 200 mg TID PO Last administered on 03/21/17 20:46; Start 03/21/17 at 14:00; Stop 03/22/17 at 09:24; Status DC Lisinopril (Prinivil) 40 mg DAILY PO Last administered on 03/23/17 09:30; Start 03/21/17 at 14:00 Ondansetron HCl (Zofran Odt) 4 mg PRN Q4HRS PRN PO NAUSEA/VOMITING; Start 02/25 at 13:30 Non-Formulary Medication 300 mg QHS PO ; Start 03/21/17 at 21:00; Status UNV Trazodone HCl (Desyrel) 150 mg QHS PO Last administered on 03/23/17 21:46; Start 03/21/17 at 21:00 Labetalol HCl (Normodyne) 20 mg PRN Q2HR PRN IVP HYPERTENSION, SEE COMMENTS Last administered on 03/23/17 20:55; Start 03/21/17 at 13:45 Insulin Aspart (NovoLOG) 0-5 UNITS TIDWMEALS SQ ; Start 03/21/17 at 17:00 Dextrose (Dextrose 50%-Water Syringe) 12.5 gm PRN Q15MIN PRN IV SEE COMMENTS; Start 03/21/17 at 13:45 Insulin Detemir (Levemir) 21 units QHS SQ Last administered on 03/23/17 22:05 ; Start 03/21/17 at 21:00 Aripiprazole (Abilify) 5 mg DAILY PO Last administered on 03/23/17 09:30; Start 03/21/17 at 14:00 Lamotrigine (LaMICtal) 100 mg BID PO Last administered on 03/23/17 21:36; Start 03/21/17 at 14:00 Topiramate (Topamax) 25 mg BID PO Last administered on 03/23/17 21:36; Start 03/21/17 at 14:00 Bupropion HCl (Wellbutrin Xl) 300 mg DAILY PO Last administered on 03/23/17 09:30; Start 03/21/17 at 14:00 Acetaminophen (Tylenol) 650 mg PRN Q6HRS PRN PO headache Last administered on 03/22/17 12:04; Start 03/21/17 at 14:00 Gabapentin (Neurontin) 600 mg HS PO ; Start 03/22/17 at 21:00; Stop 03/22/17 at 21:00; Status DC Gabapentin (Neurontin) 300 mg HS PO Last administered on 03/23/17 21:36; Start 03/22/17 at 21:00 Multivitamins 10 ml/Thiamine HCl 100 mg/Sodium Chloride 1,011 ml @ 100 mls/hr 1X ONCE IV Last administered on 03/22/17 12:13; Start 03/22/17 at 12:00; Stop 03/22/17 at 22:06; Status DC Multivitamins (Thera M Plus) 1 tab DAILY PO Last administered on 03/23/17 09: 31; Start 03/23/17 at 09:00 Folic Acid (Folic Acid) 1 mg DAILY PO Last administered on 03/23/17 09:31; Start 03/23/17 at 09:00 Lorazepam (Ativan) 2 mg PRN Q1HR PRN IV For CIWA 8-14 Last administered on 11:46; Start 03/22/17 at 11:30 Haloperidol Lactate (Haldol) 5 mg PRN Q4HRS PRN IVP Hallucinatns,Confusn, Delirium; Start 03/22/17 at 11:30 Diphenhydramine HCl (Benadryl) 25 mg PRN Q15MIN PRN IVP EPS symptoms 2'Haldol admin; Start 03/22/17 at 11:30 Thiamine Mononitrate (Vitamin B-1) 100 mg DAILY PO Last administered on 09:31; Start 03/23/17 at 09:00 Topiramate (Topamax) 50 mg TuThSa PO Last administered on 03/22/17 17:51; Start 03/22/17 at 17:00 Active Scripts Active Midodrine Hcl 10 Mg Tablet 10 Mg PO TID 30 Days Lisinopril 40 Mg Tablet 1 Tab PO DAILY Coreg (Carvedilol) 6.25 Mg Tablet 1 Tab PO BID Norvasc (Amlodipine Besylate) 5 Mg Tablet 1 Tab PO BID Topamax (Topiramate) 25 Mg Tablet 25 Mg PO BID 30 Days Aspirin Ec (Aspirin) 81 Mg Tablet.dr 81 Mg PO DAILYWBKFT 30 Days Reported Oxycodone Hcl 5 Mg Capsule 5 Mg PO Q6HRS PRN Gabapentin 100 Mg Capsule 200 Mg PO TID Zofran Odt (Ondansetron) 4 Mg Tab.rapdis 4 Mg PO PRN Q4HRS PRN Trazodone Hcl 150 Mg Tablet 150 Mg PO HS Renvela (Sevelamer Carbonate) 800 Mg Tablet 2 Tab PO TID Lantus Solostar (Insulin Glargine,Hum.rec.anlog) 100 Unit/1 Ml Insuln.pen 12 Unit SQ QHS Lamictal (Lamotrigine) 100 Mg Tablet 100 Mg PO BID Gabapentin 300 Mg Capsule 300 Mg PO QHS Clonidine Hcl 0.2 Mg Tablet 0.2 Mg PO TID Bupropion Xl (Bupropion Hcl) 300 Mg Tab.er.24h 300 Mg PO DAILY Abilify (Aripiprazole) 5 Mg Tablet 5 Mg PO DAILY Vitals/I & O Vital Sign - Last 24 Hours 03/22/17 03/23/17 03/23/17 03/23/17 23:51 00:11 01:00 02:00 Temp 98.4 98.4 Pulse 73 75 75 Resp 16 16 16 B/P (MAP) 128/66 (86) 133/63 (86) 138/72 (94) Pulse Ox 95 94 95 O2 Delivery Room Air Room Air Room Air Room Air 03/23/17 03/23/17 03/23/17 03/23/17 03:00 04:04 04:10 05:08 Temp 98.9 98.9 Pulse 76 75 78 Resp 16 16 16 B/P (MAP) 157/76 (103) 147/81 (103) 161/74 (103) Pulse Ox 95 96 95 O2 Delivery Room Air Room Air Room Air Room Air 03/23/17 03/23/17 03/23/17 03/23/17 06:03 06:13 07:00 08:00 Pulse 80 81 88 Resp 16 15 B/P (MAP) 163/77 163/77 (105) 161/79 (106) Pulse Ox 95 96 O2 Delivery Room Air Room Air Room Air 03/23/17 03/23/17 03/23/17 03/23/17 08:00 09:00 09:30 09:30 Temp 98.4 98.4 Pulse 85 83 83 83 Resp 14 19 B/P (MAP) 160/73 (102) 157/73 (101) 157/73 157/73 Pulse Ox 95 96 O2 Delivery Room Air Room Air 03/23/17 03/23/17 03/23/17 03/23/17 09:31 10:00 11:00 12:00 Pulse 83 86 89 Resp 17 20 B/P (MAP) 157/73 166/76 (106) 168/85 (112) Pulse Ox 96 95 O2 Delivery Room Air Room Air Room Air 03/23/17 03/23/17 03/23/17 03/23/17 12:00 12:22 13:00 14:00 Temp 97.8 97.8 Pulse 83 83 90 80 Resp 23 22 17 B/P (MAP) 163/79 (107) 163/79 144/81 (102) 137/66 (89) Pulse Ox 96 98 95 O2 Delivery Room Air Room Air Room Air 03/23/17 03/23/17 03/23/17 03/23/17 14:59 16:00 20:55 21:37 Temp 98.6 98.6 Pulse 80 80 83 82 Resp 25 B/P (MAP) 137/66 147/67 (93) 168/80 161/79 Pulse Ox 95 O2 Delivery Room Air 03/23/17 21:38 Pulse 80 B/P (MAP) 161/79 Intake and Output 03/23/17 03/23/17 03/24/17 15:00 23:00 07:00 Intake Total 120 ml Output Total 13 ml 95 ml Balance 107 ml -95 ml BRIGIDO SINGH MD Mar 23, 2017 23:46
[2017-03-24] VITALS (7 sets, daily range): BP systolic 135–182; BP diastolic 68–82
[2017-03-24] MEDS: hydrALAZINE 20 MG/ML VIAL. IVP PRN ×2 (01:15→16:06)
[2017-03-24] MEDS: INSULIN ASPART 300 UNITS/3 ML INSULN.PEN SQ SCH ×3 (08:00→16:12)
[2017-03-24 08:15] LABS: BASO # 0.1 x10^3/uL (0.0-0.2); BASO % 1 % (0-3); EOS % 3 % (0-3); HEMOGLOBIN 10.2 g/dL (12.0-15.5); LYMPH # 1.4 x10^3/uL (1.0-4.8); LYMPH % 24 % (24-48); MEAN CORPUSCULAR HEMOGLOBIN 32 pg (25-35); MEAN CORPUSCULAR HGB CONC 34 g/dL (31-37); MEAN CORPUSCULAR VOLUME 94 fL (79-100); MONO % 8 % (0-9); NEUT % 65 % (31-73); PLATELET COUNT 103 x10^3/uL (140-400); RED BLOOD COUNT 3.19 x10^6/uL (3.50-5.40); RED CELL DISTRIBUTION WIDTH 14.8 % (11.5-14.5); WHITE BLOOD COUNT 5.9 x10^3/uL (4.0-11.0)
[2017-03-24] MEDS: buPROPion XL 150 MG TAB.ER.24H. PO SCH (08:30)
[2017-03-24] MEDS: ARIPiprazole 5 MG TABLET PO SCH (08:31)
[2017-03-24] MEDS: THIAMINE 100 MG TABLET. PO SCH (08:31)
[2017-03-24] MEDS: amLODIPine BESYLATE 5 MG TABLET PO SCH ×2 (08:31→21:00)
[2017-03-24] MEDS: lamoTRIgine 100 MG TABLET. PO SCH ×2 (08:31→21:00)
[2017-03-24] MEDS: MULTIVITAMIN with MINERAL TABLET. PO SCH (08:31)
[2017-03-24] MEDS: LISINOPRIL 40 MG TABLET. PO SCH (08:31)
[2017-03-24] MEDS: TOPIRAMATE 25 MG TABLET. PO SCH ×2 (08:31→21:00)
[2017-03-24] MEDS: FOLIC ACID 1 MG TABLET. PO SCH (08:32)
[2017-03-24] MEDS: cloNIDine HCL 0.2 MG TABLET PO SCH ×3 (08:32→21:00)
[2017-03-24 08:34] LABS: ALBUMIN 2.9 g/dL (3.4-5.0); CALCIUM 8.5 mg/dL (8.5-10.1); CREATININE 7.5 mg/dL (0.6-1.0); GFR 5.7; PHOSPHORUS 4.6 mg/dL (2.6-4.7); POTASSIUM 4.5 mmol/L (3.5-5.1)
[2017-03-24] MEDS: DEXTROSE 50% 25 GM / 50ML DISP.SYRIN. IV PRN ×3 (08:40→23:27)
[2017-03-24] MEDS ORDERED: IV DEXTROSE 5 %-0.45 % NACL 1,000 ML IV ONE (08:45)
--- NOTE | 2017-03-24 08:54 | PDOC ---
PROGRESS NOTES Chief Complaint Chief Complaint Subdural hematoma, acute, initial Previous alcoholism- quit drinking 4 years ago Diabetes 2, on insulin Hypertension End-stage renal disease, on HD anemia of ESRD Hepatitis C, chronic Right arm dialysis fistula. History of Present Illness History of Present Illness seen in ICU, lethargic this AM, was given Ativan 2 IV due to restlessness a few hours ago. now hypoglycemic, D50 half amp given, will start low amt of D5 half . Pt. is being followed by Neurology and Neurosurg re: subdural hematoma, DC plan is [facility] facility f Vitals Vitals Vital Signs Date Time Temp Pulse Resp B/P (MAP) Pulse Ox O2 Delivery O2 Flow Rate FiO2 03/24/17 08:32 75 138/66 03/24/17 04:00 98.5 12 94 Room Air 98.5 Physical Exam General: Cooperative, No acute distress, Other (slow to rouse) Heart: Regular rate, Normal S1, Normal S2, No murmurs, Gallops Lungs: Clear Abdomen: Normal bowel sounds, Soft, No tenderness, No hepatosplenomegaly, No masses Extremities: No clubbing, No cyanosis, No edema, Normal pulses, No tenderness/ swelling Skin: Other (CONFUSED) Labs LABS Laboratory Tests Test 03/23/17 12:26 03/23/17 16:23 03/23/17 22:02 03/24/17 07:26 Glucose (Fingerstick) 116 mg/dL (70-99) 163 mg/dL (70-99) 125 mg/dL (70-99) White Blood Count 5.9 x10^3/uL (4.0-11.0) Red Blood Count 3.19 x10^6/uL (3.50-5.40) Hemoglobin 10.2 g/dL (12.0-15.5) Hematocrit 30.0 % (36.0-47.0) Mean Corpuscular Volume 94 fL (79-100) Mean Corpuscular Hemoglobin 32 pg (25-35) Mean Corpuscular Hemoglobin Concent 34 g/dL (31-37) Red Cell Distribution Width 14.8 % (11.5-14.5) Platelet Count 103 x10^3/uL (140-400) Neutrophils (%) (Auto) 65 % (31-73) Lymphocytes (%) (Auto) 24 % (24-48) Monocytes (%) (Auto) 8 % (0-9) Eosinophils (%) (Auto) 3 % (0-3) Basophils (%) (Auto) 1 % (0-3) Neutrophils # (Auto) 3.9 x10^3uL (1.8-7.7) Lymphocytes # (Auto) 1.4 x10^3/uL (1.0-4.8) Monocytes # (Auto) 0.4 x10^3/uL (0.0-1.1) Eosinophils # (Auto) 0.2 x10^3/uL (0.0-0.7) Basophils # (Auto) 0.1 x10^3/uL (0.0-0.2) Sodium Level 138 mmol/L (136-145) Potassium Level 4.5 mmol/L (3.5-5.1) Chloride Level 101 mmol/L (98-107) Carbon Dioxide Level 28 mmol/L (21-32) Anion Gap 9 (6-14) Blood Urea Nitrogen 45 mg/dL (7-20) Creatinine 7.5 mg/dL (0.6-1.0) Estimated GFR (Cockcroft-Gault) 5.7 Glucose Level 42 mg/dL (70-99) Calcium Level 8.5 mg/dL (8.5-10.1) Phosphorus Level 4.6 mg/dL (2.6-4.7) Magnesium Level 2.2 mg/dL (1.8-2.4) Albumin 2.9 g/dL (3.4-5.0) Review of Systems Review of Systems lethargic, slow to respond, no compliant Assessment and Plan Assessmemt and Plan Problems Medical Problems: (1) Hypertension Status: Acute (2) Subdural hematoma Status: Acute Problems: Comment Review of Relevant I have reviewed the following items shi (where applicable) has been applied. Labs Laboratory Tests Test 03/22/17 09:11 03/22/17 11:55 03/22/17 12:04 03/22/17 22:13 Urine Collection Type Unknown Urine Color Yellow Urine Clarity Clear Urine pH 7.5 Urine Specific [place] 1.020 Urine Protein >=300 mg/dL (NEG-TRACE) Urine Glucose (UA) 100 mg/dL (NEG) Urine Ketones (Stick) Negative mg/dL (NEG) Urine Blood Trace (NEG) Urine Nitrite Negative (NEG) Urine Bilirubin Negative (NEG) Urine Urobilinogen Dipstick 0.2 mg/dL (0.2 mg/dL) Urine Leukocyte Esterase Trace (NEG) Urine RBC Rare /HPF (0-2) Urine WBC Rare /HPF (0-4) Urine Squamous Epithelial Cells Mod /LPF Urine Bacteria 0 /HPF (0-FEW) Urine Opiates Screen Pos (NEG) Urine Methadone Screen Neg (NEG) Urine Barbiturates Neg (NEG) Urine Phencyclidine Screen Neg (NEG) Urine Amphetamine/Methamphetamine Neg (NEG) Urine Benzodiazepines Screen Neg (NEG) Urine Cocaine Screen Neg (NEG) Urine Cannabinoids Screen Neg (NEG) Urine Ethyl Alcohol Neg (NEG) Prothrombin Time 13.7 SEC (11.7-14.0) Prothromb Time International Ratio 1.1 (0.8-1.1) Glucose (Fingerstick) 136 mg/dL (70-99) 113 mg/dL (70-99) Test 03/23/17 05:10 03/23/17 12:26 03/23/17 16:23 03/23/17 22:02 White Blood Count 4.7 x10^3/uL (4.0-11.0) Red Blood Count 3.08 x10^6/uL (3.50-5.40) Hemoglobin 9.8 g/dL (12.0-15.5) Hematocrit 29.2 % (36.0-47.0) Mean Corpuscular Volume 95 fL (79-100) Mean Corpuscular Hemoglobin 32 pg (25-35) Mean Corpuscular Hemoglobin Concent 33 g/dL (31-37) Red Cell Distribution Width 15.1 % (11.5-14.5) Platelet Count 89 x10^3/uL (140-400) Neutrophils (%) (Auto) 64 % (31-73) Lymphocytes (%) (Auto) 25 % (24-48) Monocytes (%) (Auto) 9 % (0-9) Eosinophils (%) (Auto) 2 % (0-3) Basophils (%) (Auto) 1 % (0-3) Neutrophils # (Auto) 3.0 x10^3uL (1.8-7.7) Lymphocytes # (Auto) 1.2 x10^3/uL (1.0-4.8) Monocytes # (Auto) 0.4 x10^3/uL (0.0-1.1) Eosinophils # (Auto) 0.1 x10^3/uL (0.0-0.7) Basophils # (Auto) 0.0 x10^3/uL (0.0-0.2) Sodium Level 138 mmol/L (136-145) Potassium Level 4.7 mmol/L (3.5-5.1) Chloride Level 102 mmol/L (98-107) Carbon Dioxide Level 29 mmol/L (21-32) Anion Gap 7 (6-14) Blood Urea Nitrogen 31 mg/dL (7-20) Creatinine 5.5 mg/dL (0.6-1.0) Estimated GFR (Cockcroft-Gault) 8.1 Glucose Level 116 mg/dL (70-99) Calcium Level 8.6 mg/dL (8.5-10.1) Phosphorus Level 4.8 mg/dL (2.6-4.7) Magnesium Level 1.9 mg/dL (1.8-2.4) Albumin 2.9 g/dL (3.4-5.0) Glucose (Fingerstick) 116 mg/dL (70-99) 163 mg/dL (70-99) 125 mg/dL (70-99) Test 03/24/17 07:26 White Blood Count 5.9 x10^3/uL (4.0-11.0) Red Blood Count 3.19 x10^6/uL (3.50-5.40) Hemoglobin 10.2 g/dL (12.0-15.5) Hematocrit 30.0 % (36.0-47.0) Mean Corpuscular Volume 94 fL (79-100) Mean Corpuscular Hemoglobin 32 pg (25-35) Mean Corpuscular Hemoglobin Concent 34 g/dL (31-37) Red Cell Distribution Width 14.8 % (11.5-14.5) Platelet Count 103 x10^3/uL (140-400) Neutrophils (%) (Auto) 65 % (31-73) Lymphocytes (%) (Auto) 24 % (24-48) Monocytes (%) (Auto) 8 % (0-9) Eosinophils (%) (Auto) 3 % (0-3) Basophils (%) (Auto) 1 % (0-3) Neutrophils # (Auto) 3.9 x10^3uL (1.8-7.7) Lymphocytes # (Auto) 1.4 x10^3/uL (1.0-4.8) Monocytes # (Auto) 0.4 x10^3/uL (0.0-1.1) Eosinophils # (Auto) 0.2 x10^3/uL (0.0-0.7) Basophils # (Auto) 0.1 x10^3/uL (0.0-0.2) Sodium Level 138 mmol/L (136-145) Potassium Level 4.5 mmol/L (3.5-5.1) Chloride Level 101 mmol/L (98-107) Carbon Dioxide Level 28 mmol/L (21-32) Anion Gap 9 (6-14) Blood Urea Nitrogen 45 mg/dL (7-20) Creatinine 7.5 mg/dL (0.6-1.0) Estimated GFR (Cockcroft-Gault) 5.7 Glucose Level 42 mg/dL (70-99) Calcium Level 8.5 mg/dL (8.5-10.1) Phosphorus Level 4.6 mg/dL (2.6-4.7) Magnesium Level 2.2 mg/dL (1.8-2.4) Albumin 2.9 g/dL (3.4-5.0) Laboratory Tests Test 03/23/17 12:26 03/23/17 16:23 03/23/17 22:02 03/24/17 07:26 Glucose (Fingerstick) 116 mg/dL (70-99) 163 mg/dL (70-99) 125 mg/dL (70-99) White Blood Count 5.9 x10^3/uL (4.0-11.0) Red Blood Count 3.19 x10^6/uL (3.50-5.40) Hemoglobin 10.2 g/dL (12.0-15.5) Hematocrit 30.0 % (36.0-47.0) Mean Corpuscular Volume 94 fL (79-100) Mean Corpuscular Hemoglobin 32 pg (25-35) Mean Corpuscular Hemoglobin Concent 34 g/dL (31-37) Red Cell Distribution Width 14.8 % (11.5-14.5) Platelet Count 103 x10^3/uL (140-400) Neutrophils (%) (Auto) 65 % (31-73) Lymphocytes (%) (Auto) 24 % (24-48) Monocytes (%) (Auto) 8 % (0-9) Eosinophils (%) (Auto) 3 % (0-3) Basophils (%) (Auto) 1 % (0-3) Neutrophils # (Auto) 3.9 x10^3uL (1.8-7.7) Lymphocytes # (Auto) 1.4 x10^3/uL (1.0-4.8) Monocytes # (Auto) 0.4 x10^3/uL (0.0-1.1) Eosinophils # (Auto) 0.2 x10^3/uL (0.0-0.7) Basophils # (Auto) 0.1 x10^3/uL (0.0-0.2) Sodium Level 138 mmol/L (136-145) Potassium Level 4.5 mmol/L (3.5-5.1) Chloride Level 101 mmol/L (98-107) Carbon Dioxide Level 28 mmol/L (21-32) Anion Gap 9 (6-14) Blood Urea Nitrogen 45 mg/dL (7-20) Creatinine 7.5 mg/dL (0.6-1.0) Estimated GFR (Cockcroft-Gault) 5.7 Glucose Level 42 mg/dL (70-99) Calcium Level 8.5 mg/dL (8.5-10.1) Phosphorus Level 4.6 mg/dL (2.6-4.7) Magnesium Level 2.2 mg/dL (1.8-2.4) Albumin 2.9 g/dL (3.4-5.0) Microbiology 03/22/17 Urine Culture - Preliminary, Resulted 03/22/17 Urine Culture Result 1 (MOE) - Preliminary, Resulted Medications Current Medications Hydralazine HCl (Apresoline Inj) 10 mg 1X ONCE IVP Last administered on t 13:25; Start 03/20/17 at 13:15; Stop 03/20/17 at 13:16; Status DC Ondansetron HCl (Zofran) 4 mg PRN Q8HRS PRN IV NAUSEA/VOMITING; Start 03/20/17 at 15:45; Stop 03/21/17 at 15:44; Status DC Fentanyl Citrate (Fentanyl 2ml Vial) 50 mcg 1X ONCE IV Last administered on 16:31; Start 03/20/17 at 16:30; Stop 03/20/17 at 16:31; Status DC Hydralazine HCl (Apresoline Inj) 10 mg PRN Q4HRS PRN IVP ELEVATED BP, SEE COMMENTS Last administered on 03/24/17 01:15; Start 03/20/17 at 18:00 Fentanyl Citrate (Fentanyl 2ml Vial) 50 mcg PRN Q4HRS PRN IV PAIN Last administered on 03/21/17 14:16; Start 03/20/17 at 18:00 Nicardipine HCl 50 mg/Sodium Chloride 270 ml @ 0 mls/hr CONT PRN IV SEE I/O RECORD Last administered on 03/22/17 04:15; Start 03/20/17 at 18:45 Morphine Sulfate 2 mg PRN Q2HR PRN IV PAIN Last administered on 03/21/17 11: 59; Start 03/20/17 at 19:30 Morphine Sulfate 4 mg PRN Q2HR PRN IV PAIN Last administered on 03/22/17 19: 11; Start 03/20/17 at 19:30 Magnesium Sulfate/ Dextrose 50 ml @ 25 mls/hr PRN DAILY PRN IV for Mag < 1.7 on am labs; Start 03/21/17 at 08:30 Iohexol (Omnipaque 300 Mg/ml) 90 ml 1X ONCE IV Last administered on 10:47; Start 03/21/17 at 10:30; Stop 03/21/17 at 10:32; Status DC Info (Do NOT chart on this entry -- for MONITORING) 1 each PRN DAILY PRN MC SEE COMMENTS; Start 03/21/17 at 10:45; Stop 03/23/17 at 10:44; Status DC Amlodipine Besylate (Norvasc) 5 mg BID PO Last administered on 03/24/17 08:31 ; Start 03/21/17 at 21:00 Clonidine HCl (Catapres) 0.2 mg TID PO Last administered on 03/24/17 08:32; Start 03/21/17 at 14:00 Gabapentin (Neurontin) 200 mg TID PO Last administered on 03/21/17 20:46; Start 03/21/17 at 14:00; Stop 03/22/17 at 09:24; Status DC Lisinopril (Prinivil) 40 mg DAILY PO Last administered on 03/24/17 08:31; Start 03/21/17 at 14:00 Ondansetron HCl (Zofran Odt) 4 mg PRN Q4HRS PRN PO NAUSEA/VOMITING; Start 02/25 at 13:30 Non-Formulary Medication 300 mg QHS PO ; Start 03/21/17 at 21:00; Status UNV Trazodone HCl (Desyrel) 150 mg QHS PO Last administered on 03/23/17 21:46; Start 03/21/17 at 21:00 Labetalol HCl (Normodyne) 20 mg PRN Q2HR PRN IVP HYPERTENSION, SEE COMMENTS Last administered on 03/23/17 20:55; Start 03/21/17 at 13:45 Insulin Aspart (NovoLOG) 0-5 UNITS TIDWMEALS SQ ; Start 03/21/17 at 17:00 Dextrose (Dextrose 50%-Water Syringe) 12.5 gm PRN Q15MIN PRN IV SEE COMMENTS Last administered on 03/24/17 08:40; Start 03/21/17 at 13:45 Insulin Detemir (Levemir) 21 units QHS SQ Last administered on 03/23/17 22:05 ; Start 03/21/17 at 21:00; Stop 03/24/17 at 08:45; Status DC Aripiprazole (Abilify) 5 mg DAILY PO Last administered on 03/24/17 08:31; Start 03/21/17 at 14:00 Lamotrigine (LaMICtal) 100 mg BID PO Last administered on 03/24/17 08:31; Start 03/21/17 at 14:00 Topiramate (Topamax) 25 mg BID PO Last administered on 03/24/17 08:31; Start 03/21/17 at 14:00 Bupropion HCl (Wellbutrin Xl) 300 mg DAILY PO Last administered on 03/24/17 08:30; Start 03/21/17 at 14:00 Acetaminophen (Tylenol) 650 mg PRN Q6HRS PRN PO headache Last administered on 03/22/17 12:04; Start 03/21/17 at 14:00 Gabapentin (Neurontin) 600 mg HS PO ; Start 03/22/17 at 21:00; Stop 03/22/17 at 21:00; Status DC Gabapentin (Neurontin) 300 mg HS PO Last administered on 03/23/17 21:36; Start 03/22/17 at 21:00 Multivitamins 10 ml/Thiamine HCl 100 mg/Sodium Chloride 1,011 ml @ 100 mls/hr 1X ONCE IV Last administered on 03/22/17 12:13; Start 03/22/17 at 12:00; Stop 03/22/17 at 22:06; Status DC Multivitamins (Thera M Plus) 1 tab DAILY PO Last administered on 03/24/17 08: 31; Start 03/23/17 at 09:00 Folic Acid (Folic Acid) 1 mg DAILY PO Last administered on 03/24/17 08:32; Start 03/23/17 at 09:00 Lorazepam (Ativan) 2 mg PRN Q1HR PRN IV For CIWA 8-14 Last administered on 01:50; Start 03/22/17 at 11:30 Haloperidol Lactate (Haldol) 5 mg PRN Q4HRS PRN IVP Hallucinatns,Confusn, Delirium; Start 03/22/17 at 11:30 Diphenhydramine HCl (Benadryl) 25 mg PRN Q15MIN PRN IVP EPS symptoms 2'Haldol admin; Start 03/22/17 at 11:30 Thiamine Mononitrate (Vitamin B-1) 100 mg DAILY PO Last administered on 08:31; Start 03/23/17 at 09:00 Topiramate (Topamax) 50 mg TuThSa PO Last administered on 03/22/17 17:51; Start 03/22/17 at 17:00 Insulin Detemir (Levemir) 18 units QHS SQ ; Start 03/24/17 at 21:00 Dextrose/Sodium Chloride 1,000 ml @ 75 mls/hr 1X ONCE IV ; Start 03/24/17 at 08:45; Stop 03/24/17 at 22:04 Active Scripts Active Midodrine Hcl 10 Mg Tablet 10 Mg PO TID 30 Days Lisinopril 40 Mg Tablet 1 Tab PO DAILY Coreg (Carvedilol) 6.25 Mg Tablet 1 Tab PO BID Norvasc (Amlodipine Besylate) 5 Mg Tablet 1 Tab PO BID Topamax (Topiramate) 25 Mg Tablet 25 Mg PO BID 30 Days Aspirin Ec (Aspirin) 81 Mg Tablet.dr 81 Mg PO DAILYWBKFT 30 Days Reported Oxycodone Hcl 5 Mg Capsule 5 Mg PO Q6HRS PRN Gabapentin 100 Mg Capsule 200 Mg PO TID Zofran Odt (Ondansetron) 4 Mg Tab.rapdis 4 Mg PO PRN Q4HRS PRN Trazodone Hcl 150 Mg Tablet 150 Mg PO HS Renvela (Sevelamer Carbonate) 800 Mg Tablet 2 Tab PO TID Lantus Solostar (Insulin Glargine,Hum.rec.anlog) 100 Unit/1 Ml Insuln.pen 12 Unit SQ QHS Lamictal (Lamotrigine) 100 Mg Tablet 100 Mg PO BID Gabapentin 300 Mg Capsule 300 Mg PO QHS Clonidine Hcl 0.2 Mg Tablet 0.2 Mg PO TID Bupropion Xl (Bupropion Hcl) 300 Mg Tab.er.24h 300 Mg PO DAILY Abilify (Aripiprazole) 5 Mg Tablet 5 Mg PO DAILY Vitals/I & O Vital Sign - Last 24 Hours 03/23/17 03/23/17 03/23/17 03/23/17 09:00 09:30 09:30 09:31 Pulse 83 83 83 83 Resp 19 B/P (MAP) 157/73 (101) 157/73 157/73 157/73 Pulse Ox 96 O2 Delivery Room Air 03/23/17 03/23/17 03/23/17 03/23/17 10:00 11:00 12:00 12:00 Temp 97.8 97.8 Pulse 86 89 83 Resp 17 20 23 B/P (MAP) 166/76 (106) 168/85 (112) 163/79 (107) Pulse Ox 96 95 96 O2 Delivery Room Air Room Air Room Air Room Air 03/23/17 03/23/17 03/23/17 03/23/17 12:22 13:00 14:00 14:59 Pulse 83 90 80 80 Resp 17 B/P (MAP) 163/79 144/81 (102) 137/66 (89) 137/66 Pulse Ox 98 95 O2 Delivery Room Air Room Air 03/23/17 03/23/17 03/23/17 03/23/17 16:00 20:00 20:00 20:55 Temp 98.6 98.7 98.6 98.7 Pulse 80 86 83 Resp 25 22 B/P (MAP) 147/67 (93) 160/72 (101) 168/80 Pulse Ox 95 O2 Delivery Room Air Room Air Room Air 03/23/17 03/23/17 03/24/17 03/24/17 21:37 21:38 00:00 01:15 Temp 98.3 98.3 Pulse 82 80 82 83 Resp 15 B/P (MAP) 161/79 161/79 172/82 (112) 175/86 O2 Delivery Room Air 03/24/17 03/24/17 03/24/17 03/24/17 02:00 04:00 08:31 08:31 Temp 98.5 98.5 Pulse 82 80 75 75 Resp 16 12 B/P (MAP) 148/77 (100) 149/74 (99) 138/66 138/66 Pulse Ox 94 94 O2 Delivery Room Air Room Air 03/24/17 08:32 Pulse 75 B/P (MAP) 138/66 MARCUS ZAPATA MD Mar 24, 2017 08:54
--- NOTE | 2017-03-24 10:13 | RAD ---
Indication: Follow-up subdural hematoma. Technique: Noncontrast CT head was obtained. Comparison is from 2 days ago. One or more of the following individualized dose reduction techniques were utilized for this examination: 1. Automated exposure control 2. Adjustment of the mA and/or kV according to patient size 3. Use of iterative reconstruction technique Findings: Small subdural hematoma overlying the left frontal lobe measures up to 4 mm transverse, relatively stable. Small amount of subdural hematoma layering along the tentorium likely is present as well. No new or increasing intracranial hemorrhage is apparent. The ventricles remain dilated in relation to sulcal prominence, stable. There is no evidence of an evolving infarct. There are vascular calcifications. The included paranasal sinuses and mastoid air cells are clear. Impression: 1. Small subdural hematoma on the left is stable. Subdural hematoma extends along the tentorium. 2. Stable enlargement of the ventricles, out of proportion to the degree of sulcal prominence. While this may be related to parenchymal volume loss, normal pressure hydrocephalus also should be considered.
--- NOTE | 2017-03-24 11:28 | PDOC ---
Renal-Progress Notes Subjective Notes Notes SOME MILD CONFUSION History of Present Illness Hx of present illness STABLE Vitals Vitals Vital Signs Date Time Temp Pulse Resp B/P (MAP) Pulse Ox O2 Delivery O2 Flow Rate FiO2 03/24/17 08:32 75 138/66 03/24/17 08:00 100.2 16 98 Room Air 100.2 Weight Weight [ ] I.O. Intake and Output Intake and Output 03/24/17 07:00 Intake Total 120 ml Output Total 488 ml Balance -368 ml Intake Oral 120 ml Output Urine Total 488 ml Labs Labs Laboratory Tests Test 03/23/17 12:26 03/23/17 16:23 03/23/17 22:02 03/24/17 07:26 Glucose (Fingerstick) 116 mg/dL (70-99) 163 mg/dL (70-99) 125 mg/dL (70-99) White Blood Count 5.9 x10^3/uL (4.0-11.0) Red Blood Count 3.19 x10^6/uL (3.50-5.40) Hemoglobin 10.2 g/dL (12.0-15.5) Hematocrit 30.0 % (36.0-47.0) Mean Corpuscular Volume 94 fL (79-100) Mean Corpuscular Hemoglobin 32 pg (25-35) Mean Corpuscular Hemoglobin Concent 34 g/dL (31-37) Red Cell Distribution Width 14.8 % (11.5-14.5) Platelet Count 103 x10^3/uL (140-400) Neutrophils (%) (Auto) 65 % (31-73) Lymphocytes (%) (Auto) 24 % (24-48) Monocytes (%) (Auto) 8 % (0-9) Eosinophils (%) (Auto) 3 % (0-3) Basophils (%) (Auto) 1 % (0-3) Neutrophils # (Auto) 3.9 x10^3uL (1.8-7.7) Lymphocytes # (Auto) 1.4 x10^3/uL (1.0-4.8) Monocytes # (Auto) 0.4 x10^3/uL (0.0-1.1) Eosinophils # (Auto) 0.2 x10^3/uL (0.0-0.7) Basophils # (Auto) 0.1 x10^3/uL (0.0-0.2) Sodium Level 138 mmol/L (136-145) Potassium Level 4.5 mmol/L (3.5-5.1) Chloride Level 101 mmol/L (98-107) Carbon Dioxide Level 28 mmol/L (21-32) Anion Gap 9 (6-14) Blood Urea Nitrogen 45 mg/dL (7-20) Creatinine 7.5 mg/dL (0.6-1.0) Estimated GFR (Cockcroft-Gault) 5.7 Glucose Level 42 mg/dL (70-99) Calcium Level 8.5 mg/dL (8.5-10.1) Phosphorus Level 4.6 mg/dL (2.6-4.7) Magnesium Level 2.2 mg/dL (1.8-2.4) Albumin 2.9 g/dL (3.4-5.0) Test 03/24/17 08:28 03/24/17 09:37 Glucose (Fingerstick) 61 mg/dL (70-99) 88 mg/dL (70-99) Micro Micro Microbiology 03/22/17 Urine Culture - Final, Complete 03/22/17 Urine Culture Result 1 (MOE) - Final, Complete Review of Systems Constitutional: yes: other (UNABLE TO OBTAIN) Physical Exam General Appearance: no apparent distress Skin: warm Respiratory: bilateral CTA Heart: S1S2 Abdomen: soft, bowel sounds present Genitourinary: bladder flat Extremities: pulses present, atrophy Assessment Assessment IMP HTN DM II ANEMIA ESRD SDH SEIZURE PLAN CONT HOME MEDS HD TOMORROW START ISAAC PERALTA MD Mar 24, 2017 11:28
--- NOTE | 2017-03-24 14:50 | PDOC ---
PROGRESS NOTES Assessment Assessment IMPRESSION: Metabolic encephalopathy. SDH, 5 mm at left cerebral convexity. DM HTN ESRD on dialysis. Hx of alcoholism. Schizophrenia. Enlarged ventricles, brain value loss or NPH. RECOMMENDATIONS/PLAN: Continue medical treatment. Continue Topamax, renal dose. OT/PT. SUBJECTIVE: Sleepiness. OBJECTIVE: Sleepiness. Past Medical History Cardiovascular: HTN, Hyperlipidemia Pulmonary: No pertinent hx CENTRAL NERVOUS SYSTEM: CVA, Periperal neuropathy GI: Peptic Ulcer disease Heme/Onc: Anemia NOS Hepatobiliary: Hep A/B/C Psych: Anxiety Musculoskeletal: Osteoarthritis Rheumatologic: No pertinent hx Infectious disease: No pertinent hx Renal/: Chronic renal failure Endocrine: Diabetes, Hyperparathyroidism Past Surgical History , Tonsillectomy, Other Family History Diabetes Social History ALCOHOL: none Drugs: None Lives: with Family ALLERGY: Reviewed. MEDICATIONS: Refer to [facility] REVIEW OF SYSTEMS: Constitutional: No cachexia. Head: No traumatic brain or head injury. Skin: No edema, or rash. Ear: No infection. Eyes: No vision loss, or diplopia. Nose: No bleeding or purulent discharges. Hearing: No hearing decrease. Neck: No injury. Breast: No history of cancer, masses, or discharges. 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 GI: No GI Ulcer, GI bleeding Urinary/genital: ESRD on dialysis. Endocrine: Diabetes Mellitus Skeletomuscular: generalized weakness. Neurological: see HP. Psychiatric: Schizophrenia. Otherwise, not [id number] review of systems. PHYSICAL EXAMINATION: General appearance in subacute distress. HEENT: Normocephalic and nontraumatic. Eyes, nose, ears, and throat are unremarkable. Neck is supple. No lymphadenopathy. No Crepitus. Cardiovascular: S1, S2, regular rate and rhythm. Pulmonary: mildly rough to auscultation bilaterally. Abdomen: Bowel sounds are positive. Extremities: No rash, lesions, or edema. No restriction of range of motion NEUROLOGICAL EXAMINATION: Mildly lethargic. Not fully oriented to time, place and person. PERRL. EOMI. CN: no focal findings. Muscle tone: within normal. Muscle strength: 4 DTR: 2 Plantar reflex: Flexor response bilaterally Gait: not examined in bed. Sensory exam: no acute abnormal findings. Not able to access cerebellar signs. F-T-N test not performed. Objective Objective Vital Signs Date Time Temp Pulse Resp B/P (MAP) Pulse Ox O2 Delivery O2 Flow Rate FiO2 11/13/17 13:28 69 140/68 03/24/17 12:00 98.1 16 98 Room Air 98.1 Intake and Output 03/24/17 07:00 Intake Total 120 ml Output Total 488 ml Balance -368 ml Intake Oral 120 ml Output Urine Total 488 ml Vitals Signs Vitals VS - Last 72 Hours, by Label Date Time Temp Pulse Resp B/P (MAP) Pulse Ox O2 Delivery O2 Flow Rate FiO2 03/24/17 13:28 69 140/68 03/24/17 12:00 98.1 73 16 140/68 (92) 98 Room Air 98.1 03/24/17 08:32 75 138/66 03/24/17 08:31 75 138/66 03/24/17 08:31 75 138/66 03/24/17 08:00 100.2 80 16 135/72 (93) 98 Room Air 100.2 03/24/17 08:00 Room Air 03/24/17 04:00 98.5 80 12 149/74 (99) 94 Room Air 98.5 03/24/17 02:00 82 16 148/77 (100) 94 Room Air 03/24/17 01:15 83 175/86 03/24/17 00:00 98.3 82 15 172/82 (112) Room Air 98.3 03/23/17 21:38 80 161/79 03/23/17 21:37 82 161/79 03/23/17 20:55 83 168/80 03/23/17 20:00 Room Air 03/23/17 20:00 98.7 86 22 160/72 (101) Room Air 98.7 03/23/17 16:00 98.6 80 25 147/67 (93) 95 Room Air 98.6 03/23/17 14:59 80 137/66 03/23/17 14:00 80 17 137/66 (89) 95 Room Air 03/23/17 13:00 90 22 144/81 (102) 98 Room Air 03/23/17 12:22 83 163/79 03/23/17 12:00 97.8 83 23 163/79 (107) 96 Room Air 97.8 03/23/17 12:00 Room Air 03/23/17 11:00 89 20 168/85 (112) 95 Room Air 03/23/17 10:00 86 17 166/76 (106) 96 Room Air 03/23/17 09:31 83 157/73 03/23/17 09:30 83 157/73 03/23/17 09:30 83 157/73 03/23/17 09:00 83 19 157/73 (101) 96 Room Air 03/23/17 08:00 98.4 85 14 160/73 (102) 95 Room Air 98.4 03/23/17 08:00 Room Air 03/23/17 07:00 88 15 161/79 (106) 96 Room Air Laboratory Laboratory Laboratory Tests Test 03/23/17 16:23 03/23/17 22:02 03/24/17 07:26 03/24/17 08:28 Glucose (Fingerstick) 163 mg/dL (70-99) 125 mg/dL (70-99) 61 mg/dL (70-99) White Blood Count 5.9 x10^3/uL (4.0-11.0) Red Blood Count 3.19 x10^6/uL (3.50-5.40) Hemoglobin 10.2 g/dL (12.0-15.5) Hematocrit 30.0 % (36.0-47.0) Mean Corpuscular Volume 94 fL (79-100) Mean Corpuscular Hemoglobin 32 pg (25-35) Mean Corpuscular Hemoglobin Concent 34 g/dL (31-37) Red Cell Distribution Width 14.8 % (11.5-14.5) Platelet Count 103 x10^3/uL (140-400) Neutrophils (%) (Auto) 65 % (31-73) Lymphocytes (%) (Auto) 24 % (24-48) Monocytes (%) (Auto) 8 % (0-9) Eosinophils (%) (Auto) 3 % (0-3) Basophils (%) (Auto) 1 % (0-3) Neutrophils # (Auto) 3.9 x10^3uL (1.8-7.7) Lymphocytes # (Auto) 1.4 x10^3/uL (1.0-4.8) Monocytes # (Auto) 0.4 x10^3/uL (0.0-1.1) Eosinophils # (Auto) 0.2 x10^3/uL (0.0-0.7) Basophils # (Auto) 0.1 x10^3/uL (0.0-0.2) Sodium Level 138 mmol/L (136-145) Potassium Level 4.5 mmol/L (3.5-5.1) Chloride Level 101 mmol/L (98-107) Carbon Dioxide Level 28 mmol/L (21-32) Anion Gap 9 (6-14) Blood Urea Nitrogen 45 mg/dL (7-20) Creatinine 7.5 mg/dL (0.6-1.0) Estimated GFR (Cockcroft-Gault) 5.7 Glucose Level 42 mg/dL (70-99) Calcium Level 8.5 mg/dL (8.5-10.1) Phosphorus Level 4.6 mg/dL (2.6-4.7) Magnesium Level 2.2 mg/dL (1.8-2.4) Albumin 2.9 g/dL (3.4-5.0) Test 03/24/17 09:37 03/24/17 11:38 03/24/17 12:23 Glucose (Fingerstick) 88 mg/dL (70-99) 54 mg/dL (70-99) 106 mg/dL (70-99) Microbiology 03/22/17 Urine Culture - Final, Complete 03/22/17 Urine Culture Result 1 (MOE) - Final, Complete Medication Medications Current Medications Darbepoetin Franck (Aranesp) 60 mcg WEEKLYHS SQ ; Start 03/31/17 at 21:00 Dextrose/Sodium Chloride 1,000 ml @ 75 mls/hr 1X ONCE IV Last administered on 03/24/17t 09:41; Start 03/24/17 at 08:45; Stop 03/24/17 at 22:04 Insulin Detemir (Levemir) 18 units QHS SQ ; Start 03/24/17 at 21:00 Comment Review of Relevant I have reviewed the following items shi (where applicable) has been applied. DEBORAH FRIAS MD Mar 24, 2017 14:50
--- NOTE | 2017-03-24 15:26 | PDOC ---
PROGRESS NOTES Subjective Subjective patient seen at 1410 lethargic Objective Objective Vital Signs Date Time Temp Pulse Resp B/P (MAP) Pulse Ox O2 Delivery O2 Flow Rate FiO2 03/24/17 13:28 69 140/68 03/24/17 12:00 98.1 16 98 Room Air 98.1 03/22/17 18:00 2.0 Intake and Output 03/24/17 07:00 Intake Total 120 ml Output Total 488 ml Balance -368 ml Intake Oral 120 ml Output Urine Total 488 ml Physical Exam General: No acute distress Neuro: Other (lethargic, slow to respond) Assessment Assessment Problems Medical Problems: (1) Hypertension Status: Acute (2) Subdural hematoma Status: Acute Plan Plan of Care CT head reviewed- stable continue ICU care Comment Review of Relevant I have reviewed the following items shi (where applicable) has been applied. Labs Laboratory Tests Test 03/22/17 22:13 03/23/17 05:10 03/23/17 12:26 03/23/17 16:23 Glucose (Fingerstick) 113 mg/dL (70-99) 116 mg/dL (70-99) 163 mg/dL (70-99) White Blood Count 4.7 x10^3/uL (4.0-11.0) Red Blood Count 3.08 x10^6/uL (3.50-5.40) Hemoglobin 9.8 g/dL (12.0-15.5) Hematocrit 29.2 % (36.0-47.0) Mean Corpuscular Volume 95 fL (79-100) Mean Corpuscular Hemoglobin 32 pg (25-35) Mean Corpuscular Hemoglobin Concent 33 g/dL (31-37) Red Cell Distribution Width 15.1 % (11.5-14.5) Platelet Count 89 x10^3/uL (140-400) Neutrophils (%) (Auto) 64 % (31-73) Lymphocytes (%) (Auto) 25 % (24-48) Monocytes (%) (Auto) 9 % (0-9) Eosinophils (%) (Auto) 2 % (0-3) Basophils (%) (Auto) 1 % (0-3) Neutrophils # (Auto) 3.0 x10^3uL (1.8-7.7) Lymphocytes # (Auto) 1.2 x10^3/uL (1.0-4.8) Monocytes # (Auto) 0.4 x10^3/uL (0.0-1.1) Eosinophils # (Auto) 0.1 x10^3/uL (0.0-0.7) Basophils # (Auto) 0.0 x10^3/uL (0.0-0.2) Sodium Level 138 mmol/L (136-145) Potassium Level 4.7 mmol/L (3.5-5.1) Chloride Level 102 mmol/L (98-107) Carbon Dioxide Level 29 mmol/L (21-32) Anion Gap 7 (6-14) Blood Urea Nitrogen 31 mg/dL (7-20) Creatinine 5.5 mg/dL (0.6-1.0) Estimated GFR (Cockcroft-Gault) 8.1 Glucose Level 116 mg/dL (70-99) Calcium Level 8.6 mg/dL (8.5-10.1) Phosphorus Level 4.8 mg/dL (2.6-4.7) Magnesium Level 1.9 mg/dL (1.8-2.4) Albumin 2.9 g/dL (3.4-5.0) Test 03/23/17 22:02 03/24/17 07:26 03/24/17 08:28 03/24/17 09:37 Glucose (Fingerstick) 125 mg/dL (70-99) 61 mg/dL (70-99) 88 mg/dL (70-99) White Blood Count 5.9 x10^3/uL (4.0-11.0) Red Blood Count 3.19 x10^6/uL (3.50-5.40) Hemoglobin 10.2 g/dL (12.0-15.5) Hematocrit 30.0 % (36.0-47.0) Mean Corpuscular Volume 94 fL (79-100) Mean Corpuscular Hemoglobin 32 pg (25-35) Mean Corpuscular Hemoglobin Concent 34 g/dL (31-37) Red Cell Distribution Width 14.8 % (11.5-14.5) Platelet Count 103 x10^3/uL (140-400) Neutrophils (%) (Auto) 65 % (31-73) Lymphocytes (%) (Auto) 24 % (24-48) Monocytes (%) (Auto) 8 % (0-9) Eosinophils (%) (Auto) 3 % (0-3) Basophils (%) (Auto) 1 % (0-3) Neutrophils # (Auto) 3.9 x10^3uL (1.8-7.7) Lymphocytes # (Auto) 1.4 x10^3/uL (1.0-4.8) Monocytes # (Auto) 0.4 x10^3/uL (0.0-1.1) Eosinophils # (Auto) 0.2 x10^3/uL (0.0-0.7) Basophils # (Auto) 0.1 x10^3/uL (0.0-0.2) Sodium Level 138 mmol/L (136-145) Potassium Level 4.5 mmol/L (3.5-5.1) Chloride Level 101 mmol/L (98-107) Carbon Dioxide Level 28 mmol/L (21-32) Anion Gap 9 (6-14) Blood Urea Nitrogen 45 mg/dL (7-20) Creatinine 7.5 mg/dL (0.6-1.0) Estimated GFR (Cockcroft-Gault) 5.7 Glucose Level 42 mg/dL (70-99) Calcium Level 8.5 mg/dL (8.5-10.1) Phosphorus Level 4.6 mg/dL (2.6-4.7) Magnesium Level 2.2 mg/dL (1.8-2.4) Albumin 2.9 g/dL (3.4-5.0) Test 03/24/17 11:38 03/24/17 12:23 Glucose (Fingerstick) 54 mg/dL (70-99) 106 mg/dL (70-99) Laboratory Tests Test 03/23/17 16:23 03/23/17 22:02 03/24/17 07:26 03/24/17 08:28 Glucose (Fingerstick) 163 mg/dL (70-99) 125 mg/dL (70-99) 61 mg/dL (70-99) White Blood Count 5.9 x10^3/uL (4.0-11.0) Red Blood Count 3.19 x10^6/uL (3.50-5.40) Hemoglobin 10.2 g/dL (12.0-15.5) Hematocrit 30.0 % (36.0-47.0) Mean Corpuscular Volume 94 fL (79-100) Mean Corpuscular Hemoglobin 32 pg (25-35) Mean Corpuscular Hemoglobin Concent 34 g/dL (31-37) Red Cell Distribution Width 14.8 % (11.5-14.5) Platelet Count 103 x10^3/uL (140-400) Neutrophils (%) (Auto) 65 % (31-73) Lymphocytes (%) (Auto) 24 % (24-48) Monocytes (%) (Auto) 8 % (0-9) Eosinophils (%) (Auto) 3 % (0-3) Basophils (%) (Auto) 1 % (0-3) Neutrophils # (Auto) 3.9 x10^3uL (1.8-7.7) Lymphocytes # (Auto) 1.4 x10^3/uL (1.0-4.8) Monocytes # (Auto) 0.4 x10^3/uL (0.0-1.1) Eosinophils # (Auto) 0.2 x10^3/uL (0.0-0.7) Basophils # (Auto) 0.1 x10^3/uL (0.0-0.2) Sodium Level 138 mmol/L (136-145) Potassium Level 4.5 mmol/L (3.5-5.1) Chloride Level 101 mmol/L (98-107) Carbon Dioxide Level 28 mmol/L (21-32) Anion Gap 9 (6-14) Blood Urea Nitrogen 45 mg/dL (7-20) Creatinine 7.5 mg/dL (0.6-1.0) Estimated GFR (Cockcroft-Gault) 5.7 Glucose Level 42 mg/dL (70-99) Calcium Level 8.5 mg/dL (8.5-10.1) Phosphorus Level 4.6 mg/dL (2.6-4.7) Magnesium Level 2.2 mg/dL (1.8-2.4) Albumin 2.9 g/dL (3.4-5.0) Test 03/24/17 09:37 03/24/17 11:38 03/24/17 12:23 Glucose (Fingerstick) 88 mg/dL (70-99) 54 mg/dL (70-99) 106 mg/dL (70-99) Microbiology 03/22/17 Urine Culture - Final, Complete 03/22/17 Urine Culture Result 1 (MOE) - Final, Complete Medications Current Medications Hydralazine HCl (Apresoline Inj) 10 mg 1X ONCE IVP Last administered on 13:25; Start 03/20/17 at 13:15; Stop 03/20/17 at 13:16; Status DC Ondansetron HCl (Zofran) 4 mg PRN Q8HRS PRN IV NAUSEA/VOMITING; Start 03/20/17 at 15:45; Stop 03/21/17 at 15:44; Status DC Fentanyl Citrate (Fentanyl 2ml Vial) 50 mcg 1X ONCE IV Last administered on 16:31; Start 03/20/17 at 16:30; Stop 03/20/17 at 16:31; Status DC Hydralazine HCl (Apresoline Inj) 10 mg PRN Q4HRS PRN IVP ELEVATED BP, SEE COMMENTS Last administered on 03/24/17 01:15; Start 03/20/17 at 18:00 Fentanyl Citrate (Fentanyl 2ml Vial) 50 mcg PRN Q4HRS PRN IV PAIN Last administered on 03/21/17 14:16; Start 03/20/17 at 18:00 Nicardipine HCl 50 mg/Sodium Chloride 270 ml @ 0 mls/hr CONT PRN IV SEE I/O RECORD Last administered on 03/22/17 04:15; Start 03/20/17 at 18:45 Morphine Sulfate 2 mg PRN Q2HR PRN IV PAIN Last administered on 03/21/17 11: 59; Start 03/20/17 at 19:30 Morphine Sulfate 4 mg PRN Q2HR PRN IV PAIN Last administered on 03/22/17 19: 11; Start 03/20/17 at 19:30 Magnesium Sulfate/ Dextrose 50 ml @ 25 mls/hr PRN DAILY PRN IV for Mag < 1.7 on am labs; Start 03/21/17 at 08:30 Iohexol (Omnipaque 300 Mg/ml) 90 ml 1X ONCE IV Last administered on 10:47; Start 03/21/17 at 10:30; Stop 03/21/17 at 10:32; Status DC Info (Do NOT chart on this entry -- for MONITORING) 1 each PRN DAILY PRN MC SEE COMMENTS; Start 03/21/17 at 10:45; Stop 03/23/17 at 10:44; Status DC Amlodipine Besylate (Norvasc) 5 mg BID PO Last administered on 03/24/17 08:31 ; Start 03/21/17 at 21:00 Clonidine HCl (Catapres) 0.2 mg TID PO Last administered on 03/24/17 13:28; Start 03/21/17 at 14:00 Gabapentin (Neurontin) 200 mg TID PO Last administered on 03/21/17 20:46; Start 03/21/17 at 14:00; Stop 03/22/17 at 09:24; Status DC Lisinopril (Prinivil) 40 mg DAILY PO Last administered on 03/24/17 08:31; Start 03/21/17 at 14:00 Ondansetron HCl (Zofran Odt) 4 mg PRN Q4HRS PRN PO NAUSEA/VOMITING; Start 02/25 at 13:30 Non-Formulary Medication 300 mg QHS PO ; Start 03/21/17 at 21:00; Status UNV Trazodone HCl (Desyrel) 150 mg QHS PO Last administered on 03/23/17 21:46; Start 03/21/17 at 21:00 Labetalol HCl (Normodyne) 20 mg PRN Q2HR PRN IVP HYPERTENSION, SEE COMMENTS Last administered on 03/23/17 20:55; Start 03/21/17 at 13:45 Insulin Aspart (NovoLOG) 0-5 UNITS TIDWMEALS SQ ; Start 03/21/17 at 17:00 Dextrose (Dextrose 50%-Water Syringe) 12.5 gm PRN Q15MIN PRN IV SEE COMMENTS Last administered on 03/24/17 11:40; Start 03/21/17 at 13:45 Insulin Detemir (Levemir) 21 units QHS SQ Last administered on 03/23/17 22:05 ; Start 03/21/17 at 21:00; Stop 03/24/17 at 08:45; Status DC Aripiprazole (Abilify) 5 mg DAILY PO Last administered on 03/24/17 08:31; Start 03/21/17 at 14:00 Lamotrigine (LaMICtal) 100 mg BID PO Last administered on 03/24/17 08:31; Start 03/21/17 at 14:00 Topiramate (Topamax) 25 mg BID PO Last administered on 03/24/17 08:31; Start 03/21/17 at 14:00 Bupropion HCl (Wellbutrin Xl) 300 mg DAILY PO Last administered on 03/24/17 08:30; Start 03/21/17 at 14:00 Acetaminophen (Tylenol) 650 mg PRN Q6HRS PRN PO headache Last administered on 03/22/17 12:04; Start 03/21/17 at 14:00 Gabapentin (Neurontin) 600 mg HS PO ; Start 03/22/17 at 21:00; Stop 03/22/17 at 21:00; Status DC Gabapentin (Neurontin) 300 mg HS PO Last administered on 03/23/17 21:36; Start 03/22/17 at 21:00 Multivitamins 10 ml/Thiamine HCl 100 mg/Sodium Chloride 1,011 ml @ 100 mls/hr 1X ONCE IV Last administered on 03/22/17 12:13; Start 03/22/17 at 12:00; Stop 03/22/17 at 22:06; Status DC Multivitamins (Thera M Plus) 1 tab DAILY PO Last administered on 03/24/17 08: 31; Start 03/23/17 at 09:00 Folic Acid (Folic Acid) 1 mg DAILY PO Last administered on 03/24/17 08:32; Start 03/23/17 at 09:00 Lorazepam (Ativan) 2 mg PRN Q1HR PRN IV For CIWA 8-14 Last administered on 01:50; Start 03/22/17 at 11:30 Haloperidol Lactate (Haldol) 5 mg PRN Q4HRS PRN IVP Hallucinatns,Confusn, Delirium; Start 03/22/17 at 11:30 Diphenhydramine HCl (Benadryl) 25 mg PRN Q15MIN PRN IVP EPS symptoms 2'Haldol admin; Start 03/22/17 at 11:30 Thiamine Mononitrate (Vitamin B-1) 100 mg DAILY PO Last administered on 08:31; Start 03/23/17 at 09:00 Topiramate (Topamax) 50 mg TuThSa PO Last administered on 03/22/17 17:51; Start 03/22/17 at 17:00 Insulin Detemir (Levemir) 18 units QHS SQ ; Start 03/24/17 at 21:00 Dextrose/Sodium Chloride 1,000 ml @ 75 mls/hr 1X ONCE IV Last administered on 03/24/17 09:41; Start 03/24/17 at 08:45; Stop 03/24/17 at 22:04 Darbepoetin Franck (Aranesp) 60 mcg WEEKLYHS SQ ; Start 03/31/17 at 21:00 Active Scripts Active Midodrine Hcl 10 Mg Tablet 10 Mg PO TID 30 Days Lisinopril 40 Mg Tablet 1 Tab PO DAILY Coreg (Carvedilol) 6.25 Mg Tablet 1 Tab PO BID Norvasc (Amlodipine Besylate) 5 Mg Tablet 1 Tab PO BID Topamax (Topiramate) 25 Mg Tablet 25 Mg PO BID 30 Days Aspirin Ec (Aspirin) 81 Mg Tablet.dr 81 Mg PO DAILYWBKFT 30 Days Reported Oxycodone Hcl 5 Mg Capsule 5 Mg PO Q6HRS PRN Gabapentin 100 Mg Capsule 200 Mg PO TID Zofran Odt (Ondansetron) 4 Mg Tab.rapdis 4 Mg PO PRN Q4HRS PRN Trazodone Hcl 150 Mg Tablet 150 Mg PO HS Renvela (Sevelamer Carbonate) 800 Mg Tablet 2 Tab PO TID Lantus Solostar (Insulin Glargine,Hum.rec.anlog) 100 Unit/1 Ml Insuln.pen 12 Unit SQ QHS Lamictal (Lamotrigine) 100 Mg Tablet 100 Mg PO BID Gabapentin 300 Mg Capsule 300 Mg PO QHS Clonidine Hcl 0.2 Mg Tablet 0.2 Mg PO TID Bupropion Xl (Bupropion Hcl) 300 Mg Tab.er.24h 300 Mg PO DAILY Abilify (Aripiprazole) 5 Mg Tablet 5 Mg PO DAILY Vitals/I & O Vital Sign - Last 24 Hours 03/23/17 03/23/17 03/23/17 03/23/17 16:00 20:00 20:00 20:55 Temp 98.6 98.7 98.6 98.7 Pulse 80 86 83 Resp 25 22 B/P (MAP) 147/67 (93) 160/72 (101) 168/80 Pulse Ox 95 O2 Delivery Room Air Room Air Room Air 03/23/17 03/23/17 03/24/17 03/24/17 21:37 21:38 00:00 01:15 Temp 98.3 98.3 Pulse 82 80 82 83 Resp 15 B/P (MAP) 161/79 161/79 172/82 (112) 175/86 O2 Delivery Room Air 03/24/17 03/24/17 03/24/17 03/24/17 02:00 04:00 08:00 08:00 Temp 98.5 100.2 98.5 100.2 Pulse 82 80 80 Resp 16 12 16 B/P (MAP) 148/77 (100) 149/74 (99) 135/72 (93) Pulse Ox 94 94 98 O2 Delivery Room Air Room Air Room Air Room Air 03/24/17 03/24/17 03/24/17 03/24/17 08:31 08:31 08:32 12:00 Temp 98.1 98.1 Pulse 75 75 75 73 Resp 16 B/P (MAP) 138/66 138/66 138/66 140/68 (92) Pulse Ox 98 O2 Delivery Room Air 03/24/17 13:28 Pulse 69 B/P (MAP) 140/68 Intake and Output 03/23/17 03/23/17 03/24/17 15:00 23:00 07:00 Intake Total 120 ml Output Total 13 ml 250 ml 225 ml Balance 107 ml -250 ml -225 ml COURTNEY CESPEDES [employer] Mar 24, 2017 15:26
[2017-03-24] MEDS: traZODone 50 MG TABLET. PO SCH (21:00)
[2017-03-24] MEDS: INSULIN DETEMIR 300 UNITS/3 ML INSULN.PEN. SQ SCH (21:00)
[2017-03-24] MEDS: GABAPENTIN 300 MG CAPSULE. PO SCH (21:00)
[2017-03-25] VITALS: BP 178/84
[2017-03-25 04:00] VITALS: BP 173/75
[2017-03-25 06:21] LABS: BASO % 1 % (0-3); EOS % 2 % (0-3); HEMATOCRIT 30.4 % (36.0-47.0); HEMOGLOBIN 10.1 g/dL (12.0-15.5); LYMPH # 0.9 x10^3/uL (1.0-4.8); LYMPH % 18 % (24-48); MEAN CORPUSCULAR HEMOGLOBIN 31 pg (25-35); MEAN CORPUSCULAR HGB CONC 33 g/dL (31-37); MEAN CORPUSCULAR VOLUME 94 fL (79-100); MONO % 8 % (0-9); NEUT % 70 % (31-73); PLATELET COUNT 109 x10^3/uL (140-400); RED BLOOD COUNT 3.22 x10^6/uL (3.50-5.40); RED CELL DISTRIBUTION WIDTH 14.6 % (11.5-14.5); WHITE BLOOD COUNT 5.1 x10^3/uL (4.0-11.0)
[2017-03-25 06:45] LABS: ALBUMIN 2.9 g/dL (3.4-5.0); CALCIUM 8.3 mg/dL (8.5-10.1); CREATININE 8.9 mg/dL (0.6-1.0); GFR 4.7; PHOSPHORUS 4.5 mg/dL (2.6-4.7); POTASSIUM 5.1 mmol/L (3.5-5.1)
[2017-03-25] MEDS: INSULIN ASPART 300 UNITS/3 ML INSULN.PEN SQ SCH ×3 (08:00→16:54)
[2017-03-25] MEDS ORDERED: IV NORMAL SALINE 1000ML BAG 1,000 ML IV PRN (08:23)
[2017-03-25] MEDS ORDERED: ALBUMIN HUMAN 25% 200 ML IV PRN (08:30)
[2017-03-25] MEDS ORDERED: diphenhydrAMINE 50 MG/ML VIAL IV PRN ×2 (08:30)
[2017-03-25] MEDS ORDERED: ACETAMINOPHEN 500 MG TABLET PO PRN (08:30)
[2017-03-25] MEDS ORDERED: DIALYSIS PATIENT. MC PRN ×2 (08:30)
[2017-03-25] MEDS: MORPHINE SULFATE 4 MG/ML DISP.SYRIN. IV PRN (11:38)
--- NOTE | 2017-03-25 11:45 | PDOC ---
Renal-Progress Notes Subjective Notes Notes NONE History of Present Illness Hx of present illness NO CHANGE Vitals Vitals Vital Signs Date Time Temp Pulse Resp B/P (MAP) Pulse Ox O2 Delivery O2 Flow Rate FiO2 03/25/17 11:38 20 Room Air 03/25/17 04:00 100.1 88 173/75 (107) 98 100.1 Weight Weight [ ] I.O. Intake and Output Intake and Output 03/25/17 07:00 Intake Total 1455 ml Output Total 425 ml Balance 1030 ml Intake Oral 50 ml IV Total 1405 ml Output Urine Total 425 ml Labs Labs Laboratory Tests Test 03/24/17 12:23 03/24/17 16:08 03/24/17 23:24 03/24/17 23:41 Glucose (Fingerstick) 106 mg/dL (70-99) 82 mg/dL (70-99) 53 mg/dL (70-99) 140 mg/dL (70-99) Test 03/25/17 04:30 03/25/17 05:20 03/25/17 05:30 03/25/17 07:46 Magnesium Level 2.0 mg/dL (1.8-2.4) Sodium Level 135 mmol/L (136-145) Potassium Level 5.1 mmol/L (3.5-5.1) Chloride Level 100 mmol/L (98-107) Carbon Dioxide Level 25 mmol/L (21-32) Anion Gap 10 (6-14) Blood Urea Nitrogen 50 mg/dL (7-20) Creatinine 8.9 mg/dL (0.6-1.0) Estimated GFR (Cockcroft-Gault) 4.7 Glucose Level 98 mg/dL (70-99) Calcium Level 8.3 mg/dL (8.5-10.1) Phosphorus Level 4.5 mg/dL (2.6-4.7) Albumin 2.9 g/dL (3.4-5.0) White Blood Count 5.1 x10^3/uL (4.0-11.0) Red Blood Count 3.22 x10^6/uL (3.50-5.40) Hemoglobin 10.1 g/dL (12.0-15.5) Hematocrit 30.4 % (36.0-47.0) Mean Corpuscular Volume 94 fL (79-100) Mean Corpuscular Hemoglobin 31 pg (25-35) Mean Corpuscular Hemoglobin Concent 33 g/dL (31-37) Red Cell Distribution Width 14.6 % (11.5-14.5) Platelet Count 109 x10^3/uL (140-400) Neutrophils (%) (Auto) 70 % (31-73) Lymphocytes (%) (Auto) 18 % (24-48) Monocytes (%) (Auto) 8 % (0-9) Eosinophils (%) (Auto) 2 % (0-3) Basophils (%) (Auto) 1 % (0-3) Neutrophils # (Auto) 3.6 x10^3uL (1.8-7.7) Lymphocytes # (Auto) 0.9 x10^3/uL (1.0-4.8) Monocytes # (Auto) 0.4 x10^3/uL (0.0-1.1) Eosinophils # (Auto) 0.1 x10^3/uL (0.0-0.7) Basophils # (Auto) 0.0 x10^3/uL (0.0-0.2) Glucose (Fingerstick) 101 mg/dL (70-99) Test 03/25/17 08:29 Glucose (Fingerstick) 93 mg/dL (70-99) Micro Micro Microbiology 03/22/17 Urine Culture - Final, Complete 03/22/17 Urine Culture Result 1 (MOE) - Final, Complete Review of Systems Constitutional: yes: other (UNABLE TO OBTAIN) Physical Exam General Appearance: no apparent distress Skin: warm Respiratory: bilateral CTA Heart: S1S2 Abdomen: soft, bowel sounds present Genitourinary: bladder flat Extremities: pulses present, atrophy Assessment Assessment IMP HTN DM II ANEMIA ESRD SDH SEIZURE PLAN CONT HOME MEDS HD TODAY UF TO DW CONT ISAAC PERALTA MD Mar 25, 2017 11:45
--- NOTE | 2017-03-25 11:49 | PDOC ---
PROGRESS NOTES Subjective Subjective seen during dialysis awake c/o headache Objective Objective Vital Signs Date Time Temp Pulse Resp B/P (MAP) Pulse Ox O2 Delivery O2 Flow Rate FiO2 03/25/17 11:38 20 Room Air 03/25/17 04:00 100.1 88 173/75 (107) 98 100.1 03/22/17 18:00 2.0 Intake and Output 03/25/17 07:00 Intake Total 1455 ml Output Total 425 ml Balance 1030 ml Intake Oral 50 ml IV Total 1405 ml Output Urine Total 425 ml Physical Exam General: Alert, Cooperative, No acute distress MUSCULOSKELETAL: Other (following commands, alert) Assessment Assessment Problems Medical Problems: (1) Hypertension Status: Acute (2) Subdural hematoma Status: Acute Plan Plan of Care continue current treatment Comment Review of Relevant I have reviewed the following items shi (where applicable) has been applied. Labs Laboratory Tests Test 03/23/17 12:26 03/23/17 16:23 03/23/17 22:02 03/24/17 07:26 Glucose (Fingerstick) 116 mg/dL (70-99) 163 mg/dL (70-99) 125 mg/dL (70-99) White Blood Count 5.9 x10^3/uL (4.0-11.0) Red Blood Count 3.19 x10^6/uL (3.50-5.40) Hemoglobin 10.2 g/dL (12.0-15.5) Hematocrit 30.0 % (36.0-47.0) Mean Corpuscular Volume 94 fL (79-100) Mean Corpuscular Hemoglobin 32 pg (25-35) Mean Corpuscular Hemoglobin Concent 34 g/dL (31-37) Red Cell Distribution Width 14.8 % (11.5-14.5) Platelet Count 103 x10^3/uL (140-400) Neutrophils (%) (Auto) 65 % (31-73) Lymphocytes (%) (Auto) 24 % (24-48) Monocytes (%) (Auto) 8 % (0-9) Eosinophils (%) (Auto) 3 % (0-3) Basophils (%) (Auto) 1 % (0-3) Neutrophils # (Auto) 3.9 x10^3uL (1.8-7.7) Lymphocytes # (Auto) 1.4 x10^3/uL (1.0-4.8) Monocytes # (Auto) 0.4 x10^3/uL (0.0-1.1) Eosinophils # (Auto) 0.2 x10^3/uL (0.0-0.7) Basophils # (Auto) 0.1 x10^3/uL (0.0-0.2) Sodium Level 138 mmol/L (136-145) Potassium Level 4.5 mmol/L (3.5-5.1) Chloride Level 101 mmol/L (98-107) Carbon Dioxide Level 28 mmol/L (21-32) Anion Gap 9 (6-14) Blood Urea Nitrogen 45 mg/dL (7-20) Creatinine 7.5 mg/dL (0.6-1.0) Estimated GFR (Cockcroft-Gault) 5.7 Glucose Level 42 mg/dL (70-99) Calcium Level 8.5 mg/dL (8.5-10.1) Phosphorus Level 4.6 mg/dL (2.6-4.7) Magnesium Level 2.2 mg/dL (1.8-2.4) Albumin 2.9 g/dL (3.4-5.0) Test 03/24/17 08:28 03/24/17 09:37 03/24/17 11:38 03/24/17 12:23 Glucose (Fingerstick) 61 mg/dL (70-99) 88 mg/dL (70-99) 54 mg/dL (70-99) 106 mg/dL (70-99) Test 03/24/17 16:08 03/24/17 23:24 03/24/17 23:41 03/25/17 04:30 Glucose (Fingerstick) 82 mg/dL (70-99) 53 mg/dL (70-99) 140 mg/dL (70-99) Magnesium Level 2.0 mg/dL (1.8-2.4) Test 03/25/17 05:20 03/25/17 05:30 03/25/17 07:46 03/25/17 08:29 Sodium Level 135 mmol/L (136-145) Potassium Level 5.1 mmol/L (3.5-5.1) Chloride Level 100 mmol/L (98-107) Carbon Dioxide Level 25 mmol/L (21-32) Anion Gap 10 (6-14) Blood Urea Nitrogen 50 mg/dL (7-20) Creatinine 8.9 mg/dL (0.6-1.0) Estimated GFR (Cockcroft-Gault) 4.7 Glucose Level 98 mg/dL (70-99) Calcium Level 8.3 mg/dL (8.5-10.1) Phosphorus Level 4.5 mg/dL (2.6-4.7) Albumin 2.9 g/dL (3.4-5.0) White Blood Count 5.1 x10^3/uL (4.0-11.0) Red Blood Count 3.22 x10^6/uL (3.50-5.40) Hemoglobin 10.1 g/dL (12.0-15.5) Hematocrit 30.4 % (36.0-47.0) Mean Corpuscular Volume 94 fL (79-100) Mean Corpuscular Hemoglobin 31 pg (25-35) Mean Corpuscular Hemoglobin Concent 33 g/dL (31-37) Red Cell Distribution Width 14.6 % (11.5-14.5) Platelet Count 109 x10^3/uL (140-400) Neutrophils (%) (Auto) 70 % (31-73) Lymphocytes (%) (Auto) 18 % (24-48) Monocytes (%) (Auto) 8 % (0-9) Eosinophils (%) (Auto) 2 % (0-3) Basophils (%) (Auto) 1 % (0-3) Neutrophils # (Auto) 3.6 x10^3uL (1.8-7.7) Lymphocytes # (Auto) 0.9 x10^3/uL (1.0-4.8) Monocytes # (Auto) 0.4 x10^3/uL (0.0-1.1) Eosinophils # (Auto) 0.1 x10^3/uL (0.0-0.7) Basophils # (Auto) 0.0 x10^3/uL (0.0-0.2) Glucose (Fingerstick) 101 mg/dL (70-99) 93 mg/dL (70-99) Laboratory Tests Test 03/24/17 12:23 03/24/17 16:08 03/24/17 23:24 03/24/17 23:41 Glucose (Fingerstick) 106 mg/dL (70-99) 82 mg/dL (70-99) 53 mg/dL (70-99) 140 mg/dL (70-99) Test 03/25/17 04:30 03/25/17 05:20 03/25/17 05:30 03/25/17 07:46 Magnesium Level 2.0 mg/dL (1.8-2.4) Sodium Level 135 mmol/L (136-145) Potassium Level 5.1 mmol/L (3.5-5.1) Chloride Level 100 mmol/L (98-107) Carbon Dioxide Level 25 mmol/L (21-32) Anion Gap 10 (6-14) Blood Urea Nitrogen 50 mg/dL (7-20) Creatinine 8.9 mg/dL (0.6-1.0) Estimated GFR (Cockcroft-Gault) 4.7 Glucose Level 98 mg/dL (70-99) Calcium Level 8.3 mg/dL (8.5-10.1) Phosphorus Level 4.5 mg/dL (2.6-4.7) Albumin 2.9 g/dL (3.4-5.0) White Blood Count 5.1 x10^3/uL (4.0-11.0) Red Blood Count 3.22 x10^6/uL (3.50-5.40) Hemoglobin 10.1 g/dL (12.0-15.5) Hematocrit 30.4 % (36.0-47.0) Mean Corpuscular Volume 94 fL (79-100) Mean Corpuscular Hemoglobin 31 pg (25-35) Mean Corpuscular Hemoglobin Concent 33 g/dL (31-37) Red Cell Distribution Width 14.6 % (11.5-14.5) Platelet Count 109 x10^3/uL (140-400) Neutrophils (%) (Auto) 70 % (31-73) Lymphocytes (%) (Auto) 18 % (24-48) Monocytes (%) (Auto) 8 % (0-9) Eosinophils (%) (Auto) 2 % (0-3) Basophils (%) (Auto) 1 % (0-3) Neutrophils # (Auto) 3.6 x10^3uL (1.8-7.7) Lymphocytes # (Auto) 0.9 x10^3/uL (1.0-4.8) Monocytes # (Auto) 0.4 x10^3/uL (0.0-1.1) Eosinophils # (Auto) 0.1 x10^3/uL (0.0-0.7) Basophils # (Auto) 0.0 x10^3/uL (0.0-0.2) Glucose (Fingerstick) 101 mg/dL (70-99) Test 03/25/17 08:29 Glucose (Fingerstick) 93 mg/dL (70-99) Microbiology 03/22/17 Urine Culture - Final, Complete 03/22/17 Urine Culture Result 1 (MOE) - Final, Complete Medications Current Medications Hydralazine HCl (Apresoline Inj) 10 mg 1X ONCE IVP Last administered on 13:25; Start 03/20/17 at 13:15; Stop 03/20/17 at 13:16; Status DC Ondansetron HCl (Zofran) 4 mg PRN Q8HRS PRN IV NAUSEA/VOMITING; Start 03/20/17 at 15:45; Stop 03/21/17 at 15:44; Status DC Fentanyl Citrate (Fentanyl 2ml Vial) 50 mcg 1X ONCE IV Last administered on 16:31; Start 03/20/17 at 16:30; Stop 03/20/17 at 16:31; Status DC Hydralazine HCl (Apresoline Inj) 10 mg PRN Q4HRS PRN IVP ELEVATED BP, SEE COMMENTS Last administered on 03/24/17 16:06; Start 03/20/17 at 18:00 Fentanyl Citrate (Fentanyl 2ml Vial) 50 mcg PRN Q4HRS PRN IV PAIN Last administered on 03/21/17 14:16; Start 03/20/17 at 18:00 Nicardipine HCl 50 mg/Sodium Chloride 270 ml @ 0 mls/hr CONT PRN IV SEE I/O RECORD Last administered on 03/22/17 04:15; Start 03/20/17 at 18:45 Morphine Sulfate 2 mg PRN Q2HR PRN IV PAIN Last administered on 03/21/17 11: 59; Start 03/20/17 at 19:30 Morphine Sulfate 4 mg PRN Q2HR PRN IV PAIN Last administered on 03/25/17 11: 38; Start 03/20/17 at 19:30 Magnesium Sulfate/ Dextrose 50 ml @ 25 mls/hr PRN DAILY PRN IV for Mag < 1.7 on am labs; Start 03/21/17 at 08:30 Iohexol (Omnipaque 300 Mg/ml) 90 ml 1X ONCE IV Last administered on 10:47; Start 03/21/17 at 10:30; Stop 03/21/17 at 10:32; Status DC Info (Do NOT chart on this entry -- for MONITORING) 1 each PRN DAILY PRN MC SEE COMMENTS; Start 03/21/17 at 10:45; Stop 03/23/17 at 10:44; Status DC Amlodipine Besylate (Norvasc) 5 mg BID PO Last administered on 03/24/17 08:31 ; Start 03/21/17 at 21:00 Clonidine HCl (Catapres) 0.2 mg TID PO Last administered on 03/24/17 13:28; Start 03/21/17 at 14:00 Gabapentin (Neurontin) 200 mg TID PO Last administered on 03/21/17 20:46; Start 03/21/17 at 14:00; Stop 03/22/17 at 09:24; Status DC Lisinopril (Prinivil) 40 mg DAILY PO Last administered on 03/24/17 08:31; Start 03/21/17 at 14:00 Ondansetron HCl (Zofran Odt) 4 mg PRN Q4HRS PRN PO NAUSEA/VOMITING; Start 02/25 at 13:30 Non-Formulary Medication 300 mg QHS PO ; Start 03/21/17 at 21:00; Status UNV Trazodone HCl (Desyrel) 150 mg QHS PO Last administered on 03/23/17 21:46; Start 03/21/17 at 21:00 Labetalol HCl (Normodyne) 20 mg PRN Q2HR PRN IVP HYPERTENSION, SEE COMMENTS Last administered on 03/23/17 20:55; Start 03/21/17 at 13:45 Insulin Aspart (NovoLOG) 0-5 UNITS TIDWMEALS SQ ; Start 03/21/17 at 17:00 Dextrose (Dextrose 50%-Water Syringe) 12.5 gm PRN Q15MIN PRN IV SEE COMMENTS Last administered on 03/24/17 23:27; Start 03/21/17 at 13:45 Insulin Detemir (Levemir) 21 units QHS SQ Last administered on 03/23/17 22:05 ; Start 03/21/17 at 21:00; Stop 03/24/17 at 08:45; Status DC Aripiprazole (Abilify) 5 mg DAILY PO Last administered on 03/24/17 08:31; Start 03/21/17 at 14:00 Lamotrigine (LaMICtal) 100 mg BID PO Last administered on 03/24/17 08:31; Start 03/21/17 at 14:00 Topiramate (Topamax) 25 mg BID PO Last administered on 03/24/17 08:31; Start 03/21/17 at 14:00 Bupropion HCl (Wellbutrin Xl) 300 mg DAILY PO Last administered on 03/24/17 08:30; Start 03/21/17 at 14:00 Acetaminophen (Tylenol) 650 mg PRN Q6HRS PRN PO headache Last administered on 03/22/17 12:04; Start 03/21/17 at 14:00 Gabapentin (Neurontin) 600 mg HS PO ; Start 03/22/17 at 21:00; Stop 03/22/17 at 21:00; Status DC Gabapentin (Neurontin) 300 mg HS PO Last administered on 03/23/17 21:36; Start 03/22/17 at 21:00 Multivitamins 10 ml/Thiamine HCl 100 mg/Sodium Chloride 1,011 ml @ 100 mls/hr 1X ONCE IV Last administered on 03/22/17 12:13; Start 03/22/17 at 12:00; Stop 03/22/17 at 22:06; Status DC Multivitamins (Thera M Plus) 1 tab DAILY PO Last administered on 03/24/17 08: 31; Start 03/23/17 at 09:00 Folic Acid (Folic Acid) 1 mg DAILY PO Last administered on 03/24/17 08:32; Start 03/23/17 at 09:00 Lorazepam (Ativan) 2 mg PRN Q1HR PRN IV For CIWA 8-14 Last administered on 01:50; Start 03/22/17 at 11:30 Haloperidol Lactate (Haldol) 5 mg PRN Q4HRS PRN IVP Hallucinatns,Confusn, Delirium; Start 03/22/17 at 11:30 Diphenhydramine HCl (Benadryl) 25 mg PRN Q15MIN PRN IVP EPS symptoms 2'Haldol admin; Start 03/22/17 at 11:30 Thiamine Mononitrate (Vitamin B-1) 100 mg DAILY PO Last administered on 08:31; Start 03/23/17 at 09:00 Topiramate (Topamax) 50 mg TuThSa PO Last administered on 03/22/17 17:51; Start 03/22/17 at 17:00 Insulin Detemir (Levemir) 18 units QHS SQ ; Start 03/24/17 at 21:00 Dextrose/Sodium Chloride 1,000 ml @ 75 mls/hr 1X ONCE IV Last administered on 03/24/17 09:41; Start 03/24/17 at 08:45; Stop 03/24/17 at 22:04; Status DC Darbepoetin Franck (Aranesp) 60 mcg WEEKLYHS SQ ; Start 03/31/17 at 21:00 Heparin Sodium (Porcine) (Heparin Sodium) 500 unit 1X PRN PRN INT CAT COMM; Start 03/25/17 at 08:30; Stop 03/26/17 at 08:29 Sodium Chloride 1,000 ml @ 1,000 mls/hr Q1H PRN IV hypotension; Start at 08:23; Stop 03/25/17 at 14:22 Albumin Human 200 ml @ 200 mls/hr 1X PRN PRN IV Hypotension; Start 03/25/17 at 08:30; Stop 03/25/17 at 14:29 Acetaminophen (Tylenol) 500 mg 1X PRN PRN PO MILD PAIN / TEMP; Start 03/25/17 at 08:30; Stop 03/26/17 at 08:29 Diphenhydramine HCl (Benadryl) 25 mg 1X PRN PRN IV ITCHING; Start 03/25/17 at 08:30; Stop 03/26/17 at 08:29 Diphenhydramine HCl (Benadryl) 25 mg 1X PRN PRN IV ITCHING; Start 03/25/17 at 08:30; Stop 03/26/17 at 08:29 Info (PHARMACY MONITORING -- do not chart) 1 each PRN DAILY PRN MC SEE COMMENTS ; Start 03/25/17 at 08:30; Status UNV Info (PHARMACY MONITORING -- do not chart) 1 each PRN DAILY PRN MC SEE COMMENTS ; Start 03/25/17 at 08:30 Active Scripts Active Midodrine Hcl 10 Mg Tablet 10 Mg PO TID 30 Days Lisinopril 40 Mg Tablet 1 Tab PO DAILY Coreg (Carvedilol) 6.25 Mg Tablet 1 Tab PO BID Norvasc (Amlodipine Besylate) 5 Mg Tablet 1 Tab PO BID Topamax (Topiramate) 25 Mg Tablet 25 Mg PO BID 30 Days Aspirin Ec (Aspirin) 81 Mg Tablet.dr 81 Mg PO DAILYWBKFT 30 Days Reported Oxycodone Hcl 5 Mg Capsule 5 Mg PO Q6HRS PRN Gabapentin 100 Mg Capsule 200 Mg PO TID Zofran Odt (Ondansetron) 4 Mg Tab.rapdis 4 Mg PO PRN Q4HRS PRN Trazodone Hcl 150 Mg Tablet 150 Mg PO HS Renvela (Sevelamer Carbonate) 800 Mg Tablet 2 Tab PO TID Lantus Solostar (Insulin Glargine,Hum.rec.anlog) 100 Unit/1 Ml Insuln.pen 12 Unit SQ QHS Lamictal (Lamotrigine) 100 Mg Tablet 100 Mg PO BID Gabapentin 300 Mg Capsule 300 Mg PO QHS Clonidine Hcl 0.2 Mg Tablet 0.2 Mg PO TID Bupropion Xl (Bupropion Hcl) 300 Mg Tab.er.24h 300 Mg PO DAILY Abilify (Aripiprazole) 5 Mg Tablet 5 Mg PO DAILY Vitals/I & O Vital Sign - Last 24 Hours 03/24/17 03/24/17 03/24/17 03/24/17 12:00 13:28 16:00 16:06 Temp 98.1 98.5 98.1 98.5 Pulse 73 69 69 70 Resp 16 13 B/P (MAP) 140/68 (92) 140/68 182/79 (113) 189/79 Pulse Ox 98 99 O2 Delivery Room Air Room Air 03/24/17 03/24/17 03/25/17 03/25/17 20:00 20:00 00:00 04:00 Temp 98.5 99.6 100.1 98.5 99.6 100.1 Pulse 70 84 88 Resp 16 16 14 B/P (MAP) 159/76 (103) 178/84 (115) 173/75 (107) Pulse Ox 98 97 98 O2 Delivery Room Air Room Air Room Air Room Air 03/25/17 03/25/17 08:00 11:38 Resp 20 O2 Delivery Room Air Room Air Intake and Output 03/24/17 03/24/17 03/25/17 15:00 23:00 07:00 Intake Total 50 ml 600 ml 805 ml Output Total 80 ml 120 ml 225 ml Balance -30 ml 480 ml 580 ml COURTNEY CESPEDES [employer] Mar 25, 2017 11:49
[2017-03-25] MEDS: cloNIDine HCL 0.2 MG TABLET PO SCH ×3 (14:00→21:52)
[2017-03-25] MEDS: hydrALAZINE 20 MG/ML VIAL. IVP PRN (14:30)
[2017-03-25] MEDS: TOPIRAMATE 25 MG TABLET. PO SCH ×3 (15:01→21:53)
[2017-03-25] MEDS: ARIPiprazole 5 MG TABLET PO SCH (15:01)
[2017-03-25] MEDS: LISINOPRIL 40 MG TABLET. PO SCH (15:02)
[2017-03-25] MEDS: lamoTRIgine 100 MG TABLET. PO SCH ×2 (15:02→21:51)
[2017-03-25] MEDS: amLODIPine BESYLATE 5 MG TABLET PO SCH ×2 (15:04→21:51)
[2017-03-25] MEDS: buPROPion XL 150 MG TAB.ER.24H. PO SCH (15:06)
[2017-03-25] MEDS: MULTIVITAMIN with MINERAL TABLET. PO SCH (15:09)
[2017-03-25] MEDS: FOLIC ACID 1 MG TABLET. PO SCH (15:09)
[2017-03-25] MEDS: THIAMINE 100 MG TABLET. PO SCH (15:09)
[2017-03-25 16:00] VITALS: BP 174/64
--- NOTE | 2017-03-25 16:29 | PDOC ---
PROGRESS NOTES Chief Complaint Chief Complaint Subdural hematoma, acute, initial Previous alcoholism- quit drinking 4 years ago Diabetes 2, on insulin Hypertension End-stage renal disease, on HD anemia of ESRD Hepatitis C, chronic Right arm dialysis fistula. History of Present Illness History of Present Illness out of ICU, on floor, more awake, did well with swallow eval, passed for thickened liquids, ST to follow pt still confused and may be at her baseline, very alert and conversant . Pt. is being followed by Neurology and Neurosurg re: subdural hematoma, plans DC to SNu Vitals Vitals Vital Signs Date Time Temp Pulse Resp B/P (MAP) Pulse Ox O2 Delivery O2 Flow Rate FiO2 03/25/17 16:00 98.5 97 18 174/64 (100) 95 Room Air 98.5 Physical Exam General: Alert, Cooperative, No acute distress Heart: Regular rate, Normal S1, Normal S2, No murmurs, Gallops Lungs: Clear Abdomen: Normal bowel sounds, Soft, No tenderness, No hepatosplenomegaly, No masses Extremities: No clubbing, No cyanosis, No edema, Normal pulses, No tenderness/ swelling Skin: Other (CONFUSED) Labs LABS Laboratory Tests Test 03/24/17 23:24 03/24/17 23:41 03/25/17 04:30 03/25/17 05:20 Glucose (Fingerstick) 53 mg/dL (70-99) 140 mg/dL (70-99) Magnesium Level 2.0 mg/dL (1.8-2.4) Sodium Level 135 mmol/L (136-145) Potassium Level 5.1 mmol/L (3.5-5.1) Chloride Level 100 mmol/L (98-107) Carbon Dioxide Level 25 mmol/L (21-32) Anion Gap 10 (6-14) Blood Urea Nitrogen 50 mg/dL (7-20) Creatinine 8.9 mg/dL (0.6-1.0) Estimated GFR (Cockcroft-Gault) 4.7 Glucose Level 98 mg/dL (70-99) Calcium Level 8.3 mg/dL (8.5-10.1) Phosphorus Level 4.5 mg/dL (2.6-4.7) Albumin 2.9 g/dL (3.4-5.0) Test 03/25/17 05:30 03/25/17 07:46 03/25/17 08:29 White Blood Count 5.1 x10^3/uL (4.0-11.0) Red Blood Count 3.22 x10^6/uL (3.50-5.40) Hemoglobin 10.1 g/dL (12.0-15.5) Hematocrit 30.4 % (36.0-47.0) Mean Corpuscular Volume 94 fL (79-100) Mean Corpuscular Hemoglobin 31 pg (25-35) Mean Corpuscular Hemoglobin Concent 33 g/dL (31-37) Red Cell Distribution Width 14.6 % (11.5-14.5) Platelet Count 109 x10^3/uL (140-400) Neutrophils (%) (Auto) 70 % (31-73) Lymphocytes (%) (Auto) 18 % (24-48) Monocytes (%) (Auto) 8 % (0-9) Eosinophils (%) (Auto) 2 % (0-3) Basophils (%) (Auto) 1 % (0-3) Neutrophils # (Auto) 3.6 x10^3uL (1.8-7.7) Lymphocytes # (Auto) 0.9 x10^3/uL (1.0-4.8) Monocytes # (Auto) 0.4 x10^3/uL (0.0-1.1) Eosinophils # (Auto) 0.1 x10^3/uL (0.0-0.7) Basophils # (Auto) 0.0 x10^3/uL (0.0-0.2) Glucose (Fingerstick) 101 mg/dL (70-99) 93 mg/dL (70-99) Review of Systems Review of Systems no n.v.d Assessment and Plan Assessmemt and Plan Problems Medical Problems: (1) Hypertension Status: Acute (2) Subdural hematoma Status: Acute Problems: Comment Review of Relevant I have reviewed the following items shi (where applicable) has been applied. Labs Laboratory Tests Test 03/23/17 22:02 03/24/17 07:26 03/24/17 08:28 03/24/17 09:37 Glucose (Fingerstick) 125 mg/dL (70-99) 61 mg/dL (70-99) 88 mg/dL (70-99) White Blood Count 5.9 x10^3/uL (4.0-11.0) Red Blood Count 3.19 x10^6/uL (3.50-5.40) Hemoglobin 10.2 g/dL (12.0-15.5) Hematocrit 30.0 % (36.0-47.0) Mean Corpuscular Volume 94 fL (79-100) Mean Corpuscular Hemoglobin 32 pg (25-35) Mean Corpuscular Hemoglobin Concent 34 g/dL (31-37) Red Cell Distribution Width 14.8 % (11.5-14.5) Platelet Count 103 x10^3/uL (140-400) Neutrophils (%) (Auto) 65 % (31-73) Lymphocytes (%) (Auto) 24 % (24-48) Monocytes (%) (Auto) 8 % (0-9) Eosinophils (%) (Auto) 3 % (0-3) Basophils (%) (Auto) 1 % (0-3) Neutrophils # (Auto) 3.9 x10^3uL (1.8-7.7) Lymphocytes # (Auto) 1.4 x10^3/uL (1.0-4.8) Monocytes # (Auto) 0.4 x10^3/uL (0.0-1.1) Eosinophils # (Auto) 0.2 x10^3/uL (0.0-0.7) Basophils # (Auto) 0.1 x10^3/uL (0.0-0.2) Sodium Level 138 mmol/L (136-145) Potassium Level 4.5 mmol/L (3.5-5.1) Chloride Level 101 mmol/L (98-107) Carbon Dioxide Level 28 mmol/L (21-32) Anion Gap 9 (6-14) Blood Urea Nitrogen 45 mg/dL (7-20) Creatinine 7.5 mg/dL (0.6-1.0) Estimated GFR (Cockcroft-Gault) 5.7 Glucose Level 42 mg/dL (70-99) Calcium Level 8.5 mg/dL (8.5-10.1) Phosphorus Level 4.6 mg/dL (2.6-4.7) Magnesium Level 2.2 mg/dL (1.8-2.4) Albumin 2.9 g/dL (3.4-5.0) Test 03/24/17:38 03/24/17 12:23 03/24/17 16:08 03/24/17 23:24 Glucose (Fingerstick) 54 mg/dL (70-99) 106 mg/dL (70-99) 82 mg/dL (70-99) 53 mg/dL (70-99) Test 03/24/17 23:41 03/25/17 04:30 03/25/17 05:20 03/25/17 05:30 Glucose (Fingerstick) 140 mg/dL (70-99) Magnesium Level 2.0 mg/dL (1.8-2.4) Sodium Level 135 mmol/L (136-145) Potassium Level 5.1 mmol/L (3.5-5.1) Chloride Level 100 mmol/L (98-107) Carbon Dioxide Level 25 mmol/L (21-32) Anion Gap 10 (6-14) Blood Urea Nitrogen 50 mg/dL (7-20) Creatinine 8.9 mg/dL (0.6-1.0) Estimated GFR (Cockcroft-Gault) 4.7 Glucose Level 98 mg/dL (70-99) Calcium Level 8.3 mg/dL (8.5-10.1) Phosphorus Level 4.5 mg/dL (2.6-4.7) Albumin 2.9 g/dL (3.4-5.0) White Blood Count 5.1 x10^3/uL (4.0-11.0) Red Blood Count 3.22 x10^6/uL (3.50-5.40) Hemoglobin 10.1 g/dL (12.0-15.5) Hematocrit 30.4 % (36.0-47.0) Mean Corpuscular Volume 94 fL (79-100) Mean Corpuscular Hemoglobin 31 pg (25-35) Mean Corpuscular Hemoglobin Concent 33 g/dL (31-37) Red Cell Distribution Width 14.6 % (11.5-14.5) Platelet Count 109 x10^3/uL (140-400) Neutrophils (%) (Auto) 70 % (31-73) Lymphocytes (%) (Auto) 18 % (24-48) Monocytes (%) (Auto) 8 % (0-9) Eosinophils (%) (Auto) 2 % (0-3) Basophils (%) (Auto) 1 % (0-3) Neutrophils # (Auto) 3.6 x10^3uL (1.8-7.7) Lymphocytes # (Auto) 0.9 x10^3/uL (1.0-4.8) Monocytes # (Auto) 0.4 x10^3/uL (0.0-1.1) Eosinophils # (Auto) 0.1 x10^3/uL (0.0-0.7) Basophils # (Auto) 0.0 x10^3/uL (0.0-0.2) Test 03/25/17 07:46 03/25/17 08:29 Glucose (Fingerstick) 101 mg/dL (70-99) 93 mg/dL (70-99) Laboratory Tests Test 03/24/17 23:24 03/24/17 23:41 03/25/17 04:30 03/25/17 05:20 Glucose (Fingerstick) 53 mg/dL (70-99) 140 mg/dL (70-99) Magnesium Level 2.0 mg/dL (1.8-2.4) Sodium Level 135 mmol/L (136-145) Potassium Level 5.1 mmol/L (3.5-5.1) Chloride Level 100 mmol/L (98-107) Carbon Dioxide Level 25 mmol/L (21-32) Anion Gap 10 (6-14) Blood Urea Nitrogen 50 mg/dL (7-20) Creatinine 8.9 mg/dL (0.6-1.0) Estimated GFR (Cockcroft-Gault) 4.7 Glucose Level 98 mg/dL (70-99) Calcium Level 8.3 mg/dL (8.5-10.1) Phosphorus Level 4.5 mg/dL (2.6-4.7) Albumin 2.9 g/dL (3.4-5.0) Test 03/25/17 05:30 03/25/17 07:46 03/25/17 08:29 White Blood Count 5.1 x10^3/uL (4.0-11.0) Red Blood Count 3.22 x10^6/uL (3.50-5.40) Hemoglobin 10.1 g/dL (12.0-15.5) Hematocrit 30.4 % (36.0-47.0) Mean Corpuscular Volume 94 fL (79-100) Mean Corpuscular Hemoglobin 31 pg (25-35) Mean Corpuscular Hemoglobin Concent 33 g/dL (31-37) Red Cell Distribution Width 14.6 % (11.5-14.5) Platelet Count 109 x10^3/uL (140-400) Neutrophils (%) (Auto) 70 % (31-73) Lymphocytes (%) (Auto) 18 % (24-48) Monocytes (%) (Auto) 8 % (0-9) Eosinophils (%) (Auto) 2 % (0-3) Basophils (%) (Auto) 1 % (0-3) Neutrophils # (Auto) 3.6 x10^3uL (1.8-7.7) Lymphocytes # (Auto) 0.9 x10^3/uL (1.0-4.8) Monocytes # (Auto) 0.4 x10^3/uL (0.0-1.1) Eosinophils # (Auto) 0.1 x10^3/uL (0.0-0.7) Basophils # (Auto) 0.0 x10^3/uL (0.0-0.2) Glucose (Fingerstick) 101 mg/dL (70-99) 93 mg/dL (70-99) Microbiology 03/22/17 Urine Culture - Final, Complete 03/22/17 Urine Culture Result 1 (MOE) - Final, Complete Medications Current Medications Hydralazine HCl (Apresoline Inj) 10 mg 1X ONCE IVP Last administered on 13:25; Start 03/20/17 at 13:15; Stop 03/20/17 at 13:16; Status DC Ondansetron HCl (Zofran) 4 mg PRN Q8HRS PRN IV NAUSEA/VOMITING; Start 03/20/17 at 15:45; Stop 03/21/17 at 15:44; Status DC Fentanyl Citrate (Fentanyl 2ml Vial) 50 mcg 1X ONCE IV Last administered on 16:31; Start 03/20/17 at 16:30; Stop 03/20/17 at 16:31; Status DC Hydralazine HCl (Apresoline Inj) 10 mg PRN Q4HRS PRN IVP ELEVATED BP, SEE COMMENTS Last administered on 03/25/17 14:30; Start 03/20/17 at 18:00 Fentanyl Citrate (Fentanyl 2ml Vial) 50 mcg PRN Q4HRS PRN IV PAIN Last administered on 03/21/17 14:16; Start 03/20/17 at 18:00 Nicardipine HCl 50 mg/Sodium Chloride 270 ml @ 0 mls/hr CONT PRN IV SEE I/O RECORD Last administered on 03/22/17 04:15; Start 03/20/17 at 18:45 Morphine Sulfate 2 mg PRN Q2HR PRN IV PAIN Last administered on 03/21/17 11: 59; Start 03/20/17 at 19:30 Morphine Sulfate 4 mg PRN Q2HR PRN IV PAIN Last administered on 03/25/17 11: 38; Start 03/20/17 at 19:30 Magnesium Sulfate/ Dextrose 50 ml @ 25 mls/hr PRN DAILY PRN IV for Mag < 1.7 on am labs; Start 03/21/17 at 08:30 Iohexol (Omnipaque 300 Mg/ml) 90 ml 1X ONCE IV Last administered on 10:47; Start 03/21/17 at 10:30; Stop 03/21/17 at 10:32; Status DC Info (Do NOT chart on this entry -- for MONITORING) 1 each PRN DAILY PRN MC SEE COMMENTS; Start 03/21/17 at 10:45; Stop 03/23/17 at 10:44; Status DC Amlodipine Besylate (Norvasc) 5 mg BID PO Last administered on 03/25/17 15:04 ; Start 03/21/17 at 21:00 Clonidine HCl (Catapres) 0.2 mg TID PO Last administered on 03/25/17 15:05; Start 03/21/17 at 14:00 Gabapentin (Neurontin) 200 mg TID PO Last administered on 03/21/17 20:46; Start 03/21/17 at 14:00; Stop 03/22/17 at 09:24; Status DC Lisinopril (Prinivil) 40 mg DAILY PO Last administered on 03/25/17 15:02; Start 03/21/17 at 14:00 Ondansetron HCl (Zofran Odt) 4 mg PRN Q4HRS PRN PO NAUSEA/VOMITING; Start 02/25 at 13:30 Non-Formulary Medication 300 mg QHS PO ; Start 03/21/17 at 21:00; Status UNV Trazodone HCl (Desyrel) 150 mg QHS PO Last administered on 03/23/17 21:46; Start 03/21/17 at 21:00 Labetalol HCl (Normodyne) 20 mg PRN Q2HR PRN IVP HYPERTENSION, SEE COMMENTS Last administered on 03/23/17 20:55; Start 03/21/17 at 13:45 Insulin Aspart (NovoLOG) 0-5 UNITS TIDWMEALS SQ ; Start 03/21/17 at 17:00 Dextrose (Dextrose 50%-Water Syringe) 12.5 gm PRN Q15MIN PRN IV SEE COMMENTS Last administered on 03/24/17 23:27; Start 03/21/17 at 13:45 Insulin Detemir (Levemir) 21 units QHS SQ Last administered on 03/23/17 22:05 ; Start 03/21/17 at 21:00; Stop 03/24/17 at 08:45; Status DC Aripiprazole (Abilify) 5 mg DAILY PO Last administered on 03/25/17 15:01; Start 03/21/17 at 14:00 Lamotrigine (LaMICtal) 100 mg BID PO Last administered on 03/25/17 15:02; Start 03/21/17 at 14:00 Topiramate (Topamax) 25 mg BID PO Last administered on 03/25/17 15:01; Start 03/21/17 at 14:00 Bupropion HCl (Wellbutrin Xl) 300 mg DAILY PO Last administered on 03/25/17 15:06; Start 03/21/17 at 14:00 Acetaminophen (Tylenol) 650 mg PRN Q6HRS PRN PO headache Last administered on 03/22/17 12:04; Start 03/21/17 at 14:00 Gabapentin (Neurontin) 600 mg HS PO ; Start 03/22/17 at 21:00; Stop 03/22/17 at 21:00; Status DC Gabapentin (Neurontin) 300 mg HS PO Last administered on 03/23/17 21:36; Start 03/22/17 at 21:00 Multivitamins 10 ml/Thiamine HCl 100 mg/Sodium Chloride 1,011 ml @ 100 mls/hr 1X ONCE IV Last administered on 03/22/17 12:13; Start 03/22/17 at 12:00; Stop 03/22/17 at 22:06; Status DC Multivitamins (Thera M Plus) 1 tab DAILY PO Last administered on 03/25/17 15: 09; Start 03/23/17 at 09:00 Folic Acid (Folic Acid) 1 mg DAILY PO Last administered on 03/25/17 15:09; Start 03/23/17 at 09:00 Lorazepam (Ativan) 2 mg PRN Q1HR PRN IV For CIWA 8-14 Last administered on 01:50; Start 03/22/17 at 11:30 Haloperidol Lactate (Haldol) 5 mg PRN Q4HRS PRN IVP Hallucinatns,Confusn, Delirium; Start 03/22/17 at 11:30 Diphenhydramine HCl (Benadryl) 25 mg PRN Q15MIN PRN IVP EPS symptoms 2'Haldol admin; Start 03/22/17 at 11:30 Thiamine Mononitrate (Vitamin B-1) 100 mg DAILY PO Last administered on 15:09; Start 03/23/17 at 09:00 Topiramate (Topamax) 50 mg TuThSa PO Last administered on 03/22/17 17:51; Start 03/22/17 at 17:00 Insulin Detemir (Levemir) 18 units QHS SQ ; Start 03/24/17 at 21:00 Dextrose/Sodium Chloride 1,000 ml @ 75 mls/hr 1X ONCE IV Last administered on 03/24/17 09:41; Start 03/24/17 at 08:45; Stop 03/24/17 at 22:04; Status DC Darbepoetin Franck (Aranesp) 60 mcg WEEKLYHS SQ ; Start 03/31/17 at 21:00 Heparin Sodium (Porcine) (Heparin Sodium) 500 unit 1X PRN PRN INT CAT COMM; Start 03/25/17 at 08:30; Stop 03/26/17 at 08:29 Sodium Chloride 1,000 ml @ 1,000 mls/hr Q1H PRN IV hypotension; Start at 08:23; Stop 03/25/17 at 14:22; Status DC Albumin Human 200 ml @ 200 mls/hr 1X PRN PRN IV Hypotension; Start 03/25/17 at 08:30; Stop 03/25/17 at 14:29; Status DC Acetaminophen (Tylenol) 500 mg 1X PRN PRN PO MILD PAIN / TEMP; Start 03/25/17 at 08:30; Stop 03/26/17 at 08:29 Diphenhydramine HCl (Benadryl) 25 mg 1X PRN PRN IV ITCHING; Start 03/25/17 at 08:30; Stop 03/26/17 at 08:29 Diphenhydramine HCl (Benadryl) 25 mg 1X PRN PRN IV ITCHING; Start 03/25/17 at 08:30; Stop 03/26/17 at 08:29 Info (PHARMACY MONITORING -- do not chart) 1 each PRN DAILY PRN MC SEE COMMENTS ; Start 03/25/17 at 08:30; Status UNV Info (PHARMACY MONITORING -- do not chart) 1 each PRN DAILY PRN MC SEE COMMENTS ; Start 03/25/17 at 08:30 Active Scripts Active Midodrine Hcl 10 Mg Tablet 10 Mg PO TID 30 Days Lisinopril 40 Mg Tablet 1 Tab PO DAILY Coreg (Carvedilol) 6.25 Mg Tablet 1 Tab PO BID Norvasc (Amlodipine Besylate) 5 Mg Tablet 1 Tab PO BID Topamax (Topiramate) 25 Mg Tablet 25 Mg PO BID 30 Days Aspirin Ec (Aspirin) 81 Mg Tablet.dr 81 Mg PO DAILYWBKFT 30 Days Reported Oxycodone Hcl 5 Mg Capsule 5 Mg PO Q6HRS PRN Gabapentin 100 Mg Capsule 200 Mg PO TID Zofran Odt (Ondansetron) 4 Mg Tab.rapdis 4 Mg PO PRN Q4HRS PRN Trazodone Hcl 150 Mg Tablet 150 Mg PO HS Renvela (Sevelamer Carbonate) 800 Mg Tablet 2 Tab PO TID Lantus Solostar (Insulin Glargine,Hum.rec.anlog) 100 Unit/1 Ml Insuln.pen 12 Unit SQ QHS Lamictal (Lamotrigine) 100 Mg Tablet 100 Mg PO BID Gabapentin 300 Mg Capsule 300 Mg PO QHS Clonidine Hcl 0.2 Mg Tablet 0.2 Mg PO TID Bupropion Xl (Bupropion Hcl) 300 Mg Tab.er.24h 300 Mg PO DAILY Abilify (Aripiprazole) 5 Mg Tablet 5 Mg PO DAILY Vitals/I & O Vital Sign - Last 24 Hours 03/24/17 03/24/17 03/25/17 03/25/17 20:00 20:00 00:00 04:00 Temp 98.5 99.6 100.1 98.5 99.6 100.1 Pulse 70 84 88 Resp 16 16 14 B/P (MAP) 159/76 (103) 178/84 (115) 173/75 (107) Pulse Ox 98 97 98 O2 Delivery Room Air Room Air Room Air Room Air 03/25/17 03/25/17 03/25/17 03/25/17 08:00 11:38 12:08 14:30 Pulse 91 Resp 20 18 B/P (MAP) 194/87 O2 Delivery Room Air Room Air Room Air 03/25/17 03/25/17 03/25/17 03/25/17 15:02 15:04 15:05 16:00 Temp 98.5 98.5 Pulse 94 94 94 97 Resp 18 B/P (MAP) 177/94 177/94 177/94 174/64 (100) Pulse Ox 95 O2 Delivery Room Air Intake and Output 03/24/17 03/24/17 03/25/17 15:00 23:00 07:00 Intake Total 50 ml 600 ml 805 ml Output Total 80 ml 120 ml 225 ml Balance -30 ml 480 ml 580 ml MARCUS ZAPATA MD Mar 25, 2017 16:29
[2017-03-25] MEDS: LABETALOL 20 MG/4 ML DISP.SYRIN. IVP PRN (16:37)
--- NOTE | 2017-03-25 17:56 | PDOC ---
PROGRESS NOTES Assessment Assessment Metabolic encephalopathy. SDH, 5 mm at left cerebral convexity. DM HTN ESRD on dialysis. Hx of alcoholism. Schizophrenia. Enlarged ventricles, brain value loss or NPH. RECOMMENDATIONS/PLAN: Continue medical treatment. Continue Topamax, renal dose. OT/PT. SUBJECTIVE: Sleepiness. OBJECTIVE: Sleepiness. Past Medical History Cardiovascular: HTN, Hyperlipidemia Pulmonary: No pertinent hx CENTRAL NERVOUS SYSTEM: CVA, Periperal neuropathy GI: Peptic Ulcer disease Heme/Onc: Anemia NOS Hepatobiliary: Hep A/B/C Psych: Anxiety Musculoskeletal: Osteoarthritis Rheumatologic: No pertinent hx Infectious disease: No pertinent hx Renal/: Chronic renal failure Endocrine: Diabetes, Hyperparathyroidism Past Surgical History , Tonsillectomy, Other Family History Diabetes Social History ALCOHOL: none Drugs: None Lives: with Family ALLERGY: Reviewed. MEDICATIONS: Refer to [facility] REVIEW OF SYSTEMS: Constitutional: No cachexia. Head: No traumatic brain or head injury. Skin: No edema, or rash. Ear: No infection. Eyes: No vision loss, or diplopia. Nose: No bleeding or purulent discharges. Hearing: No hearing decrease. Neck: No injury. Breast: No history of cancer, masses, or discharges. 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 GI: No GI Ulcer, GI bleeding Urinary/genital: ESRD on dialysis. Endocrine: Diabetes Mellitus Skeletomuscular: generalized weakness. Neurological: see HP. Psychiatric: Schizophrenia. Otherwise, not [id number] review of systems. PHYSICAL EXAMINATION: General appearance in subacute distress. HEENT: Normocephalic and nontraumatic. Eyes, nose, ears, and throat are unremarkable. Neck is supple. No lymphadenopathy. No Crepitus. Cardiovascular: S1, S2, regular rate and rhythm. Pulmonary: mildly rough to auscultation bilaterally. Abdomen: Bowel sounds are positive. Extremities: No rash, lesions, or edema. No restriction of range of motion NEUROLOGICAL EXAMINATION: Awake. Oriented partially to time, place and person. PERRL. EOMI. CN: no focal findings. Muscle tone: within normal. Muscle strength: 4 DTR: 2 Plantar reflex: Flexor response bilaterally Gait: not examined in bed. Sensory exam: no acute abnormal findings. No cerebellar sign elicited. F-T-N test not performed. Objective Objective Vital Signs Date Time Temp Pulse Resp B/P (MAP) Pulse Ox O2 Delivery O2 Flow Rate FiO2 03/25/17 16:37 97 174/64 03/25/17 16:00 98.5 18 95 Room Air 98.5 Intake and Output 03/25/17 07:00 Intake Total 1455 ml Output Total 425 ml Balance 1030 ml Intake Oral 50 ml IV Total 1405 ml Output Urine Total 425 ml Vitals Signs Vitals VS - Last 72 Hours, by Label Date Time Temp Pulse Resp B/P (MAP) Pulse Ox O2 Delivery O2 Flow Rate FiO2 03/25/17 16:37 97 174/64 03/25/17 16:00 98.5 97 18 174/64 (100) 95 Room Air 98.5 03/25/17 15:05 94 177/94 03/25/17 15:04 94 177/94 03/25/17 15:02 94 177/94 03/25/17 14:30 91 194/87 03/25/17 12:08 18 Room Air 03/25/17 11:38 20 Room Air 03/25/17 08:00 Room Air 03/25/17 04:00 100.1 88 14 173/75 (107) 98 Room Air 100.1 03/25/17 00:00 99.6 84 16 178/84 (115) 97 Room Air 99.6 03/24/17 20:00 98.5 70 16 159/76 (103) 98 Room Air 98.5 03/24/17 20:00 Room Air 03/24/17 16:06 70 189/79 03/24/17 16:00 98.5 69 13 182/79 (113) 99 Room Air 98.5 03/24/17 13:28 69 140/68 03/24/17 12:00 98.1 73 16 140/68 (92) 98 Room Air 98.1 03/24/17 08:32 75 138/66 03/24/17 08:31 75 138/66 03/24/17 08:31 75 138/66 03/24/17 08:00 100.2 80 16 135/72 (93) 98 Room Air 100.2 03/24/17 08:00 Room Air Laboratory Laboratory Laboratory Tests Test 03/24/17 23:24 03/24/17 23:41 03/25/17 04:30 03/25/17 05:20 Glucose (Fingerstick) 53 mg/dL (70-99) 140 mg/dL (70-99) Magnesium Level 2.0 mg/dL (1.8-2.4) Sodium Level 135 mmol/L (136-145) Potassium Level 5.1 mmol/L (3.5-5.1) Chloride Level 100 mmol/L (98-107) Carbon Dioxide Level 25 mmol/L (21-32) Anion Gap 10 (6-14) Blood Urea Nitrogen 50 mg/dL (7-20) Creatinine 8.9 mg/dL (0.6-1.0) Estimated GFR (Cockcroft-Gault) 4.7 Glucose Level 98 mg/dL (70-99) Calcium Level 8.3 mg/dL (8.5-10.1) Phosphorus Level 4.5 mg/dL (2.6-4.7) Albumin 2.9 g/dL (3.4-5.0) Test 03/25/17 05:30 03/25/17 07:46 03/25/17 08:29 03/25/17 16:46 White Blood Count 5.1 x10^3/uL (4.0-11.0) Red Blood Count 3.22 x10^6/uL (3.50-5.40) Hemoglobin 10.1 g/dL (12.0-15.5) Hematocrit 30.4 % (36.0-47.0) Mean Corpuscular Volume 94 fL (79-100) Mean Corpuscular Hemoglobin 31 pg (25-35) Mean Corpuscular Hemoglobin Concent 33 g/dL (31-37) Red Cell Distribution Width 14.6 % (11.5-14.5) Platelet Count 109 x10^3/uL (140-400) Neutrophils (%) (Auto) 70 % (31-73) Lymphocytes (%) (Auto) 18 % (24-48) Monocytes (%) (Auto) 8 % (0-9) Eosinophils (%) (Auto) 2 % (0-3) Basophils (%) (Auto) 1 % (0-3) Neutrophils # (Auto) 3.6 x10^3uL (1.8-7.7) Lymphocytes # (Auto) 0.9 x10^3/uL (1.0-4.8) Monocytes # (Auto) 0.4 x10^3/uL (0.0-1.1) Eosinophils # (Auto) 0.1 x10^3/uL (0.0-0.7) Basophils # (Auto) 0.0 x10^3/uL (0.0-0.2) Glucose (Fingerstick) 101 mg/dL (70-99) 93 mg/dL (70-99) 240 mg/dL (70-99) Microbiology 03/22/17 Urine Culture - Final, Complete 03/22/17 Urine Culture Result 1 (MOE) - Final, Complete Medication Medications Current Medications Acetaminophen (Tylenol) 500 mg 1X PRN PRN PO MILD PAIN / TEMP; Start 03/25/17 at 08:30; Stop 03/26/17 at 08:29 Albumin Human 200 ml @ 200 mls/hr 1X PRN PRN IV Hypotension; Start 03/25/17 at 08:30; Stop 03/25/17 at 14:29; Status DC Darbepoetin Franck (Aranesp) 60 mcg WEEKLYHS SQ ; Start 03/31/17 at 21:00 Diphenhydramine HCl (Benadryl) 25 mg 1X PRN PRN IV ITCHING; Start 03/25/17 at 08:30; Stop 03/26/17 at 08:29 Diphenhydramine HCl (Benadryl) 25 mg 1X PRN PRN IV ITCHING; Start 03/25/17 at 08:30; Stop 03/26/17 at 08:29 Heparin Sodium (Porcine) (Heparin Sodium) 500 unit 1X PRN PRN INT CAT COMM; Start 03/25/17 at 08:30; Stop 03/26/17 at 08:29 Info (PHARMACY MONITORING -- do not chart) 1 each PRN DAILY PRN MC SEE COMMENTS ; Start 03/25/17 at 08:30 Info (PHARMACY MONITORING -- do not chart) 1 each PRN DAILY PRN MC SEE COMMENTS ; Start 03/25/17 at 08:30; Status UNV Insulin Detemir (Levemir) 18 units QHS SQ ; Start 03/24/17 at 21:00 Sodium Chloride 1,000 ml @ 1,000 mls/hr Q1H PRN IV hypotension; Start at 08:23; Stop 03/25/17 at 14:22; Status DC Comment Review of Relevant I have reviewed the following items shi (where applicable) has been applied. DEBORAH FRIAS MD Mar 25, 2017 17:56
[2017-03-25 19:00] VITALS: BP 164/82
[2017-03-25] MEDS: GABAPENTIN 300 MG CAPSULE. PO SCH (21:50)
[2017-03-25] MEDS: traZODone 50 MG TABLET. PO SCH (21:50)
[2017-03-25] MEDS: ACETAMINOPHEN 325 MG TABLET. PO PRN (21:51)
[2017-03-25] MEDS: INSULIN DETEMIR 300 UNITS/3 ML INSULN.PEN. SQ SCH (21:55)
[2017-03-25 23:00] VITALS: BP 150/79
[2017-03-26] VITALS (12 sets, daily range): BP systolic 123–171; BP diastolic 66–76
[2017-03-26 05:59] LABS: ALBUMIN 2.6 g/dL (3.4-5.0); CALCIUM 8.2 mg/dL (8.5-10.1); CREATININE 5.6 mg/dL (0.6-1.0); MAGNESIUM 1.9 mg/dL (1.8-2.4); PHOSPHORUS 4.1 mg/dL (2.6-4.7); POTASSIUM 3.7 mmol/L (3.5-5.1)
[2017-03-26 06:33] LABS: BASO % 1 % (0-3); EOS % 2 % (0-3); HEMATOCRIT 26.9 % (36.0-47.0); HEMOGLOBIN 9.1 g/dL (12.0-15.5); LYMPH # 1.1 x10^3/uL (1.0-4.8); LYMPH % 28 % (24-48); MEAN CORPUSCULAR HEMOGLOBIN 31 pg (25-35); MEAN CORPUSCULAR HGB CONC 34 g/dL (31-37); MEAN CORPUSCULAR VOLUME 93 fL (79-100); MONO % 9 % (0-9); NEUT % 60 % (31-73); PLATELET COUNT 99 x10^3/uL (140-400); RED BLOOD COUNT 2.91 x10^6/uL (3.50-5.40); RED CELL DISTRIBUTION WIDTH 14.3 % (11.5-14.5); WHITE BLOOD COUNT 4.1 x10^3/uL (4.0-11.0)
[2017-03-26 07:51] LABS: HCO3 ABG 30 mmol/L (21-28); PCO2 ABG 51 mmHg (35-46); PH ABG 7.38 (7.35-7.45); PO2 ABG 84 mmHg (75-108); SAT O2 ABG 95 % (92-99)
[2017-03-26 07:52] LABS: FIO2 ABG 100
[2017-03-26] MEDS: INSULIN ASPART 300 UNITS/3 ML INSULN.PEN SQ SCH ×3 (08:00→17:00)
--- NOTE | 2017-03-26 08:00 | EKG ---
[facility] [address] [place] [address] Test Date: 2017-03-26 Test Time: 07:38:01 Pat Name: THANH VASQUEZ Department: Room: 109 1 Gender: F Certified Drug Counselor: JOHNNIE : 1965 Requested By: VIVIAN MORALES Order Number: [id number] Reading MD: Ru Blakely MD Measurements Intervals [place] Rate: 84 P: 44 [place]: 192 QRS: 5 QRSD: 98 T: 30 QT: 422 QTc: 502 Interpretive Statements SINUS RHYTHM Electronically Signed On 03-26-2017 8:34:08 [facility] by Ru Blakely MD
--- NOTE | 2017-03-26 08:19 | RAD ---
CT of the head without contrast, 03/26/2017: History: Patient unresponsive Noncontrast scans were obtained and compared to the study of 03/24/2017. A small recent subdural hematoma is again noted centered in the left frontoparietal region. There may be a component extending over the tentorium on the left. It measures proximally 5 mm in greatest width on the axial images and show no definite change since 03/24/2017. There is no significant associated midline shift. The ventricles are mildly enlarged, but unchanged. The cerebellum and brainstem are unremarkable. No new abnormality is seen. IMPRESSION: Stable small left subdural hematoma. PQRS Compliance Statement: One or more of the following individualized dose reduction techniques were utilized for this examination: 1. Automated exposure control 2. Adjustment of the mA and/or kV according to patient size 3. Use of iterative reconstruction technique
[2017-03-26] MEDS: DEXTROSE 50% 25 GM / 50ML DISP.SYRIN. IV PRN (08:22)
[2017-03-26] MEDS: LISINOPRIL 40 MG TABLET. PO SCH (09:38)
[2017-03-26] MEDS: buPROPion XL 150 MG TAB.ER.24H. PO SCH (09:38)
[2017-03-26] MEDS: cloNIDine HCL 0.2 MG TABLET PO SCH ×3 (09:38→21:16)
[2017-03-26] MEDS: FOLIC ACID 1 MG TABLET. PO SCH (09:39)
[2017-03-26] MEDS: ACETAMINOPHEN 325 MG TABLET. PO PRN (09:39)
[2017-03-26] MEDS: lamoTRIgine 100 MG TABLET. PO SCH ×2 (09:39→21:15)
[2017-03-26] MEDS: THIAMINE 100 MG TABLET. PO SCH (09:39)
[2017-03-26] MEDS: MULTIVITAMIN with MINERAL TABLET. PO SCH (09:39)
[2017-03-26] MEDS: ARIPiprazole 5 MG TABLET PO SCH (09:39)
[2017-03-26] MEDS: amLODIPine BESYLATE 5 MG TABLET PO SCH ×2 (09:39→21:16)
[2017-03-26] MEDS: TOPIRAMATE 25 MG TABLET. PO SCH ×2 (09:39→21:42)
--- NOTE | 2017-03-26 10:38 | PDOC ---
Renal-Progress Notes Subjective Notes Notes NONE History of Present Illness Hx of present illness NO CHANGE Vitals Vitals Vital Signs Date Time Temp Pulse Resp B/P (MAP) Pulse Ox O2 Delivery O2 Flow Rate FiO2 03/26/17 10:00 69 20 129/67 (87) 95 Room Air 03/26/17 07:00 94.5 3.0 94.5 Weight Weight [ ] I.O. Intake and Output Intake and Output 03/26/17 07:00 Intake Total 420 ml Output Total 100 ml Balance 320 ml Intake Oral 420 ml Output Urine Total 100 ml Labs Labs Laboratory Tests Test 03/25/17 16:46 03/25/17 21:25 03/26/17 03:40 03/26/17 07:47 Glucose (Fingerstick) 240 mg/dL (70-99) 191 mg/dL (70-99) White Blood Count 4.1 x10^3/uL (4.0-11.0) Red Blood Count 2.91 x10^6/uL (3.50-5.40) Hemoglobin 9.1 g/dL (12.0-15.5) Hematocrit 26.9 % (36.0-47.0) Mean Corpuscular Volume 93 fL (79-100) Mean Corpuscular Hemoglobin 31 pg (25-35) Mean Corpuscular Hemoglobin Concent 34 g/dL (31-37) Red Cell Distribution Width 14.3 % (11.5-14.5) Platelet Count 99 x10^3/uL (140-400) Neutrophils (%) (Auto) 60 % (31-73) Lymphocytes (%) (Auto) 28 % (24-48) Monocytes (%) (Auto) 9 % (0-9) Eosinophils (%) (Auto) 2 % (0-3) Basophils (%) (Auto) 1 % (0-3) Neutrophils # (Auto) 2.4 x10^3uL (1.8-7.7) Lymphocytes # (Auto) 1.1 x10^3/uL (1.0-4.8) Monocytes # (Auto) 0.4 x10^3/uL (0.0-1.1) Eosinophils # (Auto) 0.1 x10^3/uL (0.0-0.7) Basophils # (Auto) 0.0 x10^3/uL (0.0-0.2) Sodium Level 138 mmol/L (136-145) Potassium Level 3.7 mmol/L (3.5-5.1) Chloride Level 99 mmol/L (98-107) Carbon Dioxide Level 34 mmol/L (21-32) Anion Gap 5 (6-14) Blood Urea Nitrogen 29 mg/dL (7-20) Creatinine 5.6 mg/dL (0.6-1.0) Estimated GFR (Cockcroft-Gault) 8.0 Glucose Level 65 mg/dL (70-99) Calcium Level 8.2 mg/dL (8.5-10.1) Phosphorus Level 4.1 mg/dL (2.6-4.7) Magnesium Level 1.9 mg/dL (1.8-2.4) Albumin 2.6 g/dL (3.4-5.0) O2 Saturation 95 % (92-99) Arterial Blood pH 7.38 (7.35-7.45) Arterial Blood pCO2 at Patient Temp 51 mmHg (35-46) Arterial Blood pO2 at Patient Temp 84 mmHg (75-108) Arterial Blood HCO3 30 mmol/L (21-28) Arterial Blood Base Excess 4 mmol/L (-3-3) FiO2 100 Test 03/26/17 08:16 03/26/17 09:43 Glucose (Fingerstick) 491 mg/dL (70-99) 295 mg/dL (70-99) Micro Micro Microbiology 03/22/17 Urine Culture - Final, Complete 03/22/17 Urine Culture Result 1 (MOE) - Final, Complete Review of Systems Constitutional: yes: other (UNABLE TO OBTAIN) Physical Exam General Appearance: no apparent distress Skin: warm Respiratory: bilateral CTA Heart: S1S2 Abdomen: soft, bowel sounds present Genitourinary: bladder flat Extremities: pulses present, atrophy Assessment Assessment IMP HTN DM II ANEMIA ESRD SDH SEIZURE SCHIZOPHRENIA HYPOGLYCEMIA PLAN CONT HOME MEDS HD TOMORROW CONT ISAAC PERALTA MD Mar 26, 2017 10:38
--- NOTE | 2017-03-26 12:24 | PDOC ---
PROGRESS NOTES Chief Complaint Chief Complaint RHOADES, dizziness, falls Hypertensive urgency ASSESSMENT AND PLAN: 1. SDH: acute, 5 mm at left cerebral convexity. Neuro, NS following. no intervention indicated at this time 2. Metabolic encephalopathy: 2/2 above 3. HTN urgency: resolved, BP controlled 4. Hx Orthostatic hypotension: off midodrine, no evidence during current admit 5. DM2: brittle with severe hypoglycemia this AM. cont ISS with decreased levemir. needs glumeter at D/C 6. ESRD: on HD MWF 7. Anemia: 2/2 renal dz 8. Thrombocytopenia: stable around 100K; most likely 2/2 HCV 9. HCV: chronic 9. Hx of alcoholism: "dry" for 4+ yrs 10. 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 Schizophrenia: stable mood and affect. cont home regimen 12. Prophylaxis: chemical DVT PPx relatively contraindicated with SDH. SCDs History of Present Illness History of Present Illness feels ok this PM. some L sided rib pain Vitals Vitals Vital Signs Date Time Temp Pulse Resp B/P (MAP) Pulse Ox O2 Delivery O2 Flow Rate FiO2 03/26/17 10:00 69 20 129/67 (87) 95 Room Air 03/26/17 08:30 10.0 03/26/17 07:00 94.5 94.5 Physical Exam General: Alert, Cooperative, No acute distress Heart: Regular rate, Normal S1, Normal S2, No murmurs, Gallops Lungs: Clear Abdomen: Normal bowel sounds, Soft, No tenderness, No hepatosplenomegaly, No masses Extremities: No clubbing, No cyanosis, No edema, Normal pulses, No tenderness/ swelling Skin: Other (CONFUSED) Labs LABS Laboratory Tests Test 03/25/17 16:46 03/25/17 21:25 03/26/17 03:40 03/26/17 07:47 Glucose (Fingerstick) 240 mg/dL (70-99) 191 mg/dL (70-99) White Blood Count 4.1 x10^3/uL (4.0-11.0) Red Blood Count 2.91 x10^6/uL (3.50-5.40) Hemoglobin 9.1 g/dL (12.0-15.5) Hematocrit 26.9 % (36.0-47.0) Mean Corpuscular Volume 93 fL (79-100) Mean Corpuscular Hemoglobin 31 pg (25-35) Mean Corpuscular Hemoglobin Concent 34 g/dL (31-37) Red Cell Distribution Width 14.3 % (11.5-14.5) Platelet Count 99 x10^3/uL (140-400) Neutrophils (%) (Auto) 60 % (31-73) Lymphocytes (%) (Auto) 28 % (24-48) Monocytes (%) (Auto) 9 % (0-9) Eosinophils (%) (Auto) 2 % (0-3) Basophils (%) (Auto) 1 % (0-3) Neutrophils # (Auto) 2.4 x10^3uL (1.8-7.7) Lymphocytes # (Auto) 1.1 x10^3/uL (1.0-4.8) Monocytes # (Auto) 0.4 x10^3/uL (0.0-1.1) Eosinophils # (Auto) 0.1 x10^3/uL (0.0-0.7) Basophils # (Auto) 0.0 x10^3/uL (0.0-0.2) Sodium Level 138 mmol/L (136-145) Potassium Level 3.7 mmol/L (3.5-5.1) Chloride Level 99 mmol/L (98-107) Carbon Dioxide Level 34 mmol/L (21-32) Anion Gap 5 (6-14) Blood Urea Nitrogen 29 mg/dL (7-20) Creatinine 5.6 mg/dL (0.6-1.0) Estimated GFR (Cockcroft-Gault) 8.0 Glucose Level 65 mg/dL (70-99) Calcium Level 8.2 mg/dL (8.5-10.1) Phosphorus Level 4.1 mg/dL (2.6-4.7) Magnesium Level 1.9 mg/dL (1.8-2.4) Albumin 2.6 g/dL (3.4-5.0) O2 Saturation 95 % (92-99) Arterial Blood pH 7.38 (7.35-7.45) Arterial Blood pCO2 at Patient Temp 51 mmHg (35-46) Arterial Blood pO2 at Patient Temp 84 mmHg (75-108) Arterial Blood HCO3 30 mmol/L (21-28) Arterial Blood Base Excess 4 mmol/L (-3-3) FiO2 100 Test 03/26/17 08:16 03/26/17 09:43 03/26/17 11:53 Glucose (Fingerstick) 491 mg/dL (70-99) 295 mg/dL (70-99) 158 mg/dL (70-99) HARISH MCKEON MD Mar 26, 2017 12:24
[2017-03-26] MEDS: hydrALAZINE 20 MG/ML VIAL. IVP PRN (15:27)
--- NOTE | 2017-03-26 15:42 | PDOC ---
PROGRESS NOTES Assessment Assessment Metabolic encephalopathy. SDH, 5 mm at left cerebral convexity. Hypoglycemia. Hyperglycemia. DM HTN ESRD on dialysis. Hx of alcoholism. Schizophrenia. Enlarged ventricles, brain value loss or NPH. RECOMMENDATIONS/PLAN: Continue medical treatment. Continue Topamax, renal dose. Blood culture if has fever or hypothermia. OT/PT. SUBJECTIVE: Awake. OBJECTIVE: The patient had an event as MS changes and unresponsiveness in am of 03/26/17. She had stat HCT which showed no new findings and the previous 5 mm hemorrhage was stable. She was found hypoglycemia the hyperglycemia. She was transferred to ICU. After treatment, she gained consciousness. Past Medical History Cardiovascular: HTN, Hyperlipidemia Pulmonary: No pertinent hx CENTRAL NERVOUS SYSTEM: CVA, Periperal neuropathy GI: Peptic Ulcer disease Heme/Onc: Anemia NOS Hepatobiliary: Hep A/B/C Psych: Anxiety Musculoskeletal: Osteoarthritis Rheumatologic: No pertinent hx Infectious disease: No pertinent hx Renal/: Chronic renal failure Endocrine: Diabetes, Hyperparathyroidism Past Surgical History , Tonsillectomy, Other Family History Diabetes Social History ALCOHOL: none Drugs: None Lives: with Family ALLERGY: Reviewed. MEDICATIONS: Refer to [facility] REVIEW OF SYSTEMS: Constitutional: No cachexia. Head: No traumatic brain or head injury. Skin: No edema, or rash. Ear: No infection. Eyes: No vision loss, or diplopia. Nose: No bleeding or purulent discharges. Hearing: No hearing decrease. Neck: No injury. Breast: No history of cancer, masses, or discharges. Cardiac: HTN Pulmonary: No [employer]IST[employer]GER [employer]ATIONS. GI: No GI Ulcer, GI bleeding Urinary/genital: ESRD on dialysis. Endocrine: Diabetes Mellitus Skeletomuscular: generalized weakness. Neurological: see HP. Psychiatric: Schizophrenia. Otherwise, not [id number] review of systems. PHYSICAL EXAMINATION: General appearance in subacute distress. HEENT: Normocephalic and nontraumatic. Eyes, nose, ears, and throat are unremarkable. Neck is supple. No lymphadenopathy. No Crepitus. Cardiovascular: S1, S2, regular rate and rhythm. Pulmonary: mildly rough to auscultation bilaterally. Abdomen: Bowel sounds are positive. Extremities: No rash, lesions, or edema. No restriction of range of motion NEUROLOGICAL EXAMINATION: Awake. Oriented partially to time, place and person. PERRL. EOMI. CN: no focal findings. Muscle tone: within normal. Muscle strength: 4 DTR: 2 Plantar reflex: Flexor response bilaterally Gait: not examined in bed. Sensory exam: no acute abnormal findings. No cerebellar sign elicited. F-T-N test not performed. Objective Objective Vital Signs Date Time Temp Pulse Resp B/P (MAP) Pulse Ox O2 Delivery O2 Flow Rate FiO2 03/26/17 15:27 88 172/80 03/26/17 13:59 Room Air 10.0 03/26/17 12:00 97.4 17 96 97.4 Intake and Output 03/26/17 07:00 Intake Total 420 ml Output Total 100 ml Balance 320 ml Intake Oral 420 ml Output Urine Total 100 ml Vitals Signs Vitals VS - Last 72 Hours, by Label Date Time Temp Pulse Resp B/P (MAP) Pulse Ox O2 Delivery O2 Flow Rate FiO2 03/26/17 15:27 88 172/80 03/26/17 13:59 Room Air 10.0 03/26/17 12:00 97.4 71 17 156/66 (96) 96 Room Air 97.4 03/26/17 10:00 69 20 129/67 (87) 95 Room Air 03/26/17 09:39 74 135/66 03/26/17 09:38 74 135/66 03/26/17 09:38 75 135/66 03/26/17 09:00 19 142/73 (96) 100 Room Air 03/26/17 08:40 Room Air 03/26/17 08:30 78 19 146/70 (95) 98 Simple Mask 10.0 03/26/17 08:15 76 21 123/67 (85) 100 Simple Mask 10.0 03/26/17 08:00 137/74 (95) 03/26/17 07:00 94.5 86 15 145/74 (97) 78 Nasal Cannula 3.0 94.5 03/26/17 03:00 98.7 73 16 140/71 (94) 91 98.7 03/25/17 23:00 100.8 85 18 150/79 (102) 93 100.8 03/25/17 21:52 85 164/82 03/25/17 21:51 85 164/82 03/25/17 20:30 Room Air 03/25/17 19:00 98.5 85 18 164/82 (109) 92 98.5 03/25/17 16:37 97 174/64 03/25/17 16:00 98.5 97 18 174/64 (100) 95 Room Air 98.5 03/25/17 15:05 94 177/94 03/25/17 15:04 94 177/94 03/25/17 15:02 94 177/94 03/25/17 14:30 91 194/87 03/25/17 12:08 18 Room Air 03/25/17 11:38 20 Room Air 03/25/17 08:00 Room Air Laboratory Laboratory Laboratory Tests Test 03/25/17 16:46 03/25/17 21:25 03/26/17 03:40 03/26/17 07:47 Glucose (Fingerstick) 240 mg/dL (70-99) 191 mg/dL (70-99) White Blood Count 4.1 x10^3/uL (4.0-11.0) Red Blood Count 2.91 x10^6/uL (3.50-5.40) Hemoglobin 9.1 g/dL (12.0-15.5) Hematocrit 26.9 % (36.0-47.0) Mean Corpuscular Volume 93 fL (79-100) Mean Corpuscular Hemoglobin 31 pg (25-35) Mean Corpuscular Hemoglobin Concent 34 g/dL (31-37) Red Cell Distribution Width 14.3 % (11.5-14.5) Platelet Count 99 x10^3/uL (140-400) Neutrophils (%) (Auto) 60 % (31-73) Lymphocytes (%) (Auto) 28 % (24-48) Monocytes (%) (Auto) 9 % (0-9) Eosinophils (%) (Auto) 2 % (0-3) Basophils (%) (Auto) 1 % (0-3) Neutrophils # (Auto) 2.4 x10^3uL (1.8-7.7) Lymphocytes # (Auto) 1.1 x10^3/uL (1.0-4.8) Monocytes # (Auto) 0.4 x10^3/uL (0.0-1.1) Eosinophils # (Auto) 0.1 x10^3/uL (0.0-0.7) Basophils # (Auto) 0.0 x10^3/uL (0.0-0.2) Sodium Level 138 mmol/L (136-145) Potassium Level 3.7 mmol/L (3.5-5.1) Chloride Level 99 mmol/L (98-107) Carbon Dioxide Level 34 mmol/L (21-32) Anion Gap 5 (6-14) Blood Urea Nitrogen 29 mg/dL (7-20) Creatinine 5.6 mg/dL (0.6-1.0) Estimated GFR (Cockcroft-Gault) 8.0 Glucose Level 65 mg/dL (70-99) Calcium Level 8.2 mg/dL (8.5-10.1) Phosphorus Level 4.1 mg/dL (2.6-4.7) Magnesium Level 1.9 mg/dL (1.8-2.4) Albumin 2.6 g/dL (3.4-5.0) O2 Saturation 95 % (92-99) Arterial Blood pH 7.38 (7.35-7.45) Arterial Blood pCO2 at Patient Temp 51 mmHg (35-46) Arterial Blood pO2 at Patient Temp 84 mmHg (75-108) Arterial Blood HCO3 30 mmol/L (21-28) Arterial Blood Base Excess 4 mmol/L (-3-3) FiO2 100 Test 03/26/17 08:16 03/26/17 09:43 03/26/17 11:53 03/26/17 14:59 Glucose (Fingerstick) 491 mg/dL (70-99) 295 mg/dL (70-99) 158 mg/dL (70-99) 165 mg/dL (70-99) Microbiology 03/22/17 Urine Culture - Final, Complete 03/22/17 Urine Culture Result 1 (MOE) - Final, Complete Medication Medications Current Medications Darbepoetin Franck (Aranesp) 60 mcg WEEKLYHS SQ ; Start 03/31/17 at 21:00 Insulin Detemir (Levemir) 12 units QHS SQ ; Start 03/26/17 at 21:00 Comment Review of Relevant I have reviewed the following items shi (where applicable) has been applied. DEBORAH FRIAS MD Mar 26, 2017 15:42
[2017-03-26] MEDS ORDERED: INSULIN DETEMIR 300 UNITS/3 ML INSULN.PEN. SQ SCH (21:00)
[2017-03-26] MEDS: GABAPENTIN 300 MG CAPSULE. PO SCH (21:15)
[2017-03-26] MEDS: traZODone 50 MG TABLET. PO SCH (21:15)
[2017-03-27 03:00] VITALS: BP 162/80
[2017-03-27 05:16] LABS: BASO % 1 % (0-3); EOS % 1 % (0-3); HEMATOCRIT 27.4 % (36.0-47.0); HEMOGLOBIN 9.3 g/dL (12.0-15.5); LYMPH # 1.3 x10^3/uL (1.0-4.8); LYMPH % 23 % (24-48); MEAN CORPUSCULAR HEMOGLOBIN 32 pg (25-35); MEAN CORPUSCULAR HGB CONC 34 g/dL (31-37); MEAN CORPUSCULAR VOLUME 93 fL (79-100); MONO % 7 % (0-9); NEUT % 69 % (31-73); PLATELET COUNT 111 x10^3/uL (140-400); RED BLOOD COUNT 2.94 x10^6/uL (3.50-5.40); RED CELL DISTRIBUTION WIDTH 14.3 % (11.5-14.5); WHITE BLOOD COUNT 5.8 x10^3/uL (4.0-11.0)
[2017-03-27 05:57] LABS: ALBUMIN 2.8 g/dL (3.4-5.0); CALCIUM 8.3 mg/dL (8.5-10.1); CREATININE 6.9 mg/dL (0.6-1.0); GFR 6.3; POTASSIUM 3.9 mmol/L (3.5-5.1)
[2017-03-27 07:00] VITALS: BP 148/68
[2017-03-27] MEDS: INSULIN ASPART 300 UNITS/3 ML INSULN.PEN SQ SCH ×2 (08:00→12:00)
[2017-03-27] MEDS ORDERED: OXYC5CAP PO (10:55)
[2017-03-27] MEDS ORDERED: MAG HYDROX/ALUMINUM HYD/SIMETH 30 ML ORAL.SUSP PO PRN (11:00)
--- NOTE | 2017-03-27 11:30 | PDOC ---
Renal-Progress Notes Subjective Notes Notes NONE History of Present Illness Hx of present illness STABLE Vitals Vitals Vital Signs Date Time Temp Pulse Resp B/P (MAP) Pulse Ox O2 Delivery O2 Flow Rate FiO2 03/27/17 07:00 98.0 87 18 148/68 (94) 95 Room Air 98.0 03/26/17 13:59 10.0 Weight Weight [ ] I.O. Intake and Output Intake and Output 03/27/17 07:00 Intake Total 780 ml Output Total 500 ml Balance 280 ml Intake Oral 780 ml Output Urine Total 500 ml Labs Labs Laboratory Tests Test 03/26/17 11:53 03/26/17 14:59 03/26/17 16:16 03/26/17 20:36 Glucose (Fingerstick) 158 mg/dL (70-99) 165 mg/dL (70-99) 181 mg/dL (70-99) 100 mg/dL (70-99) Test 03/27/17 00:13 03/27/17 03:15 03/27/17 07:56 Glucose (Fingerstick) 133 mg/dL (70-99) 130 mg/dL (70-99) White Blood Count 5.8 x10^3/uL (4.0-11.0) Red Blood Count 2.94 x10^6/uL (3.50-5.40) Hemoglobin 9.3 g/dL (12.0-15.5) Hematocrit 27.4 % (36.0-47.0) Mean Corpuscular Volume 93 fL (79-100) Mean Corpuscular Hemoglobin 32 pg (25-35) Mean Corpuscular Hemoglobin Concent 34 g/dL (31-37) Red Cell Distribution Width 14.3 % (11.5-14.5) Platelet Count 111 x10^3/uL (140-400) Neutrophils (%) (Auto) 69 % (31-73) Lymphocytes (%) (Auto) 23 % (24-48) Monocytes (%) (Auto) 7 % (0-9) Eosinophils (%) (Auto) 1 % (0-3) Basophils (%) (Auto) 1 % (0-3) Neutrophils # (Auto) 4.0 x10^3uL (1.8-7.7) Lymphocytes # (Auto) 1.3 x10^3/uL (1.0-4.8) Monocytes # (Auto) 0.4 x10^3/uL (0.0-1.1) Eosinophils # (Auto) 0.1 x10^3/uL (0.0-0.7) Basophils # (Auto) 0.0 x10^3/uL (0.0-0.2) Sodium Level 133 mmol/L (136-145) Potassium Level 3.9 mmol/L (3.5-5.1) Chloride Level 96 mmol/L (98-107) Carbon Dioxide Level 31 mmol/L (21-32) Anion Gap 6 (6-14) Blood Urea Nitrogen 36 mg/dL (7-20) Creatinine 6.9 mg/dL (0.6-1.0) Estimated GFR (Cockcroft-Gault) 6.3 Glucose Level 154 mg/dL (70-99) Calcium Level 8.3 mg/dL (8.5-10.1) Phosphorus Level 4.0 mg/dL (2.6-4.7) Albumin 2.8 g/dL (3.4-5.0) Micro Micro Microbiology 03/22/17 Urine Culture - Final, Complete 03/22/17 Urine Culture Result 1 (MOE) - Final, Complete Review of Systems Constitutional: yes: other (UNABLE TO OBTAIN) Physical Exam General Appearance: no apparent distress Skin: warm Respiratory: bilateral CTA Heart: S1S2 Abdomen: soft, bowel sounds present Genitourinary: bladder flat Extremities: pulses present, atrophy Assessment Assessment IMP HTN DM II ANEMIA ESRD SDH SEIZURE SCHIZOPHRENIA HYPOGLYCEMIA PLAN CONT HOME MEDS HD TODAY UF TO DW CONT ISAAC PERALTA MD Mar 27, 2017 11:30
[2017-03-27] MEDS: lamoTRIgine 100 MG TABLET. PO SCH (13:37)
[2017-03-27] MEDS: LISINOPRIL 40 MG TABLET. PO SCH (13:38)
[2017-03-27] MEDS: THIAMINE 100 MG TABLET. PO SCH (13:38)
[2017-03-27] MEDS: TOPIRAMATE 25 MG TABLET. PO SCH (13:38)
[2017-03-27] MEDS: buPROPion XL 150 MG TAB.ER.24H. PO SCH (13:38)
[2017-03-27] MEDS: ARIPiprazole 5 MG TABLET PO SCH (13:38)
[2017-03-27] MEDS: amLODIPine BESYLATE 5 MG TABLET PO SCH (13:39)
[2017-03-27] MEDS: MULTIVITAMIN with MINERAL TABLET. PO SCH (13:39)
[2017-03-27] MEDS: cloNIDine HCL 0.2 MG TABLET PO SCH ×2 (13:39→13:42)
[2017-03-27] MEDS: FOLIC ACID 1 MG TABLET. PO SCH (13:39)
[2017-03-27 13:42] VITALS: BP 148/68
[2017-03-27] MEDS ORDERED: IV NORMAL SALINE 1000ML BAG 1,000 ML IV PRN (14:19)
[2017-03-27] MEDS ORDERED: DIALYSIS PATIENT. MC PRN (14:30)
--- NOTE | 2017-03-27 16:43 | PDOC ---
PROGRESS NOTES Assessment Assessment Metabolic encephalopathy. SDH, 5 mm at left cerebral convexity. Hypoglycemia. Hyperglycemia. DM HTN ESRD on dialysis. Hx of alcoholism. Schizophrenia. Enlarged ventricles, brain value loss or NPH. RECOMMENDATIONS/PLAN: Continue medical treatment. Continue Topamax, renal dose. Blood culture if has fever or hypothermia. OT/PT. SUBJECTIVE: Awake. OBJECTIVE: The patient had an event as MS changes and unresponsiveness in am of 03/26/17. She had stat HCT which showed no new findings and the previous 5 mm hemorrhage was stable. She was found hypoglycemia the hyperglycemia. She was transferred to ICU. After treatment, she gained consciousness. Past Medical History Cardiovascular: HTN, Hyperlipidemia Pulmonary: No pertinent hx CENTRAL NERVOUS SYSTEM: CVA, Periperal neuropathy GI: Peptic Ulcer disease Heme/Onc: Anemia NOS Hepatobiliary: Hep A/B/C Psych: Anxiety Musculoskeletal: Osteoarthritis Rheumatologic: No pertinent hx Infectious disease: No pertinent hx Renal/: Chronic renal failure Endocrine: Diabetes, Hyperparathyroidism Past Surgical History , Tonsillectomy, Other Family History Diabetes Social History ALCOHOL: none Drugs: None Lives: with Family ALLERGY: Reviewed. MEDICATIONS: Refer to [facility] REVIEW OF SYSTEMS: Constitutional: No cachexia. Head: No traumatic brain or head injury. Skin: No edema, or rash. Ear: No infection. Eyes: No vision loss, or diplopia. Nose: No bleeding or purulent discharges. Hearing: No hearing decrease. Neck: No injury. Breast: No history of cancer, masses, or discharges. Cardiac: HTN Pulmonary: No MANUFACTURING JOB TITLES. GI: No GI Ulcer, GI bleeding Urinary/genital: ESRD on dialysis. Endocrine: Diabetes Mellitus Skeletomuscular: generalized weakness. Neurological: see HP. Psychiatric: Schizophrenia. Otherwise, not [id number] review of systems. PHYSICAL EXAMINATION: General appearance in subacute distress. HEENT: Normocephalic and nontraumatic. Eyes, nose, ears, and throat are unremarkable. Neck is supple. No lymphadenopathy. No Crepitus. Cardiovascular: S1, S2, regular rate and rhythm. Pulmonary: mildly rough to auscultation bilaterally. Abdomen: Bowel sounds are positive. Extremities: No rash, lesions, or edema. No restriction of range of motion NEUROLOGICAL EXAMINATION: Awake. Oriented partially to time, place and person. PERRL. EOMI. CN: no focal findings. Muscle tone: within normal. Muscle strength: 4 DTR: 2 Plantar reflex: Flexor response bilaterally Gait: not examined in bed. Sensory exam: no acute abnormal findings. No cerebellar sign elicited. F-T-N test not performed. Objective Objective Vital Signs Date Time Temp Pulse Resp B/P (MAP) Pulse Ox O2 Delivery O2 Flow Rate FiO2 03/27/17 13:42 87 148/68 03/27/17 08:00 Room Air 10.0 03/27/17 07:00 98.0 18 95 98.0 Intake and Output 03/27/17 07:00 Intake Total 780 ml Output Total 500 ml Balance 280 ml Intake Oral 780 ml Output Urine Total 500 ml Vitals Signs Vitals VS - Last 72 Hours, by Label Date Time Temp Pulse Resp B/P (MAP) Pulse Ox O2 Delivery O2 Flow Rate FiO2 03/27/17 13:42 87 148/68 03/27/17 13:39 87 148/68 03/27/17 13:39 87 148/68 03/27/17 13:38 87 148/68 03/27/17 08:00 Room Air 10.0 03/27/17 07:00 98.0 87 18 148/68 (94) 95 Room Air 98.0 03/27/17 03:00 98.6 76 16 162/80 (107) 93 Room Air 98.6 03/26/17 23:00 98.2 78 20 152/76 (101) 93 Room Air 98.2 03/26/17 21:16 85 171/72 03/26/17 21:16 85 171/72 03/26/17 20:00 Room Air 03/26/17 19:00 99.2 85 24 171/72 (105) 95 Room Air 99.2 03/26/17 17:00 87 157/75 (102) 96 Room Air 03/26/17 15:27 88 172/80 03/26/17 15:00 98.6 81 18 154/73 (100) 94 Room Air 98.6 03/26/17 15:00 88 172/80 03/26/17 13:59 Room Air 10.0 03/26/17 12:00 97.4 71 17 156/66 (96) 96 Room Air 97.4 03/26/17 10:00 69 20 129/67 (87) 95 Room Air 03/26/17 09:39 74 135/66 03/26/17 09:38 74 135/66 03/26/17 09:38 75 135/66 03/26/17 09:00 19 142/73 (96) 100 Room Air 03/26/17 08:40 Room Air 03/26/17 08:30 78 19 146/70 (95) 98 Simple Mask 10.0 03/26/17 08:15 76 21 123/67 (85) 100 Simple Mask 10.0 03/26/17 08:00 137/74 (95) 03/26/17 07:00 94.5 86 15 145/74 (97) 78 Nasal Cannula 3.0 94.5 Laboratory Laboratory Laboratory Tests Test 03/26/17 20:36 03/27/17 00:13 03/27/17 03:15 03/27/17 07:56 Glucose (Fingerstick) 100 mg/dL (70-99) 133 mg/dL (70-99) 130 mg/dL (70-99) White Blood Count 5.8 x10^3/uL (4.0-11.0) Red Blood Count 2.94 x10^6/uL (3.50-5.40) Hemoglobin 9.3 g/dL (12.0-15.5) Hematocrit 27.4 % (36.0-47.0) Mean Corpuscular Volume 93 fL (79-100) Mean Corpuscular Hemoglobin 32 pg (25-35) Mean Corpuscular Hemoglobin Concent 34 g/dL (31-37) Red Cell Distribution Width 14.3 % (11.5-14.5) Platelet Count 111 x10^3/uL (140-400) Neutrophils (%) (Auto) 69 % (31-73) Lymphocytes (%) (Auto) 23 % (24-48) Monocytes (%) (Auto) 7 % (0-9) Eosinophils (%) (Auto) 1 % (0-3) Basophils (%) (Auto) 1 % (0-3) Neutrophils # (Auto) 4.0 x10^3uL (1.8-7.7) Lymphocytes # (Auto) 1.3 x10^3/uL (1.0-4.8) Monocytes # (Auto) 0.4 x10^3/uL (0.0-1.1) Eosinophils # (Auto) 0.1 x10^3/uL (0.0-0.7) Basophils # (Auto) 0.0 x10^3/uL (0.0-0.2) Sodium Level 133 mmol/L (136-145) Potassium Level 3.9 mmol/L (3.5-5.1) Chloride Level 96 mmol/L (98-107) Carbon Dioxide Level 31 mmol/L (21-32) Anion Gap 6 (6-14) Blood Urea Nitrogen 36 mg/dL (7-20) Creatinine 6.9 mg/dL (0.6-1.0) Estimated GFR (Cockcroft-Gault) 6.3 Glucose Level 154 mg/dL (70-99) Calcium Level 8.3 mg/dL (8.5-10.1) Phosphorus Level 4.0 mg/dL (2.6-4.7) Albumin 2.8 g/dL (3.4-5.0) 25-Hydroxy Vitamin D Total 24.8 ng/mL (30-100) Microbiology 03/22/17 Urine Culture - Final, Complete 03/22/17 Urine Culture Result 1 (MOE) - Final, Complete Medication Medications Current Medications Al Hydroxide/Mg Hydroxide (Mylanta Plus Xs) 30 ml PRN Q2HR PRN PO HEARTBURN / GAS; Start 03/27/17 at 11:00 Darbepoetin Franck (Aranesp) 60 mcg WEEKLYHS SQ ; Start 03/31/17 at 21:00 Info (PHARMACY MONITORING -- do not chart) 1 each PRN DAILY PRN MC SEE COMMENTS ; Start 03/27/17 at 14:30; Status UNV Insulin Detemir (Levemir) 12 units QHS SQ ; Start 03/26/17 at 21:00 Sodium Chloride 1,000 ml @ 1,000 mls/hr Q1H PRN IV hypotension; Start at 14:19; Stop 03/27/17 at 20:18 Comment Review of Relevant I have reviewed the following items shi (where applicable) has been applied. DEBORAH FRIAS MD Mar 27, 2017 16:43
[2017-03-31] MEDS ORDERED: DARBEPOETIN ALFA 60 MCG/0.3 ML DISP.SYRIN. SQ SCH (21:00)
--- NOTE | 2017-04-23 23:40 | PDOC3 ---
Discharge Summary Visit Information Date of Admission: Mar 20, 2017 Date of Discharge: Mar 27, 2017 Admitting Diagnosis: RHOADES, dizziness, falls Final Diagnosis headache and dizzyness causing falls, accelerated htn 1. SDH: acute, 5 mm at left cerebral convexity. Neuro, NS following. no intervention 2. Metabolic encephalopathy: 2/2 above 3. HTN urgency: resolved, BP controlled 4. Hx Orthostatic hypotension: off midodrine, 5. DM2: brittle with severe hypoglycemia this AM. 6. ESRD: on HD MWF 7. Anemia: 2/2 renal dz 8. Thrombocytopenia: s 9. HCV: chronic 9. Hx of alcoholism: remote 4+ yrs 10. Enlarged brain ventricles: brain value loss or NPH 11. Schizophrenia: stable mood and affect. cont home regimen Problems Medical Problems: (1) Hypertension Status: Acute (2) Subdural hematoma Status: Acute Brief Hospital Course Allergies Allergies Coded Allergies Type Severity Reaction Last Updated Verified No Known Drug Allergies 03/04/17 No Brief Hospital Course Ms. Hickman is a 52 old woman admitted with critically elevated blood pressures and falls. She has chronic renal failure and is on hemodialysis. Her blood pressures were accelerated on admit . Mult falls, with orthostatic hypotension. A CT scan of the brain revealed a small subdural hematoma. neuro surg and Neuro followed DC to skilled in good condition Discharge Information Condition at Discharge: Improved Follow Up: Weeks Disposition/Orders: D/C to Another Facility (skilled) Scheduled Amlodipine Besylate (Norvasc), 1 TAB PO BID Aripiprazole (Abilify), 5 MG PO DAILY, (Reported) Aspirin (Aspirin Ec), 81 MG PO DAILYWBKFT Bupropion Hcl (Bupropion Xl), 300 MG PO DAILY, (Reported) Carvedilol (Coreg), 1 TAB PO BID Clonidine Hcl (Clonidine Hcl), 0.2 MG PO TID, (Reported) Gabapentin (Gabapentin), 300 MG PO QHS, (Reported) Gabapentin (Gabapentin), 200 MG PO TID, (Reported) Insulin Glargine,Hum.rec.anlog (Lantus Solostar), 12 UNIT SQ QHS, (Reported) Lamotrigine (Lamictal), 100 MG PO BID, (Reported) Lisinopril (Lisinopril), 1 TAB PO DAILY Midodrine Hcl (Midodrine Hcl), 10 MG PO TID Sevelamer Carbonate (Renvela), 2 TAB PO TID, (Reported) Topiramate (Topamax), 25 MG PO BID Trazodone Hcl (Trazodone Hcl), 150 MG PO HS, (Reported) Scheduled PRN Ondansetron (Zofran Odt), 4 MG PO PRN Q4HRS PRN for NAUSEA/VOMITING, (Reported) Oxycodone Hcl (Oxycodone Hcl), 5 MG PO Q6HRS PRN for PAIN Patient Instructions Patient Instructions > 30 min face to face MARCUS Dee MD Apr 23, 2017 23:40
== END 2017-03-27 15:00 | DRG 82 ==
LOC: ER 13:01 → 1 WEST ICU 15:30 → 5 SOUTH 03-25 08:28 → 1 WEST ICU 03-26 07:51 → 4 NORTH 03-26 13:59
PROVIDERS: ADMIT Internal Medicine; ATTEND Internal Medicine
PROC: 5A1D70Z Performance of Urinary Filtration, Intermittent, Less than 6 Hours Per Day (ICD-10-PCS; principal; 2017-03-20)
PROC: 5A1D70Z Performance of Urinary Filtration, Intermittent, Less than 6 Hours Per Day (ICD-10-PCS; 2017-03-25)
PROC: 5A1D70Z Performance of Urinary Filtration, Intermittent, Less than 6 Hours Per Day (ICD-10-PCS; 2017-03-27)
DX: S06.5X9A Traumatic subdural hemorrhage with loss of consciousness of unspecified duration, initial encounter (principal); N18.6 End stage renal disease; G93.41 Metabolic encephalopathy; D69.6 Thrombocytopenia, unspecified; E11.22 Type 2 diabetes mellitus with diabetic chronic kidney disease; E11.42 Type 2 diabetes mellitus with diabetic polyneuropathy; N17.9 Acute kidney failure, unspecified; E11.649 Type 2 diabetes mellitus with hypoglycemia without coma; I12.0 Hypertensive chronic kidney disease with stage 5 chronic kidney disease or end stage renal disease; E87.1 Hypo-osmolality and hyponatremia; E11.65 Type 2 diabetes mellitus with hyperglycemia; B18.2 Chronic viral hepatitis C; D63.1 Anemia in chronic kidney disease; E21.3 Hyperparathyroidism, unspecified; E78.5 Hyperlipidemia, unspecified; F10.21 Alcohol dependence, in remission; F20.9 Schizophrenia, unspecified; F22 Delusional disorders; G25.3 Myoclonus; G93.89 Other specified disorders of brain; I16.0 Hypertensive urgency; I95.1 Orthostatic hypotension; R56.9 Unspecified convulsions; S20.219A Contusion of unspecified front wall of thorax, initial encounter; F41.9 Anxiety disorder, unspecified; M19.90 Unspecified osteoarthritis, unspecified site; W10.8XXA Fall (on) (from) other stairs and steps, initial encounter; Z79.4 Long term (current) use of insulin; Z83.3 Family history of diabetes mellitus; Z86.73 Personal history of transient ischemic attack (TIA), and cerebral infarction without residual deficits; Z91.81 History of falling; Z87.11 Personal history of peptic ulcer disease; Z99.2 Dependence on renal dialysis; Y93.89 Activity, other specified; Y92.89 Other specified places as the place of occurrence of the external cause; Y99.8 Other external cause status; Z90.49 Acquired absence of other specified parts of digestive tract
CPT/HCPCS: 36415; 36600; 70450; 71010; 74174; 80048; 80053; 80069; 80307; 81001; 82306; 82805; 82962; 83735; 85025; 85610; 87040; 87086; 87205; 87641; 93005; 96374; 96375; J0360; J1630; J1815; J2060; J2270; J3010; J3490; J7030; J7042; J7050; Q9967; 92526; 92610; 97530; 97535; 99285-25; G0479

== ENCOUNTER 2017-10-20 00:47 | Emergency (ER) | payer MEDICARE, OTHER ==
[2017-10-20] MEDS: DEXTROSE 50% 25 GM / 50ML DISP.SYRIN. IV (00:51)
[2017-10-20 01:11] LABS: POC GLUCOSE 230 mg/dL (70-99)
[2017-10-20 01:11] LABS: POC GLUCOSE 51 mg/dL (70-99)
[2017-10-20 01:16] LABS: ADD MAN DIFF? NO
[2017-10-20 01:22] LABS: BASO # 0.1 x10^3/uL (0.0-0.2); BASO % 1 % (0-3); EOS # 0.1 x10^3/uL (0.0-0.7); EOS % 2 % (0-3); HEMATOCRIT 32.4 % (36.0-47.0); HEMOGLOBIN 11.2 g/dL (12.0-15.5); LYMPH # 1.4 x10^3/uL (1.0-4.8); LYMPH % 18 % (24-48); MEAN CORPUSCULAR HEMOGLOBIN 33 pg (25-35); MEAN CORPUSCULAR HGB CONC 35 g/dL (31-37); MEAN CORPUSCULAR VOLUME 94 fL (79-100); MONO # 0.5 x10^3/uL (0.0-1.1); MONO % 7 % (0-9); NEUT # 5.9 x10^3uL (1.8-7.7); NEUT % 73 % (31-73); PLATELET COUNT 165 x10^3/uL (140-400); RED BLOOD COUNT 3.44 x10^6/uL (3.50-5.40); RED CELL DISTRIBUTION WIDTH 14.1 % (11.5-14.5)
[2017-10-20 01:37] LABS: ANION GAP 12 (6-14); BLOOD UREA NITROGEN 36 mg/dL (7-20); BUN/CREATININE RATIO 6 (6-20); CALCIUM 9.3 mg/dL (8.5-10.1); CARBON DIOXIDE 28 mmol/L (21-32); CHLORIDE 102 mmol/L (98-107); CREATININE 6.4 mg/dL (0.6-1.0); GFR 6.8; GLUCOSE 64 mg/dL (70-99); POTASSIUM 3.5 mmol/L (3.5-5.1); SODIUM 142 mmol/L (136-145)
[2017-10-20 01:43] LABS: ALBUMIN 3.8 g/dL (3.4-5.0); ALBUMIN/GLOBULIN RATIO 0.8 (1.0-1.7); ALK PHOS 166 U/L (46-116); ALT (SGPT) 51 U/L (14-59); AST (SGOT) 36 U/L (15-37); TOTAL BILIRUBIN 0.5 mg/dL (0.2-1.0); TOTAL PROTEIN 8.8 g/dL (6.4-8.2)
[2017-10-20 03:01] LABS: POC GLUCOSE 212 mg/dL (70-99)
== END 2017-10-20 03:05 | disposition home or self-care (01) ==
LOC: ER 00:47
DX: E11.649 Type 2 diabetes mellitus with hypoglycemia without coma (principal); I12.0 Hypertensive chronic kidney disease with stage 5 chronic kidney disease or end stage renal disease; E11.22 Type 2 diabetes mellitus with diabetic chronic kidney disease; N18.6 End stage renal disease; E11.40 Type 2 diabetes mellitus with diabetic neuropathy, unspecified; Z99.2 Dependence on renal dialysis; Z79.4 Long term (current) use of insulin
CPT/HCPCS: 36415; 80053; 82962; 85025; 96374; 99284-25; 99285-25; J7042